=== PATIENT | male | born 1985 | race Hispanic/Latino ===

== ENCOUNTER 2016-10-15 18:49 | Inpatient (IN) | payer MEDICAID ==
[~2016-10-15] VITALS: Ht 172.7 cm; Wt 72.6 kg
[2016-10-15] VITALS (7 sets, daily range): BP systolic 104–131; BP diastolic 51–81
[~2016-10-15 18:49] MED LIST: HUMALOG100 UNIT/3 SUBQ; LANTUS5 UNITS SUBQ; LEVEMIR100 UNITS/ SUBQ; [UNRECOGNIZED DRUG - OTHER] PO
[2016-10-15] MEDS ORDERED: Etomidate 40mg/20ml Inj IV ONE (19:00)
[2016-10-15] MEDS ORDERED: Ampicillin/Sulbactam Sod 3 GM in NS 110 ML IVPB ONE (19:00)
--- NOTE | 2016-10-15 19:30 | Emergency Room Report ---
History of Present Illness General Chief Complaint: Dyspnea/Respdistress Source: EMS Present Illness HPI Patient is a 31-year-old male who presented after having a witnessed choking episode. Patient was noted to have prior history of blindness. The patient presented after having increased difficulty breathing. Patient had been eating immediately prior to onset of trouble breathing. The patient was noted to be mildly cyanotic his extremities by EMS. Per EMS report a foreign material is for the patient's airway and patient had foreign body in upper airway which was removed by Leonardo forceps. Patient had some chest compression briefly performed to help alleviate obstruction. Intubation was attempted prior to arrival without success due to teeth clenching. Onset was just prior to arrival , 911 call was approximately 15 minutes prior to arrival. Allergies: Coded Allergies: No Known Allergies (Unverified , 09/01/12) Patient History Past Medical History: see triage record Past Surgical History: unable to obtain Pertinent Family History: unable to obtain Reviewed Nursing Documentation: PMH: Agreed, PSxH: Agreed Nursing Documentation-PMH Hx Hypertension: Yes Hx Diabetes: Yes Review of Systems All Other Systems: limited - by acuity Physical Exam Vital Signs Date Time Temp Pulse Resp B/P Pulse Ox O2 Delivery O2 Flow Rate FiO2 10/15/16 18:42 120 16 192/102 97 Ambu-Bag 15.0 Sp02 EP Interpretation: abnormal General Appearance: severe distress Head: normocephalic ENT: uvula midline, other - foreign material in upper pharynx, no material visualized at vocal cords Neck: full range of motion Respiratory: wheezing, other - decreased breath sounds to left side Cardiovascular #1: normal inspection, no edema, tachycardia Gastrointestinal: normal inspection, soft, distended Musculoskeletal: normal inspection, back normal Neurologic: motor weakness, other - teeth clenched Procedures Critical Care Time Critical Care Time Critical care time excluding separately billed procedures was approximately 45minutes. Intubation Intubation : Consent: Emergent Time of Intubation: 19:10 Intubation Method: orotracheal Tube Size (cm): 8.0 Medications: Etomidate Breath Sounds after Intubation: right greater than left Intubation Complications: no complications Post Intubation Xray: Yes Attempts: One Patient Tolerated: Well Complications: None Medical Decision Making Diagnostic Impression: Primary Impression: Choking due to food in larynx Additional Impressions: Partial obstruction of airway Aspiration pneumonia ER Course Patient presented for difficulty breathing. Differential diagnosis included was not limited to foreign body aspiration, reactive airway disease, pulmonary embolism, myocardial infarction, pneumonia, among others.Because of complexity of patient's case laboratory testing and imaging studies were ordered.The patient was intubated for airway protection. The foreign material was removed with a Leonardo forcep. No material directly overlying the trachea was visualized by me. The patient was subsequently suctioned. ET tube was secured at 22 cm. Naso G-tube was placed to decompress the stomach. The patient started on mechanical ventilation.EKG interpreted by me shows sinus tachycardia without acute ST-T wave changes rate of 122. Chest Xray showed low lung volumes with left side infiltrate. Ct of chest read by radiology showed possible foreign body, infiltrate. Patient was started on IV fluids and IV antibiotics. Dr. Velma Meier was contacted for inpatient management. Patient was started on Diprivan drip. Dr. Sims was contacted for pulmonary consult. Labs Test 10/15/16 18:53 10/15/16 19:00 Arterial Blood pH 7.365 (7.350-7.450) Arterial Blood Partial Pressure CO2 54.5 mmHg (35.0-45.0) Arterial Blood Partial Pressure O2 398.5 mmHg (75.0-100.0) Arterial Blood HCO3 30.5 mmol/L (22.0-26.0) Arterial Blood Oxygen Saturation 99.1 % (92.0-98.0) Arterial Blood Base Excess 3.8 Jamel Test Positive White Blood Count 8.3 K/UL (4.8-10.8) Red Blood Count 4.39 M/UL (4.70-6.10) Hemoglobin 14.0 G/DL (14.2-18.0) Hematocrit 40.6 % (42.0-52.0) Mean Corpuscular Volume 92 FL (80-99) Mean Corpuscular Hemoglobin 31.9 PG (27.0-31.0) Mean Corpuscular Hemoglobin Concent 34.5 G/DL (32.0-36.0) Red Cell Distribution Width 11.9 % (11.6-14.8) Platelet Count 177 K/UL (150-450) Mean Platelet Volume 6.9 FL (6.5-10.1) Neutrophils (%) (Auto) 47.7 % (45.0-75.0) Lymphocytes (%) (Auto) 44.3 % (20.0-45.0) Monocytes (%) (Auto) 5.5 % (1.0-10.0) Eosinophils (%) (Auto) 1.4 % (0.0-3.0) Basophils (%) (Auto) 1.2 % (0.0-2.0) Sodium Level 140 mEQ/L (135-145) Potassium Level 3.8 mEQ/L (3.4-4.9) Chloride Level 96 mEQ/L (98-107) Carbon Dioxide Level 27 mEQ/L (20-30) Anion Gap 17 (5-15) Blood Urea Nitrogen 21 mg/dL (7-23) Creatinine 1.0 mg/dL (0.7-1.2) Estimat Glomerular Filtration Rate > 60 mL/min (>60) Glucose Level 278 mg/dL (74-106) Calcium Level 9.1 mg/dL (8.6-10.2) Total Bilirubin 0.3 mg/dL (0.0-1.2) Aspartate Amino Transf (AST/SGOT) 92 U/L (5-40) Alanine Aminotransferase (ALT/SGPT) 72 U/L (3-41) Alkaline Phosphatase 102 U/L (40-129) Total Protein 7.1 g/dL (6.6-8.7) Albumin 4.1 g/dL (3.5-5.2) Globulin 3.0 g/dL Albumin/Globulin Ratio 1.3 (1.0-2.7) EKG Diagnostic Results Rate: tachycardiac Rhythm: NSR ST Segments: no acute changes Rhythm Strip Diag. Results EP Interpretation: yes Rhythm: NSR, no PVC's, no ectopy Chest X-Ray Diagnostic Results EP Interpretation: Yes Findings: no effusion, no pneumothorax, no acute cardiopulmonary disease, other - left lung low lung volums Number of Views: 1 Last Vital Signs Date Time Temp Pulse Resp B/P Pulse Ox O2 Delivery O2 Flow Rate FiO2 10/15/16 18:42 120 16 192/102 97 Ambu-Bag 15.0 Status: improved Disposition: ADMITTED INPATIENT Condition: Critical Eugene Morales Oct 15, 2016 19:30
[2016-10-15] MEDS ORDERED: Unasyn 3gm Inj ONE (19:44)
[2016-10-15] MEDS ORDERED: Succinylcholine 20mg/ml 10ml vial ONE (19:48)
[2016-10-15 19:52] LABS: BASOPHILS % (AUTO) 1.2 % (0.0-2.0); EOSINOPHILS % (AUTO) 1.4 % (0.0-3.0); LYMPHOCYTES % (AUTO) 44.3 % (20.0-45.0); MEAN CORPUSCULAR HEMOGLOBIN 31.9 PG (27.0-31.0); MEAN CORPUSCULAR HGB CONC 34.5 G/DL (32.0-36.0); MEAN CORPUSCULAR VOLUME 92 FL (80-99); MEAN PLATELET VOLUME 6.9 FL (6.5-10.1); MONOCYTES % (AUTO) 5.5 % (1.0-10.0); NEUTROPHILS % (AUTO) 47.7 % (45.0-75.0); PLATELET COUNT 177 K/UL (150-450); RED BLOOD COUNT 4.39 M/UL (4.70-6.10); RED CELL DISTRIBUTION WIDTH 11.9 % (11.6-14.8); WHITE BLOOD COUNT 8.3 K/UL (4.8-10.8)
[2016-10-15 20:11] LABS: ALANINE AMINOTRANSFERASE 72 U/L (3-41); ALBUMIN/GLOBULIN RATIO 1.3 (1.0-2.7); ANION GAP 17 (5-15); ASPARTATE AMINO TRANSFERASE 92 U/L (5-40); CALCIUM 9.1 mg/dL (8.6-10.2); CARBON DIOXIDE 27 mEQ/L (20-30); CHLORIDE 96 mEQ/L (98-107); GLOMERULAR FILTRATION RATE > 60 mL/min (>60); HEMOLYSIS 42; POTASSIUM 3.8 mEQ/L (3.4-4.9); SODIUM 140 mEQ/L (135-145); TOTAL PROTEIN 7.1 g/dL (6.6-8.7)
[2016-10-15 20:44] LABS: ABG PCO2 54.5 mmHg (35.0-45.0)
[2016-10-15 20:45] LABS: ABG ALLEN TEST POSITIVE; ABG BASE EXCESS 3.8
[2016-10-15] MEDS ORDERED: DuoNeb 0.5-3(2.5)mg/3ml neb HHN PRN (23:45)
[2016-10-15] MEDS ORDERED: fentaNYL 100 mcg/2 mL IV ONE (23:45)
[2016-10-15] MEDS ORDERED: Pneumococcal Vaccine 25mcg/0.5ml IM ONE (23:45)
[2016-10-16] VITALS (22 sets, daily range): BP systolic 77–148; BP diastolic 40–82
[2016-10-16] MEDS ORDERED: 1/2NS w/KCl 20mEq 1000ml 1,000 ML IV SCH (00:36)
[2016-10-16] MEDS ORDERED: Unasyn 3gm Inj ONE (01:39)
[2016-10-16] MEDS ORDERED: Unasyn 3gm Inj IV SCH (02:00)
[2016-10-16] MEDS ORDERED: Unasyn 3gm in NS 110ml IVPB SCH (02:00)
[2016-10-16 05:40] LABS: MEAN CORPUSCULAR HEMOGLOBIN 30.2 PG (27.0-31.0); MEAN CORPUSCULAR HGB CONC 32.8 G/DL (32.0-36.0); MEAN CORPUSCULAR VOLUME 92 FL (80-99); MEAN PLATELET VOLUME 7.8 FL (6.5-10.1); PLATELET COUNT 158 K/UL (150-450); RED BLOOD COUNT 3.91 M/UL (4.70-6.10); RED CELL DISTRIBUTION WIDTH 11.9 % (11.6-14.8); WHITE BLOOD COUNT 12.7 K/UL (4.8-10.8)
[2016-10-16 05:56] LABS: ANION GAP 11 (5-15); CALCIUM 6.9 mg/dL (8.6-10.2); CARBON DIOXIDE 20 mEQ/L (20-30); CHLORIDE 97 mEQ/L (98-107); CREATININE 0.7 mg/dL (0.7-1.2); GLOMERULAR FILTRATION RATE > 60 mL/min (>60); HEMOLYSIS 8; MAGNESIUM 1.3 mg/dL (1.7-2.5); SODIUM 128 mEQ/L (135-145)
[2016-10-16 06:04] LABS: POTASSIUM 8.5 mEQ/L (3.4-4.9)
[2016-10-16] MEDS: Pantoprazole Inj IV SCH (08:32)
[2016-10-16] MEDS: Heparin 5000 units/ml inj SUBQ SCH ×2 (08:33→20:35)
[2016-10-16 08:36] LABS: ABG ALLEN TEST POSITIVE; ABG BASE EXCESS 0.9; ABG PCO2 38.5 mmHg (35.0-45.0)
--- NOTE | 2016-10-16 08:54 | Critical Care Progress Note ---
Assessment/Plan Assessment/Plan possible aspiration respiratory failure aspiration event leukocytosis anemia PLAN ventilator bronchoscopy supportive care update mother iv hydration ICU care Critical Care - Subjective Interval Events: findings discussed asked to assist possible aspiration event now intubated ROS Limited/Unobtainable: Yes Condition: critical EKG Rhythm: Sinus Rhythm I&O: Intake and Output 10/15/16 10/16/16 19:00 07:00 Intake Total 320 ml Output Total 2559 ml Balance -2239 ml Intake IV Total 320 ml Output Urine Total 2559 ml Critical Care - Objective ET-Tube: 8.0 ET Position: 23 Last 24 Hour Vital Signs Date Time Temp Pulse Resp B/P Pulse Ox O2 Delivery O2 Flow Rate FiO2 10/16/16 08:00 98.5 93 20 109/73 93 Mechanical Ventilator 40 10/16/16 08:00 40 10/16/16 07:22 97.9 92 20 119/74 93 Mechanical Ventilator 15.0 40 10/16/16 06:57 90 20 40 10/16/16 06:45 97.9 92 20 119/74 93 Mechanical Ventilator 15.0 40 10/16/16 05:27 97.9 96 20 121/66 95 Mechanical Ventilator 15.0 40 10/16/16 05:19 95 20 40 10/16/16 04:12 97.9 94 20 123/75 99 Mechanical Ventilator 15.0 30 10/16/16 03:19 97.9 94 20 113/71 99 Mechanical Ventilator 15.0 30 10/16/16 03:01 95 20 30 10/16/16 02:29 20 10/16/16 01:51 97.0 98 20 110/61 99 Mechanical Ventilator 15.0 30 10/16/16 01:05 15.0 30 10/16/16 01:04 99 20 30 10/16/16 00:28 97.0 10/16/16 00:26 97.0 97 20 99/67 99 Mechanical Ventilator 15.0 50 10/16/16 00:24 20 10/15/16 23:14 108 20 50 10/15/16 23:04 15.0 50 10/15/16 23:03 97.0 107 20 108/70 99 Mechanical Ventilator 15.0 60 10/15/16 22:53 97.0 107 20 117/71 99 Mechanical Ventilator 15.0 60 10/15/16 22:25 97.0 106 20 108/63 99 Mechanical Ventilator 15.0 60 10/15/16 22:14 20 10/15/16 21:11 97.0 108 20 104/51 99 Mechanical Ventilator 15.0 60 10/15/16 21:00 97.0 110 20 109/57 99 Mechanical Ventilator 15.0 60 10/15/16 20:59 15.0 60 10/15/16 20:56 20 10/15/16 20:55 103 20 60 10/15/16 19:44 15.0 100 10/15/16 19:43 114 18 123/80 99 Mechanical Ventilator 15.0 10/15/16 19:23 18 10/15/16 19:00 116 32 131/81 83 Ambu-Bag 10/15/16 19:00 120 16 Ambu-Bag 15.0 10/15/16 18:50 120 20 Mechanical Ventilator 100 10/15/16 18:50 120 20 100 10/15/16 18:42 120 16 192/102 97 Ambu-Bag 15.0 Objective: WDWN NAD clear breath sounds bilaterally without rhonchi or wheeze [id number] without MRG NABS nontender no HSM no CCE nonfocal intubated and sedated Micro: Microbiology Date/Time Source Procedure Growth Status 10/15/16 17:15 Rectum VRE Culture - Final NO VANCOMYCIN RESISTANT ENTEROCOCCUS ... Resulted Accucheck: 287 IZABEL HASTINGS October 16, 2016 08:54
[2016-10-16] MEDS ORDERED: Desmopressin Nasal 5ml NASAL SCH (09:00)
[2016-10-16] MEDS: NovoLOG Insulin Flexpen SUBQ SCH ×4 (09:08→20:36)
[2016-10-16] MEDS: NS w/KCl 20mEq 1,000 ML IV SCH ×2 (09:18→17:17)
--- NOTE | 2016-10-16 09:51 | Diagnostic Imaging Report ---
Clinical Indication: PAIN Technique: Spiral acquisitions obtained through the chest. No IV contrast utilized, reason not stated. Multiplanar reconstructions generated. Total dose length product 560 mGycm. CTDIvol(s) 19 mGy. Dose reduction achieved using automated exposure control Comparison: None Findings:There is dense consolidation of most of the left upper lobe. There is consolidation and atelectasis of a considerable portion of the posterior superior left lower lobe. Extensive debris is seen in the left mainstem bronchus nearly occluding it. Interstitial and airspace opacities are seen within most of the right upper lobe, to a lesser extent in the right middle lobe and superior segment right lower lobe. No effusions. No definite congestion. There is an endotracheal tube in place, tip of which terminates just above the cee. There is a nasogastric tube in place, tip within the gastric fundus. Considerable debris is seen within the esophagus. The heart size is normal. There is no evidence of pericardial effusion. No mediastinal or hilar mass or adenopathy. The included portions of the thyroid are unremarkable. The bones are unremarkable. The included upper abdominal anatomy demonstrates considerable gastric distention with presumably food. The lowest cuts suggest right hydronephrosis. Impression: Dense consolidation of most of the left upper lobe, and a considerable portion of the left lower lobe. Less confluent interstitial and airspace opacities seen within the right lung, as described. Findings most likely reflect pneumonia. Evidence of secretions within the left mainstem bronchus, nearly occluding it Satisfactory endotracheal and nasogastric intubation Gastric distention, despite the presence of a nasogastric tube Possible right hydronephrosis, incompletely visualized on the lowest slices. Consider ultrasound for further dilation This agrees with the preliminary interpretation provided overnight by [facility] teleradiology service. The CT scanner at [facility] is accredited by the [employer] and the scans are performed using protocols designed to limit radiation exposure to as low as reasonably achievable to attain images of sufficient resolution adequate for diagnostic evaluation.
[2016-10-16 09:56] LABS: BAND NEUTROPHILS % (MANUAL) 0 % (0-8); BASOPHILS % (MANUAL) 0 % (0-2); EOSINOPHILS % (MANUAL) 0 % (0-3); LYMPHOCYTES % (MANUAL) 6 % (20-45); NEUTROPHILS % (MANUAL) 89 % (45-75); PLATELET ESTIMATE ADEQUATE; PLATELET MORPHOLOGY NORMAL; TOTAL CELLS COUNTED 100
[2016-10-16] MEDS: HYDROmorphone 1mg/ml Carpuject IVP PRN ×2 (10:48→19:29)
[2016-10-16] MEDS: Vancomycin 1gm/D5W 275ml IVPB SCH ×4 (11:15→17:17)
[2016-10-16] MEDS ORDERED: Sodium Phosphate 30 MM in NS 275 ML IVPB ONE (12:00)
[2016-10-16] MEDS ORDERED: HYDROmorphone 1mg/ml Carpuject IVP ONE (12:45)
[2016-10-16] MEDS: Piperacillin/Tazobactam 3.375 GM in D5W 110 ML IVPB SCH ×2 (13:04→22:00)
--- NOTE | 2016-10-16 13:51 | Diagnostic Imaging Report ---
Indication: Dyspnea Technique: One view of the chest Comparison: 10/15/2016 Findings: Better inspiration the current study. Stable satisfactory position of endotracheal tube. Interim placement of a nasogastric tube, tip projected at the level gastric fundus. Interval decompression of the stomach. Increasing consolidation is seen in the left mid and upper lung. Some mixed interstitial and alveolar disease is also seen in the right perihilar region, also apparently slightly increased. The heart size is normal. The pleural spaces are clear Impression: Allowing for technical differences, suspect worsening of bilateral left greater than right pulmonary parenchymal disease over one day Successful nasogastric tube placement. Resultant gastric decompression
--- NOTE | 2016-10-16 13:51 | Diagnostic Imaging Report ---
Indication: SOB, status post intubation Technique: One view of the chest Comparison: none Findings: Satisfactory position of endotracheal tube, tip approximately 4 cm above the cee. Hazy consolidation is seen in the left mid and upper lung, possibly the retrocardiac region as well. There is minimal interstitial disease in the right upper lobe. The stomach is massively distended with gas. Impression: Satisfactory endotracheal intubation Bilateral left greater than right parenchymal infiltrates
--- NOTE | 2016-10-16 14:48 | History and Physical Report ---
DATE OF ADMISSION: 10/15/2016 CHIEF COMPLAINT: Choking on food. HISTORY OF PRESENT ILLNESS: This is an unfortunate 31-year-old male, who is followed at [facility]. His primary physician is Dr. Blair Bullock. The patient has DIDMOAD syndrome which includes diabetes insipidus, type 1 diabetes mellitus, optical atrophy, and deafness. The patient also is followed at [facility] for his optical atrophy and deafness. The patient choked on food. He was transferred via paramedics to this hospital. He was intubated by paramedics. The patient is admitted to ICU. MEDICATIONS: Currently, the patient is on propofol drip and him and his family are not able to give any further information. The information is retrieved from medical record. PAST MEDICAL HISTORY: DIDMOAD syndrome which includes the above-mentioned diabetes insipidus, type 1 diabetes mellitus, optical atrophy, and deafness. MEDICATIONS: Home medications include cholecalciferol, insulin detemir, insulin lispro, DDAVP. ALLERGIES: None reported. FAMILY HISTORY: Unable to obtain. SOCIAL HISTORY: Unable to obtain. PHYSICAL EXAMINATION: GENERAL: This is a young male, who is on the ventilator. The patient is currently sedated. VITAL SIGNS: Blood pressure 119/74, pulse 93 and regular, respirations 20, and temperature 97.9 axillary. HEENT: The head is normocephalic and atraumatic. The patient is sedated. NECK: Supple. Trachea midline. The patient is intubated transorally. LUNGS: Few bilateral rhonchi. HEART: Regular rate and rhythm without rubs, murmurs, or gallops. ABDOMEN: Soft. Bowel sounds were active. EXTREMITIES: No clubbing, cyanosis, or edema. NEUROLOGICAL: No focal signs were noted. LABORATORY AND ANCILLARY DATA: CBC on admission, white count 8.3, today 12,700. The patient's hematocrit was 40.6 and today 36. His potassium today was 4.4, phosphorus 1.2, magnesium 1.3. The rest of the chemistries still pending. ABGs, pH 7.365, pCO2 of 55, pO2 of 399, and bicarbonate 30.5. On admission, his sodium was 128, potassium 4.4, glucose 256, calcium 6.9, phosphorus 1.2, magnesium 1.3. AST 92, ALT 72. CK 636. NG tube was inserted. EKG shows sinus tachycardia without acute ST-T changes. Chest x-ray showed low lung volumes with left-sided infiltrate. ASSESSMENT: 1. Foreign body massive aspiration. 2. Acute respiratory distress secondary to the above. 3. Multiple electrolyte abnormalities including hypophosphatemia, hypomagnesemia, hyponatremia. 4. DIDMOAD syndrome which includes the above-mentioned diabetes insipidus, type 1 diabetes mellitus, optical atrophy, and deafness. Currently I doubt diabetes insipidus due to the existence of hyponatremia. PLAN: 1. Continue home medications. I will hold DDAVP. 2. Pulmonary consult. 3. Consider infectious disease consult. [place] M.D. DR: Gino JOB#: [id number] CC:
[2016-10-16 17:44] LABS: ABG BASE EXCESS -0.2; ABG PCO2 47.8 mmHg (35.0-45.0)
[2016-10-16 17:45] LABS: ABG ALLEN TEST POSITIVE
[2016-10-16] MEDS: Acetaminophen 650 MG SUPP RECTAL PRN (20:33)
[2016-10-16] MEDS: Levemir Flexpen SUBQ SCH (20:35)
[2016-10-17] VITALS (24 sets, daily range): BP systolic 108–149; BP diastolic 56–91
[2016-10-17] MEDS: Vancomycin 1gm/D5W 275ml IVPB SCH ×2 (01:29)
[2016-10-17] MEDS: NS w/KCl 20mEq 1,000 ML IV SCH (01:29)
--- NOTE | 2016-10-17 03:18 | Operative Note - Dictated ---
DATE OF OPERATION: 10/16/2016 PREOPERATIVE DIAGNOSIS: Aspiration. POSTOPERATIVE DIAGNOSIS: Aspiration. INDICATION: Respiratory failure and reported choking episode. CONSENT: After risks and benefits of the procedure were explained to the patient's mother, a signed informed consent was obtained and placed in the chart. DESCRIPTION OF PROCEDURE: Using conscious sedation with additional Dilaudid, a fiberoptic bronchoscope was passed via the endotracheal tube. There was evidence of small what appeared to be degraded pieces of food material mixed in with thick sputum. The patient's right bronchus intermedius was blocked with secretion/degraded food material. Multiple installations of saline were instilled with good resolution in clearance of the airway. The left main stem is well blocked with similar material and after multiple extubations and removal of particles, the airways were fully cleared from any residual particles. The patient required 100% FiO2 with significant improvement than at 40% shortly after the completion of the procedure. The airways were aggressively lavaged to clear. No residual material or secretions remained at the completion of the procedure. The patient was monitored closely with RN and RT assistance. The patient tolerated the procedure well. The patient stable after completion of procedure. We will continue to monitor her throughout the procedure and was noted to be within normal range. The patient will remain in the ICU. FINDINGS: 1. Copious amount of degraded material/secretions blocking the bronchus intermedius as well as the left main stem fully lavaged. 2. Significant tracheobronchitis and friable mucosa bilaterally. 3. Status post removal of degraded material/food particles. Charles Sims M.D. DR: STAS JOB#: [id number] CC: JUNG
[2016-10-17] MEDS: Piperacillin/Tazobactam 3.375 GM in D5W 110 ML IVPB SCH ×3 (05:38→21:50)
[2016-10-17] MEDS: Acetaminophen 650 MG SUPP RECTAL PRN (05:38)
[2016-10-17] MEDS: NovoLOG Insulin Flexpen SUBQ SCH ×4 (05:40→20:39)
[2016-10-17 06:47] LABS: ANION GAP 15 (5-15); CARBON DIOXIDE 25 mEQ/L (20-30); CHLORIDE 115 mEQ/L (98-107); CREATININE 0.9 mg/dL (0.7-1.2); GLOMERULAR FILTRATION RATE > 60 mL/min (>60); HEMOLYSIS 2; POTASSIUM 3.8 mEQ/L (3.4-4.9); SODIUM 155 mEQ/L (135-145)
--- NOTE | 2016-10-17 08:15 | Cardiology Report ---
APPROVED REPORT EKG Measurement Heart [id number] ID [id number] Sinus tachycardia Rightward axis Borderline ECG
[2016-10-17 08:18] LABS: ABG ALLEN TEST POSITIVE; ABG BASE EXCESS 0.3; ABG PCO2 57.7 mmHg (35.0-45.0)
--- NOTE | 2016-10-17 08:31 | Critical Care Progress Note ---
Assessment/Plan Assessment/Plan aspiration s/p bronchoscopy pulmonary infiltrates respiratory failure aspiration event leukocytosis anemia sinus tachycardia agitation PLAN ventilator- weaning well extubate bronchoscopy with significant improvement supportive care update mother iv hydration follow up cxr and abg titrate oxygen saturations ICU care Critical Care - Subjective Interval Events: improved oxygenation much improved weaning well agitated ROS Limited/Unobtainable: Yes Condition: critical EKG Rhythm: Sinus Tachycardia I&O: Intake and Output 10/16/16 10/17/16 19:00 07:00 Intake Total 1595.000 ml 2004.916 ml Output Total 2100 ml 1975 ml Balance -505.000 ml 29.916 ml Intake IV Total 1595.000 ml 2004.916 ml Output Urine Total 2100 ml 1975 ml # Voids 50 # Bowel Movements 2 Critical Care - Objective ET-Tube: 8.0 ET Position: 22 Last 24 Hour Vital Signs Date Time Temp Pulse Resp B/P Pulse Ox O2 Delivery O2 Flow Rate FiO2 10/17/16 08:00 98.9 138 35 134/82 98 Mechanical Ventilator 40 10/17/16 08:00 133 10/17/16 08:00 40 10/17/16 07:00 124 20 141/72 97 Mechanical Ventilator 40 10/17/16 06:58 111 22 40 10/17/16 06:08 99.1 10/17/16 06:00 99.1 107 20 115/63 97 Mechanical Ventilator 40 10/17/16 05:26 127 20 40 10/17/16 05:00 125 20 135/58 97 Mechanical Ventilator 40 10/17/16 04:00 40 10/17/16 04:00 100.1 118 20 129/56 97 Mechanical Ventilator 40 10/17/16 04:00 118 10/17/16 03:10 101 20 40 10/17/16 03:00 106 20 125/62 97 Mechanical Ventilator 40 10/17/16 02:00 106 20 108/68 97 Mechanical Ventilator 40 10/17/16 01:00 93 20 111/60 97 Mechanical Ventilator 40 10/17/16 00:34 105 20 40 10/17/16 00:00 40 10/17/16 00:00 105 10/17/16 00:00 98.7 105 20 116/70 97 Mechanical Ventilator 40 10/16/16 23:16 104 20 40 10/16/16 23:00 104 20 110/63 97 Mechanical Ventilator 40 10/16/16 22:00 103 20 99/61 97 Mechanical Ventilator 40 10/16/16 21:02 112 20 40 10/16/16 21:00 99.0 112 20 101/64 97 Mechanical Ventilator 40 10/16/16 20:00 123 10/16/16 20:00 40 10/16/16 20:00 101.0 115 20 77/40 96 Mechanical Ventilator 40 10/16/16 19:35 98.9 10/16/16 19:27 137 20 40 10/16/16 19:00 130 23 132/73 97 Mechanical Ventilator 40 10/16/16 18:00 131 20 121/72 97 Mechanical Ventilator 40 10/16/16 17:06 129 20 100 10/16/16 17:00 124 22 128/68 93 Mechanical Ventilator 40 10/16/16 16:00 118 10/16/16 16:00 98.9 127 20 127/68 96 Mechanical Ventilator 100 10/16/16 16:00 40 10/16/16 15:06 129 20 100 10/16/16 15:00 129 22 129/81 97 Mechanical Ventilator 40 10/16/16 14:00 112 20 122/82 96 Mechanical Ventilator 50 10/16/16 13:00 106 20 106/59 98 Mechanical Ventilator 100 10/16/16 12:00 98.8 115 21 118/63 88 Mechanical Ventilator 100 10/16/16 12:00 118 10/16/16 12:00 100 10/16/16 11:57 114 20 100 10/16/16 11:26 120 20 100 10/16/16 11:00 120 20 89/48 72 Mechanical Ventilator 50 10/16/16 10:00 121 20 148/81 91 Mechanical Ventilator 50 10/16/16 09:10 97 25 100 10/16/16 09:00 115 20 140/78 92 Mechanical Ventilator 40 Labs: Labs Test 10/15/16 18:53 10/15/16 19:00 10/16/16 04:00 10/16/16 05:22 Arterial Blood pH 7.365 (7.350-7.450) 7.431 (7.350-7.450) Arterial Blood Partial Pressure CO2 54.5 mmHg (35.0-45.0) 38.5 mmHg (35.0-45.0) Arterial Blood Partial Pressure O2 398.5 mmHg (75.0-100.0) 64.0 mmHg (75.0-100.0) Arterial Blood HCO3 30.5 mmol/L (22.0-26.0) 25.0 mmol/L (22.0-26.0) Arterial Blood Oxygen Saturation 99.1 % (92.0-98.0) 88.6 % (92.0-98.0) Arterial Blood Base Excess 3.8 0.9 Jamel Test Positive Positive White Blood Count 8.3 K/UL (4.8-10.8) 12.7 K/UL (4.8-10.8) Red Blood Count 4.39 M/UL (4.70-6.10) 3.91 M/UL (4.70-6.10) Hemoglobin 14.0 G/DL (14.2-18.0) 11.8 G/DL (14.2-18.0) Hematocrit 40.6 % (42.0-52.0) 36.0 % (42.0-52.0) Mean Corpuscular Volume 92 FL (80-99) 92 FL (80-99) Mean Corpuscular Hemoglobin 31.9 PG (27.0-31.0) 30.2 PG (27.0-31.0) Mean Corpuscular Hemoglobin Concent 34.5 G/DL (32.0-36.0) 32.8 G/DL (32.0-36.0) Red Cell Distribution Width 11.9 % (11.6-14.8) 11.9 % (11.6-14.8) Platelet Count 177 K/UL (150-450) 158 K/UL (150-450) Mean Platelet Volume 6.9 FL (6.5-10.1) 7.8 FL (6.5-10.1) Neutrophils (%) (Auto) 47.7 % (45.0-75.0) % (45.0-75.0) Lymphocytes (%) (Auto) 44.3 % (20.0-45.0) % (20.0-45.0) Monocytes (%) (Auto) 5.5 % (1.0-10.0) % (1.0-10.0) Eosinophils (%) (Auto) 1.4 % (0.0-3.0) % (0.0-3.0) Basophils (%) (Auto) 1.2 % (0.0-2.0) % (0.0-2.0) Sodium Level 140 mEQ/L (135-145) 128 mEQ/L (135-145) Potassium Level 3.8 mEQ/L (3.4-4.9) 8.5 mEQ/L (3.4-4.9) Chloride Level 96 mEQ/L (98-107) 97 mEQ/L (98-107) Carbon Dioxide Level 27 mEQ/L (20-30) 20 mEQ/L (20-30) Anion Gap 17 (5-15) 11 (5-15) Blood Urea Nitrogen 21 mg/dL (7-23) 14 mg/dL (7-23) Creatinine 1.0 mg/dL (0.7-1.2) 0.7 mg/dL (0.7-1.2) Estimat Glomerular Filtration Rate > 60 mL/min (>60) > 60 mL/min (>60) Glucose Level 278 mg/dL (74-106) 256 mg/dL (74-106) Calcium Level 9.1 mg/dL (8.6-10.2) 6.9 mg/dL (8.6-10.2) Total Bilirubin 0.3 mg/dL (0.0-1.2) Aspartate Amino Transf (AST/SGOT) 92 U/L (5-40) Alanine Aminotransferase (ALT/SGPT) 72 U/L (3-41) Alkaline Phosphatase 102 U/L (40-129) Total Protein 7.1 g/dL (6.6-8.7) Albumin 4.1 g/dL (3.5-5.2) Globulin 3.0 g/dL Albumin/Globulin Ratio 1.3 (1.0-2.7) Differential Total Cells Counted 100 Neutrophils % (Manual) 89 % (45-75) Lymphocytes % (Manual) 6 % (20-45) Monocytes % (Manual) 5 % (1-10) Eosinophils % (Manual) 0 % (0-3) Basophils % (Manual) 0 % (0-2) Band Neutrophils 0 % (0-8) Platelet Estimate Adequate Platelet Morphology Normal Red Blood Cell Morphology Normal Hemoglobin A1c 7.7 % (< 6.0) Phosphorus Level 1.2 mg/dL (2.5-4.8) Magnesium Level 1.3 mg/dL (1.7-2.5) Test 10/16/16 06:24 10/16/16 17:40 10/17/16 05:30 10/17/16 08:10 Sodium Level 145 mEQ/L (135-145) 155 mEQ/L (135-145) Potassium Level 4.4 mEQ/L (3.4-4.9) 3.8 mEQ/L (3.4-4.9) Arterial Blood pH 7.353 (7.350-7.450) 7.304 (7.350-7.450) Arterial Blood Partial Pressure CO2 47.8 mmHg (35.0-45.0) 57.7 mmHg (35.0-45.0) Arterial Blood Partial Pressure O2 65.9 mmHg (75.0-100.0) 78.5 mmHg (75.0-100.0) Arterial Blood HCO3 26.0 mmol/L (22.0-26.0) 28.0 mmol/L (22.0-26.0) Arterial Blood Oxygen Saturation 91.4 % (92.0-98.0) 93.9 % (92.0-98.0) Arterial Blood Base Excess -0.2 0.3 Jamel Test Positive Positive Chloride Level 115 mEQ/L (98-107) Carbon Dioxide Level 25 mEQ/L (20-30) Anion Gap 15 (5-15) Blood Urea Nitrogen 9 mg/dL (7-23) Creatinine 0.9 mg/dL (0.7-1.2) Estimat Glomerular Filtration Rate > 60 mL/min (>60) Glucose Level 261 mg/dL (74-106) Calcium Level 9.0 mg/dL (8.6-10.2) Test 10/17/16 08:15 Objective: WDWN NAD clear breath sounds bilaterally without rhonchi or wheeze S1S2RR tachy without MRG NABS nontender no HSM no CCE nonfocal intubated and agitated Micro: Microbiology Date/Time Source Procedure Growth Status 10/15/16 17:15 Nasal Nares MRSA Culture - Final NO METHICILLIN RESISTANT STAPH AUREUS... Complete 10/15/16 17:15 Rectum VRE Culture - Final NO VANCOMYCIN RESISTANT ENTEROCOCCUS ... Complete Accucheck: 218 IZABEL HASTINGS October 17, 2016 08:31
[2016-10-17] MEDS: Pantoprazole Inj IV SCH (08:43)
[2016-10-17] MEDS: Heparin 5000 units/ml inj SUBQ SCH ×2 (08:46→20:37)
[2016-10-17] MEDS ORDERED: Desmopressin Nasal 5ml NASAL SCH (09:00)
[2016-10-17] MEDS: 1/2NS w/KCl 20mEq 1000ml 1,000 ML IV SCH ×2 (09:10→16:03)
--- NOTE | 2016-10-17 10:14 | General Progress Note ---
Assessment/Plan Assessment/Plan Resolved Respiratory Failure DI - worsening Serum Osmolality. Needs desmopressin [facility] To get sq ! Subjective Allergies: Coded Allergies: No Known Allergies (Unverified , 09/01/12) Subjective Extubated. Deaf. Blind. Objective Last 24 Hour Vital Signs Date Time Temp Pulse Resp B/P Pulse Ox O2 Delivery O2 Flow Rate FiO2 10/17/16 10:00 133 30 135/70 95 Venturi Mask 8.0 10/17/16 09:00 134 21 143/75 95 Venturi Mask 8.0 10/17/16 08:00 98.9 138 35 134/82 98 Mechanical Ventilator 40 10/17/16 08:00 133 10/17/16 08:00 40 10/17/16 07:00 124 20 141/72 97 Mechanical Ventilator 40 10/17/16 06:58 111 22 40 10/17/16 06:08 99.1 10/17/16 06:00 99.1 107 20 115/63 97 Mechanical Ventilator 40 10/17/16 05:26 127 20 40 10/17/16 05:00 125 20 135/58 97 Mechanical Ventilator 40 10/17/16 04:00 40 10/17/16 04:00 100.1 118 20 129/56 97 Mechanical Ventilator 40 10/17/16 04:00 118 10/17/16 03:10 101 20 40 10/17/16 03:00 106 20 125/62 97 Mechanical Ventilator 40 10/17/16 02:00 106 20 108/68 97 Mechanical Ventilator 40 10/17/16 01:00 93 20 111/60 97 Mechanical Ventilator 40 10/17/16 00:34 105 20 40 10/17/16 00:00 40 10/17/16 00:00 105 10/17/16 00:00 98.7 105 20 116/70 97 Mechanical Ventilator 40 10/16/16 23:16 104 20 40 10/16/16 23:00 104 20 110/63 97 Mechanical Ventilator 40 10/16/16 22:00 103 20 99/61 97 Mechanical Ventilator 40 10/16/16 21:02 112 20 40 10/16/16 21:00 99.0 112 20 101/64 97 Mechanical Ventilator 40 10/16/16 20:00 123 10/16/16 20:00 40 10/16/16 20:00 101.0 115 20 77/40 96 Mechanical Ventilator 40 10/16/16 19:35 98.9 10/16/16 19:27 137 20 40 10/16/16 19:00 130 23 132/73 97 Mechanical Ventilator 40 10/16/16 18:00 131 20 121/72 97 Mechanical Ventilator 40 10/16/16 17:06 129 20 100 10/16/16 17:00 124 22 128/68 93 Mechanical Ventilator 40 10/16/16 16:00 118 10/16/16 16:00 98.9 127 20 127/68 96 Mechanical Ventilator 100 10/16/16 16:00 40 10/16/16 15:06 129 20 100 10/16/16 15:00 129 22 129/81 97 Mechanical Ventilator 40 10/16/16 14:00 112 20 122/82 96 Mechanical Ventilator 50 10/16/16 13:00 106 20 106/59 98 Mechanical Ventilator 100 10/16/16 12:00 98.8 115 21 118/63 88 Mechanical Ventilator 100 10/16/16 12:00 118 10/16/16 12:00 100 10/16/16 11:57 114 20 100 10/16/16 11:26 120 20 100 10/16/16 11:00 120 20 89/48 72 Mechanical Ventilator 50 Intake and Output 10/16/16 10/17/16 19:00 07:00 Intake Total 1595.000 ml 2004.916 ml Output Total 2100 ml 1975 ml Balance -505.000 ml 29.916 ml IV Total 1595.000 ml 2004.916 ml Output Urine Total 2100 ml 1975 ml # Voids 50 # Bowel Movements 2 Laboratory Tests 10/16/16 17:40: Arterial Blood pH 7.353, Arterial Blood Partial Pressure CO2 47.8H, Arterial Blood Partial Pressure O2 65.9L, Arterial Blood HCO3 26.0, Arterial Blood Oxygen Saturation 91.4L, Arterial Blood Base Excess -0.2, Jamel Test Positive 10/17/16 05:30: Sodium Level 155#H, Potassium Level 3.8, Chloride Level 115H, Carbon Dioxide Level 25, Anion Gap 15, Blood Urea Nitrogen 9, Creatinine 0.9, Estimat Glomerular Filtration Rate > 60, Glucose Level 261H, Calcium Level 9.0# 10/17/16 08:10: Arterial Blood pH 7.304L, Arterial Blood Partial Pressure CO2 57.7*H, Arterial Blood Partial Pressure O2 78.5, Arterial Blood HCO3 28.0H, Arterial Blood Oxygen Saturation 93.9, Arterial Blood Base Excess 0.3, Jamel Test Positive 10/17/16 08:15: Urine Osmolality [Pending] 10/17/16 09:15: Vancomycin Level Trough [Pending] Height (Feet): 5 Height (Inches): 8.00 Weight (Pounds): 160 Objective Deaf. Blind. Cv RR Lungs CTA Abd SNT. BS + E No CCE RENETTA SOMMER October 17, 2016 10:14
[2016-10-17] MEDS ORDERED: Desmopressin (DDAVP) Inj IV SCH ×2 (10:15→21:00)
[2016-10-17] MEDS: Desmopressin (DDAVP) Inj SUBQ SCH ×2 (10:17→10:57)
[2016-10-17] MEDS ORDERED: Vancomycin 1.5 GM in D5W 325 ML IVPB SCH ×4 (11:00)
--- NOTE | 2016-10-17 12:47 | Diagnostic Imaging Report ---
Indication: Dyspnea Comparison: 10/16/16 A single view chest radiograph was obtained. Findings: Patchy left upper lobe infiltrate is present. Perihilar infiltrates also noted. Heart size is normal. Patient has been extubated. Nasogastric tube remains in good position. Impression: Post extubation. No significant change otherwise.
[2016-10-17] MEDS ORDERED: NS 275ml ONE (16:59)
[2016-10-17] MEDS ORDERED: Tubing IV Secondary IV ONE (16:59)
[2016-10-17] MEDS: Vancomycin 1.25 GM in D5W 275 ML IVPB SCH (17:51)
[2016-10-17] MEDS: Levemir Flexpen SUBQ SCH (20:38)
[2016-10-17] MEDS: HYDROmorphone 1mg/ml Carpuject IVP PRN (20:58)
[2016-10-18] VITALS (24 sets, daily range): BP systolic 122–153; BP diastolic 55–80
[2016-10-18] MEDS: 1/2NS w/KCl 20mEq 1000ml 1,000 ML IV SCH ×3 (00:28→17:43)
[2016-10-18] MEDS: Vancomycin 1.25 GM in D5W 275 ML IVPB SCH ×3 (03:11→17:43)
[2016-10-18] MEDS: Piperacillin/Tazobactam 3.375 GM in D5W 110 ML IVPB SCH ×3 (06:00→21:55)
[2016-10-18] MEDS: NovoLOG Insulin Flexpen SUBQ SCH ×4 (06:07→21:03)
[2016-10-18 06:12] LABS: ANION GAP 10 (5-15); CALCIUM 9.3 mg/dL (8.6-10.2); CARBON DIOXIDE 30 mEQ/L (20-30); CHLORIDE 112 mEQ/L (98-107); CREATININE 0.7 mg/dL (0.7-1.2); GLOMERULAR FILTRATION RATE > 60 mL/min (>60); HEMOLYSIS 1; SODIUM 152 mEQ/L (135-145)
--- NOTE | 2016-10-18 08:24 | Critical Care Progress Note ---
Assessment/Plan Assessment/Plan s/p bronchoscopy pulmonary infiltrates respiratory failure aspiration event leukocytosis anemia sinus tachycardia agitation PLAN ventilator- off extubated; recheck abg and cxr now bronchoscopy with significant improvement; may need repeat supportive care iv hydration low threshold to intubate if not improved titrate oxygen saturations if able ICU care Critical Care - Subjective Interval Events: extubated was on 40% and now up to 100% RR increased ROS Limited/Unobtainable: Yes Condition: critical EKG Rhythm: Sinus Tachycardia I&O: Intake and Output 10/17/16 10/18/16 19:00 07:00 Intake Total 1676.208 ml 1912.5 ml Output Total 1925 ml 1170 ml Balance -248.792 ml 742.5 ml Intake Free Water 30 ml IV Total 1646.208 ml 1912.5 ml Output Urine Total 1925 ml 1170 ml Critical Care - Objective ET-Tube: 8.0 ET Position: 22 Last 24 Hour Vital Signs Date Time Temp Pulse Resp B/P Pulse Ox O2 Delivery O2 Flow Rate FiO2 10/18/16 08:00 111 10/18/16 07:00 107 35 147/72 97 Non-Rebreather 10/18/16 06:48 Non-Rebreather 15.0 100 10/18/16 06:47 97 Non-Rebreather 15.0 100 10/18/16 06:00 110 24 150/78 98 Non-Rebreather 10/18/16 05:00 110 32 146/80 98 Non-Rebreather 10/18/16 04:00 97.8 107 34 150/69 98 Non-Rebreather 10/18/16 04:00 107 10/18/16 03:00 110 28 150/71 98 Non-Rebreather 10/18/16 02:00 110 24 147/73 98 Non-Rebreather 10/18/16 01:00 110 25 145/76 100 Non-Rebreather 10/18/16 00:00 97.9 108 34 142/77 99 Non-Rebreather 10/18/16 00:00 108 10/17/16 23:00 110 33 136/72 100 Non-Rebreather 10/17/16 22:00 109 28 123/63 100 Non-Rebreather 10/17/16 21:30 97.6 10/17/16 21:00 102 28 122/68 96 Non-Rebreather 10/17/16 20:00 104 10/17/16 20:00 98.6 104 25 142/76 98 Non-Rebreather 10/17/16 19:30 97 Non-Rebreather 15.0 100 10/17/16 19:30 Non-Rebreather 15.0 100 10/17/16 19:00 106 31 135/79 96 Non-Rebreather 15.0 10/17/16 18:00 106 30 133/80 94 Non-Rebreather 15.0 10/17/16 17:00 109 40 133/67 90 Venturi Mask 12.0 10/17/16 16:00 112 10/17/16 16:00 97.8 112 37 123/91 93 Mechanical Ventilator 40 10/17/16 15:00 115 35 126/65 92 Venturi Mask 12.0 10/17/16 14:00 113 32 134/72 92 Venturi Mask 12.0 10/17/16 13:00 115 35 137/68 86 Venturi Mask 8.0 10/17/16 12:00 98.7 129 36 149/73 95 Mechanical Ventilator 40 10/17/16 12:00 129 10/17/16 11:00 128 33 128/74 96 Venturi Mask 8.0 10/17/16 10:00 133 30 135/70 95 Venturi Mask 8.0 10/17/16 09:00 134 21 143/75 95 Venturi Mask 8.0 10/17/16 08:58 96 Venturi Mask 8.0 40 10/17/16 08:56 Venturi Mask 8.0 40 10/17/16 08:55 Venturi Mask 8.0 40 Labs: Labs Test 10/15/16 18:53 10/15/16 19:00 10/16/16 04:00 10/16/16 05:22 Arterial Blood pH 7.365 (7.350-7.450) 7.431 (7.350-7.450) Arterial Blood Partial Pressure CO2 54.5 mmHg (35.0-45.0) 38.5 mmHg (35.0-45.0) Arterial Blood Partial Pressure O2 398.5 mmHg (75.0-100.0) 64.0 mmHg (75.0-100.0) Arterial Blood HCO3 30.5 mmol/L (22.0-26.0) 25.0 mmol/L (22.0-26.0) Arterial Blood Oxygen Saturation 99.1 % (92.0-98.0) 88.6 % (92.0-98.0) Arterial Blood Base Excess 3.8 0.9 Jamel Test Positive Positive White Blood Count 8.3 K/UL (4.8-10.8) 12.7 K/UL (4.8-10.8) Red Blood Count 4.39 M/UL (4.70-6.10) 3.91 M/UL (4.70-6.10) Hemoglobin 14.0 G/DL (14.2-18.0) 11.8 G/DL (14.2-18.0) Hematocrit 40.6 % (42.0-52.0) 36.0 % (42.0-52.0) Mean Corpuscular Volume 92 FL (80-99) 92 FL (80-99) Mean Corpuscular Hemoglobin 31.9 PG (27.0-31.0) 30.2 PG (27.0-31.0) Mean Corpuscular Hemoglobin Concent 34.5 G/DL (32.0-36.0) 32.8 G/DL (32.0-36.0) Red Cell Distribution Width 11.9 % (11.6-14.8) 11.9 % (11.6-14.8) Platelet Count 177 K/UL (150-450) 158 K/UL (150-450) Mean Platelet Volume 6.9 FL (6.5-10.1) 7.8 FL (6.5-10.1) Neutrophils (%) (Auto) 47.7 % (45.0-75.0) % (45.0-75.0) Lymphocytes (%) (Auto) 44.3 % (20.0-45.0) % (20.0-45.0) Monocytes (%) (Auto) 5.5 % (1.0-10.0) % (1.0-10.0) Eosinophils (%) (Auto) 1.4 % (0.0-3.0) % (0.0-3.0) Basophils (%) (Auto) 1.2 % (0.0-2.0) % (0.0-2.0) Sodium Level 140 mEQ/L (135-145) 128 mEQ/L (135-145) Potassium Level 3.8 mEQ/L (3.4-4.9) 8.5 mEQ/L (3.4-4.9) Chloride Level 96 mEQ/L (98-107) 97 mEQ/L (98-107) Carbon Dioxide Level 27 mEQ/L (20-30) 20 mEQ/L (20-30) Anion Gap 17 (5-15) 11 (5-15) Blood Urea Nitrogen 21 mg/dL (7-23) 14 mg/dL (7-23) Creatinine 1.0 mg/dL (0.7-1.2) 0.7 mg/dL (0.7-1.2) Estimat Glomerular Filtration Rate > 60 mL/min (>60) > 60 mL/min (>60) Glucose Level 278 mg/dL (74-106) 256 mg/dL (74-106) Calcium Level 9.1 mg/dL (8.6-10.2) 6.9 mg/dL (8.6-10.2) Total Bilirubin 0.3 mg/dL (0.0-1.2) Aspartate Amino Transf (AST/SGOT) 92 U/L (5-40) Alanine Aminotransferase (ALT/SGPT) 72 U/L (3-41) Alkaline Phosphatase 102 U/L (40-129) Total Protein 7.1 g/dL (6.6-8.7) Albumin 4.1 g/dL (3.5-5.2) Globulin 3.0 g/dL Albumin/Globulin Ratio 1.3 (1.0-2.7) Differential Total Cells Counted 100 Neutrophils % (Manual) 89 % (45-75) Lymphocytes % (Manual) 6 % (20-45) Monocytes % (Manual) 5 % (1-10) Eosinophils % (Manual) 0 % (0-3) Basophils % (Manual) 0 % (0-2) Band Neutrophils 0 % (0-8) Platelet Estimate Adequate Platelet Morphology Normal Red Blood Cell Morphology Normal Hemoglobin A1c 7.7 % (< 6.0) Phosphorus Level 1.2 mg/dL (2.5-4.8) Magnesium Level 1.3 mg/dL (1.7-2.5) Test 10/16/16 06:24 10/16/16 17:40 10/17/16 05:30 10/17/16 08:10 Sodium Level 145 mEQ/L (135-145) 155 mEQ/L (135-145) Potassium Level 4.4 mEQ/L (3.4-4.9) 3.8 mEQ/L (3.4-4.9) Arterial Blood pH 7.353 (7.350-7.450) 7.304 (7.350-7.450) Arterial Blood Partial Pressure CO2 47.8 mmHg (35.0-45.0) 57.7 mmHg (35.0-45.0) Arterial Blood Partial Pressure O2 65.9 mmHg (75.0-100.0) 78.5 mmHg (75.0-100.0) Arterial Blood HCO3 26.0 mmol/L (22.0-26.0) 28.0 mmol/L (22.0-26.0) Arterial Blood Oxygen Saturation 91.4 % (92.0-98.0) 93.9 % (92.0-98.0) Arterial Blood Base Excess -0.2 0.3 Jamel Test Positive Positive Chloride Level 115 mEQ/L (98-107) Carbon Dioxide Level 25 mEQ/L (20-30) Anion Gap 15 (5-15) Blood Urea Nitrogen 9 mg/dL (7-23) Creatinine 0.9 mg/dL (0.7-1.2) Estimat Glomerular Filtration Rate > 60 mL/min (>60) Glucose Level 261 mg/dL (74-106) Calcium Level 9.0 mg/dL (8.6-10.2) Test 10/17/16 08:15 10/17/16 09:15 10/17/16 13:50 10/17/16 19:30 Vancomycin Level Trough 10.1 ug/mL (5.0-12.0) Sodium Level 156 mEQ/L (135-145) 153 mEQ/L (135-145) Test 10/18/16 04:40 Sodium Level 152 mEQ/L (135-145) Potassium Level 4.0 mEQ/L (3.4-4.9) Chloride Level 112 mEQ/L (98-107) Carbon Dioxide Level 30 mEQ/L (20-30) Anion Gap 10 (5-15) Blood Urea Nitrogen 10 mg/dL (7-23) Creatinine 0.7 mg/dL (0.7-1.2) Estimat Glomerular Filtration Rate > 60 mL/min (>60) Glucose Level 191 mg/dL (74-106) Calcium Level 9.3 mg/dL (8.6-10.2) Objective: WDWN NAD reduced breath sounds bilaterally with rhonchi diffuse S1S2RR tachy without MRG NABS nontender no HSM no CCE nonfocal extubated and in mild distress Micro: Microbiology Date/Time Source Procedure Growth Status 10/15/16 17:15 Nasal Nares MRSA Culture - Final NO METHICILLIN RESISTANT STAPH AUREUS... Complete 10/15/16 17:15 Rectum VRE Culture - Final NO VANCOMYCIN RESISTANT ENTEROCOCCUS ... Complete Accucheck: 168 IZABEL HASTINGS October 18, 2016 08:24
[2016-10-18] MEDS: Pantoprazole Inj IV SCH (08:50)
[2016-10-18] MEDS: Heparin 5000 units/ml inj SUBQ SCH ×2 (08:51→21:01)
[2016-10-18] MEDS: Acetaminophen 650 MG SUPP RECTAL PRN (10:05)
[2016-10-18 10:17] LABS: ABG ALLEN TEST POSITIVE; ABG BASE EXCESS 2.5; ABG PCO2 62.9 mmHg (35.0-45.0)
[2016-10-18] MEDS: DESMOPRESSIN 0.1 MG ORAL SCH ×2 (12:37→20:59)
[2016-10-18] MEDS: HYDROmorphone 1mg/ml Carpuject IVP PRN ×2 (14:08→22:03)
--- NOTE | 2016-10-18 15:17 | General Progress Note ---
Assessment/Plan Assessment/Plan Resolved Respiratory Failure DI - Stable Serum Osmolality with desmopressin and iv dextrose. Failed Video Swallow. Keep NPO as risks of NGT are aspiration. Repeat Swallow studies in 48 hrs! Subjective Allergies: Coded Allergies: No Known Allergies (Unverified , 09/01/12) Subjective Extubated. Deaf. Blind. Objective Last 24 Hour Vital Signs Date Time Temp Pulse Resp B/P Pulse Ox O2 Delivery O2 Flow Rate FiO2 10/18/16 14:38 98.7 10/18/16 13:30 80 10/18/16 13:25 100 40 100 Facial 100 10/18/16 13:00 82 37 131/77 100 Bi-pap 100 10/18/16 12:00 98.7 87 40 122/55 93 Non-Rebreather 10/18/16 11:10 96 38 98 Facial 100 10/18/16 11:00 84 37 129/69 100 Bi-pap 100 10/18/16 10:35 98.9 10/18/16 10:00 102 36 141/59 97 Non-Rebreather 10/18/16 09:00 111 36 143/62 95 Non-Rebreather 10/18/16 09:00 98.9 104 40 143/62 93 Non-Rebreather 10/18/16 08:00 111 10/18/16 08:00 99.0 104 35 153/77 95 Non-Rebreather 10/18/16 07:00 107 35 147/72 97 Non-Rebreather 10/18/16 06:48 Non-Rebreather 15.0 100 10/18/16 06:47 97 Non-Rebreather 15.0 100 10/18/16 06:00 110 24 150/78 98 Non-Rebreather 10/18/16 05:00 110 32 146/80 98 Non-Rebreather 10/18/16 04:00 97.8 107 34 150/69 98 Non-Rebreather 10/18/16 04:00 107 10/18/16 03:00 110 28 150/71 98 Non-Rebreather 10/18/16 02:00 110 24 147/73 98 Non-Rebreather 10/18/16 01:00 110 25 145/76 100 Non-Rebreather 10/18/16 00:00 97.9 108 34 142/77 99 Non-Rebreather 10/18/16 00:00 108 10/17/16 23:00 110 33 136/72 100 Non-Rebreather 10/17/16 22:00 109 28 123/63 100 Non-Rebreather 10/17/16 21:00 102 28 122/68 96 Non-Rebreather 10/17/16 20:00 104 10/17/16 20:00 98.6 104 25 142/76 98 Non-Rebreather 10/17/16 19:30 97 Non-Rebreather 15.0 100 10/17/16 19:30 Non-Rebreather 15.0 100 10/17/16 19:00 106 31 135/79 96 Non-Rebreather 15.0 10/17/16 18:00 106 30 133/80 94 Non-Rebreather 15.0 10/17/16 17:00 109 40 133/67 90 Venturi Mask 12.0 10/17/16 16:00 112 10/17/16 16:00 97.8 112 37 123/91 93 Mechanical Ventilator 40 Intake and Output 10/17/16 10/18/16 19:00 07:00 Intake Total 1676.208 ml 1912.5 ml Output Total 1925 ml 1170 ml Balance -248.792 ml 742.5 ml Intake Free Water 30 ml IV Total 1646.208 ml 1912.5 ml Output Urine Total 1925 ml 1170 ml Laboratory Tests 10/17/16 19:30: Sodium Level 153H 10/18/16 04:40: Sodium Level 152H, Potassium Level 4.0, Chloride Level 112H, Carbon Dioxide Level 30, Anion Gap 10, Blood Urea Nitrogen 10, Creatinine 0.7, Estimat Glomerular Filtration Rate > 60, Glucose Level 191H, Calcium Level 9.3 10/18/16 10:10: Arterial Blood pH 7.305L, Arterial Blood Partial Pressure CO2 62.9*H, Arterial Blood Partial Pressure O2 64.1L, Arterial Blood HCO3 30.6H, Arterial Blood Oxygen Saturation 92.2, Arterial Blood Base Excess 2.5, Jamel Test Positive 10/18/16 12:15: Sodium Level 153H Height (Feet): 5 Height (Inches): 8.00 Weight (Pounds): 160 Objective Deaf. 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 Cv RR Lungs CTA Abd SNT. BS + E No CCE RENETTA SOMMER October 18, 2016 15:17
[2016-10-18] MEDS: Levemir Flexpen SUBQ SCH (21:02)
[2016-10-19] VITALS (24 sets, daily range): BP systolic 126–155; BP diastolic 56–86
[2016-10-19] MEDS: 1/2NS w/KCl 20mEq 1000ml 1,000 ML IV SCH ×3 (00:41→16:38)
[2016-10-19] MEDS: Vancomycin 1.25 GM in D5W 275 ML IVPB SCH ×3 (01:42→17:53)
[2016-10-19] MEDS: Piperacillin/Tazobactam 3.375 GM in D5W 110 ML IVPB SCH ×3 (05:52→22:10)
[2016-10-19] MEDS: HYDROmorphone 1mg/ml Carpuject IVP PRN ×3 (05:53→18:34)
[2016-10-19] MEDS: NovoLOG Insulin Flexpen SUBQ SCH ×4 (05:59→20:52)
[2016-10-19 06:34] LABS: MAGNESIUM 1.6 mg/dL (1.7-2.5)
[2016-10-19 06:38] LABS: ANION GAP 12 (5-15); CALCIUM 8.8 mg/dL (8.6-10.2); CARBON DIOXIDE 31 mEQ/L (20-30); CHLORIDE 102 mEQ/L (98-107); CREATININE 0.7 mg/dL (0.7-1.2); GLOMERULAR FILTRATION RATE > 60 mL/min (>60); HEMOLYSIS 3; POTASSIUM 4.1 mEQ/L (3.4-4.9); SODIUM 145 mEQ/L (135-145)
[2016-10-19] MEDS ORDERED: Lidocaine HCl 2% Jelly 5ml Tube TOPIC ONE ×2 (08:15→08:30)
--- NOTE | 2016-10-19 08:30 | Critical Care Progress Note ---
Assessment/Plan Assessment/Plan s/p bronchoscopy pulmonary infiltrates respiratory failure aspiration event leukocytosis anemia sinus tachycardia agitation PLAN ventilator- off BIPAP with tachypnea repeat bronchoscopy- d/w family family confirms dysphagia would recommend GT iv hydration low threshold to intubate if not improved; family aware titrate oxygen saturations if able ICU care for now Critical Care - Subjective Interval Events: d/w family increase RR and on high fio2 cxr with LLL significant infiltrate ROS Limited/Unobtainable: Yes Condition: critical EKG Rhythm: Sinus Tachycardia I&O: Intake and Output 10/18/16 10/19/16 19:00 07:00 Intake Total 1976.208 ml 1687.5 ml Output Total 1265 ml 1650 ml Balance 711.208 ml 37.5 ml Intake Free Water 100 ml IV Total 1876.208 ml 1637.5 ml Other 50 ml Output Urine Total 1265 ml 1650 ml Critical Care - Objective CXR: worsening LLL infiltrate ET-Tube: 8.0 ET Position: 22 Last 24 Hour Vital Signs Date Time Temp Pulse Resp B/P Pulse Ox O2 Delivery O2 Flow Rate FiO2 10/19/16 07:00 115 36 139/70 99 Bi-pap 70 10/19/16 06:53 122 39 98 Facial 70 10/19/16 06:00 114 40 126/61 98 Bi-pap 70 10/19/16 05:15 93 44 100 Facial 70 10/19/16 05:00 95 36 146/70 99 Bi-pap 70 10/19/16 04:00 98.9 102 37 155/86 98 Bi-pap 70 10/19/16 04:00 70.0 10/19/16 04:00 99 10/19/16 03:23 102 40 99 Facial 70 10/19/16 03:00 101 39 152/70 100 Bi-pap 70 10/19/16 02:00 104 39 143/74 100 Bi-pap 70 10/19/16 01:00 88 33 145/69 99 Bi-pap 70 10/19/16 00:55 89 41 98 Facial 70 10/19/16 00:00 98 10/19/16 00:00 98.3 109 40 151/74 99 Bi-pap 70 10/19/16 00:00 70.0 10/18/16 23:30 103 42 99 Facial 70 10/18/16 23:00 70.0 10/18/16 23:00 102 41 145/64 99 Bi-pap 70 10/18/16 22:00 105 42 138/76 99 Bi-pap 80 10/18/16 21:15 98 29 100 Facial 80 10/18/16 21:00 99 40 145/64 97 Bi-pap 80 10/18/16 21:00 80.0 10/18/16 20:00 100.0 10/18/16 20:00 98 10/18/16 20:00 98.1 97 39 147/75 96 Bi-pap 100 10/18/16 19:41 89 39 100 Facial 80 10/18/16 19:00 94 38 126/72 100 Bi-pap 100 10/18/16 18:00 97 38 135/69 100 Bi-pap 100 10/18/16 17:00 92 34 136/69 100 Bi-pap 100 10/18/16 16:41 98 36 100 Facial 100 10/18/16 16:00 100.0 10/18/16 16:00 98.0 96 40 143/67 93 Bi-pap 100 10/18/16 15:47 104 10/18/16 15:29 105 33 100 Facial 100 10/18/16 15:00 106 35 135/69 100 Bi-pap 100 10/18/16 14:38 98.7 10/18/16 14:00 83 35 135/67 100 Bi-pap 100 10/18/16 13:30 80 10/18/16 13:25 100 40 100 Facial 100 10/18/16 13:00 82 37 131/77 100 Bi-pap 100 10/18/16 12:00 98.7 87 40 122/55 93 Bi-pap 100 10/18/16 12:00 100.0 10/18/16 11:10 96 38 98 Facial 100 10/18/16 11:00 84 37 129/69 100 Bi-pap 100 10/18/16 10:35 98.9 10/18/16 10:30 100.0 10/18/16 10:00 102 36 141/59 97 Non-Rebreather 10/18/16 09:00 111 36 143/62 95 Non-Rebreather 10/18/16 09:00 98.9 104 40 143/62 93 Non-Rebreather Labs: Labs Test 10/16/16 17:40 10/17/16 05:30 10/17/16 08:10 10/17/16 08:15 Arterial Blood pH 7.353 (7.350-7.450) 7.304 (7.350-7.450) Arterial Blood Partial Pressure CO2 47.8 mmHg (35.0-45.0) 57.7 mmHg (35.0-45.0) Arterial Blood Partial Pressure O2 65.9 mmHg (75.0-100.0) 78.5 mmHg (75.0-100.0) Arterial Blood HCO3 26.0 mmol/L (22.0-26.0) 28.0 mmol/L (22.0-26.0) Arterial Blood Oxygen Saturation 91.4 % (92.0-98.0) 93.9 % (92.0-98.0) Arterial Blood Base Excess -0.2 0.3 Jamel Test Positive Positive Sodium Level 155 mEQ/L (135-145) Potassium Level 3.8 mEQ/L (3.4-4.9) Chloride Level 115 mEQ/L (98-107) Carbon Dioxide Level 25 mEQ/L (20-30) Anion Gap 15 (5-15) Blood Urea Nitrogen 9 mg/dL (7-23) Creatinine 0.9 mg/dL (0.7-1.2) Estimat Glomerular Filtration Rate > 60 mL/min (>60) Glucose Level 261 mg/dL (74-106) Calcium Level 9.0 mg/dL (8.6-10.2) Urine Osmolality 90 mOsmol/kg (.) Test 10/17/16 09:15 10/17/16 13:50 10/17/16 19:30 10/18/16 04:40 Vancomycin Level Trough 10.1 ug/mL (5.0-12.0) Sodium Level 156 mEQ/L (135-145) 153 mEQ/L (135-145) 152 mEQ/L (135-145) Potassium Level 4.0 mEQ/L (3.4-4.9) Chloride Level 112 mEQ/L (98-107) Carbon Dioxide Level 30 mEQ/L (20-30) Anion Gap 10 (5-15) Blood Urea Nitrogen 10 mg/dL (7-23) Creatinine 0.7 mg/dL (0.7-1.2) Estimat Glomerular Filtration Rate > 60 mL/min (>60) Glucose Level 191 mg/dL (74-106) Calcium Level 9.3 mg/dL (8.6-10.2) Test 10/18/16 10:10 10/18/16 12:15 10/18/16 20:08 10/19/16 04:00 Arterial Blood pH 7.305 (7.350-7.450) Arterial Blood Partial Pressure CO2 62.9 mmHg (35.0-45.0) Arterial Blood Partial Pressure O2 64.1 mmHg (75.0-100.0) Arterial Blood HCO3 30.6 mmol/L (22.0-26.0) Arterial Blood Oxygen Saturation 92.2 % (92.0-98.0) Arterial Blood Base Excess 2.5 Jamel Test Positive Sodium Level 153 mEQ/L (135-145) 148 mEQ/L (135-145) Test 10/19/16 04:25 Sodium Level 145 mEQ/L (135-145) Potassium Level 4.1 mEQ/L (3.4-4.9) Chloride Level 102 mEQ/L (98-107) Carbon Dioxide Level 31 mEQ/L (20-30) Anion Gap 12 (5-15) Blood Urea Nitrogen 9 mg/dL (7-23) Creatinine 0.7 mg/dL (0.7-1.2) Estimat Glomerular Filtration Rate > 60 mL/min (>60) Glucose Level 235 mg/dL (74-106) Calcium Level 8.8 mg/dL (8.6-10.2) Phosphorus Level 3.0 mg/dL (2.5-4.8) Magnesium Level 1.6 mg/dL (1.7-2.5) Objective: WDWN NAD tachypneic on BIPAP reduced breath sounds bilaterally with rhonchi diffuse- worse on left S1S2RR tachy without MRG NABS nontender no HSM no CCE nonfocal Accucheck: 217 IZABEL HASTINGS October 19, 2016 08:30
--- NOTE | 2016-10-19 08:39 | Diagnostic Imaging Report ---
Indication: SOB Technique: One view of the chest Comparison: 10/17/2016 Findings: There is increasing dense consolidation in the left lung. Nasogastric tube remains in place. There is persistent unchanged less extensive opacity within the right lung. The heart size is normal Impression: Worsening left, persistent right-sided infiltrates versus edema, as described, over one day
[2016-10-19] MEDS: Pantoprazole Inj IV SCH (10:12)
[2016-10-19] MEDS: DESMOPRESSIN 0.1 MG ORAL SCH ×2 (10:12→22:10)
[2016-10-19] MEDS: Heparin 5000 units/ml inj SUBQ SCH ×2 (10:14→20:49)
--- NOTE | 2016-10-19 11:55 | Diagnostic Imaging Report ---
Indications: Shortness of breath Technique: Portable AP chest Findings: Comparison: 10/18/2016 Left lung volume loss, left lower lobe alveolar consolidation, left pleural effusion, bilateral interstitial infiltrates persist, unchanged. Cardiomediastinal silhouette stable. Nasogastric tube remains in place. Linear density right lung base resolved. No new abnormality identified. IMPRESSION: Resolution of right lung base subsegmental atelectasis No other change from one day prior
[2016-10-19 12:17] LABS: ABG BASE EXCESS 5.1
--- NOTE | 2016-10-19 13:58 | Operative Note - Dictated ---
DATE OF OPERATION: 10/19/2016 BRONCHOSCOPY REPORT PREOPERATIVE DIAGNOSIS: Mucus plugging. POSTOPERATIVE DIAGNOSIS: Mucus plugging. INDICATION: Worsening infiltrates, worsening hypoxemia. CONSENT: After risks and benefits of the procedure were explained to the patient's mother, a signed informed consent was obtained and placed in the chart. DESCRIPTION OF PROCEDURE: Using no additional conscious sedation, a fiberoptic bronchoscope was passed via the right nostril. Lidocaine jelly was instilled for local anesthesia. The bronchoscope was advanced to the level of the vocal cords, which were normal in appearance. The patient had no gag upon instillation of lidocaine liquid. The patient's bronchoscope was then advanced to the level of the cee. The patient had copious amount of secretions, left greater than right. These were cleared with suctioning and lavage. The patient, however, began to desaturate due to the procedure, and therefore, the procedure had to end due to oxygen desaturation in the patient. Remained in the ICU throughout the procedure with RN and RT present. The patient was placed back on BiPAP and now on 100%. The patient was otherwise stable at this time. FINDINGS: 1. Copious amount of secretions, left greater than right lung. 2. Moderate amount of tracheobronchitis. 3. Inadequate gag. 4. Specimens will be sent for routine culture and gram-stain. The patient is to remain in the ICU. Charles Sims M.D. DR: Hari JOB#: [id number] CC:
[2016-10-19] MEDS ORDERED: Etomidate 40mg/20ml Inj IV ONE (14:00)
[2016-10-19] MEDS ORDERED: Succinylcholine 20mg/ml 10ml vial IV ONE (14:00)
--- NOTE | 2016-10-19 14:28 | General Progress Note ---
Assessment/Plan Assessment/Plan Slowly improving Respiratory Failure DI - Stable Serum Osmolality with desmopressin and iv dextrose. Failed Video Swallow. Keep NPO as risks of NGT are aspiration. Repeat Swallow studies in 48 hrs! No reason to transfer to [facility] no special needs, No ICU beds and pt has no private [facility] attending only Teaching Service. Subjective Allergies: Coded Allergies: No Known Allergies (Unverified , 09/01/12) Subjective Was SOB earlier. Almost reintubated. Blind. Objective Last 24 Hour Vital Signs Date Time Temp Pulse Resp B/P Pulse Ox O2 Delivery O2 Flow Rate FiO2 10/19/16 13:00 117 44 145/69 99 Bi-pap 80 10/19/16 12:51 114 29 98 Facial 80 10/19/16 12:00 98.5 107 38 144/71 97 Bi-pap 80 10/19/16 12:00 116 10/19/16 11:00 107 36 143/76 97 Bi-pap 80 10/19/16 10:45 101 39 100 Facial 100 10/19/16 10:00 98 36 145/73 98 Bi-pap 100 10/19/16 09:00 88 42 149/82 88 Bi-pap 100 10/19/16 08:45 98 39 93 Facial 100 10/19/16 08:00 116 10/19/16 08:00 98.7 97 38 136/75 97 Bi-pap 70 10/19/16 07:00 115 36 139/70 99 Bi-pap 70 10/19/16 06:53 122 39 98 Facial 70 10/19/16 06:00 114 40 126/61 98 Bi-pap 70 10/19/16 05:15 93 44 100 Facial 70 10/19/16 05:00 95 36 146/70 99 Bi-pap 70 10/19/16 04:00 98.9 102 37 155/86 98 Bi-pap 70 10/19/16 04:00 70.0 10/19/16 04:00 99 10/19/16 03:23 102 40 99 Facial 70 10/19/16 03:00 101 39 152/70 100 Bi-pap 70 10/19/16 02:00 104 39 143/74 100 Bi-pap 70 10/19/16 01:00 88 33 145/69 99 Bi-pap 70 10/19/16 00:55 89 41 98 Facial 70 10/19/16 00:00 98 10/19/16 00:00 98.3 109 40 151/74 99 Bi-pap 70 10/19/16 00:00 70.0 10/18/16 23:30 103 42 99 Facial 70 10/18/16 23:00 70.0 10/18/16 23:00 102 41 145/64 99 Bi-pap 70 10/18/16 22:00 105 42 138/76 99 Bi-pap 80 10/18/16 21:15 98 29 100 Facial 80 10/18/16 21:00 99 40 145/64 97 Bi-pap 80 10/18/16 21:00 80.0 10/18/16 20:00 100.0 10/18/16 20:00 98 10/18/16 20:00 98.1 97 39 147/75 96 Bi-pap 100 10/18/16 19:41 89 39 100 Facial 80 10/18/16 19:00 94 38 126/72 100 Bi-pap 100 10/18/16 18:00 97 38 135/69 100 Bi-pap 100 10/18/16 17:00 92 34 136/69 100 Bi-pap 100 10/18/16 16:41 98 36 100 Facial 100 10/18/16 16:00 100.0 10/18/16 16:00 98.0 96 40 143/67 93 Bi-pap 100 10/18/16 15:47 104 10/18/16 15:29 105 33 100 Facial 100 10/18/16 15:00 106 35 135/69 100 Bi-pap 100 10/18/16 14:38 98.7 Intake and Output 10/18/16 10/19/16 19:00 07:00 Intake Total 1976.208 ml 1687.5 ml Output Total 1265 ml 1650 ml Balance 711.208 ml 37.5 ml Intake Free Water 100 ml IV Total 1876.208 ml 1637.5 ml Other 50 ml Output Urine Total 1265 ml 1650 ml Laboratory Tests 10/18/16 20:08: Sodium Level 148H 10/19/16 04:00: Urine Osmolality [Pending] 10/19/16 04:25: Sodium Level 145, Potassium Level 4.1, Chloride Level 102, Carbon Dioxide Level 31H, Anion Gap 12, Blood Urea Nitrogen 9, Creatinine 0.7, Estimat Glomerular Filtration Rate > 60, Glucose Level 235H, Calcium Level 8.8, Phosphorus Level 3.0, Magnesium Level 1.6L 10/19/16 12:03: Arterial Blood pH 7.300L, Arterial Blood Partial Pressure CO2 70.0*H, Arterial Blood Partial Pressure O2 72.0L, Arterial Blood HCO3 33.6H, Arterial Blood Oxygen Saturation 94.0, Arterial Blood Base Excess 5.1, Jamel Test Height (Feet): 5 Height (Inches): 8.00 Weight (Pounds): 160 Objective Almost Deaf. 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 Cv RR Lungs CTA Abd SNT. BS + E No CCE RENETTA SOMMER October 19, 2016 14:28
--- NOTE | 2016-10-19 15:13 | Diagnostic Imaging Report ---
APPROVED REPORT CPT Code: 00308 Present Symptoms Lower Extremity Pain: Bilateral BILATERAL: Imaging reveals a patent deep venous system bilaterally. There is no evidence of thrombus within the femoral, popliteal or tibial segments. The greater saphenous veins are also within normal limits. Doppler indicates normal spontaneous flow within these segments.
--- NOTE | 2016-10-19 15:18 | Emergency Room Report ---
History of Present Illness General Chief Complaint: Dyspnea/Respdistress Source: Family Member Present Illness Allergies: Coded Allergies: No Known Allergies (Unverified , 09/01/12) Nursing Documentation-H Hx Hypertension: Yes Hx Diabetes: Yes Hx Cancer: No Hx Gastrointestinal Problems: No Hx Neurological Problems: No Physical Exam Vital Signs Date Time Temp Pulse Resp B/P Pulse Ox O2 Delivery O2 Flow Rate FiO2 10/15/16 18:42 120 16 192/102 97 Ambu-Bag 15.0 10/15/16 18:50 100 10/15/16 21:00 97.0 Procedures Intubation Progress I was contacted by admitting physician for evaluation of possible airway intubation Patient has had a complicated presentation with significant aspiration Was initially intubated in the emergency room Has had a difficult course with bronchoscopy this morning Upon arrival to the bedside patient is awake He is responsive His friend is in the room and the patient is asking us what time it is He is protecting his airway appropriately Patient's saturations were appropriate respirations are 25 At this time I do not feel the patient met the emergency criteria for airway intubation I did discuss this with the admitting physician At this time the patient will have continued ICU intervention And continued followup I did discuss this with the family/friend Also with the admitting physician Medical Decision Making Diagnostic Impression: Primary Impression: Choking due to food in larynx Additional Impressions: Partial obstruction of airway Aspiration pneumonia Last Vital Signs Date Time Temp Pulse Resp B/P Pulse Ox O2 Delivery O2 Flow Rate FiO2 10/19/16 15:00 121 42 137/56 100 Bi-pap 80 10/19/16 12:00 98.5 10/19/16 04:00 70.0 Disposition: ADMITTED INPATIENT Condition: Critical Referrals: NON PHYSICIAN (PCP) ANTONELLA CELESTIN D.O. October 19, 2016 15:18
[2016-10-19 15:51] LABS: ABG BASE EXCESS 7; ABG PCO2 72.3 mmHg (35.0-45.0)
[2016-10-19] MEDS: Levemir Flexpen SUBQ SCH (20:50)
[2016-10-20] VITALS (24 sets, daily range): BP systolic 130–164; BP diastolic 64–92
[2016-10-20] MEDS: HYDROmorphone 1mg/ml Carpuject IVP PRN ×2 (00:45→20:12)
[2016-10-20] MEDS: 1/2NS w/KCl 20mEq 1000ml 1,000 ML IV SCH ×2 (00:45→08:39)
[2016-10-20] MEDS: Vancomycin 1.25 GM in D5W 275 ML IVPB SCH ×3 (01:33→17:56)
[2016-10-20 05:25] LABS: BASOPHILS % (AUTO) 0.7 % (0.0-2.0); EOSINOPHILS % (AUTO) 1.5 % (0.0-3.0); LYMPHOCYTES % (AUTO) 9.4 % (20.0-45.0); MEAN CORPUSCULAR HEMOGLOBIN 29.3 PG (27.0-31.0); MEAN CORPUSCULAR HGB CONC 31.1 G/DL (32.0-36.0); MEAN CORPUSCULAR VOLUME 94 FL (80-99); MEAN PLATELET VOLUME 6.5 FL (6.5-10.1); MONOCYTES % (AUTO) 7.5 % (1.0-10.0); NEUTROPHILS % (AUTO) 80.9 % (45.0-75.0); PLATELET COUNT 243 K/UL (150-450); RED BLOOD COUNT 4.53 M/UL (4.70-6.10); RED CELL DISTRIBUTION WIDTH 12.9 % (11.6-14.8); WHITE BLOOD COUNT 9.6 K/UL (4.8-10.8)
[2016-10-20 05:55] LABS: ANION GAP 11 (5-15); CARBON DIOXIDE 38 mEQ/L (20-30); CHLORIDE 106 mEQ/L (98-107); CREATININE 0.7 mg/dL (0.7-1.2); GLOMERULAR FILTRATION RATE > 60 mL/min (>60); HEMOLYSIS 0; MAGNESIUM 2.1 mg/dL (1.7-2.5); PHOSPHORUS 3.3 mg/dL (2.5-4.8); POTASSIUM 4.3 mEQ/L (3.4-4.9); SODIUM 155 mEQ/L (135-145)
[2016-10-20] MEDS: NovoLOG Insulin Flexpen SUBQ SCH ×4 (06:08→20:59)
[2016-10-20] MEDS: Piperacillin/Tazobactam 3.375 GM in D5W 110 ML IVPB SCH ×3 (06:09→21:37)
--- NOTE | 2016-10-20 08:13 | Critical Care Progress Note ---
Assessment/Plan Assessment/Plan s/p bronchoscopy pulmonary infiltrates respiratory failure aspiration event leukocytosis anemia sinus tachycardia agitation PLAN ventilator- off BIPAP - trial off repeat bronchoscopy- PRN family confirms dysphagia would recommend GT iv hydration tube feeds titrate oxygen saturations if able ICU care for now Critical Care - Subjective Interval Events: much improved now on 50% ROS Limited/Unobtainable: Yes Condition: critical EKG Rhythm: Sinus Tachycardia Residuals: minimal Tube Feeding Tolerated: yes I&O: Intake and Output 10/19/16 10/20/16 19:00 07:00 Intake Total 2582.332 ml 2367.5 ml Output Total 1510 ml 1500 ml Balance 1072.332 ml 867.5 ml Intake Free Water 120 ml 130 ml IV Total 2402.332 ml 1787.5 ml Tube Feeding 60 ml 450 ml Output Urine Total 1510 ml 1500 ml Critical Care - Objective CXR: improved left base ET-Tube: 8.0 ET Position: 22 Last 24 Hour Vital Signs Date Time Temp Pulse Resp B/P Pulse Ox O2 Delivery O2 Flow Rate FiO2 10/20/16 08:00 50.0 10/20/16 08:00 97.2 120 38 161/92 94 Bi-pap 50 10/20/16 07:00 115 30 156/77 94 Bi-pap 50 10/20/16 06:40 125 30 93 Facial 50 10/20/16 06:00 128 25 149/81 100 Bi-pap 50 10/20/16 05:18 118 18 96 Facial 50 10/20/16 05:00 114 32 150/74 100 Bi-pap 50 10/20/16 04:00 50.0 10/20/16 04:00 120 10/20/16 04:00 99.2 120 30 161/79 100 Bi-pap 50 10/20/16 03:29 117 17 94 Facial 50 10/20/16 03:00 121 23 153/83 98 Bi-pap 50 10/20/16 02:00 120 24 163/76 96 Bi-pap 50 10/20/16 01:24 120 21 96 Facial 50 10/20/16 01:15 99.0 10/20/16 01:00 115 27 164/78 96 Bi-pap 50 10/20/16 00:00 119 10/20/16 00:00 99.0 119 28 144/70 97 Bi-pap 50 10/20/16 00:00 50.0 10/19/16 23:28 114 17 95 Facial 50 10/19/16 23:00 134 27 143/64 98 Bi-pap 50 10/19/16 22:00 128 37 146/77 98 Bi-pap 50 10/19/16 21:22 122 29 96 Facial 50 10/19/16 21:00 126 32 146/73 96 Bi-pap 50 10/19/16 20:00 120 10/19/16 20:00 99.3 120 29 139/67 97 Bi-pap 50 10/19/16 20:00 50.0 10/19/16 19:33 119 34 97 50 10/19/16 19:00 121 29 153/73 99 Bi-pap 50 10/19/16 18:00 121 30 146/60 100 Bi-pap 50 10/19/16 17:04 112 36 96 Facial 50 10/19/16 17:00 121 31 141/68 100 Bi-pap 50 10/19/16 16:00 99.8 120 34 143/66 100 Bi-pap 80 10/19/16 16:00 50.0 10/19/16 16:00 120 10/19/16 15:00 121 42 137/56 100 Bi-pap 80 10/19/16 14:43 112 35 100 Facial 80 10/19/16 14:00 113 42 144/80 99 Bi-pap 80 10/19/16 13:00 117 44 145/69 99 Bi-pap 80 10/19/16 12:51 114 29 98 Facial 80 10/19/16 12:00 70.0 10/19/16 12:00 98.5 107 38 144/71 97 Bi-pap 80 10/19/16 12:00 116 10/19/16 11:00 107 36 143/76 97 Bi-pap 80 10/19/16 10:45 101 39 100 Facial 100 10/19/16 10:00 98 36 145/73 98 Bi-pap 100 10/19/16 09:00 88 42 149/82 88 Bi-pap 100 10/19/16 08:45 98 39 93 Facial 100 Labs: Labs Test 10/17/16 08:15 10/17/16 09:15 10/17/16 13:50 10/17/16 19:30 Urine Osmolality 90 mOsmol/kg (.) Vancomycin Level Trough 10.1 ug/mL (5.0-12.0) Sodium Level 156 mEQ/L (135-145) 153 mEQ/L (135-145) Test 10/18/16 04:40 10/18/16 10:10 10/18/16 12:15 10/18/16 20:08 Sodium Level 152 mEQ/L (135-145) 153 mEQ/L (135-145) 148 mEQ/L (135-145) Potassium Level 4.0 mEQ/L (3.4-4.9) Chloride Level 112 mEQ/L (98-107) Carbon Dioxide Level 30 mEQ/L (20-30) Anion Gap 10 (5-15) Blood Urea Nitrogen 10 mg/dL (7-23) Creatinine 0.7 mg/dL (0.7-1.2) Estimat Glomerular Filtration Rate > 60 mL/min (>60) Glucose Level 191 mg/dL (74-106) Calcium Level 9.3 mg/dL (8.6-10.2) Arterial Blood pH 7.305 (7.350-7.450) Arterial Blood Partial Pressure CO2 62.9 mmHg (35.0-45.0) Arterial Blood Partial Pressure O2 64.1 mmHg (75.0-100.0) Arterial Blood HCO3 30.6 mmol/L (22.0-26.0) Arterial Blood Oxygen Saturation 92.2 % (92.0-98.0) Arterial Blood Base Excess 2.5 Jamel Test Positive Test 10/19/16 04:00 10/19/16 04:25 10/19/16 12:03 10/19/16 15:25 Sodium Level 145 mEQ/L (135-145) Potassium Level 4.1 mEQ/L (3.4-4.9) Chloride Level 102 mEQ/L (98-107) Carbon Dioxide Level 31 mEQ/L (20-30) Anion Gap 12 (5-15) Blood Urea Nitrogen 9 mg/dL (7-23) Creatinine 0.7 mg/dL (0.7-1.2) Estimat Glomerular Filtration Rate > 60 mL/min (>60) Glucose Level 235 mg/dL (74-106) Calcium Level 8.8 mg/dL (8.6-10.2) Phosphorus Level 3.0 mg/dL (2.5-4.8) Magnesium Level 1.6 mg/dL (1.7-2.5) Arterial Blood pH 7.300 (7.350-7.450) 7.310 (7.350-7.450) Arterial Blood Partial Pressure CO2 70.0 mmHg (35.0-45.0) 72.3 mmHg (35.0-45.0) Arterial Blood Partial Pressure O2 72.0 mmHg (75.0-100.0) 130.2 mmHg (75.0-100.0) Arterial Blood HCO3 33.6 mmol/L (22.0-26.0) 35.4 mmol/L (22.0-26.0) Arterial Blood Oxygen Saturation 94.0 % (92.0-98.0) 98.0 % (92.0-98.0) Arterial Blood Base Excess 5.1 7 Jamel Test Test 10/19/16 17:15 10/20/16 05:00 Sodium Level 142 mEQ/L (135-145) 155 mEQ/L (135-145) Vancomycin Level Trough 15.7 ug/mL (5.0-12.0) White Blood Count 9.6 K/UL (4.8-10.8) Red Blood Count 4.53 M/UL (4.70-6.10) Hemoglobin 13.3 G/DL (14.2-18.0) Hematocrit 42.8 % (42.0-52.0) Mean Corpuscular Volume 94 FL (80-99) Mean Corpuscular Hemoglobin 29.3 PG (27.0-31.0) Mean Corpuscular Hemoglobin Concent 31.1 G/DL (32.0-36.0) Red Cell Distribution Width 12.9 % (11.6-14.8) Platelet Count 243 K/UL (150-450) Mean Platelet Volume 6.5 FL (6.5-10.1) Neutrophils (%) (Auto) 80.9 % (45.0-75.0) Lymphocytes (%) (Auto) 9.4 % (20.0-45.0) Monocytes (%) (Auto) 7.5 % (1.0-10.0) Eosinophils (%) (Auto) 1.5 % (0.0-3.0) Basophils (%) (Auto) 0.7 % (0.0-2.0) Potassium Level 4.3 mEQ/L (3.4-4.9) Chloride Level 106 mEQ/L (98-107) Carbon Dioxide Level 38 mEQ/L (20-30) Anion Gap 11 (5-15) Blood Urea Nitrogen 7 mg/dL (7-23) Creatinine 0.7 mg/dL (0.7-1.2) Estimat Glomerular Filtration Rate > 60 mL/min (>60) Glucose Level 360 mg/dL (74-106) Calcium Level 9.0 mg/dL (8.6-10.2) Phosphorus Level 3.3 mg/dL (2.5-4.8) Magnesium Level 2.1 mg/dL (1.7-2.5) Objective: WDWN NAD less tachypneic on BIPAP reduced breath sounds bilaterally with rhonchi improved S1S2RR tachy without MRG NABS nontender no HSM no CCE nonfocal Accucheck: 291 IZABEL HASTINGS October 20, 2016 08:13
[2016-10-20] MEDS: DESMOPRESSIN 0.1 MG ORAL SCH ×2 (08:39→20:57)
[2016-10-20] MEDS: Heparin 5000 units/ml inj SUBQ SCH ×2 (08:40→21:00)
[2016-10-20] MEDS: Pantoprazole Inj IV SCH (08:40)
[2016-10-20 09:31] LABS: ABG PCO2 98.8 mmHg (35.0-45.0)
[2016-10-20 09:32] LABS: ABG ALLEN TEST POSITIVE; ABG BASE EXCESS 11.5
--- NOTE | 2016-10-20 10:29 | General Progress Note ---
Assessment/Plan Assessment/Plan Worsening. Na 155. DC Tube Feeding and Dont Resume!!!! Redose sq dDAVP. Failed Video Swallow. Keep NPO as risks of NGT are aspiration. Repeat Swallow studies in 48 hrs!. On [facility] Transfer List. Called [facility]. No special needs, No ICU beds and pt has no private [facility] attending only Teaching Service. Low chances of transfer. DW pt's brother and Matilde. Subjective Allergies: Coded Allergies: No Known Allergies (Unverified , 09/01/12) Subjective Stuporotic again! Objective Last 24 Hour Vital Signs Date Time Temp Pulse Resp B/P Pulse Ox O2 Delivery O2 Flow Rate FiO2 10/20/16 10:00 107 37 150/79 94 Bi-pap 60 10/20/16 09:51 50.0 10/20/16 09:19 114 32 95 Facial 50 10/20/16 09:00 111 38 158/86 94 Bi-pap 60 10/20/16 08:00 50.0 10/20/16 08:00 97.2 120 38 161/92 94 Bi-pap 50 10/20/16 08:00 120 10/20/16 07:00 115 30 156/77 94 Bi-pap 50 10/20/16 06:40 125 30 93 Facial 50 10/20/16 06:00 128 25 149/81 100 Bi-pap 50 10/20/16 05:18 118 18 96 Facial 50 10/20/16 05:00 114 32 150/74 100 Bi-pap 50 10/20/16 04:00 50.0 10/20/16 04:00 120 10/20/16 04:00 99.2 120 30 161/79 100 Bi-pap 50 10/20/16 03:29 117 17 94 Facial 50 10/20/16 03:00 121 23 153/83 98 Bi-pap 50 10/20/16 02:00 120 24 163/76 96 Bi-pap 50 10/20/16 01:24 120 21 96 Facial 50 10/20/16 01:15 99.0 10/20/16 01:00 115 27 164/78 96 Bi-pap 50 10/20/16 00:00 119 10/20/16 00:00 99.0 119 28 144/70 97 Bi-pap 50 10/20/16 00:00 50.0 10/19/16 23:28 114 17 95 Facial 50 10/19/16 23:00 134 27 143/64 98 Bi-pap 50 10/19/16 22:00 128 37 146/77 98 Bi-pap 50 10/19/16 21:22 122 29 96 Facial 50 10/19/16 21:00 126 32 146/73 96 Bi-pap 50 10/19/16 20:00 120 10/19/16 20:00 99.3 120 29 139/67 97 Bi-pap 50 10/19/16 20:00 50.0 10/19/16 19:33 119 34 97 50 10/19/16 19:00 121 29 153/73 99 Bi-pap 50 10/19/16 18:00 121 30 146/60 100 Bi-pap 50 10/19/16 17:04 112 36 96 Facial 50 10/19/16 17:00 121 31 141/68 100 Bi-pap 50 10/19/16 16:00 99.8 120 34 143/66 100 Bi-pap 80 10/19/16 16:00 50.0 10/19/16 16:00 120 10/19/16 15:00 121 42 137/56 100 Bi-pap 80 10/19/16 14:43 112 35 100 Facial 80 10/19/16 14:00 113 42 144/80 99 Bi-pap 80 10/19/16 13:00 117 44 145/69 99 Bi-pap 80 10/19/16 12:51 114 29 98 Facial 80 10/19/16 12:00 70.0 10/19/16 12:00 98.5 107 38 144/71 97 Bi-pap 80 10/19/16 12:00 116 10/19/16 11:00 107 36 143/76 97 Bi-pap 80 10/19/16 10:45 101 39 100 Facial 100 Intake and Output 10/19/16 10/20/16 18:59 06:59 Intake Total 2368.624 ml 2693.708 ml Output Total 1310 ml 1680 ml Balance 1058.624 ml 1013.708 ml Intake Free Water 120 ml 130 ml IV Total 2218.624 ml 2123.708 ml Tube Feeding 30 ml 440 ml Output Urine Total 1310 ml 1680 ml Laboratory Tests 10/19/16 12:03: Arterial Blood pH 7.300L, Arterial Blood Partial Pressure CO2 70.0*H, Arterial Blood Partial Pressure O2 72.0L, Arterial Blood HCO3 33.6H, Arterial Blood Oxygen Saturation 94.0, Arterial Blood Base Excess 5.1, Jamel Test 10/19/16 15:25: Arterial Blood pH 7.310L, Arterial Blood Partial Pressure CO2 72.3*H, Arterial Blood Partial Pressure O2 130.2H, Arterial Blood HCO3 35.4H, Arterial Blood Oxygen Saturation 98.0, Arterial Blood Base Excess 7, Jamel Test 10/19/16 17:15: Sodium Level 142, Vancomycin Level Trough 15.7H 10/20/16 04:00: Arterial Blood pH 7.256L, Arterial Blood Partial Pressure CO2 98.8*H, Arterial Blood Partial Pressure O2 87.4, Arterial Blood HCO3 42.9H, Arterial Blood Oxygen Saturation 95.3, Arterial Blood Base Excess 11.5, Jamel Test Positive 10/20/16 05:00: White Blood Count 9.6, Red Blood Count 4.53L, Hemoglobin 13.3L, Hematocrit 42.8 , Mean Corpuscular Volume 94, Mean Corpuscular Hemoglobin 29.3, Mean Corpuscular Hemoglobin Concent 31.1L, Red Cell Distribution Width 12.9, Platelet Count 243, Mean Platelet Volume 6.5, Neutrophils (%) (Auto) 80.9H, Lymphocytes (%) (Auto) 9.4L, Monocytes (%) (Auto) 7.5, Eosinophils (%) (Auto) 1.5, Basophils (%) (Auto) 0.7, Sodium Level 155#H, Potassium Level 4.3, Chloride Level 106, Carbon Dioxide Level 38H, Anion Gap 11, Blood Urea Nitrogen 7, Creatinine 0.7, Estimat Glomerular Filtration Rate > 60, Glucose Level 360#H , Calcium Level 9.0, Phosphorus Level 3.3, Magnesium Level 2.1 Height (Feet): 5 Height (Inches): 8.00 Weight (Pounds): 160 Objective Stuporotic. 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 Cv RR Lungs CTA Abd SNT. BS + E No CCE RENETTA SOMEMR October 20, 2016 10:29
[2016-10-20] MEDS: D5W w/KCl 20mEq 1,000 ML IV SCH ×2 (11:34→17:56)
[2016-10-20] MEDS: Desmopressin (DDAVP) Inj SUBQ SCH (11:35)
--- NOTE | 2016-10-20 12:31 | Diagnostic Imaging Report ---
Indication: Abnormal breath sounds Comparison: 10/19/16 A single view chest radiograph was obtained. Findings: Left basilar atelectasis has cleared. There is scattered, bilateral interstitial opacities likely edema or infiltrate. Heart size is normal. NG tube is satisfactory and unchanged. Impression: Resolution of left basilar atelectasis. Mild interstitial edema and/or infiltrate suspected.
[2016-10-20] MEDS ORDERED: NS Irrig 1000ml ONE (15:43)
[2016-10-20] MEDS ORDERED: NS 275ml ONE (15:43)
[2016-10-20] MEDS ORDERED: Tubing IV Secondary IV ONE (15:43)
[2016-10-20] MEDS: Levemir Flexpen SUBQ SCH (20:59)
[2016-10-21] VITALS (24 sets, daily range): BP systolic 119–151; BP diastolic 63–88
[2016-10-21] MEDS: D5W w/KCl 20mEq 1,000 ML IV SCH ×4 (01:01→17:56)
[2016-10-21] MEDS: Vancomycin 1.25 GM in D5W 275 ML IVPB SCH ×3 (01:30→17:56)
[2016-10-21] MEDS: Piperacillin/Tazobactam 3.375 GM in D5W 110 ML IVPB SCH (05:40)
[2016-10-21] MEDS: NovoLOG Insulin Flexpen SUBQ SCH ×4 (06:02→20:56)
[2016-10-21 08:54] LABS: BASOPHILS % (AUTO) 0.6 % (0.0-2.0); LYMPHOCYTES % (AUTO) 9.3 % (20.0-45.0); MEAN CORPUSCULAR HEMOGLOBIN 29.4 PG (27.0-31.0); MEAN CORPUSCULAR HGB CONC 30.9 G/DL (32.0-36.0); MEAN CORPUSCULAR VOLUME 95 FL (80-99); MEAN PLATELET VOLUME 7.8 FL (6.5-10.1); MONOCYTES % (AUTO) 10.3 % (1.0-10.0); NEUTROPHILS % (AUTO) 77.8 % (45.0-75.0); PLATELET COUNT 219 K/UL (150-450); RED BLOOD COUNT 4.17 M/UL (4.70-6.10); RED CELL DISTRIBUTION WIDTH 12.7 % (11.6-14.8); WHITE BLOOD COUNT 8.3 K/UL (4.8-10.8)
--- NOTE | 2016-10-21 09:10 | General Progress Note ---
Assessment/Plan Assessment/Plan 1) Hypernatremia--improved 2) dysuria 3) mucus plugging s/p bronchoscopy 4) Aspiration PNA 5) Hypercapnic resp failure s/p extubation, now on BiPAP 6)DM--hyperglycemia. pt is on D5W for hypernatremia Plan change IVF to 1/2NS+20meq KCL @ 100cc/h continue BiPAP NPO for now ABG continue Abx frequent suction continue ICU care Discussed and updated to the mother via process safety specialist, [place], [id number] Subjective Allergies: Coded Allergies: No Known Allergies (Unverified , 09/01/12) Subjective c/o pain in his penile orifice. on BiPAP. family at bed side. No reported fever Objective Last 24 Hour Vital Signs Date Time Temp Pulse Resp B/P Pulse Ox O2 Delivery O2 Flow Rate FiO2 10/21/16 08:00 65.0 10/21/16 08:00 97.8 82 26 143/70 97 Bi-pap 65 10/21/16 08:00 80 10/21/16 07:20 94 32 97 Facial 65 10/21/16 07:00 98 36 151/77 97 Bi-pap 65 10/21/16 06:00 92 28 149/74 97 Bi-pap 65 10/21/16 05:07 88 40 97 Facial 65 10/21/16 05:00 85 25 147/81 97 Bi-pap 65 10/21/16 04:00 98.3 80 35 139/67 100 Bi-pap 65 10/21/16 04:00 88 10/21/16 03:00 65.0 10/21/16 03:00 95 41 99 Facial 65 10/21/16 03:00 86 31 137/69 100 Bi-pap 65 10/21/16 02:00 88 31 148/69 100 Bi-pap 70 10/21/16 01:09 89 29 100 Facial 70 10/21/16 01:00 70.0 10/21/16 01:00 91 31 125/72 100 Bi-pap 70 10/21/16 00:00 86 10/21/16 00:00 97.9 86 30 137/76 100 Bi-pap 80 10/20/16 23:05 81 38 100 Facial 80 10/20/16 23:00 80.0 10/20/16 23:00 80 26 136/72 100 Bi-pap 90 10/20/16 22:00 102 30 130/69 100 Bi-pap 90 10/20/16 21:06 93 30 100 Facial 90 10/20/16 21:00 94 30 137/64 100 Bi-pap 90 10/20/16 21:00 90.0 10/20/16 20:00 98.1 86 28 141/71 93 Bi-pap 100 10/20/16 20:00 100.0 10/20/16 20:00 82 10/20/16 19:14 80 30 97 Facial 100 10/20/16 19:00 81 33 144/72 99 Bi-pap 100 10/20/16 18:00 94 33 133/75 94 Bi-pap 50 10/20/16 17:00 91 33 150/77 97 Bi-pap 50 10/20/16 16:38 100 38 95 Facial 50 10/20/16 16:00 50.0 10/20/16 16:00 98.4 99 27 138/72 93 Bi-pap 50 10/20/16 16:00 95 10/20/16 15:00 94 27 138/73 93 Bi-pap 50 10/20/16 14:35 100 35 94 Facial 50 10/20/16 14:00 107 26 162/80 96 Bi-pap 50 10/20/16 13:00 103 36 145/80 95 Bi-pap 50 10/20/16 12:32 100 38 91 Facial 50 10/20/16 12:00 98.6 89 40 134/66 98 Bi-pap 50 10/20/16 12:00 50.0 10/20/16 12:00 89 10/20/16 11:00 90 31 140/69 96 Bi-pap 50 10/20/16 10:30 100 42 93 Facial 50 10/20/16 10:00 107 37 150/79 94 Bi-pap 50 10/20/16 09:51 50.0 10/20/16 09:19 114 32 95 Facial 50 Intake and Output 10/20/16 10/21/16 19:00 07:00 Intake Total 2156.208 ml 2271.792 ml Output Total 1805 ml 1830 ml Balance 351.208 ml 441.792 ml Intake Free Water 80 ml 50 ml IV Total 1936.208 ml 2171.792 ml Tube Feeding 80 ml Other 60 ml 50 ml Output Urine Total 1805 ml 1830 ml # Bowel Movements 2 Laboratory Tests 10/20/16 12:10: Sodium Level 154H 10/20/16 20:00: Sodium Level 150H 10/21/16 08:20: White Blood Count 8.3, Red Blood Count 4.17L, Hemoglobin 12.3L, Hematocrit 39.7L , Mean Corpuscular Volume 95, Mean Corpuscular Hemoglobin 29.4, Mean Corpuscular Hemoglobin Concent 30.9L, Red Cell Distribution Width 12.7, Platelet Count 219, Mean Platelet Volume 7.8, Neutrophils (%) (Auto) 77.8H, Lymphocytes (%) (Auto) 9.3L, Monocytes (%) (Auto) 10.3H, Eosinophils (%) (Auto) 2.0, Basophils (%) (Auto) 0.6 10/21/16 08:25: Sodium Level [Pending], Potassium Level [Pending], Chloride Level [Pending], Carbon Dioxide Level [Pending], Blood Urea Nitrogen [Pending], Creatinine [ Pending], Estimat Glomerular Filtration Rate [Pending], Glucose Level [Pending] , Calcium Level [Pending], Total Bilirubin [Pending], Aspartate Amino Transf ( AST/SGOT) [Pending], Alanine Aminotransferase (ALT/SGPT) [Pending], Alkaline Phosphatase [Pending], Total Protein [Pending], Albumin [Pending], Globulin [ Pending] Height (Feet): 5 Height (Inches): 8.00 Weight (Pounds): 160 Objective on BiPAP, alert,awake mild bilat crackles+ S1,S2,RRR, no M/R/G soft, non tender, BS+ no edema, Nguyen's cath + YANG,AYE October 21, 2016 09:10
[2016-10-21 09:18] LABS: ALANINE AMINOTRANSFERASE 24 U/L (3-41); ALBUMIN/GLOBULIN RATIO 0.8 (1.0-2.7); ANION GAP 6 (5-15); ASPARTATE AMINO TRANSFERASE 27 U/L (5-40); CALCIUM 9.2 mg/dL (8.6-10.2); CARBON DIOXIDE 39 mEQ/L (20-30); CHLORIDE 100 mEQ/L (98-107); CREATININE 0.7 mg/dL (0.7-1.2); GLOMERULAR FILTRATION RATE > 60 mL/min (>60); HEMOLYSIS 4; POTASSIUM 4.3 mEQ/L (3.4-4.9); SODIUM 145 mEQ/L (135-145); TOTAL PROTEIN 6.5 g/dL (6.6-8.7)
--- NOTE | 2016-10-21 09:25 | Critical Care Progress Note ---
Assessment/Plan Assessment/Plan s/p bronchoscopy pulmonary infiltrates respiratory failure aspiration event leukocytosis anemia sinus tachycardia agitation PLAN ventilator- off BIPAP - on and still acidotic repeat bronchoscopy- in am if not improved family confirms dysphagia would recommend GT iv hydration tube feeds titrate oxygen saturations if able may need repeat intubation if acid base worse ICU care for now Critical Care - Subjective Interval Events: not improving tachypneic family at bedside ROS Limited/Unobtainable: Yes Condition: critical EKG Rhythm: Sinus Tachycardia I&O: Intake and Output 10/20/16 10/21/16 19:00 07:00 Intake Total 2156.208 ml 2271.792 ml Output Total 1805 ml 1830 ml Balance 351.208 ml 441.792 ml Intake Free Water 80 ml 50 ml IV Total 1936.208 ml 2171.792 ml Tube Feeding 80 ml Other 60 ml 50 ml Output Urine Total 1805 ml 1830 ml # Bowel Movements 2 Critical Care - Objective ET-Tube: 8.0 ET Position: 22 Last 24 Hour Vital Signs Date Time Temp Pulse Resp B/P Pulse Ox O2 Delivery O2 Flow Rate FiO2 10/21/16 09:08 92 36 98 Facial 65 10/21/16 08:00 65.0 10/21/16 08:00 97.8 82 26 143/70 97 Bi-pap 65 10/21/16 08:00 80 10/21/16 07:20 94 32 97 Facial 65 10/21/16 07:00 98 36 151/77 97 Bi-pap 65 10/21/16 06:00 92 28 149/74 97 Bi-pap 65 10/21/16 05:07 88 40 97 Facial 65 10/21/16 05:00 85 25 147/81 97 Bi-pap 65 10/21/16 04:00 98.3 80 35 139/67 100 Bi-pap 65 10/21/16 04:00 88 10/21/16 03:00 65.0 10/21/16 03:00 95 41 99 Facial 65 10/21/16 03:00 86 31 137/69 100 Bi-pap 65 10/21/16 02:00 88 31 148/69 100 Bi-pap 70 10/21/16 01:09 89 29 100 Facial 70 10/21/16 01:00 70.0 10/21/16 01:00 91 31 125/72 100 Bi-pap 70 10/21/16 00:00 86 10/21/16 00:00 97.9 86 30 137/76 100 Bi-pap 80 10/20/16 23:05 81 38 100 Facial 80 10/20/16 23:00 80.0 10/20/16 23:00 80 26 136/72 100 Bi-pap 90 10/20/16 22:00 102 30 130/69 100 Bi-pap 90 10/20/16 21:06 93 30 100 Facial 90 10/20/16 21:00 94 30 137/64 100 Bi-pap 90 10/20/16 21:00 90.0 10/20/16 20:00 98.1 86 28 141/71 93 Bi-pap 100 10/20/16 20:00 100.0 10/20/16 20:00 82 10/20/16 19:14 80 30 97 Facial 100 10/20/16 19:00 81 33 144/72 99 Bi-pap 100 10/20/16 18:00 94 33 133/75 94 Bi-pap 50 10/20/16 17:00 91 33 150/77 97 Bi-pap 50 10/20/16 16:38 100 38 95 Facial 50 10/20/16 16:00 50.0 10/20/16 16:00 98.4 99 27 138/72 93 Bi-pap 50 10/20/16 16:00 95 10/20/16 15:00 94 27 138/73 93 Bi-pap 50 10/20/16 14:35 100 35 94 Facial 50 10/20/16 14:00 107 26 162/80 96 Bi-pap 50 10/20/16 13:00 103 36 145/80 95 Bi-pap 50 10/20/16 12:32 100 38 91 Facial 50 10/20/16 12:00 98.6 89 40 134/66 98 Bi-pap 50 10/20/16 12:00 50.0 10/20/16 12:00 89 10/20/16 11:00 90 31 140/69 96 Bi-pap 50 10/20/16 10:30 100 42 93 Facial 50 10/20/16 10:00 107 37 150/79 94 Bi-pap 50 10/20/16 09:51 50.0 Labs: Labs Test 10/18/16 10:10 10/18/16 12:15 10/18/16 20:08 10/19/16 04:00 Arterial Blood pH 7.305 (7.350-7.450) Arterial Blood Partial Pressure CO2 62.9 mmHg (35.0-45.0) Arterial Blood Partial Pressure O2 64.1 mmHg (75.0-100.0) Arterial Blood HCO3 30.6 mmol/L (22.0-26.0) Arterial Blood Oxygen Saturation 92.2 % (92.0-98.0) Arterial Blood Base Excess 2.5 Jamel Test Positive Sodium Level 153 mEQ/L (135-145) 148 mEQ/L (135-145) Test 10/19/16 04:25 10/19/16 12:03 10/19/16 15:25 10/19/16 17:15 Sodium Level 145 mEQ/L (135-145) 142 mEQ/L (135-145) Potassium Level 4.1 mEQ/L (3.4-4.9) Chloride Level 102 mEQ/L (98-107) Carbon Dioxide Level 31 mEQ/L (20-30) Anion Gap 12 (5-15) Blood Urea Nitrogen 9 mg/dL (7-23) Creatinine 0.7 mg/dL (0.7-1.2) Estimat Glomerular Filtration Rate > 60 mL/min (>60) Glucose Level 235 mg/dL (74-106) Calcium Level 8.8 mg/dL (8.6-10.2) Phosphorus Level 3.0 mg/dL (2.5-4.8) Magnesium Level 1.6 mg/dL (1.7-2.5) Arterial Blood pH 7.300 (7.350-7.450) 7.310 (7.350-7.450) Arterial Blood Partial Pressure CO2 70.0 mmHg (35.0-45.0) 72.3 mmHg (35.0-45.0) Arterial Blood Partial Pressure O2 72.0 mmHg (75.0-100.0) 130.2 mmHg (75.0-100.0) Arterial Blood HCO3 33.6 mmol/L (22.0-26.0) 35.4 mmol/L (22.0-26.0) Arterial Blood Oxygen Saturation 94.0 % (92.0-98.0) 98.0 % (92.0-98.0) Arterial Blood Base Excess 5.1 7 Jamel Test Vancomycin Level Trough 15.7 ug/mL (5.0-12.0) Test 10/20/16 04:00 10/20/16 05:00 10/20/16 12:10 10/20/16 20:00 Arterial Blood pH 7.256 (7.350-7.450) Arterial Blood Partial Pressure CO2 98.8 mmHg (35.0-45.0) Arterial Blood Partial Pressure O2 87.4 mmHg (75.0-100.0) Arterial Blood HCO3 42.9 mmol/L (22.0-26.0) Arterial Blood Oxygen Saturation 95.3 % (92.0-98.0) Arterial Blood Base Excess 11.5 Jamel Test Positive White Blood Count 9.6 K/UL (4.8-10.8) Red Blood Count 4.53 M/UL (4.70-6.10) Hemoglobin 13.3 G/DL (14.2-18.0) Hematocrit 42.8 % (42.0-52.0) Mean Corpuscular Volume 94 FL (80-99) Mean Corpuscular Hemoglobin 29.3 PG (27.0-31.0) Mean Corpuscular Hemoglobin Concent 31.1 G/DL (32.0-36.0) Red Cell Distribution Width 12.9 % (11.6-14.8) Platelet Count 243 K/UL (150-450) Mean Platelet Volume 6.5 FL (6.5-10.1) Neutrophils (%) (Auto) 80.9 % (45.0-75.0) Lymphocytes (%) (Auto) 9.4 % (20.0-45.0) Monocytes (%) (Auto) 7.5 % (1.0-10.0) Eosinophils (%) (Auto) 1.5 % (0.0-3.0) Basophils (%) (Auto) 0.7 % (0.0-2.0) Sodium Level 155 mEQ/L (135-145) 154 mEQ/L (135-145) 150 mEQ/L (135-145) Potassium Level 4.3 mEQ/L (3.4-4.9) Chloride Level 106 mEQ/L (98-107) Carbon Dioxide Level 38 mEQ/L (20-30) Anion Gap 11 (5-15) Blood Urea Nitrogen 7 mg/dL (7-23) Creatinine 0.7 mg/dL (0.7-1.2) Estimat Glomerular Filtration Rate > 60 mL/min (>60) Glucose Level 360 mg/dL (74-106) Calcium Level 9.0 mg/dL (8.6-10.2) Phosphorus Level 3.3 mg/dL (2.5-4.8) Magnesium Level 2.1 mg/dL (1.7-2.5) Test 10/21/16 08:20 10/21/16 08:25 White Blood Count 8.3 K/UL (4.8-10.8) Red Blood Count 4.17 M/UL (4.70-6.10) Hemoglobin 12.3 G/DL (14.2-18.0) Hematocrit 39.7 % (42.0-52.0) Mean Corpuscular Volume 95 FL (80-99) Mean Corpuscular Hemoglobin 29.4 PG (27.0-31.0) Mean Corpuscular Hemoglobin Concent 30.9 G/DL (32.0-36.0) Red Cell Distribution Width 12.7 % (11.6-14.8) Platelet Count 219 K/UL (150-450) Mean Platelet Volume 7.8 FL (6.5-10.1) Neutrophils (%) (Auto) 77.8 % (45.0-75.0) Lymphocytes (%) (Auto) 9.3 % (20.0-45.0) Monocytes (%) (Auto) 10.3 % (1.0-10.0) Eosinophils (%) (Auto) 2.0 % (0.0-3.0) Basophils (%) (Auto) 0.6 % (0.0-2.0) Sodium Level 145 mEQ/L (135-145) Potassium Level 4.3 mEQ/L (3.4-4.9) Chloride Level 100 mEQ/L (98-107) Carbon Dioxide Level 39 mEQ/L (20-30) Anion Gap 6 (5-15) Blood Urea Nitrogen 7 mg/dL (7-23) Creatinine 0.7 mg/dL (0.7-1.2) Estimat Glomerular Filtration Rate > 60 mL/min (>60) Glucose Level 328 mg/dL (74-106) Calcium Level 9.2 mg/dL (8.6-10.2) Total Bilirubin 0.4 mg/dL (0.0-1.2) Aspartate Amino Transf (AST/SGOT) 27 U/L (5-40) Alanine Aminotransferase (ALT/SGPT) 24 U/L (3-41) Alkaline Phosphatase 92 U/L (40-129) Total Protein 6.5 g/dL (6.6-8.7) Albumin 2.9 g/dL (3.5-5.2) Globulin 3.6 g/dL Albumin/Globulin Ratio 0.8 (1.0-2.7) Objective: WDWN NAD still tachypneic on BIPAP; 02 increased reduced breath sounds bilaterally with some rhonchi S1S2RR tachy without MRG NABS nontender no HSM no CCE nonfocal Micro: Microbiology Date/Time Source Procedure Growth Status 10/19/16 08:30 Bronchial Washings Not Specified Gram Stain - Final Resulted 10/19/16 08:30 Bronchial Aspirate Culture - Preliminary Gram Negative Bacillus 1 Gram Negative Bacillus 2 Resulted Accucheck: 268 IZABEL HASTINGS October 21, 2016 09:25
[2016-10-21] MEDS: Heparin 5000 units/ml inj SUBQ SCH ×2 (09:28→20:55)
[2016-10-21] MEDS: DESMOPRESSIN 0.1 MG ORAL SCH ×2 (09:28→20:55)
[2016-10-21] MEDS: Pantoprazole Inj IV SCH (09:28)
[2016-10-21 10:18] LABS: APPEARANCE,URINE SLIGHTLY CLOUDY; KETONES,URINE 1+ (NEGATIVE); LEUKOCYTE ESTERASE ,URINE NEGATIVE (NEGATIVE); NITRITE,URINE NEGATIVE (NEGATIVE); PH,URINE 8 (4.5-8.0); PROTEIN,URINE 4+ (NEGATIVE); UROBILINOGEN,URINE NORMAL MG/DL (0.0-1.0)
[2016-10-21 10:19] LABS: ABG ALLEN TEST POSITIVE; ABG BASE EXCESS 13.5; ABG PCO2 75.4 mmHg (35.0-45.0)
[2016-10-21 10:42] LABS: BACTERIA,URINE FEW /HPF; RBC,URINE 40-60 /HPF (0 - 0); SQUAMOUS EPITHELIAL CELL,UR OCCASIONAL /LPF (NONE/OCC); WBC,URINE 0-2 /HPF (0 - 0)
[2016-10-21] MEDS: Acetaminophen 650 MG SUPP RECTAL PRN ×2 (11:42→16:40)
[2016-10-21] MEDS ORDERED: NS 275ml ONE (15:39)
[2016-10-21] MEDS ORDERED: Tubing IV Secondary IV ONE (15:44)
[2016-10-21] MEDS: Levemir Flexpen SUBQ SCH (20:56)
[2016-10-21] MEDS: 1/2NS w/KCl 20mEq 1000ml 1,000 ML IV SCH (21:34)
[2016-10-22] VITALS (24 sets, daily range): BP systolic 119–178; BP diastolic 65–108
[2016-10-22] MEDS: Vancomycin 1.25 GM in D5W 275 ML IVPB SCH ×2 (01:36→09:33)
[2016-10-22] MEDS: HYDROmorphone 1mg/ml Carpuject IVP PRN ×2 (04:55→20:41)
[2016-10-22] MEDS: NovoLOG Insulin Flexpen SUBQ SCH ×4 (06:13→20:34)
[2016-10-22 06:36] LABS: BASOPHILS % (AUTO) 1.1 % (0.0-2.0); LYMPHOCYTES % (AUTO) 17.2 % (20.0-45.0); MEAN CORPUSCULAR HEMOGLOBIN 29.5 PG (27.0-31.0); MEAN CORPUSCULAR HGB CONC 31.2 G/DL (32.0-36.0); MEAN CORPUSCULAR VOLUME 95 FL (80-99); MEAN PLATELET VOLUME 7.8 FL (6.5-10.1); MONOCYTES % (AUTO) 10.4 % (1.0-10.0); NEUTROPHILS % (AUTO) 67.4 % (45.0-75.0); PLATELET COUNT 251 K/UL (150-450); RED CELL DISTRIBUTION WIDTH 12.4 % (11.6-14.8); WHITE BLOOD COUNT 6.3 K/UL (4.8-10.8)
[2016-10-22 07:33] LABS: ANION GAP 15 (5-15); CALCIUM 9.5 mg/dL (8.6-10.2); CARBON DIOXIDE 33 mEQ/L (20-30); CHLORIDE 103 mEQ/L (98-107); CREATININE 0.6 mg/dL (0.7-1.2); GLOMERULAR FILTRATION RATE > 60 mL/min (>60); HEMOLYSIS 1; POTASSIUM 4.3 mEQ/L (3.4-4.9); SODIUM 151 mEQ/L (135-145)
[2016-10-22] MEDS: 1/2NS w/KCl 20mEq 1000ml 1,000 ML IV SCH (07:46)
--- NOTE | 2016-10-22 08:08 | Critical Care Progress Note ---
Assessment/Plan Assessment/Plan s/p bronchoscopy pulmonary infiltrates respiratory failure aspiration event leukocytosis anemia sinus tachycardia agitation chronic co2 retention MDR sputum PLAN ventilator- off BIPAP - on and still acidotic repeat bronchoscopy- today family confirms dysphagia would recommend GT and may need trach iv hydration tube feeds titrate oxygen saturations if able may need intubation due to chronic poor acid base status ID evaluation recommended add Bactrim and Ertapenem ICU care for now Critical Care - Subjective Interval Events: oxygen increased to 100% Condition: critical EKG Rhythm: Sinus Tachycardia I&O: Intake and Output 10/21/16 10/22/16 19:00 07:00 Intake Total 1340.0 ml 1343.708 ml Output Total 1800 ml 1950 ml Balance -460.0 ml -606.292 ml IV Total 1280.0 ml 1283.708 ml Other 60 ml 60 ml Output Urine Total 1800 ml 1950 ml Critical Care - Objective ET-Tube: 8.0 ET Position: 22 Last 24 Hour Vital Signs Date Time Temp Pulse Resp B/P Pulse Ox O2 Delivery O2 Flow Rate FiO2 10/22/16 07:00 119 40 148/78 99 Bi-pap 100 10/22/16 06:50 115 42 99 Facial 100 10/22/16 06:00 105 42 132/74 99 Bi-pap 100 10/22/16 05:20 129 30 93 Facial 55 10/22/16 05:00 121 35 135/65 99 Bi-pap 55 10/22/16 04:00 99 10/22/16 04:00 55.0 10/22/16 04:00 99.3 101 37 144/77 97 Bi-pap 55 10/22/16 03:04 85 37 99 Facial 55 10/22/16 03:00 86 31 148/81 100 Bi-pap 55 10/22/16 02:00 86 31 127/65 97 Bi-pap 55 10/22/16 01:00 88 31 134/76 97 Bi-pap 55 10/22/16 00:33 84 30 97 Facial 55 10/22/16 00:00 98.6 90 37 119/67 97 Bi-pap 55 10/22/16 00:00 86 10/22/16 00:00 55.0 10/21/16 23:00 90 31 119/67 98 Bi-pap 55 10/21/16 22:46 95 33 98 Facial 55 10/21/16 22:00 94 34 119/63 99 Bi-pap 55 10/21/16 21:00 105 33 135/82 98 Bi-pap 55 10/21/16 20:47 105 38 95 Facial 55 10/21/16 20:00 98.3 106 37 148/88 96 Bi-pap 55 10/21/16 20:00 109 10/21/16 20:00 55.0 10/21/16 19:00 95 41 143/78 97 Bi-pap 55 10/21/16 18:36 92 39 95 Facial 55 10/21/16 18:00 82 32 134/72 95 Bi-pap 55 10/21/16 17:55 97.8 10/21/16 17:00 85 30 125/70 95 Bi-pap 55 10/21/16 17:00 55.0 10/21/16 16:31 97 40 93 Facial 55 10/21/16 16:00 97.6 86 24 132/75 95 Bi-pap 55 10/21/16 16:00 83 10/21/16 15:00 92 24 142/76 95 Bi-pap 55 10/21/16 14:33 85 35 94 Facial 55 10/21/16 14:00 100 30 149/75 92 Bi-pap 55 10/21/16 13:00 88 27 136/72 94 Bi-pap 55 10/21/16 12:30 94 38 96 Facial 55 10/21/16 12:00 95 10/21/16 12:00 98.8 87 25 141/66 96 Bi-pap 55 10/21/16 12:00 55.0 10/21/16 11:20 90 38 98 Facial 65 10/21/16 11:00 92 36 143/76 94 Bi-pap 65 10/21/16 10:00 82 27 137/72 98 Bi-pap 65 10/21/16 09:08 92 36 98 Facial 65 10/21/16 09:00 100 35 147/67 95 Bi-pap 65 Labs: Labs Test 10/19/16 12:03 10/19/16 15:25 10/19/16 17:15 10/20/16 04:00 Arterial Blood pH 7.300 (7.350-7.450) 7.310 (7.350-7.450) 7.256 (7.350-7.450) Arterial Blood Partial Pressure CO2 70.0 mmHg (35.0-45.0) 72.3 mmHg (35.0-45.0) 98.8 mmHg (35.0-45.0) Arterial Blood Partial Pressure O2 72.0 mmHg (75.0-100.0) 130.2 mmHg (75.0-100.0) 87.4 mmHg (75.0-100.0) Arterial Blood HCO3 33.6 mmol/L (22.0-26.0) 35.4 mmol/L (22.0-26.0) 42.9 mmol/L (22.0-26.0) Arterial Blood Oxygen Saturation 94.0 % (92.0-98.0) 98.0 % (92.0-98.0) 95.3 % (92.0-98.0) Arterial Blood Base Excess 5.1 7 11.5 Jamel Test Positive Sodium Level 142 mEQ/L (135-145) Vancomycin Level Trough 15.7 ug/mL (5.0-12.0) Test 10/20/16 05:00 10/20/16 12:10 10/20/16 20:00 10/21/16 08:20 White Blood Count 9.6 K/UL (4.8-10.8) 8.3 K/UL (4.8-10.8) Red Blood Count 4.53 M/UL (4.70-6.10) 4.17 M/UL (4.70-6.10) Hemoglobin 13.3 G/DL (14.2-18.0) 12.3 G/DL (14.2-18.0) Hematocrit 42.8 % (42.0-52.0) 39.7 % (42.0-52.0) Mean Corpuscular Volume 94 FL (80-99) 95 FL (80-99) Mean Corpuscular Hemoglobin 29.3 PG (27.0-31.0) 29.4 PG (27.0-31.0) Mean Corpuscular Hemoglobin Concent 31.1 G/DL (32.0-36.0) 30.9 G/DL (32.0-36.0) Red Cell Distribution Width 12.9 % (11.6-14.8) 12.7 % (11.6-14.8) Platelet Count 243 K/UL (150-450) 219 K/UL (150-450) Mean Platelet Volume 6.5 FL (6.5-10.1) 7.8 FL (6.5-10.1) Neutrophils (%) (Auto) 80.9 % (45.0-75.0) 77.8 % (45.0-75.0) Lymphocytes (%) (Auto) 9.4 % (20.0-45.0) 9.3 % (20.0-45.0) Monocytes (%) (Auto) 7.5 % (1.0-10.0) 10.3 % (1.0-10.0) Eosinophils (%) (Auto) 1.5 % (0.0-3.0) 2.0 % (0.0-3.0) Basophils (%) (Auto) 0.7 % (0.0-2.0) 0.6 % (0.0-2.0) Sodium Level 155 mEQ/L (135-145) 154 mEQ/L (135-145) 150 mEQ/L (135-145) Potassium Level 4.3 mEQ/L (3.4-4.9) Chloride Level 106 mEQ/L (98-107) Carbon Dioxide Level 38 mEQ/L (20-30) Anion Gap 11 (5-15) Blood Urea Nitrogen 7 mg/dL (7-23) Creatinine 0.7 mg/dL (0.7-1.2) Estimat Glomerular Filtration Rate > 60 mL/min (>60) Glucose Level 360 mg/dL (74-106) Calcium Level 9.0 mg/dL (8.6-10.2) Phosphorus Level 3.3 mg/dL (2.5-4.8) Magnesium Level 2.1 mg/dL (1.7-2.5) Test 10/21/16 08:25 10/21/16 09:50 10/21/16 10:10 10/22/16 05:30 Sodium Level 145 mEQ/L (135-145) 151 mEQ/L (135-145) Potassium Level 4.3 mEQ/L (3.4-4.9) 4.3 mEQ/L (3.4-4.9) Chloride Level 100 mEQ/L (98-107) 103 mEQ/L (98-107) Carbon Dioxide Level 39 mEQ/L (20-30) 33 mEQ/L (20-30) Anion Gap 6 (5-15) 15 (5-15) Blood Urea Nitrogen 7 mg/dL (7-23) 7 mg/dL (7-23) Creatinine 0.7 mg/dL (0.7-1.2) 0.6 mg/dL (0.7-1.2) Estimat Glomerular Filtration Rate > 60 mL/min (>60) > 60 mL/min (>60) Glucose Level 328 mg/dL (74-106) 282 mg/dL (74-106) Calcium Level 9.2 mg/dL (8.6-10.2) 9.5 mg/dL (8.6-10.2) Total Bilirubin 0.4 mg/dL (0.0-1.2) Aspartate Amino Transf (AST/SGOT) 27 U/L (5-40) Alanine Aminotransferase (ALT/SGPT) 24 U/L (3-41) Alkaline Phosphatase 92 U/L (40-129) Total Protein 6.5 g/dL (6.6-8.7) Albumin 2.9 g/dL (3.5-5.2) Globulin 3.6 g/dL Albumin/Globulin Ratio 0.8 (1.0-2.7) Urine Color Pale yellow Urine Appearance Slightly cloudy Urine pH 8 (4.5-8.0) Urine Specific Bude 1.010 (1.005-1.035) Urine Protein 4+ (NEGATIVE) Urine Glucose (UA) 4+ (NEGATIVE) Urine Ketones 1+ (NEGATIVE) Urine Occult Blood 5+ (NEGATIVE) Urine Nitrite Negative (NEGATIVE) Urine Bilirubin Negative (NEGATIVE) Urine Urobilinogen Normal MG/DL (0.0-1.0) Urine Leukocyte Esterase Negative (NEGATIVE) Urine RBC 40-60 /HPF (0 - 0) Urine WBC 0-2 /HPF (0 - 0) Urine Squamous Epithelial Cells Occasional /LPF Urine Bacteria Few /HPF (NONE) Arterial Blood pH 7.364 (7.350-7.450) Arterial Blood Partial Pressure CO2 75.4 mmHg (35.0-45.0) Arterial Blood Partial Pressure O2 83.8 mmHg (75.0-100.0) Arterial Blood HCO3 42.0 mmol/L (22.0-26.0) Arterial Blood Oxygen Saturation 95.9 % (92.0-98.0) Arterial Blood Base Excess 13.5 Jamel Test Positive White Blood Count 6.3 K/UL (4.8-10.8) Red Blood Count 4.40 M/UL (4.70-6.10) Hemoglobin 13.0 G/DL (14.2-18.0) Hematocrit 41.6 % (42.0-52.0) Mean Corpuscular Volume 95 FL (80-99) Mean Corpuscular Hemoglobin 29.5 PG (27.0-31.0) Mean Corpuscular Hemoglobin Concent 31.2 G/DL (32.0-36.0) Red Cell Distribution Width 12.4 % (11.6-14.8) Platelet Count 251 K/UL (150-450) Mean Platelet Volume 7.8 FL (6.5-10.1) Neutrophils (%) (Auto) 67.4 % (45.0-75.0) Lymphocytes (%) (Auto) 17.2 % (20.0-45.0) Monocytes (%) (Auto) 10.4 % (1.0-10.0) Eosinophils (%) (Auto) 4.0 % (0.0-3.0) Basophils (%) (Auto) 1.1 % (0.0-2.0) Objective: WDWN NAD still tachypneic on BIPAP; 02 increased reduced breath sounds bilaterally with some rhonchi S1S2RR tachy without MRG NABS nontender no HSM no CCE nonfocal Micro: Microbiology Date/Time Source Procedure Growth Status 10/19/16 08:30 Bronchial Washings Not Specified Gram Stain - Final Resulted 10/19/16 08:30 Bronchial Aspirate Culture - Preliminary Gram Negative Bacillus 1 Gram Negative Bacillus 2 Resulted Accucheck: 249 IZABEL HASTINGS October 22, 2016 08:08
[2016-10-22] MEDS ORDERED: Lidocaine HCl 2% Jelly 5ml Tube TOPIC ONE (08:15)
--- NOTE | 2016-10-22 09:17 | General Progress Note ---
Assessment/Plan Assessment/Plan 1) Hypernatremia--elevated again 2) dysuria 3) mucus plugging s/p bronchoscopy 4) Aspiration PNA 5) Hypercapnic resp failure s/p extubation, now on BiPAP 6)DM--hyperglycemia. pt is on D5W for hypernatremia 7) sinus tachycardia Plan change IVF to D5W+20meq KCL @ 100cc/h continue BiPAP ID consult cardio consult TSH and free T4 EKG swallowing eval tomorrow continue NPO Per pul--pt might need trach and PEG continue Abx frequent suction continue ICU care Discussed and updated to the family and RN at bed side Subjective Allergies: Coded Allergies: No Known Allergies (Unverified , 09/01/12) Subjective on BiPAP. family at bed side. No reported fever Objective Last 24 Hour Vital Signs Date Time Temp Pulse Resp B/P Pulse Ox O2 Delivery O2 Flow Rate FiO2 10/22/16 08:53 137 22 99 Facial 100 10/22/16 07:00 119 40 148/78 99 Bi-pap 100 10/22/16 06:50 115 42 99 Facial 100 10/22/16 06:00 105 42 132/74 99 Bi-pap 100 10/22/16 05:20 129 30 93 Facial 55 10/22/16 05:00 121 35 135/65 99 Bi-pap 55 10/22/16 04:00 99 10/22/16 04:00 55.0 10/22/16 04:00 99.3 101 37 144/77 97 Bi-pap 55 10/22/16 03:04 85 37 99 Facial 55 10/22/16 03:00 86 31 148/81 100 Bi-pap 55 10/22/16 02:00 86 31 127/65 97 Bi-pap 55 10/22/16 01:00 88 31 134/76 97 Bi-pap 55 10/22/16 00:33 84 30 97 Facial 55 10/22/16 00:00 98.6 90 37 119/67 97 Bi-pap 55 10/22/16 00:00 86 10/22/16 00:00 55.0 10/21/16 23:00 90 31 119/67 98 Bi-pap 55 10/21/16 22:46 95 33 98 Facial 55 10/21/16 22:00 94 34 119/63 99 Bi-pap 55 10/21/16 21:00 105 33 135/82 98 Bi-pap 55 10/21/16 20:47 105 38 95 Facial 55 10/21/16 20:00 98.3 106 37 148/88 96 Bi-pap 55 10/21/16 20:00 109 10/21/16 20:00 55.0 10/21/16 19:00 95 41 143/78 97 Bi-pap 55 10/21/16 18:36 92 39 95 Facial 55 10/21/16 18:00 82 32 134/72 95 Bi-pap 55 10/21/16 17:55 97.8 10/21/16 17:00 85 30 125/70 95 Bi-pap 55 10/21/16 17:00 55.0 10/21/16 16:31 97 40 93 Facial 55 10/21/16 16:00 97.6 86 24 132/75 95 Bi-pap 55 10/21/16 16:00 83 10/21/16 15:00 92 24 142/76 95 Bi-pap 55 10/21/16 14:33 85 35 94 Facial 55 10/21/16 14:00 100 30 149/75 92 Bi-pap 55 10/21/16 13:00 88 27 136/72 94 Bi-pap 55 10/21/16 12:30 94 38 96 Facial 55 10/21/16 12:00 95 10/21/16 12:00 98.8 87 25 141/66 96 Bi-pap 55 10/21/16 12:00 55.0 10/21/16 11:20 90 38 98 Facial 65 10/21/16 11:00 92 36 143/76 94 Bi-pap 65 10/21/16 10:00 82 27 137/72 98 Bi-pap 65 Intake and Output 10/21/16 10/22/16 18:59 06:59 Intake Total 1417.5 ml 1343.708 ml Output Total 1860 ml 1800 ml Balance -442.5 ml -456.292 ml IV Total 1357.5 ml 1283.708 ml Other 60 ml 60 ml Output Urine Total 1860 ml 1800 ml Laboratory Tests 10/21/16 09:50: Urine Color Pale yellow, Urine Appearance Slightly cloudy, Urine pH 8, Urine Specific [place] 1.010, Urine Protein 4+H, Urine Glucose (UA) 4+H, Urine Ketones 1+H, Urine Occult Blood 5+H, Urine Nitrite Negative, Urine Bilirubin Negative, Urine Urobilinogen Normal, Urine Leukocyte Esterase Negative, Urine RBC 40-60H, Urine WBC 0-2, Urine Squamous Epithelial Cells Occasional, Urine Bacteria Few 10/21/16 10:10: Arterial Blood pH 7.364, Arterial Blood Partial Pressure CO2 75.4*H, Arterial Blood Partial Pressure O2 83.8, Arterial Blood HCO3 42.0H, Arterial Blood Oxygen Saturation 95.9, Arterial Blood Base Excess 13.5, Jamel Test Positive 10/22/16 05:30: White Blood Count 6.3, Red Blood Count 4.40L, Hemoglobin 13.0L, Hematocrit 41.6L , Mean Corpuscular Volume 95, Mean Corpuscular Hemoglobin 29.5, Mean Corpuscular Hemoglobin Concent 31.2L, Red Cell Distribution Width 12.4, Platelet Count 251, Mean Platelet Volume 7.8, Neutrophils (%) (Auto) 67.4, Lymphocytes (%) (Auto) 17.2L, Monocytes (%) (Auto) 10.4H, Eosinophils (%) (Auto ) 4.0H, Basophils (%) (Auto) 1.1, Sodium Level 151H, Potassium Level 4.3, Chloride Level 103, Carbon Dioxide Level 33H, Anion Gap 15, Blood Urea Nitrogen 7, Creatinine 0.6L, Estimat Glomerular Filtration Rate > 60, Glucose Level 282H , Calcium Level 9.5 Height (Feet): 5 Height (Inches): 8.00 Weight (Pounds): 160 Objective on BiPAP, alert,awake mild bilat crackles+ S1,S2, tachy, no M/R/G soft, non tender, BS+ no edema, Nguyen's cath + YANG,AYE October 22, 2016 09:17
[2016-10-22] MEDS: Heparin 5000 units/ml inj SUBQ SCH ×2 (09:32→20:33)
[2016-10-22] MEDS: Pantoprazole Inj IV SCH (09:33)
[2016-10-22] MEDS: DESMOPRESSIN 0.1 MG ORAL SCH ×2 (09:34→20:31)
[2016-10-22] MEDS ORDERED: Ertapenem 1 GM in NS 55 ML IVPB SCH (10:00)
[2016-10-22] MEDS ORDERED: Tubing IV Secondary IV ONE (10:01)
[2016-10-22 10:47] LABS: ABG PCO2 70.2 mmHg (35.0-45.0)
[2016-10-22 10:48] LABS: ABG ALLEN TEST POSITIVE; ABG BASE EXCESS 7.3
[2016-10-22 11:21] LABS: THYROID STIMULATING HORMONE 0.929 uIU/mL (0.300-4.500)
[2016-10-22] MEDS: D5W w/KCl 20mEq 1,000 ML IV SCH ×2 (11:35→20:31)
[2016-10-22] MEDS: Bactrim DS (160mg/800mg) tab ORAL SCH ×2 (11:35→18:24)
--- NOTE | 2016-10-22 14:45 | Infectious Diseases Prog Note ---
Assessment/Plan Assessment/Plan Full consult to follow: A) 1) acinetobacter pna/klebsiella pna, sepsis, leukocytosis, fevers, sob 2) s/p bronchoscopy, ich, bipap, DI 3) allergies - negative 4) caren lewis d/w RN, d/w family P) 1) change abx to meropenem, polymyxin, vancomycin and bactrim 2) check labs and chest x-ray 3) treatment per primary and consultants 4) thank you Subjective Allergies: Coded Allergies: No Known Allergies (Unverified , 09/01/12) Objective Vital Signs Last 24 Hour Vital Signs Date Time Temp Pulse Resp B/P Pulse Ox O2 Delivery O2 Flow Rate FiO2 10/22/16 14:00 133 27 153/108 94 Bi-pap 50 10/22/16 13:00 128 15 95 Facial 50 10/22/16 13:00 128 25 171/90 95 Bi-pap 50 10/22/16 12:00 98.3 129 23 159/92 95 Bi-pap 50 10/22/16 12:00 50.0 10/22/16 12:00 134 10/22/16 11:29 135 17 98 Facial 50 10/22/16 11:00 136 24 156/91 99 Bi-pap 100 10/22/16 10:00 137 24 151/92 99 Bi-pap 100 10/22/16 09:00 135 26 164/78 99 Bi-pap 100 10/22/16 08:53 137 22 99 Facial 100 10/22/16 08:00 100.0 10/22/16 08:00 98.6 130 32 161/91 99 Bi-pap 100 10/22/16 08:00 112 10/22/16 07:00 119 40 148/78 99 Bi-pap 100 10/22/16 06:50 115 42 99 Facial 100 10/22/16 06:00 105 42 132/74 99 Bi-pap 100 10/22/16 05:20 129 30 93 Facial 55 10/22/16 05:00 121 35 135/65 99 Bi-pap 55 10/22/16 04:00 99 10/22/16 04:00 55.0 10/22/16 04:00 99.3 101 37 144/77 97 Bi-pap 55 10/22/16 03:04 85 37 99 Facial 55 10/22/16 03:00 86 31 148/81 100 Bi-pap 55 10/22/16 02:00 86 31 127/65 97 Bi-pap 55 10/22/16 01:00 88 31 134/76 97 Bi-pap 55 10/22/16 00:33 84 30 97 Facial 55 10/22/16 00:00 98.6 90 37 119/67 97 Bi-pap 55 10/22/16 00:00 86 10/22/16 00:00 55.0 10/21/16 23:00 90 31 119/67 98 Bi-pap 55 10/21/16 22:46 95 33 98 Facial 55 10/21/16 22:00 94 34 119/63 99 Bi-pap 55 10/21/16 21:00 105 33 135/82 98 Bi-pap 55 10/21/16 20:47 105 38 95 Facial 55 10/21/16 20:00 98.3 106 37 148/88 96 Bi-pap 55 10/21/16 20:00 109 10/21/16 20:00 55.0 10/21/16 19:00 95 41 143/78 97 Bi-pap 55 10/21/16 18:36 92 39 95 Facial 55 10/21/16 18:00 82 32 134/72 95 Bi-pap 55 10/21/16 17:55 97.8 10/21/16 17:00 85 30 125/70 95 Bi-pap 55 10/21/16 17:00 55.0 10/21/16 16:31 97 40 93 Facial 55 10/21/16 16:00 97.6 86 24 132/75 95 Bi-pap 55 10/21/16 16:00 83 10/21/16 15:00 92 24 142/76 95 Bi-pap 55 Height (Feet): 5 Height (Inches): 8.00 Weight (Pounds): 160 Laboratory Tests Test 10/22/16 05:30 10/22/16 07:50 10/22/16 10:35 White Blood Count 6.3 K/UL (4.8-10.8) Red Blood Count 4.40 M/UL (4.70-6.10) L Hemoglobin 13.0 G/DL (14.2-18.0) L Hematocrit 41.6 % (42.0-52.0) L Mean Corpuscular Volume 95 FL (80-99) Mean Corpuscular Hemoglobin 29.5 PG (27.0-31.0) Mean Corpuscular Hemoglobin Concent 31.2 G/DL (32.0-36.0) L Red Cell Distribution Width 12.4 % (11.6-14.8) Platelet Count 251 K/UL (150-450) Mean Platelet Volume 7.8 FL (6.5-10.1) Neutrophils (%) (Auto) 67.4 % (45.0-75.0) Lymphocytes (%) (Auto) 17.2 % (20.0-45.0) L Monocytes (%) (Auto) 10.4 % (1.0-10.0) H Eosinophils (%) (Auto) 4.0 % (0.0-3.0) H Basophils (%) (Auto) 1.1 % (0.0-2.0) Sodium Level 151 mEQ/L (135-145) H Potassium Level 4.3 mEQ/L (3.4-4.9) Chloride Level 103 mEQ/L (98-107) Carbon Dioxide Level 33 mEQ/L (20-30) H Anion Gap 15 (5-15) Blood Urea Nitrogen 7 mg/dL (7-23) Creatinine 0.6 mg/dL (0.7-1.2) L Estimat Glomerular Filtration Rate > 60 mL/min (>60) Glucose Level 282 mg/dL (74-106) H Calcium Level 9.5 mg/dL (8.6-10.2) Thyroid Stimulating Hormone (TSH) 0.929 uIU/mL (0.300-4.500) Free Thyroxine 1.52 ng/dL (0.86-1.85) Arterial Blood pH 7.328 (7.350-7.450) Arterial Blood Partial Pressure CO2 70.2 mmHg (35.0-45.0) *H Arterial Blood Partial Pressure O2 383.3 mmHg (75.0-100.0) H Arterial Blood HCO3 36.0 mmol/L (22.0-26.0) H Arterial Blood Oxygen Saturation 99.6 % (92.0-98.0) H Arterial Blood Base Excess 7.3 Jamel Test Positive Current Medications Medications (Trade) Dose Ordered Sig/Marilyn Route PRN Reason Start Time Stop Time Status Last Admin Dose Admin Acetaminophen (Tylenol) 650 mg Q4H PRN RECTAL Mild Pain (Pain Scale 1-3) 10/15/16 23:45 11/14/16 23:44 10/21/16 16:40 Bisacodyl (Dulcolax) 10 mg DAILYPRN PRN RECTAL Constipation 10/15/16 23:45 11/14/16 23:44 10/20/16 13:39 Dextrose (Dextrose 50%) STAT PRN IV Hypoglycemia 10/15/16 23:45 11/14/16 23:44 Dextrose/ Electrolytes (D5W w/KCl 20mEq) 1,000 ml @ 100 mls/hr Q10H IV 10/22/16 10:00 11/21/16 09:59 10/22/16 11:35 Ertapenem/Sodium Chloride (INVanz/Sodium Chloride) 55 ml @ 110 mls/hr Q24H IVPB 10/22/16 10:00 10/23/16 09:59 10/22/16 11:35 Heparin Sodium (Porcine) (Heparin 5000 units/ml) 5,000 units EVERY 12 HOURS SUBQ 10/16/16 09:00 11/15/16 08:59 10/22/16 09:32 Hydromorphone HCl (Dilaudid) 1 mg Q6H PRN IVP Severe Pain (Pain Scale 7-10) 10/15/16 23:45 10/22/16 23:44 10/22/16 04:55 Insulin Aspart (NovoLOG) BEFORE MEALS AND HS SUBQ 10/16/16 06:30 11/15/16 06:29 10/22/16 11:36 Insulin Detemir (Levemir) 10 units BEDTIME SUBQ 10/16/16 21:00 11/15/16 20:59 10/21/16 20:56 Ondansetron HCl (Zofran ODT) 4 mg Q6H PRN ORAL Nausea & Vomiting 10/15/16 23:45 11/14/16 23:44 Pantoprazole (Protonix) 40 mg DAILY IV 10/16/16 09:00 11/15/16 08:59 10/22/16 09:33 Patient Own Medication 1 ea 1 ea Q12HR ORAL 10/18/16 12:00 11/17/16 11:59 10/22/16 09:34 Trimethoprim/ Sulfamethoxazole 1 ea 1 ea TWICE A DAY ORAL 10/22/16 09:00 10/29/16 08:59 10/22/16 11:35 Vancomycin HCl 1 ea 1 ea DAILY PRN MISC Per rx protocol 10/16/16 07:15 11/15/16 07:14 Vancomycin HCl/ Dextrose (Vancomycin/D5W) 275 ml @ 183.708 mls/hr Q8HR@0200,1000,1800 IVPB 10/17/16 18:00 10/22/16 17:59 10/22/16 09:33 JACOBY LO October 22, 2016 14:45
--- NOTE | 2016-10-22 16:32 | Consultation ---
Consult Note Consult Note Cardiology for Dr. Quiros Full note dictated. Assessment: 31 yo HM w/ type I DM, DI, optic atrophy and hearing loss adm w/ dysphagia - recurrent aspiration and mucus plugging. s/p bronch x2 and intubation/mech vent. He is now extubated, on bipap, tachypneic, in mild distress. In this setting, he is noted to be tachycardic, w/ sinus rates to 130s. he has had persistent sinus tach His sinus tach is likely secondary to pulm condition, aspiration, infection/ metabolic factors. ? intravasc vol depletion Rec: hypotonic IV fluids as he is hypernatremic. Will obtain ECHO to assess LV function, valves. Pulmonary , Dr Sims, managing recurrent aspiration, pneumonia - PEG and poss trach are being considered. #[id number] ADELINA BRODY October 22, 2016 16:32
--- NOTE | 2016-10-22 17:48 | Procedure Note ---
DATE OF PROCEDURE: 10/22/2016 PREOPERATIVE DIAGNOSIS: Mucus plugging. POSTOPERATIVE DIAGNOSIS: Mucus plugging. PROCEDURE: Bronchoscopy. SURGEON: Charles Sims M.D. INDICATION: Persistent hypoxemia. CONSENT: After risks and benefits were explained to the patient's family, a signed informed consent was obtained and placed in the chart. DESCRIPTION OF PROCEDURE: Using no additional conscious sedation, a fiberoptic bronchoscope was passed via the right nostril. The patient's vocal cords once again had no significant response to instillation of saline. The patient has no gag and had no discomfort during the procedure. The patient's right and left endobronchial trees were examined in detail. The patient had copious amount of green secretions, mostly blocking the right bronchus intermedius. The patient also had some secretions in the left lower lung. It was lavaged aggressively to clear. The patient's airways were patent at the completion of the procedure. The patient tolerated the procedure well. He was awake and alert throughout, and at the completion of the procedure, his blood pressure, EKG, and oximetry were continuously monitored, and with the exception of sinus tachycardia, they were within normal limits. FINDINGS: 1. Copious amount of secretions fixed and green in color, right bronchus intermedius as well as left lower lobe, lavaged to clear. 2. Moderate amount of tracheobronchitis. 3. No significant gag. DISPOSITION: To remain in ICU. Charles Sims M.D. DR: TANYA JOB#: [id number] CC:
[2016-10-22] MEDS: Levemir Flexpen SUBQ SCH (20:33)
[2016-10-22] MEDS: Polymyxin B Sulfate 500,000 UNITS in D5W 500ml 500 ML IVPB SCH (21:10)
[2016-10-22] MEDS ORDERED: Levemir Flexpen SUBQ ONE (21:45)
[2016-10-22] MEDS ORDERED: 1/2NS w/KCl 20mEq 1000ml 1,000 ML IV SCH (22:45)
[2016-10-22] MEDS ORDERED: NovoLOG Insulin Flexpen SUBQ ONE (22:45)
--- NOTE | 2016-10-22 22:48 | Consultation ---
DATE OF CONSULTATION: 10/22/2016 CARDIOLOGY CONSULTATION Cardiology Consult Coverage done for Jenna Quiros M.D. REASON FOR CONSULT: Tachycardia. HISTORY OF PRESENT ILLNESS: The patient is a 31-year-old, man (history obtained through a machine wiper as well as the chart. The patient is on BiPAP ventilation, speaks primarily Jordanian and has 2 family members). The patient is a 31-year-old man with a history of DIDMOAD syndrome, diabetes insipidus, type 1 diabetes, optical atrophy and deafness being followed at [facility]. He was admitted on 10/15/2016 after choking on food. He required intubation and mechanical ventilation. He was successfully weaned from the ventilator. He has been being followed by pulmonary Dr. Sims and bronchoscopy was done on 10/16/2016 and on 10/19/2016 for mucous plugging and infection. He is currently on BiPAP ventilation, tachypneic and noted with tachycardia with rates in the 120s. Cardiology evaluation was requested. According to the patient's family reports that he has chronic difficulty swallowing food and fluids due to dysphasia and recurrent aspiration. G-tube and possible tracheostomy has been recommended. The patient's family report no previous history of cardiac arrhythmia, chest pain, or heart failure. He has not had palpitations or chest pain. He has had episodes of dyspnea in the setting of aspiration of food and fluids. He has not had previous cardiac testing. PAST MEDICAL HISTORY: As noted above. The patient has DIDMOAD syndrome consisting of diabetes insipidus, diabetes mellitus, optic atrophy and deafness as noted above. MEDICATIONS: Meropenem 1 g IV q.8 hours, Polymyxin 50,000 units IV q.12 hours, Bactrim 1 tablet twice daily, vancomycin 1.25 mg g IV q.8 hours, insulin 10 units, Levemir q.h.s., subcutaneous heparin 5000 units q.12 hours, Protonix 40 mg IV daily, insulin sliding scale, Zofran p.r.n., Tylenol p.r.n., Dilaudid p.r.n., and Dulcolax p.r.n. ALLERGIES: No known drug allergies. SOCIAL HISTORY: The patient is a nonsmoker. Does not drink alcohol or use any drugs. PHYSICAL EXAMINATION: VITAL SIGNS: Blood pressure is 153/108, pulse 127 regular, respirations 25, and oxygen saturation 97% on BiPAP mask 50%. HEENT: Normocephalic and atraumatic. Pupils are equal, round, and reactive to light. BiPAP mask in place. NECK: Supple. There is no jugular venous distention. LUNGS: Bilateral scattered rhonchi. Fair air movement. HEART: Tachycardic. Regular S1 and S2. No murmurs, rubs, S3, or S4. ABDOMEN: Soft and nontender. No palpable mass. EXTREMITIES: No cyanosis, clubbing, or edema. LABORATORY AND DIAGNOSTIC DATA: Hemoglobin 13, white blood count 6300, and platelets 251,000. BUN 7 and creatinine 0.6. TSH is 0.92. Free T4 is 1.5. Sodium 151, potassium 4.3, and chloride 103. Arterial blood gas, pH 7.32, pCO2 70, and PO2 383. Chest x-ray from 10/20/2016 shows normal heart size, mild increased interstitial markings and G-tube. EKG shows sinus tachycardia at a rate of 135 beats per minute, axis +70 degrees, possible left atrial enlargement. No ST-segment or T-wave changes. ASSESSMENTS AND RECOMMENDATIONS: The patient is a 31-year-old man with diabetes insipidus and recurrent episodes of aspiration and mucus plugging status post two recent bronchoscopy procedures. He was previously intubated, but now has been extubated and is on BiPAP mask, but appears tachypneic, in mild respiratory distress. In this setting, he is noted to have sinus tachycardia and is hypertensive. I believe these findings are related to his metabolic state. He does not appear acutely volume overloaded. I would favor giving hypotonic intravenous fluids given his hypernatremia. We will further evaluate his cardiac status with an echo and further treatment of his aspiration pneumonia and his acute respiratory condition would favor giving hypotonic fluids given his hypernatremia. Further treatment of his pulmonary infiltrates, recurrent aspiration and dysphagia will be as per pulmonary and his primary physician. Nalini Weiner M.D. DR: KEISHA JOB#: [id number] CC:
[2016-10-22 23:25] LABS: ANION GAP 10 (5-15); CALCIUM 9.6 mg/dL (8.6-10.2); CARBON DIOXIDE 37 mEQ/L (20-30); CHLORIDE 112 mEQ/L (98-107); CREATININE 0.7 mg/dL (0.7-1.2); GLOMERULAR FILTRATION RATE > 60 mL/min (>60); HEMOLYSIS 1; SODIUM 159 mEQ/L (135-145)
[2016-10-23] VITALS (23 sets, daily range): BP systolic 122–164; BP diastolic 61–96
[2016-10-23] MEDS: NovoLOG Insulin Flexpen SUBQ SCH ×4 (05:39→21:05)
[2016-10-23 06:06] LABS: BASOPHILS % (AUTO) 0.4 % (0.0-2.0); EOSINOPHILS % (AUTO) 0.4 % (0.0-3.0); MEAN CORPUSCULAR HEMOGLOBIN 29.3 PG (27.0-31.0); MEAN CORPUSCULAR HGB CONC 30.7 G/DL (32.0-36.0); MEAN CORPUSCULAR VOLUME 95 FL (80-99); MEAN PLATELET VOLUME 7.1 FL (6.5-10.1); NEUTROPHILS % (AUTO) 77.2 % (45.0-75.0); PLATELET COUNT 288 K/UL (150-450); RED BLOOD COUNT 5.07 M/UL (4.70-6.10); RED CELL DISTRIBUTION WIDTH 12.5 % (11.6-14.8); WHITE BLOOD COUNT 9.9 K/UL (4.8-10.8)
[2016-10-23 06:29] LABS: ANION GAP 12 (5-15); CALCIUM 9.9 mg/dL (8.6-10.2); CARBON DIOXIDE 38 mEQ/L (20-30); CHLORIDE 111 mEQ/L (98-107); CREATININE 0.7 mg/dL (0.7-1.2); GLOMERULAR FILTRATION RATE > 60 mL/min (>60); HEMOLYSIS 0; POTASSIUM 4.3 mEQ/L (3.4-4.9)
[2016-10-23 06:46] LABS: SODIUM 161 mEQ/L (135-145)
[2016-10-23] MEDS: D5W w/KCl 20mEq 1,000 ML IV SCH ×3 (06:54→22:03)
--- NOTE | 2016-10-23 08:23 | General Progress Note ---
Assessment/Plan Assessment/Plan Worsening. Na 161. DC Tube Feeding and Don't Resume!!!! Explained to all MDs. On D5W DO NOT CHANGE!!!!! Redose sq dDAVP. Failed Video Swallow. Keep NPO as risks of NGT are aspiration. Repeat Swallow studies in 48 hrs!. On [facility] Transfer List. Called [facility]. No special needs, No ICU beds and pt has no private [facility] attending only Teaching Service. Low chances of transfer. DW pt's brother and Matilde. Subjective Allergies: Coded Allergies: No Known Allergies (Unverified , 09/01/12) Subjective Slightly more alert! Objective Last 24 Hour Vital Signs Date Time Temp Pulse Resp B/P Pulse Ox O2 Delivery O2 Flow Rate FiO2 10/23/16 08:00 114 10/23/16 08:00 50.0 10/23/16 08:00 97.9 117 26 128/89 96 Bi-pap 50 10/23/16 07:12 110 24 96 Facial 50 10/23/16 07:00 114 28 158/91 98 Bi-pap 50 10/23/16 06:00 110 29 133/84 97 Bi-pap 50 10/23/16 05:17 119 17 98 Facial 50 10/23/16 05:00 116 29 133/84 97 Bi-pap 50 10/23/16 04:00 50.0 10/23/16 04:00 98.3 111 28 135/81 97 Bi-pap 50 10/23/16 04:00 118 10/23/16 03:04 117 22 99 Facial 50 10/23/16 03:00 107 25 129/83 98 Bi-pap 50 10/23/16 02:00 119 29 153/93 98 Bi-pap 50 10/23/16 01:04 129 19 98 Facial 50 10/23/16 01:00 129 26 144/96 98 Bi-pap 50 10/23/16 00:00 50.0 10/23/16 00:00 98.1 114 29 142/92 97 Bi-pap 50 10/23/16 00:00 141 10/22/16 23:15 142 17 97 Facial 50 10/22/16 23:00 141 23 164/99 97 Bi-pap 50 10/22/16 22:00 144 23 178/97 97 Bi-pap 50 10/22/16 21:04 140 20 96 Facial 50 10/22/16 21:00 145 22 176/93 96 Bi-pap 50 10/22/16 20:00 130 10/22/16 20:00 50.0 10/22/16 20:00 98.6 136 25 144/91 96 Bi-pap 50 10/22/16 19:00 126 20 135/85 95 Bi-pap 50 10/22/16 18:58 123 25 97 Facial 50 10/22/16 18:00 131 25 147/86 98 Bi-pap 50 10/22/16 17:00 131 30 143/89 98 Bi-pap 50 10/22/16 17:00 138 19 97 Facial 50 10/22/16 16:00 98.1 124 33 153/90 95 Bi-pap 50 10/22/16 16:00 50.0 10/22/16 16:00 124 10/22/16 15:00 126 30 155/82 96 Bi-pap 50 10/22/16 14:50 127 25 97 Facial 50 10/22/16 14:00 133 27 153/108 94 Bi-pap 50 10/22/16 13:00 128 15 95 Facial 50 10/22/16 13:00 128 25 171/90 95 Bi-pap 50 10/22/16 12:00 98.3 129 23 159/92 95 Bi-pap 50 10/22/16 12:00 50.0 10/22/16 12:00 134 10/22/16 11:29 135 17 98 Facial 50 10/22/16 11:00 136 24 156/91 99 Bi-pap 100 10/22/16 10:00 137 24 151/92 99 Bi-pap 100 10/22/16 09:00 135 26 164/78 99 Bi-pap 100 10/22/16 08:53 137 22 99 Facial 100 Intake and Output 10/22/16 10/23/16 19:00 07:00 Intake Total 1550.000 ml 1775 ml Output Total 2850 ml 1950 ml Balance -1300.000 ml -175 ml IV Total 1430.000 ml 1725 ml Other 120 ml 50 ml Output Urine Total 2850 ml 1950 ml # Bowel Movements 1 Laboratory Tests 10/22/16 10:35: Arterial Blood pH 7.328L, Arterial Blood Partial Pressure CO2 70.2*H, Arterial Blood Partial Pressure O2 383.3H, Arterial Blood HCO3 36.0H, Arterial Blood Oxygen Saturation 99.6H, Arterial Blood Base Excess 7.3, Jamel Test Positive 10/22/16 22:40: Sodium Level 159H, Potassium Level 4.0, Chloride Level 112H, Carbon Dioxide Level 37H, Anion Gap 10, Blood Urea Nitrogen 9, Creatinine 0.7, Estimat Glomerular Filtration Rate > 60, Glucose Level 409#H, Calcium Level 9.6 10/23/16 04:00: Sodium Level 161*H, Potassium Level 4.3, Chloride Level 111H, Carbon Dioxide Level 38H, Anion Gap 12, Blood Urea Nitrogen 13, Creatinine 0.7, Estimat Glomerular Filtration Rate > 60, Glucose Level 272#H, Calcium Level 9.9, White Blood Count 9.9#, Red Blood Count 5.07, Hemoglobin 14.8, Hematocrit 48.3, Mean Corpuscular Volume 95, Mean Corpuscular Hemoglobin 29.3, Mean Corpuscular Hemoglobin Concent 30.7L, Red Cell Distribution Width 12.5, Platelet Count 288, Mean Platelet Volume 7.1, Neutrophils (%) (Auto) 77.2H, Lymphocytes (%) (Auto) 12.0L, Monocytes (%) (Auto) 10.0, Eosinophils (%) (Auto) 0.4, Basophils (%) ( Auto) 0.4 Height (Feet): 5 Height (Inches): 8.00 Weight (Pounds): 160 Objective Mostly Stuporotic but arousable 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 Cv RR Lungs CTA Abd SNT. BS + E No CCE RENETTA SOMMER October 23, 2016 08:23
--- NOTE | 2016-10-23 08:37 | Critical Care Progress Note ---
Assessment/Plan Assessment/Plan s/p bronchoscopy pulmonary infiltrates respiratory failure aspiration event leukocytosis anemia sinus tachycardia agitation chronic co2 retention MDR sputum PLAN ventilator- off BIPAP - try off repeat bronchoscopy x 3 completed family confirms dysphagia would recommend GT and may need trach iv hydration with caution tube feeds titrate oxygen saturations if able ID evaluation noted ICU care for now Critical Care - Subjective Interval Events: oxygen needs better alert on BIPAP Condition: improving EKG Rhythm: Sinus Tachycardia I&O: Intake and Output 10/22/16 10/23/16 19:00 07:00 Intake Total 1550.000 ml 1775 ml Output Total 2850 ml 1950 ml Balance -1300.000 ml -175 ml IV Total 1430.000 ml 1725 ml Other 120 ml 50 ml Output Urine Total 2850 ml 1950 ml # Bowel Movements 1 Critical Care - Objective ET-Tube: 8.0 ET Position: 22 Last 24 Hour Vital Signs Date Time Temp Pulse Resp B/P Pulse Ox O2 Delivery O2 Flow Rate FiO2 10/23/16 08:00 114 10/23/16 08:00 50.0 10/23/16 08:00 97.9 117 26 128/89 96 Bi-pap 50 10/23/16 07:12 110 24 96 Facial 50 10/23/16 07:00 114 28 158/91 98 Bi-pap 50 10/23/16 06:00 110 29 133/84 97 Bi-pap 50 10/23/16 05:17 119 17 98 Facial 50 10/23/16 05:00 116 29 133/84 97 Bi-pap 50 10/23/16 04:00 50.0 10/23/16 04:00 98.3 111 28 135/81 97 Bi-pap 50 10/23/16 04:00 118 10/23/16 03:04 117 22 99 Facial 50 10/23/16 03:00 107 25 129/83 98 Bi-pap 50 10/23/16 02:00 119 29 153/93 98 Bi-pap 50 10/23/16 01:04 129 19 98 Facial 50 10/23/16 01:00 129 26 144/96 98 Bi-pap 50 10/23/16 00:00 50.0 10/23/16 00:00 98.1 114 29 142/92 97 Bi-pap 50 10/23/16 00:00 141 10/22/16 23:15 142 17 97 Facial 50 10/22/16 23:00 141 23 164/99 97 Bi-pap 50 10/22/16 22:00 144 23 178/97 97 Bi-pap 50 10/22/16 21:04 140 20 96 Facial 50 10/22/16 21:00 145 22 176/93 96 Bi-pap 50 10/22/16 20:00 130 10/22/16 20:00 50.0 10/22/16 20:00 98.6 136 25 144/91 96 Bi-pap 50 10/22/16 19:00 126 20 135/85 95 Bi-pap 50 10/22/16 18:58 123 25 97 Facial 50 10/22/16 18:00 131 25 147/86 98 Bi-pap 50 10/22/16 17:00 131 30 143/89 98 Bi-pap 50 10/22/16 17:00 138 19 97 Facial 50 10/22/16 16:00 98.1 124 33 153/90 95 Bi-pap 50 10/22/16 16:00 50.0 10/22/16 16:00 124 10/22/16 15:00 126 30 155/82 96 Bi-pap 50 10/22/16 14:50 127 25 97 Facial 50 10/22/16 14:00 133 27 153/108 94 Bi-pap 50 10/22/16 13:00 128 15 95 Facial 50 10/22/16 13:00 128 25 171/90 95 Bi-pap 50 10/22/16 12:00 98.3 129 23 159/92 95 Bi-pap 50 10/22/16 12:00 50.0 10/22/16 12:00 134 10/22/16 11:29 135 17 98 Facial 50 10/22/16 11:00 136 24 156/91 99 Bi-pap 100 10/22/16 10:00 137 24 151/92 99 Bi-pap 100 10/22/16 09:00 135 26 164/78 99 Bi-pap 100 10/22/16 08:53 137 22 99 Facial 100 Labs: Labs Test 10/20/16 12:10 10/20/16 20:00 10/21/16 08:20 10/21/16 08:25 Sodium Level 154 mEQ/L (135-145) 150 mEQ/L (135-145) 145 mEQ/L (135-145) White Blood Count 8.3 K/UL (4.8-10.8) Red Blood Count 4.17 M/UL (4.70-6.10) Hemoglobin 12.3 G/DL (14.2-18.0) Hematocrit 39.7 % (42.0-52.0) Mean Corpuscular Volume 95 FL (80-99) Mean Corpuscular Hemoglobin 29.4 PG (27.0-31.0) Mean Corpuscular Hemoglobin Concent 30.9 G/DL (32.0-36.0) Red Cell Distribution Width 12.7 % (11.6-14.8) Platelet Count 219 K/UL (150-450) Mean Platelet Volume 7.8 FL (6.5-10.1) Neutrophils (%) (Auto) 77.8 % (45.0-75.0) Lymphocytes (%) (Auto) 9.3 % (20.0-45.0) Monocytes (%) (Auto) 10.3 % (1.0-10.0) Eosinophils (%) (Auto) 2.0 % (0.0-3.0) Basophils (%) (Auto) 0.6 % (0.0-2.0) Potassium Level 4.3 mEQ/L (3.4-4.9) Chloride Level 100 mEQ/L (98-107) Carbon Dioxide Level 39 mEQ/L (20-30) Anion Gap 6 (5-15) Blood Urea Nitrogen 7 mg/dL (7-23) Creatinine 0.7 mg/dL (0.7-1.2) Estimat Glomerular Filtration Rate > 60 mL/min (>60) Glucose Level 328 mg/dL (74-106) Calcium Level 9.2 mg/dL (8.6-10.2) Total Bilirubin 0.4 mg/dL (0.0-1.2) Aspartate Amino Transf (AST/SGOT) 27 U/L (5-40) Alanine Aminotransferase (ALT/SGPT) 24 U/L (3-41) Alkaline Phosphatase 92 U/L (40-129) Total Protein 6.5 g/dL (6.6-8.7) Albumin 2.9 g/dL (3.5-5.2) Globulin 3.6 g/dL Albumin/Globulin Ratio 0.8 (1.0-2.7) Test 10/21/16 09:50 5/6/17 10:10 10/22/16 05:30 10/22/16 07:50 Urine Color Pale yellow Urine Appearance Slightly cloudy Urine pH 8 (4.5-8.0) Urine Specific [place] 1.010 (1.005-1.035) Urine Protein 4+ (NEGATIVE) Urine Glucose (UA) 4+ (NEGATIVE) Urine Ketones 1+ (NEGATIVE) Urine Occult Blood 5+ (NEGATIVE) Urine Nitrite Negative (NEGATIVE) Urine Bilirubin Negative (NEGATIVE) Urine Urobilinogen Normal MG/DL (0.0-1.0) Urine Leukocyte Esterase Negative (NEGATIVE) Urine RBC 40-60 /HPF (0 - 0) Urine WBC 0-2 /HPF (0 - 0) Urine Squamous Epithelial Cells Occasional /LPF Urine Bacteria Few /HPF (NONE) Arterial Blood pH 7.364 (7.350-7.450) Arterial Blood Partial Pressure CO2 75.4 mmHg (35.0-45.0) Arterial Blood Partial Pressure O2 83.8 mmHg (75.0-100.0) Arterial Blood HCO3 42.0 mmol/L (22.0-26.0) Arterial Blood Oxygen Saturation 95.9 % (92.0-98.0) Arterial Blood Base Excess 13.5 Jamel Test Positive White Blood Count 6.3 K/UL (4.8-10.8) Red Blood Count 4.40 M/UL (4.70-6.10) Hemoglobin 13.0 G/DL (14.2-18.0) Hematocrit 41.6 % (42.0-52.0) Mean Corpuscular Volume 95 FL (80-99) Mean Corpuscular Hemoglobin 29.5 PG (27.0-31.0) Mean Corpuscular Hemoglobin Concent 31.2 G/DL (32.0-36.0) Red Cell Distribution Width 12.4 % (11.6-14.8) Platelet Count 251 K/UL (150-450) Mean Platelet Volume 7.8 FL (6.5-10.1) Neutrophils (%) (Auto) 67.4 % (45.0-75.0) Lymphocytes (%) (Auto) 17.2 % (20.0-45.0) Monocytes (%) (Auto) 10.4 % (1.0-10.0) Eosinophils (%) (Auto) 4.0 % (0.0-3.0) Basophils (%) (Auto) 1.1 % (0.0-2.0) Sodium Level 151 mEQ/L (135-145) Potassium Level 4.3 mEQ/L (3.4-4.9) Chloride Level 103 mEQ/L (98-107) Carbon Dioxide Level 33 mEQ/L (20-30) Anion Gap 15 (5-15) Blood Urea Nitrogen 7 mg/dL (7-23) Creatinine 0.6 mg/dL (0.7-1.2) Estimat Glomerular Filtration Rate > 60 mL/min (>60) Glucose Level 282 mg/dL (74-106) Calcium Level 9.5 mg/dL (8.6-10.2) Thyroid Stimulating Hormone (TSH) 0.929 uIU/mL (0.300-4.500) Free Thyroxine 1.52 ng/dL (0.86-1.85) Test 10/22/16 10:35 10/22/16 22:40 10/23/16 04:00 Arterial Blood pH 7.328 (7.350-7.450) Arterial Blood Partial Pressure CO2 70.2 mmHg (35.0-45.0) Arterial Blood Partial Pressure O2 383.3 mmHg (75.0-100.0) Arterial Blood HCO3 36.0 mmol/L (22.0-26.0) Arterial Blood Oxygen Saturation 99.6 % (92.0-98.0) Arterial Blood Base Excess 7.3 Jamel Test Positive Sodium Level 159 mEQ/L (135-145) 161 mEQ/L (135-145) Potassium Level 4.0 mEQ/L (3.4-4.9) 4.3 mEQ/L (3.4-4.9) Chloride Level 112 mEQ/L (98-107) 111 mEQ/L (98-107) Carbon Dioxide Level 37 mEQ/L (20-30) 38 mEQ/L (20-30) Anion Gap 10 (5-15) 12 (5-15) Blood Urea Nitrogen 9 mg/dL (7-23) 13 mg/dL (7-23) Creatinine 0.7 mg/dL (0.7-1.2) 0.7 mg/dL (0.7-1.2) Estimat Glomerular Filtration Rate > 60 mL/min (>60) > 60 mL/min (>60) Glucose Level 409 mg/dL (74-106) 272 mg/dL (74-106) Calcium Level 9.6 mg/dL (8.6-10.2) 9.9 mg/dL (8.6-10.2) White Blood Count 9.9 K/UL (4.8-10.8) Red Blood Count 5.07 M/UL (4.70-6.10) Hemoglobin 14.8 G/DL (14.2-18.0) Hematocrit 48.3 % (42.0-52.0) Mean Corpuscular Volume 95 FL (80-99) Mean Corpuscular Hemoglobin 29.3 PG (27.0-31.0) Mean Corpuscular Hemoglobin Concent 30.7 G/DL (32.0-36.0) Red Cell Distribution Width 12.5 % (11.6-14.8) Platelet Count 288 K/UL (150-450) Mean Platelet Volume 7.1 FL (6.5-10.1) Neutrophils (%) (Auto) 77.2 % (45.0-75.0) Lymphocytes (%) (Auto) 12.0 % (20.0-45.0) Monocytes (%) (Auto) 10.0 % (1.0-10.0) Eosinophils (%) (Auto) 0.4 % (0.0-3.0) Basophils (%) (Auto) 0.4 % (0.0-2.0) Objective: WDWN NAD less tachypneic on BIPAP; 02 reduced reduced breath sounds bilaterally with improved rhonchi [id number] tachy without MRG NABS nontender no HSM no CCE nonfocal Accucheck: 267 IZABEL HASTINGS October 23, 2016 08:37
[2016-10-23] MEDS: DESMOPRESSIN 0.1 MG ORAL SCH (09:30)
[2016-10-23] MEDS: Pantoprazole Inj IV SCH (09:34)
[2016-10-23] MEDS: Bactrim DS (160mg/800mg) tab ORAL SCH (09:35)
[2016-10-23] MEDS: Heparin 5000 units/ml inj SUBQ SCH ×2 (09:36→21:06)
[2016-10-23] MEDS: Levemir Flexpen SUBQ SCH ×2 (09:36→17:32)
--- NOTE | 2016-10-23 09:39 | Diagnostic Imaging Report ---
Indication: Chest Pain Comparison: 10/20/16 A single view chest radiograph was obtained. Findings: Mild patchy infiltrates are noted bilaterally. Asymmetric more pronounced disease noted at the left lung base. Findings are relatively stable. Heart size is within normal limits and unchanged. NG tube position is remains satisfactory. Impression: Patchy pulmonary infiltrates and/or atelectasis bilaterally.
[2016-10-23] MEDS: Polymyxin B Sulfate 500,000 UNITS in D5W 500ml 500 ML IVPB SCH ×2 (09:58→21:03)
[2016-10-23] MEDS ORDERED: Desmopressin (DDAVP) Inj IV SCH (10:00)
[2016-10-23 10:45] LABS: ABG BASE EXCESS 9.3; ABG PCO2 70.2 mmHg (35.0-45.0)
[2016-10-23 10:46] LABS: ABG ALLEN TEST POSITIVE
[2016-10-23] MEDS: NS IV SCH (11:25)
[2016-10-23] MEDS: DESMOPRESSIN IV SCH (11:25)
[2016-10-23] MEDS: Vancomycin 1.25 GM in D5W 275 ML IVPB SCH ×2 (12:10→17:31)
--- NOTE | 2016-10-23 15:39 | Infectious Diseases Prog Note ---
Assessment/Plan Assessment/Plan A) 1) acinetobacter pna/klebsiella pna, sepsis, leukocytosis, fevers, sob 2) s/p bronchoscopy, ich, bipap, DI 3) allergies - negative 4) caren lewis d/w RN, d/w family P) 1) meropenem, polymyxin, vancomycin and bactrim 2) check labs and chest x-ray 3) treatment per primary and consultants 4) pulmonary treatment Subjective Constitutional: Reports: fatigue Respiratory: Reports: other - off bipap today, shortness of breath Cardiovascular: Denies: chest pain Gastrointestinal/Abdominal: Denies: nausea Genitourinary: Denies: dysuria Neurologic: Denies: confusion Psychiatric: Denies: depression Skin: Denies: rash Hematologic: Denies: bleeding Musculoskeletal: Denies: pain Allergies: Coded Allergies: No Known Allergies (Unverified , 09/01/12) Objective Vital Signs Last 24 Hour Vital Signs Date Time Temp Pulse Resp B/P Pulse Ox O2 Delivery O2 Flow Rate FiO2 10/23/16 15:00 90 22 152/72 97 Venturi Mask 55 10/23/16 14:59 99 20 96 14.0 55 10/23/16 14:00 98 23 160/80 97 Venturi Mask 55 10/23/16 13:09 110 22 93 14.0 55 10/23/16 13:00 106 24 149/83 97 Venturi Mask 55 10/23/16 12:00 97.8 110 22 164/90 96 Venturi Mask 55 10/23/16 12:00 113 10/23/16 12:00 55 10/23/16 11:21 108 24 94 14.0 55 10/23/16 11:00 107 20 147/73 97 Venturi Mask 55 10/23/16 10:00 106 24 126/62 98 Venturi Mask 55 10/23/16 09:28 106 23 99 14.0 55 10/23/16 09:00 114 28 131/76 98 Bi-pap 50 10/23/16 08:00 114 10/23/16 08:00 50.0 10/23/16 08:00 97.9 117 26 128/89 96 Bi-pap 50 10/23/16 07:12 110 24 96 Facial 50 10/23/16 07:00 114 28 158/91 98 Bi-pap 50 10/23/16 06:00 110 29 133/84 97 Bi-pap 50 10/23/16 05:17 119 17 98 Facial 50 10/23/16 05:00 116 29 133/84 97 Bi-pap 50 10/23/16 04:00 50.0 10/23/16 04:00 98.3 111 28 135/81 97 Bi-pap 50 10/23/16 04:00 118 10/23/16 03:04 117 22 99 Facial 50 10/23/16 03:00 107 25 129/83 98 Bi-pap 50 10/23/16 02:00 119 29 153/93 98 Bi-pap 50 10/23/16 01:04 129 19 98 Facial 50 10/23/16 01:00 129 26 144/96 98 Bi-pap 50 10/23/16 00:00 50.0 10/23/16 00:00 98.1 114 29 142/92 97 Bi-pap 50 10/23/16 00:00 141 10/22/16 23:15 142 17 97 Facial 50 10/22/16 23:00 141 23 164/99 97 Bi-pap 50 10/22/16 22:00 144 23 178/97 97 Bi-pap 50 10/22/16 21:04 140 20 96 Facial 50 10/22/16 21:00 145 22 176/93 96 Bi-pap 50 10/22/16 20:00 130 10/22/16 20:00 50.0 10/22/16 20:00 98.6 136 25 144/91 96 Bi-pap 50 10/22/16 19:00 126 20 135/85 95 Bi-pap 50 10/22/16 18:58 123 25 97 Facial 50 10/22/16 18:00 131 25 147/86 98 Bi-pap 50 10/22/16 17:00 131 30 143/89 98 Bi-pap 50 10/22/16 17:00 138 19 97 Facial 50 10/22/16 16:00 98.1 124 33 153/90 95 Bi-pap 50 10/22/16 16:00 50.0 10/22/16 16:00 124 Height (Feet): 5 Height (Inches): 8.00 Weight (Pounds): 160 General Appearance: no acute distress HEENT: normocephalic, atraumatic, anicteric, mucous membranes moist, PERRL, EOMI, pharynx normal, supple, no JVD Respiratory/Chest: lungs clear, normal breath sounds, no respiratory distress Cardiovascular: normal rate, regular rhythm, no gallop/murmur, no JVD Abdomen: normal bowel sounds, soft, non tender, no organomegaly, non distended Extremities: no cyanosis Skin: no rash 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 Labs Test 10/20/16 20:00 10/21/16 08:20 10/21/16 08:25 10/21/16 09:50 Sodium Level 150 mEQ/L (135-145) 145 mEQ/L (135-145) White Blood Count 8.3 K/UL (4.8-10.8) Red Blood Count 4.17 M/UL (4.70-6.10) Hemoglobin 12.3 G/DL (14.2-18.0) Hematocrit 39.7 % (42.0-52.0) Mean Corpuscular Volume 95 FL (80-99) Mean Corpuscular Hemoglobin 29.4 PG (27.0-31.0) Mean Corpuscular Hemoglobin Concent 30.9 G/DL (32.0-36.0) Red Cell Distribution Width 12.7 % (11.6-14.8) Platelet Count 219 K/UL (150-450) Mean Platelet Volume 7.8 FL (6.5-10.1) Neutrophils (%) (Auto) 77.8 % (45.0-75.0) Lymphocytes (%) (Auto) 9.3 % (20.0-45.0) Monocytes (%) (Auto) 10.3 % (1.0-10.0) Eosinophils (%) (Auto) 2.0 % (0.0-3.0) Basophils (%) (Auto) 0.6 % (0.0-2.0) Potassium Level 4.3 mEQ/L (3.4-4.9) Chloride Level 100 mEQ/L (98-107) Carbon Dioxide Level 39 mEQ/L (20-30) Anion Gap 6 (5-15) Blood Urea Nitrogen 7 mg/dL (7-23) Creatinine 0.7 mg/dL (0.7-1.2) Estimat Glomerular Filtration Rate > 60 mL/min (>60) Glucose Level 328 mg/dL (74-106) Calcium Level 9.2 mg/dL (8.6-10.2) Total Bilirubin 0.4 mg/dL (0.0-1.2) Aspartate Amino Transf (AST/SGOT) 27 U/L (5-40) Alanine Aminotransferase (ALT/SGPT) 24 U/L (3-41) Alkaline Phosphatase 92 U/L (40-129) Total Protein 6.5 g/dL (6.6-8.7) Albumin 2.9 g/dL (3.5-5.2) Globulin 3.6 g/dL Albumin/Globulin Ratio 0.8 (1.0-2.7) Urine Color Pale yellow Urine Appearance Slightly cloudy Urine pH 8 (4.5-8.0) Urine Specific [place] 1.010 (1.005-1.035) Urine Protein 4+ (NEGATIVE) Urine Glucose (UA) 4+ (NEGATIVE) Urine Ketones 1+ (NEGATIVE) Urine Occult Blood 5+ (NEGATIVE) Urine Nitrite Negative (NEGATIVE) Urine Bilirubin Negative (NEGATIVE) Urine Urobilinogen Normal MG/DL (0.0-1.0) Urine Leukocyte Esterase Negative (NEGATIVE) Urine RBC 40-60 /HPF (0 - 0) Urine WBC 0-2 /HPF (0 - 0) Urine Squamous Epithelial Cells Occasional /LPF Urine Bacteria Few /HPF (NONE) Test 10/21/16 10:10 10/22/16 05:30 10/22/16 07:50 10/22/16 10:35 Arterial Blood pH 7.364 (7.350-7.450) 7.328 (7.350-7.450) Arterial Blood Partial Pressure CO2 75.4 mmHg (35.0-45.0) 70.2 mmHg (35.0-45.0) Arterial Blood Partial Pressure O2 83.8 mmHg (75.0-100.0) 383.3 mmHg (75.0-100.0) Arterial Blood HCO3 42.0 mmol/L (22.0-26.0) 36.0 mmol/L (22.0-26.0) Arterial Blood Oxygen Saturation 95.9 % (92.0-98.0) 99.6 % (92.0-98.0) Arterial Blood Base Excess 13.5 7.3 Jamel Test Positive Positive White Blood Count 6.3 K/UL (4.8-10.8) Red Blood Count 4.40 M/UL (4.70-6.10) Hemoglobin 13.0 G/DL (14.2-18.0) Hematocrit 41.6 % (42.0-52.0) Mean Corpuscular Volume 95 FL (80-99) Mean Corpuscular Hemoglobin 29.5 PG (27.0-31.0) Mean Corpuscular Hemoglobin Concent 31.2 G/DL (32.0-36.0) Red Cell Distribution Width 12.4 % (11.6-14.8) Platelet Count 251 K/UL (150-450) Mean Platelet Volume 7.8 FL (6.5-10.1) Neutrophils (%) (Auto) 67.4 % (45.0-75.0) Lymphocytes (%) (Auto) 17.2 % (20.0-45.0) Monocytes (%) (Auto) 10.4 % (1.0-10.0) Eosinophils (%) (Auto) 4.0 % (0.0-3.0) Basophils (%) (Auto) 1.1 % (0.0-2.0) Sodium Level 151 mEQ/L (135-145) Potassium Level 4.3 mEQ/L (3.4-4.9) Chloride Level 103 mEQ/L (98-107) Carbon Dioxide Level 33 mEQ/L (20-30) Anion Gap 15 (5-15) Blood Urea Nitrogen 7 mg/dL (7-23) Creatinine 0.6 mg/dL (0.7-1.2) Estimat Glomerular Filtration Rate > 60 mL/min (>60) Glucose Level 282 mg/dL (74-106) Calcium Level 9.5 mg/dL (8.6-10.2) Thyroid Stimulating Hormone (TSH) 0.929 uIU/mL (0.300-4.500) Free Thyroxine 1.52 ng/dL (0.86-1.85) Test 10/22/16 22:40 10/23/16 04:00 10/23/16 10:30 Sodium Level 159 mEQ/L (135-145) 161 mEQ/L (135-145) Potassium Level 4.0 mEQ/L (3.4-4.9) 4.3 mEQ/L (3.4-4.9) Chloride Level 112 mEQ/L (98-107) 111 mEQ/L (98-107) Carbon Dioxide Level 37 mEQ/L (20-30) 38 mEQ/L (20-30) Anion Gap 10 (5-15) 12 (5-15) Blood Urea Nitrogen 9 mg/dL (7-23) 13 mg/dL (7-23) Creatinine 0.7 mg/dL (0.7-1.2) 0.7 mg/dL (0.7-1.2) Estimat Glomerular Filtration Rate > 60 mL/min (>60) > 60 mL/min (>60) Glucose Level 409 mg/dL (74-106) 272 mg/dL (74-106) Calcium Level 9.6 mg/dL (8.6-10.2) 9.9 mg/dL (8.6-10.2) White Blood Count 9.9 K/UL (4.8-10.8) Red Blood Count 5.07 M/UL (4.70-6.10) Hemoglobin 14.8 G/DL (14.2-18.0) Hematocrit 48.3 % (42.0-52.0) Mean Corpuscular Volume 95 FL (80-99) Mean Corpuscular Hemoglobin 29.3 PG (27.0-31.0) Mean Corpuscular Hemoglobin Concent 30.7 G/DL (32.0-36.0) Red Cell Distribution Width 12.5 % (11.6-14.8) Platelet Count 288 K/UL (150-450) Mean Platelet Volume 7.1 FL (6.5-10.1) Neutrophils (%) (Auto) 77.2 % (45.0-75.0) Lymphocytes (%) (Auto) 12.0 % (20.0-45.0) Monocytes (%) (Auto) 10.0 % (1.0-10.0) Eosinophils (%) (Auto) 0.4 % (0.0-3.0) Basophils (%) (Auto) 0.4 % (0.0-2.0) Arterial Blood pH 7.349 (7.350-7.450) Arterial Blood Partial Pressure CO2 70.2 mmHg (35.0-45.0) Arterial Blood Partial Pressure O2 65.6 mmHg (75.0-100.0) Arterial Blood HCO3 37.8 mmol/L (22.0-26.0) Arterial Blood Oxygen Saturation 91.3 % (92.0-98.0) Arterial Blood Base Excess 9.3 Jamel Test Positive Laboratory Tests Test 10/22/16 22:40 10/23/16 04:00 10/23/16 10:30 Sodium Level 159 mEQ/L (135-145) H 161 mEQ/L (135-145) *H Potassium Level 4.0 mEQ/L (3.4-4.9) 4.3 mEQ/L (3.4-4.9) Chloride Level 112 mEQ/L (98-107) H 111 mEQ/L (98-107) H Carbon Dioxide Level 37 mEQ/L (20-30) H 38 mEQ/L (20-30) H Anion Gap 10 (5-15) 12 (5-15) Blood Urea Nitrogen 9 mg/dL (7-23) 13 mg/dL (7-23) Creatinine 0.7 mg/dL (0.7-1.2) 0.7 mg/dL (0.7-1.2) Estimat Glomerular Filtration Rate > 60 mL/min (>60) > 60 mL/min (>60) Glucose Level 409 mg/dL (74-106) #H 272 mg/dL (74-106) #H Calcium Level 9.6 mg/dL (8.6-10.2) 9.9 mg/dL (8.6-10.2) White Blood Count 9.9 K/UL (4.8-10.8) # Red Blood Count 5.07 M/UL (4.70-6.10) Hemoglobin 14.8 G/DL (14.2-18.0) Hematocrit 48.3 % (42.0-52.0) Mean Corpuscular Volume 95 FL (80-99) Mean Corpuscular Hemoglobin 29.3 PG (27.0-31.0) Mean Corpuscular Hemoglobin Concent 30.7 G/DL (32.0-36.0) L Red Cell Distribution Width 12.5 % (11.6-14.8) Platelet Count 288 K/UL (150-450) Mean Platelet Volume 7.1 FL (6.5-10.1) Neutrophils (%) (Auto) 77.2 % (45.0-75.0) H Lymphocytes (%) (Auto) 12.0 % (20.0-45.0) L Monocytes (%) (Auto) 10.0 % (1.0-10.0) Eosinophils (%) (Auto) 0.4 % (0.0-3.0) Basophils (%) (Auto) 0.4 % (0.0-2.0) Arterial Blood pH 7.349 (7.350-7.450) Arterial Blood Partial Pressure CO2 70.2 mmHg (35.0-45.0) *H Arterial Blood Partial Pressure O2 65.6 mmHg (75.0-100.0) L Arterial Blood HCO3 37.8 mmol/L (22.0-26.0) H Arterial Blood Oxygen Saturation 91.3 % (92.0-98.0) L Arterial Blood Base Excess 9.3 Jamel Test Positive Current Medications Medications (Trade) Dose Ordered Sig/Marilyn Route PRN Reason Start Time Stop Time Status Last Admin Dose Admin Acetaminophen (Tylenol) 650 mg Q4H PRN RECTAL Mild Pain (Pain Scale 1-3) 10/15/16 23:45 11/14/16 23:44 10/21/16 16:40 Bisacodyl (Dulcolax) 10 mg DAILYPRN PRN RECTAL Constipation 10/15/16 23:45 11/14/16 23:44 10/20/16 13:39 Desmopressin Acetate/Sodium Chloride (Ddavp/Sodium Chloride) 57.5 ml @ 115 mls/hr DAILY IV 10/23/16 11:00 11/22/16 10:59 10/23/16 11:25 Dextrose (Dextrose 50%) STAT PRN IV Hypoglycemia 10/15/16 23:45 11/14/16 23:44 Dextrose/ Electrolytes (D5W w/KCl 20mEq) 1,000 ml @ 125 mls/hr Q8H IV 10/23/16 06:45 11/22/16 06:44 10/23/16 06:54 Heparin Sodium (Porcine) (Heparin 5000 units/ml) 5,000 units EVERY 12 HOURS SUBQ 10/16/16 09:00 11/15/16 08:59 10/23/16 09:36 Insulin Aspart (NovoLOG) BEFORE MEALS AND HS SUBQ 10/16/16 06:30 11/15/16 06:29 10/23/16 12:11 Insulin Detemir 10 units 10 units BID SUBQ 10/23/16 09:00 11/22/16 08:59 10/23/16 09:36 Meropenem 1 gm/ Sodium Chloride 100 ml @ 200 mls/hr Q8HR IVPB 10/22/16 22:00 10/27/16 21:59 10/23/16 14:04 Ondansetron HCl (Zofran ODT) 4 mg Q6H PRN ORAL Nausea & Vomiting 10/15/16 23:45 11/14/16 23:44 10/22/16 20:57 Pantoprazole (Protonix) 40 mg DAILY IV 10/16/16 09:00 11/15/16 08:59 10/23/16 09:34 Polymyxin B Sulfate 247394 units/Dextrose 500 ml @ 500 mls/hr EVERY 12 HOURS IVPB 10/22/16 21:00 10/29/16 20:59 10/23/16 09:58 Trimethoprim/ Sulfamethoxazole 20 ml 20 ml EVERY 12 HOURS NG 10/23/16 21:00 10/30/16 20:59 Vancomycin HCl 1 ea 1 ea DAILY PRN MISC Per rx protocol 10/16/16 07:15 11/15/16 07:14 Vancomycin HCl/ Dextrose (Vancomycin/D5W) 275 ml @ 183.708 mls/hr Q8HR@0400,1200,1800 IVPB 10/23/16 12:00 10/28/16 11:59 10/23/16 12:10 JACOBY LO October 23, 2016 15:39
--- NOTE | 2016-10-23 18:47 | Cardiology Report ---
APPROVED REPORT EXAM: Two-dimensional and M-mode echocardiogram with Doppler and color Doppler. INDICATION Tachycardia Technically difficult study due to poor acoustic windows. Study quality precludes accurate assessment of regional wall motion. M-mode measurements not obtainable due to cardiac position. Normal left ventricular chamber size, systolic function and wall motion to extent visulalized. Left ventricular ejection fraction estimated to be 60 %. No evidence of ventricular hypertrophy. Anterior Echo-free space, may be due to pericardial fat or effusion. All other cardiac chamber sizes are within normal limits. Mild focal aortic valve sclerosis with adequate cusp excursion. Mildly thickened mitral valve leaflets with normal excursion. Mild mitral annulus and aortic root calcification. Pulmonic valve not visualized. Normal tricuspid valve structure. IVC dilated at 1.8 cm with physiologic collapse. A color flow and spectral Doppler study was performed and revealed: No aortic regurgitation. Trace mitral regurgitation. Mitral diastolic velocities suggest reduced left ventricular relaxation (Grade I). Trace tricuspid regurgitation. Tricuspid systolic velocities suggests peak right ventricular systolic pressure of 38 mmHg, consistent with mild pulmonary hypertension.
--- NOTE | 2016-10-23 19:00 | Cardiology Report ---
APPROVED REPORT EKG Measurement Heart [id number] Sinus tachycardia Septal infarct, age undetermined Abnormal ECG
[2016-10-23] MEDS ORDERED: Levemir Flexpen SUBQ SCH (21:00)
[2016-10-23] MEDS: Bactrim Susp 20ml NG SCH (21:04)
--- NOTE | 2016-10-23 23:09 | Consultation ---
DATE OF CONSULTATION: 10/23/2016 INFECTIOUS DISEASE CONSULTATION CONSULTING PHYSICIAN: Odalys Schmitz M.D. ATTENDING PHYSICIAN: Sky Park M.D. REASON FOR CONSULTATION: Klebsiella and Acinetobacter pneumonia. REASON FOR ADMISSION: Hypoxia, shortness of breath, and aspiration. HISTORY OF PRESENT ILLNESS: This is a 31-year-old male with a history of DIDMOAD syndrome with diabetes insipidus. The patient choked on food and had an aspiration event. The patient was transferred to [facility] and is in the ICU. Chest x-ray shows pneumonia and sputum culture from bronchoscopy grew out Acinetobacter and Klebsiella. Infectious Disease consultation requested for antibiotic management for this patient. The patient initially had leukocytosis and was possibly septic. He has tachycardia and SIRS criteria. The patient did have fevers coming into the hospital as high as 101 degrees. The patient was seen yesterday and was placed on meropenem, polymyxin, Bactrim, and vancomycin. The patient was on BiPAP yesterday and on a Venturi mask today. MAR was noted. Orders were noted. Notes were reviewed. PAST MEDICAL HISTORY: He has a past medical history of DIDMOAD syndrome with diabetes insipidus, diabetes mellitus, optical atrophy, and deafness. I believe the patient was on a vent and was then extubated. MEDICATIONS: He is on meropenem, Bactrim, vancomycin, polymyxin, IV fluids. He is on heparin, Protonix, NovoLog insulin, Zofran, acetaminophen, and bisacodyl. ALLERGIES: The patient has no known drug allergies. SOCIAL HISTORY: Negative for smoking, alcohol, or drug use. FAMILY HISTORY: Noncontributory. REVIEW OF SYSTEMS: Constitutional: The patient completely cannot give a very good review of systems. He has congestion, short of breath, on Venturi mask. Head And Neck: No seizures. Cardiac: No pressure. Gastrointestinal: No nausea, vomiting, or diarrhea. Genitourinary: He has a Nguyen. Skin: No rash. Neurologic: No seizures. Generalized weakness noted. Poor historian. PHYSICAL EXAMINATION: GENERAL: Arousable and alert. VITAL SIGNS: Pulse rate 90, respiratory rate 22, blood pressure 150/73, saturation 97%, and temperature 97.8 degrees. T-max is 101 degrees. Heart rate has been over 100. He has had respiratory failure. HEENT AND NECK: Normocephalic. No obvious facial droop. No neck stiffness. HEART: Regular. No gallop or murmur. ABDOMEN: Soft. Positive bowel sounds. Nontender. LUNGS: Clear bilaterally. No rhonchi or crackles. SKIN: No rash or dermatitis. MUSCULOSKELETAL: No effusion or contractures. Lower extremities without cellulitis. PERIPHERAL VASCULAR: No cyanosis or gangrene. GENITOURINARY: The patient has a Nguyen. NEUROLOGIC: Generalized weakness. Responsive. LINES: Line sites are without phlebitis. LABORATORY AND DIAGNOSTIC DATA: White count on admission was 12.7, now it is 9.9, and hemoglobin 14.8. Creatinine is normal at 0.7. Sodium 161. Cultures, bronch cultures grew out Acinetobacter and Klebsiella, sensitivities are noted. Both of them were sensitive to Bactrim. Chest x-ray shows patchy infiltrates. ASSESSMENT AND PLAN: 1. The patient has aspiration pneumonia with Acinetobacter and Klebsiella pneumonia. The patient has leukocytosis with fever and shortness of breath. The patient is status post intubation and was extubated status post bronchoscopy. Cultures grew out Acinetobacter and Klebsiella. Continue meropenem, polymyxin, and Bactrim. The patient is also at risk for methicillin-resistant Staphylococcus aureus. Continue vancomycin. Watch labs and creatinine. Watch chest x-ray. Continue pulmonary treatment. Continue ICU care. 2. The patient has diabetes insipidus. 3. The patient has diabetes mellitus. 4. Aspiration risk. 5. Optical atrophy. 6. Deafness. 7. DIDMOAD syndrome. 8. MAR was noted. 9. Case discussed with RN. 10. Continue treatment per primary consultants. Odalys Schmitz M.D. DR: DEMI JOB#: [id number] CC:
[2016-10-24] VITALS (23 sets, daily range): BP systolic 105–147; BP diastolic 41–74
[2016-10-24] MEDS: Vancomycin 1.25 GM in D5W 275 ML IVPB SCH ×3 (04:12→17:44)
[2016-10-24 06:02] LABS: BASOPHILS % (AUTO) 0.5 % (0.0-2.0); EOSINOPHILS % (AUTO) 3.5 % (0.0-3.0); LYMPHOCYTES % (AUTO) 11.4 % (20.0-45.0); MEAN CORPUSCULAR HEMOGLOBIN 29.6 PG (27.0-31.0); MEAN CORPUSCULAR HGB CONC 31.2 G/DL (32.0-36.0); MEAN CORPUSCULAR VOLUME 95 FL (80-99); MEAN PLATELET VOLUME 6.6 FL (6.5-10.1); MONOCYTES % (AUTO) 7.8 % (1.0-10.0); NEUTROPHILS % (AUTO) 76.8 % (45.0-75.0); PLATELET COUNT 258 K/UL (150-450); RED BLOOD COUNT 4.35 M/UL (4.70-6.10); RED CELL DISTRIBUTION WIDTH 12.7 % (11.6-14.8); WHITE BLOOD COUNT 10.5 K/UL (4.8-10.8)
[2016-10-24] MEDS: D5W w/KCl 20mEq 1,000 ML IV SCH ×3 (06:10→22:55)
[2016-10-24] MEDS: NovoLOG Insulin Flexpen SUBQ SCH ×4 (06:14→21:24)
[2016-10-24 06:33] LABS: ANION GAP 10 (5-15); CALCIUM 9.6 mg/dL (8.6-10.2); CARBON DIOXIDE 35 mEQ/L (20-30); CHLORIDE 99 mEQ/L (98-107); CREATININE 0.7 mg/dL (0.7-1.2); GLOMERULAR FILTRATION RATE > 60 mL/min (>60); HEMOLYSIS 1; POTASSIUM 4.3 mEQ/L (3.4-4.9); SODIUM 144 mEQ/L (135-145)
--- NOTE | 2016-10-24 08:20 | General Progress Note ---
Assessment/Plan Assessment/Plan Improving Na 144. Avoid Tube Feeding and Don't Resume!!!! Explained to all MDs. On D5W DO NOT CHANGE!!!!! Redose sq dDAVP. Hyperglycemia ---->Increase Levemir. Failed Video Swallow. Keep NPO as risks of NGT are aspiration. For Video Swallow soon. Subjective Allergies: Coded Allergies: No Known Allergies (Unverified , 09/01/12) Subjective Much more alert + responsive! Off BIPAP. Objective Last 24 Hour Vital Signs Date Time Temp Pulse Resp B/P Pulse Ox O2 Delivery O2 Flow Rate FiO2 10/24/16 08:00 98.8 102 33 129/55 92 Venturi Mask 55 10/24/16 08:00 103 10/24/16 07:00 110 33 136/63 98 Venturi Mask 55 10/24/16 06:00 99 33 136/58 98 Venturi Mask 55 10/24/16 05:00 98 35 137/56 98 Venturi Mask 55 10/24/16 04:00 98.3 107 40 147/56 97 Venturi Mask 55 10/24/16 04:00 110 10/24/16 03:00 93 40 128/62 97 Venturi Mask 55 10/24/16 02:00 94 35 125/65 97 Venturi Mask 55 10/24/16 01:00 95 35 140/62 95 Venturi Mask 55 10/24/16 00:00 97.9 99 32 128/54 99 Venturi Mask 55 10/24/16 00:00 97 10/23/16 23:00 99 32 122/63 99 Venturi Mask 55 10/23/16 22:00 106 23 147/66 99 Venturi Mask 55 10/23/16 20:45 97.9 85 25 141/61 99 Venturi Mask 55 10/23/16 20:00 90 10/23/16 19:00 98 23 136/75 100 Venturi Mask 55 10/23/16 18:00 88 24 131/70 100 Venturi Mask 55 10/23/16 17:02 98 20 99 14.0 55 10/23/16 17:00 89 24 138/70 96 Venturi Mask 55 10/23/16 16:00 95 10/23/16 16:00 97.7 95 26 125/71 98 Venturi Mask 55 10/23/16 15:00 90 22 152/72 97 Venturi Mask 55 10/23/16 14:59 99 20 96 14.0 55 10/23/16 14:00 98 23 160/80 97 Venturi Mask 55 10/23/16 13:09 110 22 93 14.0 55 10/23/16 13:00 106 24 149/83 97 Venturi Mask 55 10/23/16 12:00 97.8 110 22 164/90 96 Venturi Mask 55 10/23/16 12:00 113 10/23/16 12:00 55 10/23/16 11:21 108 24 94 14.0 55 10/23/16 11:00 107 20 147/73 97 Venturi Mask 55 10/23/16 10:00 106 24 126/62 98 Venturi Mask 55 10/23/16 09:28 106 23 99 14.0 55 10/23/16 09:00 114 28 131/76 98 Bi-pap 50 Intake and Output 10/23/16 10/24/16 19:00 07:00 Intake Total 2633.1 ml 2343.708 ml Output Total 1950 ml 1950 ml Balance 683.1 ml 393.708 ml IV Total 2583.1 ml 2283.708 ml Other 50 ml 60 ml Output Urine Total 1950 ml 1950 ml # Bowel Movements 1 2 Laboratory Tests 10/23/16 10:30: Arterial Blood pH 7.349L, Arterial Blood Partial Pressure CO2 70.2*H, Arterial Blood Partial Pressure O2 65.6L, Arterial Blood HCO3 37.8H, Arterial Blood Oxygen Saturation 91.3L, Arterial Blood Base Excess 9.3, Jamel Test Positive 10/24/16 05:20: White Blood Count 10.5, Red Blood Count 4.35L, Hemoglobin 12.9L, Hematocrit 41.3L, Mean Corpuscular Volume 95, Mean Corpuscular Hemoglobin 29.6, Mean Corpuscular Hemoglobin Concent 31.2L, Red Cell Distribution Width 12.7, Platelet Count 258, Mean Platelet Volume 6.6, Neutrophils (%) (Auto) 76.8H, Lymphocytes (%) (Auto) 11.4L, Monocytes (%) (Auto) 7.8, Eosinophils (%) (Auto) 3.5H, Basophils (%) (Auto) 0.5, Sodium Level 144, Potassium Level 4.3, Chloride Level 99, Carbon Dioxide Level 35H, Anion Gap 10, Blood Urea Nitrogen 9, Creatinine 0.7, Estimat Glomerular Filtration Rate > 60, Glucose Level 419#H, Calcium Level 9.6 Height (Feet): 5 Height (Inches): 8.00 Weight (Pounds): 160 Objective Much more alert + responsive. 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 Cv RR Lungs CTA Abd SNT. BS + E No CCE RENETTA SOMMER October 24, 2016 08:20
[2016-10-24] MEDS: Bactrim Susp 20ml NG SCH ×2 (08:49→21:22)
[2016-10-24] MEDS: Polymyxin B Sulfate 500,000 UNITS in D5W 500ml 500 ML IVPB SCH ×2 (08:49→21:22)
[2016-10-24] MEDS: Pantoprazole Inj IV SCH (08:49)
[2016-10-24] MEDS: Levemir Flexpen SUBQ SCH ×2 (08:50→21:25)
[2016-10-24] MEDS: Heparin 5000 units/ml inj SUBQ SCH ×2 (08:51→21:23)
--- NOTE | 2016-10-24 09:13 | Critical Care Progress Note ---
Assessment/Plan Assessment/Plan s/p bronchoscopy pulmonary infiltrates respiratory failure aspiration event leukocytosis anemia sinus tachycardia agitation chronic co2 retention MDR sputum PLAN ventilator- off BIPAP - keep off as able repeat bronchoscopy x 3 completed needs GT and may need trach iv hydration with caution tube feeds titrate oxygen saturations if able ID evaluation noted ICU care for now Critical Care - Subjective Interval Events: tolerating off BIPAP still with some congestion ROS Limited/Unobtainable: Yes Condition: critical EKG Rhythm: Sinus Tachycardia I&O: Intake and Output 10/23/16 10/24/16 19:00 07:00 Intake Total 2633.1 ml 2343.708 ml Output Total 1950 ml 1950 ml Balance 683.1 ml 393.708 ml IV Total 2583.1 ml 2283.708 ml Other 50 ml 60 ml Output Urine Total 1950 ml 1950 ml # Bowel Movements 1 2 Critical Care - Objective ET-Tube: 8.0 ET Position: 22 Last 24 Hour Vital Signs Date Time Temp Pulse Resp B/P Pulse Ox O2 Delivery O2 Flow Rate FiO2 10/24/16 08:00 98.8 102 33 129/55 92 Venturi Mask 55 10/24/16 08:00 103 10/24/16 07:00 110 33 136/63 98 Venturi Mask 55 10/24/16 06:00 99 33 136/58 98 Venturi Mask 55 10/24/16 05:00 98 35 137/56 98 Venturi Mask 55 10/24/16 04:00 98.3 107 40 147/56 97 Venturi Mask 55 10/24/16 04:00 110 10/24/16 03:00 93 40 128/62 97 Venturi Mask 55 10/24/16 02:00 94 35 125/65 97 Venturi Mask 55 10/24/16 01:00 95 35 140/62 95 Venturi Mask 55 10/24/16 00:00 97.9 99 32 128/54 99 Venturi Mask 55 10/24/16 00:00 97 10/23/16 23:00 99 32 122/63 99 Venturi Mask 55 10/23/16 22:00 106 23 147/66 99 Venturi Mask 55 10/23/16 20:45 97.9 85 25 141/61 99 Venturi Mask 55 10/23/16 20:00 90 10/23/16 19:00 98 23 136/75 100 Venturi Mask 55 10/23/16 18:00 88 24 131/70 100 Venturi Mask 55 10/23/16 17:02 98 20 99 14.0 55 10/23/16 17:00 89 24 138/70 96 Venturi Mask 55 10/23/16 16:00 95 10/23/16 16:00 97.7 95 26 125/71 98 Venturi Mask 55 10/23/16 15:00 90 22 152/72 97 Venturi Mask 55 10/23/16 14:59 99 20 96 14.0 55 10/23/16 14:00 98 23 160/80 97 Venturi Mask 55 10/23/16 13:09 110 22 93 14.0 55 10/23/16 13:00 106 24 149/83 97 Venturi Mask 55 10/23/16 12:00 97.8 110 22 164/90 96 Venturi Mask 55 10/23/16 12:00 113 10/23/16 12:00 55 10/23/16 11:21 108 24 94 14.0 55 10/23/16 11:00 107 20 147/73 97 Venturi Mask 55 10/23/16 10:00 106 24 126/62 98 Venturi Mask 55 10/23/16 09:28 106 23 99 14.0 55 Labs: Labs Test 10/21/16 09:50 10/21/16 10:10 10/22/16 05:30 10/22/16 07:50 Urine Color Pale yellow Urine Appearance Slightly cloudy Urine pH 8 (4.5-8.0) Urine Specific [place] 1.010 (1.005-1.035) Urine Protein 4+ (NEGATIVE) Urine Glucose (UA) 4+ (NEGATIVE) Urine Ketones 1+ (NEGATIVE) Urine Occult Blood 5+ (NEGATIVE) Urine Nitrite Negative (NEGATIVE) Urine Bilirubin Negative (NEGATIVE) Urine Urobilinogen Normal MG/DL (0.0-1.0) Urine Leukocyte Esterase Negative (NEGATIVE) Urine RBC 40-60 /HPF (0 - 0) Urine WBC 0-2 /HPF (0 - 0) Urine Squamous Epithelial Cells Occasional /LPF Urine Bacteria Few /HPF (NONE) Arterial Blood pH 7.364 (7.350-7.450) Arterial Blood Partial Pressure CO2 75.4 mmHg (35.0-45.0) Arterial Blood Partial Pressure O2 83.8 mmHg (75.0-100.0) Arterial Blood HCO3 42.0 mmol/L (22.0-26.0) Arterial Blood Oxygen Saturation 95.9 % (92.0-98.0) Arterial Blood Base Excess 13.5 Jamel Test Positive White Blood Count 6.3 K/UL (4.8-10.8) Red Blood Count 4.40 M/UL (4.70-6.10) Hemoglobin 13.0 G/DL (14.2-18.0) Hematocrit 41.6 % (42.0-52.0) Mean Corpuscular Volume 95 FL (80-99) Mean Corpuscular Hemoglobin 29.5 PG (27.0-31.0) Mean Corpuscular Hemoglobin Concent 31.2 G/DL (32.0-36.0) Red Cell Distribution Width 12.4 % (11.6-14.8) Platelet Count 251 K/UL (150-450) Mean Platelet Volume 7.8 FL (6.5-10.1) Neutrophils (%) (Auto) 67.4 % (45.0-75.0) Lymphocytes (%) (Auto) 17.2 % (20.0-45.0) Monocytes (%) (Auto) 10.4 % (1.0-10.0) Eosinophils (%) (Auto) 4.0 % (0.0-3.0) Basophils (%) (Auto) 1.1 % (0.0-2.0) Sodium Level 151 mEQ/L (135-145) Potassium Level 4.3 mEQ/L (3.4-4.9) Chloride Level 103 mEQ/L (98-107) Carbon Dioxide Level 33 mEQ/L (20-30) Anion Gap 15 (5-15) Blood Urea Nitrogen 7 mg/dL (7-23) Creatinine 0.6 mg/dL (0.7-1.2) Estimat Glomerular Filtration Rate > 60 mL/min (>60) Glucose Level 282 mg/dL (74-106) Calcium Level 9.5 mg/dL (8.6-10.2) Thyroid Stimulating Hormone (TSH) 0.929 uIU/mL (0.300-4.500) Free Thyroxine 1.52 ng/dL (0.86-1.85) Test 10/22/16 10:35 10/22/16 22:40 10/23/16 04:00 10/23/16 10:30 Arterial Blood pH 7.328 (7.350-7.450) 7.349 (7.350-7.450) Arterial Blood Partial Pressure CO2 70.2 mmHg (35.0-45.0) 70.2 mmHg (35.0-45.0) Arterial Blood Partial Pressure O2 383.3 mmHg (75.0-100.0) 65.6 mmHg (75.0-100.0) Arterial Blood HCO3 36.0 mmol/L (22.0-26.0) 37.8 mmol/L (22.0-26.0) Arterial Blood Oxygen Saturation 99.6 % (92.0-98.0) 91.3 % (92.0-98.0) Arterial Blood Base Excess 7.3 9.3 Jamel Test Positive Positive Sodium Level 159 mEQ/L (135-145) 161 mEQ/L (135-145) Potassium Level 4.0 mEQ/L (3.4-4.9) 4.3 mEQ/L (3.4-4.9) Chloride Level 112 mEQ/L (98-107) 111 mEQ/L (98-107) Carbon Dioxide Level 37 mEQ/L (20-30) 38 mEQ/L (20-30) Anion Gap 10 (5-15) 12 (5-15) Blood Urea Nitrogen 9 mg/dL (7-23) 13 mg/dL (7-23) Creatinine 0.7 mg/dL (0.7-1.2) 0.7 mg/dL (0.7-1.2) Estimat Glomerular Filtration Rate > 60 mL/min (>60) > 60 mL/min (>60) Glucose Level 409 mg/dL (74-106) 272 mg/dL (74-106) Calcium Level 9.6 mg/dL (8.6-10.2) 9.9 mg/dL (8.6-10.2) White Blood Count 9.9 K/UL (4.8-10.8) Red Blood Count 5.07 M/UL (4.70-6.10) Hemoglobin 14.8 G/DL (14.2-18.0) Hematocrit 48.3 % (42.0-52.0) Mean Corpuscular Volume 95 FL (80-99) Mean Corpuscular Hemoglobin 29.3 PG (27.0-31.0) Mean Corpuscular Hemoglobin Concent 30.7 G/DL (32.0-36.0) Red Cell Distribution Width 12.5 % (11.6-14.8) Platelet Count 288 K/UL (150-450) Mean Platelet Volume 7.1 FL (6.5-10.1) Neutrophils (%) (Auto) 77.2 % (45.0-75.0) Lymphocytes (%) (Auto) 12.0 % (20.0-45.0) Monocytes (%) (Auto) 10.0 % (1.0-10.0) Eosinophils (%) (Auto) 0.4 % (0.0-3.0) Basophils (%) (Auto) 0.4 % (0.0-2.0) Test 10/24/16 05:20 White Blood Count 10.5 K/UL (4.8-10.8) Red Blood Count 4.35 M/UL (4.70-6.10) Hemoglobin 12.9 G/DL (14.2-18.0) Hematocrit 41.3 % (42.0-52.0) Mean Corpuscular Volume 95 FL (80-99) Mean Corpuscular Hemoglobin 29.6 PG (27.0-31.0) Mean Corpuscular Hemoglobin Concent 31.2 G/DL (32.0-36.0) Red Cell Distribution Width 12.7 % (11.6-14.8) Platelet Count 258 K/UL (150-450) Mean Platelet Volume 6.6 FL (6.5-10.1) Neutrophils (%) (Auto) 76.8 % (45.0-75.0) Lymphocytes (%) (Auto) 11.4 % (20.0-45.0) Monocytes (%) (Auto) 7.8 % (1.0-10.0) Eosinophils (%) (Auto) 3.5 % (0.0-3.0) Basophils (%) (Auto) 0.5 % (0.0-2.0) Sodium Level 144 mEQ/L (135-145) Potassium Level 4.3 mEQ/L (3.4-4.9) Chloride Level 99 mEQ/L (98-107) Carbon Dioxide Level 35 mEQ/L (20-30) Anion Gap 10 (5-15) Blood Urea Nitrogen 9 mg/dL (7-23) Creatinine 0.7 mg/dL (0.7-1.2) Estimat Glomerular Filtration Rate > 60 mL/min (>60) Glucose Level 419 mg/dL (74-106) Calcium Level 9.6 mg/dL (8.6-10.2) Objective: WDWN NAD tachypneic off BIPAP; 02 reduced reduced breath sounds bilaterally with some rhonchi S1S2RR tachy without MRG NABS nontender no HSM no CCE nonfocal Micro: Microbiology Date/Time Source Procedure Growth Status 10/21/16 09:50 Indwelling Cath Urine Culture - Final Complete Accucheck: 390 IZABEL HASTINGS October 24, 2016 09:13
[2016-10-24] MEDS: NS IV SCH (10:07)
[2016-10-24] MEDS: DESMOPRESSIN IV SCH (10:07)
[2016-10-24] MEDS ORDERED: Tubing IV Secondary IV ONE (10:10)
[2016-10-24] MEDS ORDERED: NS 275ml ONE (10:10)
--- NOTE | 2016-10-24 10:53 | Diagnostic Imaging Report ---
Indication: Chest Pain Comparison: 10/22/16 A single view chest radiograph was obtained. Findings: Evidence of mild interstitial edema. Heart size is normal. Bones are slight osteopenic. NG tube is in good position. Impression: Mild interstitial edema suspected.
--- NOTE | 2016-10-24 11:43 | Infectious Diseases Prog Note ---
Assessment/Plan Assessment/Plan ASSESSMENT AND PLAN: 1. acinetobacter/klebsiella/aspiration pna with sepsis, fevers, leukocytosis - clinically better - continue meropenem, polymyxin, vancomycin, bactrim - icu care 2. The patient has diabetes insipidus. 3. The patient has diabetes mellitus. 4. Aspiration risk. 5. Optical atrophy. 6. Deafness. 7. DIDMOAD syndrome. 8. MAR was noted. 9. Case discussed with RN. 10. Continue treatment per primary consultants. Subjective Constitutional: Denies: fever HEENT: Reports: congestion - less Respiratory: Reports: shortness of breath - less Gastrointestinal/Abdominal: Denies: diarrhea, nausea, vomiting Genitourinary: Reports: other - + baez Neurologic: Denies: headache Psychiatric: Denies: depression Skin: Denies: rash Hematologic: Denies: bleeding Musculoskeletal: Denies: pain Allergies: Coded Allergies: No Known Allergies (Unverified , 09/01/12) Objective Vital Signs Last 24 Hour Vital Signs Date Time Temp Pulse Resp B/P Pulse Ox O2 Delivery O2 Flow Rate FiO2 10/24/16 11:00 102 24 130/53 99 Venturi Mask 55 10/24/16 10:00 110 28 105/41 98 Venturi Mask 55 10/24/16 08:00 98.8 102 33 129/55 92 Venturi Mask 55 10/24/16 08:00 103 10/24/16 07:00 110 33 136/63 98 Venturi Mask 55 10/24/16 06:00 99 33 136/58 98 Venturi Mask 55 10/24/16 05:00 98 35 137/56 98 Venturi Mask 55 10/24/16 04:00 98.3 107 40 147/56 97 Venturi Mask 55 10/24/16 04:00 110 10/24/16 03:00 93 40 128/62 97 Venturi Mask 55 10/24/16 02:00 94 35 125/65 97 Venturi Mask 55 10/24/16 01:00 95 35 140/62 95 Venturi Mask 55 10/24/16 00:00 97.9 99 32 128/54 99 Venturi Mask 55 10/24/16 00:00 97 10/23/16 23:00 99 32 122/63 99 Venturi Mask 55 10/23/16 22:00 106 23 147/66 99 Venturi Mask 55 10/23/16 20:45 97.9 85 25 141/61 99 Venturi Mask 55 10/23/16 20:00 90 10/23/16 19:00 98 23 136/75 100 Venturi Mask 55 10/23/16 18:00 88 24 131/70 100 Venturi Mask 55 10/23/16 17:02 98 20 99 14.0 55 10/23/16 17:00 89 24 138/70 96 Venturi Mask 55 10/23/16 16:00 95 10/23/16 16:00 97.7 95 26 125/71 98 Venturi Mask 55 10/23/16 15:00 90 22 152/72 97 Venturi Mask 55 10/23/16 14:59 99 20 96 14.0 55 10/23/16 14:00 98 23 160/80 97 Venturi Mask 55 10/23/16 13:09 110 22 93 14.0 55 10/23/16 13:00 106 24 149/83 97 Venturi Mask 55 10/23/16 12:00 97.8 110 22 164/90 96 Venturi Mask 55 10/23/16 12:00 113 10/23/16 12:00 55 Height (Feet): 5 Height (Inches): 8.00 Weight (Pounds): 160 General Appearance: no acute distress HEENT: normocephalic, atraumatic, anicteric, mucous membranes moist, PERRL, EOMI, pharynx normal, supple, no JVD Respiratory/Chest: lungs clear, respiratory distress, crackles/rales - less, rhonchi - bilaterally - less Cardiovascular: normal rate, no gallop/murmur Abdomen: normal bowel sounds, soft, non tender, no organomegaly Genitourinary: other - + baez Extremities: no cyanosis Skin: no rash 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 10/24 - chest x-ray - interstitial edema Microbiology Date/Time Source Procedure Growth Status 10/19/16 08:30 Bronchial Washings Not Specified Gram Stain - Final Complete 10/19/16 08:30 Bronchial Aspirate Culture - Final Acinetobacter Baumanii - Mdr Klebsiella Pneumoniae Esbl Complete 10/21/16 09:50 Indwelling Cath Urine Culture - Final Complete 10/15/16 17:15 Rectum VRE Culture - Final NO VANCOMYCIN RESISTANT ENTEROCOCCUS ... Complete Laboratory Tests Test 10/24/16 05:20 White Blood Count 10.5 K/UL (4.8-10.8) Red Blood Count 4.35 M/UL (4.70-6.10) L Hemoglobin 12.9 G/DL (14.2-18.0) L Hematocrit 41.3 % (42.0-52.0) L Mean Corpuscular Volume 95 FL (80-99) Mean Corpuscular Hemoglobin 29.6 PG (27.0-31.0) Mean Corpuscular Hemoglobin Concent 31.2 G/DL (32.0-36.0) L Red Cell Distribution Width 12.7 % (11.6-14.8) Platelet Count 258 K/UL (150-450) Mean Platelet Volume 6.6 FL (6.5-10.1) Neutrophils (%) (Auto) 76.8 % (45.0-75.0) H Lymphocytes (%) (Auto) 11.4 % (20.0-45.0) L Monocytes (%) (Auto) 7.8 % (1.0-10.0) Eosinophils (%) (Auto) 3.5 % (0.0-3.0) H Basophils (%) (Auto) 0.5 % (0.0-2.0) Sodium Level 144 mEQ/L (135-145) Potassium Level 4.3 mEQ/L (3.4-4.9) Chloride Level 99 mEQ/L (98-107) Carbon Dioxide Level 35 mEQ/L (20-30) H Anion Gap 10 (5-15) Blood Urea Nitrogen 9 mg/dL (7-23) Creatinine 0.7 mg/dL (0.7-1.2) Estimat Glomerular Filtration Rate > 60 mL/min (>60) Glucose Level 419 mg/dL (74-106) #H Calcium Level 9.6 mg/dL (8.6-10.2) Current Medications Medications (Trade) Dose Ordered Sig/Marilyn Route PRN Reason Start Time Stop Time Status Last Admin Dose Admin Acetaminophen (Tylenol) 650 mg Q4H PRN RECTAL Mild Pain (Pain Scale 1-3) 10/15/16 23:45 11/14/16 23:44 10/21/16 16:40 Bisacodyl (Dulcolax) 10 mg DAILYPRN PRN RECTAL Constipation 10/15/16 23:45 11/14/16 23:44 10/20/16 13:39 Desmopressin Acetate/Sodium Chloride (Ddavp/Sodium Chloride) 57.5 ml @ 115 mls/hr DAILY IV 10/23/16 11:00 11/22/16 10:59 10/24/16 10:07 Dextrose (Dextrose 50%) STAT PRN IV Hypoglycemia 10/24/16 08:30 11/23/16 08:29 Dextrose/ Electrolytes 1,000 ml @ 125 mls/hr Q8H IV 10/23/16 06:45 11/22/16 06:44 10/24/16 06:10 Heparin Sodium (Porcine) (Heparin 5000 units/ml) 5,000 units EVERY 12 HOURS SUBQ 10/16/16 09:00 11/15/16 08:59 10/24/16 08:51 Insulin Aspart (NovoLOG) BEFORE MEALS AND HS SUBQ 10/24/16 11:30 11/23/16 11:29 Insulin Detemir (Levemir) 20 units EVERY 12 HOURS SUBQ 10/24/16 09:00 11/23/16 08:59 10/24/16 08:50 Meropenem 1 gm/ Sodium Chloride 100 ml @ 200 mls/hr Q8HR IVPB 10/22/16 22:00 10/27/16 21:59 10/24/16 06:13 Ondansetron HCl (Zofran ODT) 4 mg Q6H PRN ORAL Nausea & Vomiting 10/15/16 23:45 11/14/16 23:44 10/22/16 20:57 Pantoprazole (Protonix) 40 mg DAILY IV 10/16/16 09:00 11/15/16 08:59 10/24/16 08:49 Polymyxin B Sulfate 628158 units/Dextrose 500 ml @ 500 mls/hr EVERY 12 HOURS IVPB 10/22/16 21:00 10/29/16 20:59 10/24/16 08:49 Trimethoprim/ Sulfamethoxazole 20 ml 20 ml EVERY 12 HOURS NG 10/23/16 21:00 10/30/16 20:59 10/24/16 08:49 Vancomycin HCl 1 ea 1 ea DAILY PRN MISC Per rx protocol 10/16/16 07:15 11/15/16 07:14 Vancomycin HCl/ Dextrose (Vancomycin/D5W) 275 ml @ 183.708 mls/hr Q8HR@0400,1200,1800 IVPB 10/23/16 12:00 10/28/16 11:59 10/24/16 04:12 JACOBY LO October 24, 2016 11:43
[2016-10-25] VITALS (24 sets, daily range): BP systolic 108–137; BP diastolic 45–84
[2016-10-25] MEDS: Vancomycin 1.25 GM in D5W 275 ML IVPB SCH ×3 (04:24→18:43)
--- NOTE | 2016-10-25 06:28 | Critical Care Progress Note ---
Assessment/Plan Assessment/Plan s/p bronchoscopy pulmonary infiltrates respiratory failure aspiration event leukocytosis anemia sinus tachycardia agitation chronic co2 retention MDR sputum PLAN BIPAP - keep off as able repeat bronchoscopy x 3 completed needs GT iv hydration with caution tube feeds titrate oxygen saturations if able ID evaluation noted ICU care for now Critical Care - Subjective Interval Events: improving reduced congestion ROS Limited/Unobtainable: Yes Condition: improving EKG Rhythm: Sinus Tachycardia I&O: Intake and Output 10/24/16 10/25/16 19:00 07:00 Intake Total 2348.1 ml 1225 ml Output Total 1840 ml 980 ml Balance 508.1 ml 245 ml IV Total 2348.1 ml 1225 ml Output Urine Total 1840 ml 980 ml Critical Care - Objective ET-Tube: 8.0 ET Position: 22 Last 24 Hour Vital Signs Date Time Temp Pulse Resp B/P Pulse Ox O2 Delivery O2 Flow Rate FiO2 10/25/16 04:00 90 10/25/16 04:00 98.8 90 32 116/66 100 Venturi Mask 55 10/25/16 03:00 90 25 136/80 100 Venturi Mask 55 10/25/16 02:00 102 30 120/80 100 Venturi Mask 55 10/25/16 01:00 102 31 122/84 100 Venturi Mask 55 10/25/16 00:00 98.4 97 28 129/78 99 Venturi Mask 55 10/25/16 00:00 97 10/24/16 23:00 96 30 124/54 99 Venturi Mask 55 10/24/16 22:00 97 32 136/68 100 Venturi Mask 55 10/24/16 21:00 96 30 135/72 100 Venturi Mask 55 10/24/16 20:00 94 10/24/16 20:00 98.0 94 32 140/74 96 Venturi Mask 55 10/24/16 19:00 107 25 110/52 96 Venturi Mask 55 10/24/16 19:00 Venturi Mask 14.0 55 10/24/16 19:00 100 Venturi Mask 14.0 55 10/24/16 18:00 101 27 129/67 99 Venturi Mask 55 10/24/16 17:00 105 31 133/64 98 Venturi Mask 55 10/24/16 16:00 98.9 105 29 135/65 100 Venturi Mask 55 10/24/16 16:00 110 10/24/16 15:00 106 30 132/68 100 Venturi Mask 55 10/24/16 14:00 110 32 121/65 97 Venturi Mask 55 10/24/16 13:00 96 25 125/66 100 Venturi Mask 55 10/24/16 12:00 98.8 98 29 138/50 99 Venturi Mask 55 10/24/16 12:00 98 10/24/16 11:00 102 24 130/53 99 Venturi Mask 55 10/24/16 10:00 110 28 105/41 98 Venturi Mask 55 10/24/16 08:00 98.8 102 33 129/55 92 Venturi Mask 55 10/24/16 08:00 103 10/24/16 07:00 110 33 136/63 98 Venturi Mask 55 Labs: Labs Test 10/22/16 07:50 10/22/16 10:35 10/22/16 22:40 10/23/16 04:00 Thyroid Stimulating Hormone (TSH) 0.929 uIU/mL (0.300-4.500) Free Thyroxine 1.52 ng/dL (0.86-1.85) Arterial Blood pH 7.328 (7.350-7.450) Arterial Blood Partial Pressure CO2 70.2 mmHg (35.0-45.0) Arterial Blood Partial Pressure O2 383.3 mmHg (75.0-100.0) Arterial Blood HCO3 36.0 mmol/L (22.0-26.0) Arterial Blood Oxygen Saturation 99.6 % (92.0-98.0) Arterial Blood Base Excess 7.3 Jamel Test Positive Sodium Level 159 mEQ/L (135-145) 161 mEQ/L (135-145) Potassium Level 4.0 mEQ/L (3.4-4.9) 4.3 mEQ/L (3.4-4.9) Chloride Level 112 mEQ/L (98-107) 111 mEQ/L (98-107) Carbon Dioxide Level 37 mEQ/L (20-30) 38 mEQ/L (20-30) Anion Gap 10 (5-15) 12 (5-15) Blood Urea Nitrogen 9 mg/dL (7-23) 13 mg/dL (7-23) Creatinine 0.7 mg/dL (0.7-1.2) 0.7 mg/dL (0.7-1.2) Estimat Glomerular Filtration Rate > 60 mL/min (>60) > 60 mL/min (>60) Glucose Level 409 mg/dL (74-106) 272 mg/dL (74-106) Calcium Level 9.6 mg/dL (8.6-10.2) 9.9 mg/dL (8.6-10.2) White Blood Count 9.9 K/UL (4.8-10.8) Red Blood Count 5.07 M/UL (4.70-6.10) Hemoglobin 14.8 G/DL (14.2-18.0) Hematocrit 48.3 % (42.0-52.0) Mean Corpuscular Volume 95 FL (80-99) Mean Corpuscular Hemoglobin 29.3 PG (27.0-31.0) Mean Corpuscular Hemoglobin Concent 30.7 G/DL (32.0-36.0) Red Cell Distribution Width 12.5 % (11.6-14.8) Platelet Count 288 K/UL (150-450) Mean Platelet Volume 7.1 FL (6.5-10.1) Neutrophils (%) (Auto) 77.2 % (45.0-75.0) Lymphocytes (%) (Auto) 12.0 % (20.0-45.0) Monocytes (%) (Auto) 10.0 % (1.0-10.0) Eosinophils (%) (Auto) 0.4 % (0.0-3.0) Basophils (%) (Auto) 0.4 % (0.0-2.0) Test 10/23/16 10:30 10/24/16 05:20 10/24/16 16:18 10/25/16 04:20 Arterial Blood pH 7.349 (7.350-7.450) Arterial Blood Partial Pressure CO2 70.2 mmHg (35.0-45.0) Arterial Blood Partial Pressure O2 65.6 mmHg (75.0-100.0) Arterial Blood HCO3 37.8 mmol/L (22.0-26.0) Arterial Blood Oxygen Saturation 91.3 % (92.0-98.0) Arterial Blood Base Excess 9.3 Jamel Test Positive White Blood Count 10.5 K/UL (4.8-10.8) Red Blood Count 4.35 M/UL (4.70-6.10) Hemoglobin 12.9 G/DL (14.2-18.0) Hematocrit 41.3 % (42.0-52.0) Mean Corpuscular Volume 95 FL (80-99) Mean Corpuscular Hemoglobin 29.6 PG (27.0-31.0) Mean Corpuscular Hemoglobin Concent 31.2 G/DL (32.0-36.0) Red Cell Distribution Width 12.7 % (11.6-14.8) Platelet Count 258 K/UL (150-450) Mean Platelet Volume 6.6 FL (6.5-10.1) Neutrophils (%) (Auto) 76.8 % (45.0-75.0) Lymphocytes (%) (Auto) 11.4 % (20.0-45.0) Monocytes (%) (Auto) 7.8 % (1.0-10.0) Eosinophils (%) (Auto) 3.5 % (0.0-3.0) Basophils (%) (Auto) 0.5 % (0.0-2.0) Sodium Level 144 mEQ/L (135-145) 144 mEQ/L (135-145) 135 mEQ/L (135-145) Potassium Level 4.3 mEQ/L (3.4-4.9) Chloride Level 99 mEQ/L (98-107) Carbon Dioxide Level 35 mEQ/L (20-30) Anion Gap 10 (5-15) Blood Urea Nitrogen 9 mg/dL (7-23) Creatinine 0.7 mg/dL (0.7-1.2) Estimat Glomerular Filtration Rate > 60 mL/min (>60) Glucose Level 419 mg/dL (74-106) Calcium Level 9.6 mg/dL (8.6-10.2) Magnesium Level 1.3 mg/dL (1.7-2.5) Objective: WDWN NAD less tachypneic off BIPAP; 02 noted reduced breath sounds bilaterally with some rhonchi S1S2RR tachy without MRG NABS nontender no HSM no CCE nonfocal Accucheck: 259 IZABEL HASTINGS October 25, 2016 06:28
[2016-10-25] MEDS: NovoLOG Insulin Flexpen SUBQ SCH ×3 (06:33→18:43)
[2016-10-25] MEDS: Bactrim Susp 20ml NG SCH ×2 (09:00→21:04)
[2016-10-25] MEDS: D5W w/KCl 20mEq 1,000 ML IV SCH (09:59)
[2016-10-25] MEDS: DESMOPRESSIN IV SCH (10:00)
[2016-10-25] MEDS: NS IV SCH (10:00)
[2016-10-25] MEDS: Pantoprazole Inj IV SCH (10:01)
[2016-10-25] MEDS: Polymyxin B Sulfate 500,000 UNITS in D5W 500ml 500 ML IVPB SCH ×2 (10:04→21:04)
[2016-10-25] MEDS: Levemir Flexpen SUBQ SCH ×2 (10:43→18:00)
[2016-10-25] MEDS: Heparin 5000 units/ml inj SUBQ SCH ×2 (10:43→21:07)
--- NOTE | 2016-10-25 11:51 | General Progress Note ---
Assessment/Plan Assessment/Plan Improving Na 135. Avoid Tube Feeding and Don't Resume!!!! Explained to all MDs. DC D5W change to 1/4 saline On DO NOT CHANGE!!!!! Redose sq dDAVP. Hyperglycemia ---->Keep Levemir. Failed Video Swallow. Keep NPO as risks of NGT are aspiration. DW pt's mother. Subjective Allergies: Coded Allergies: No Known Allergies (Unverified , 09/01/12) Subjective Much more alert , more than yesterday + responsive! Off BIPAP. Objective Last 24 Hour Vital Signs Date Time Temp Pulse Resp B/P Pulse Ox O2 Delivery O2 Flow Rate FiO2 10/25/16 10:58 115 30 128/67 99 Venturi Mask 55 10/25/16 10:00 108 35 134/59 98 Venturi Mask 55 10/25/16 09:00 109 28 124/63 93 Venturi Mask 55 10/25/16 08:00 109 10/25/16 08:00 98.7 104 28 112/45 92 Venturi Mask 55 10/25/16 07:00 104 28 108/67 100 Venturi Mask 55 10/25/16 06:39 99 Venturi Mask 14.0 55 10/25/16 06:39 Venturi Mask 14.0 55 10/25/16 06:00 93 28 136/67 100 Venturi Mask 55 10/25/16 05:00 98.8 93 32 122/47 100 Venturi Mask 55 10/25/16 04:00 90 10/25/16 04:00 98.8 90 32 116/66 100 Venturi Mask 55 10/25/16 03:00 90 25 136/80 100 Venturi Mask 55 10/25/16 02:00 102 30 120/80 100 Venturi Mask 55 10/25/16 01:00 102 31 122/84 100 Venturi Mask 55 10/25/16 00:00 98.4 97 28 129/78 99 Venturi Mask 55 10/25/16 00:00 97 10/24/16 23:00 96 30 124/54 99 Venturi Mask 55 10/24/16 22:00 97 32 136/68 100 Venturi Mask 55 10/24/16 21:00 96 30 135/72 100 Venturi Mask 55 10/24/16 20:00 94 10/24/16 20:00 98.0 94 32 140/74 96 Venturi Mask 55 10/24/16 19:00 107 25 110/52 96 Venturi Mask 55 10/24/16 19:00 Venturi Mask 14.0 55 10/24/16 19:00 100 Venturi Mask 14.0 55 10/24/16 18:00 101 27 129/67 99 Venturi Mask 55 10/24/16 17:00 105 31 133/64 98 Venturi Mask 55 10/24/16 16:00 98.9 105 29 135/65 100 Venturi Mask 55 10/24/16 16:00 110 10/24/16 15:00 106 30 132/68 100 Venturi Mask 55 10/24/16 14:00 110 32 121/65 97 Venturi Mask 55 10/24/16 13:00 96 25 125/66 100 Venturi Mask 55 10/24/16 12:00 98.8 98 29 138/50 99 Venturi Mask 55 10/24/16 12:00 98 Intake and Output 10/24/16 10/25/16 19:00 07:00 Intake Total 2348.1 ml 1883.708 ml Output Total 1840 ml 1230 ml Balance 508.1 ml 653.708 ml IV Total 2348.1 ml 1883.708 ml Output Urine Total 1840 ml 1230 ml Laboratory Tests 10/24/16 16:18: Sodium Level 144 10/25/16 04:20: Sodium Level 135, Magnesium Level 1.3L Height (Feet): 5 Height (Inches): 8.00 Weight (Pounds): 160 Objective Much more alert + responsive. 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 Cv RR Lungs CTA Abd SNT. BS + E No CCE RENETTA SOMMER October 25, 2016 11:51
--- NOTE | 2016-10-25 12:23 | Diagnostic Imaging Report ---
Indication: Dyspnea Comparison: 10/24/16 A single view chest radiograph was obtained. Findings: There is a questionable infiltrate versus atelectasis at the right lung base, more conspicuous on the current study. Please correlate clinically for pneumonia. Heart size is normal. Nasogastric tube is in good position unchanged. Impression: Questionable right basal infiltrate versus atelectasis
[2016-10-25] MEDS: D5 1/4NS w/KCl 20mEq 1,000 ML IV SCH ×2 (13:49→23:32)
[2016-10-25] MEDS ORDERED: Tubing IV Secondary IV ONE (14:03)
--- NOTE | 2016-10-25 14:38 | Infectious Diseases Prog Note ---
Assessment/Plan Assessment/Plan ASSESSMENT AND PLAN: 1. acinetobacter/klebsiella/aspiration pna with sepsis, fevers, leukocytosis - clinically better - continue meropenem, polymyxin, bactrim, vancomycin - po abx soon if continues to improve - icu care 2. The patient has diabetes insipidus. 3. The patient has diabetes mellitus. 4. Aspiration risk. 5. Optical atrophy. 6. Deafness. 7. DIDMOAD syndrome. 8. MAR was noted. 9. Case discussed with RN. 10. Continue treatment per primary consultants. Subjective Constitutional: Reports: fatigue, Denies: fever HEENT: Reports: other - less sob, Denies: congestion Respiratory: Reports: other - less sob, Denies: shortness of breath Cardiovascular: Denies: chest pain Gastrointestinal/Abdominal: Denies: diarrhea, nausea, vomiting Genitourinary: Reports: other - + baez Neurologic: Denies: headache Psychiatric: Denies: depression Skin: Denies: rash Hematologic: Denies: bleeding Musculoskeletal: Denies: pain Allergies: Coded Allergies: No Known Allergies (Unverified , 09/01/12) Objective Vital Signs Last 24 Hour Vital Signs Date Time Temp Pulse Resp B/P Pulse Ox O2 Delivery O2 Flow Rate FiO2 10/25/16 13:00 99 23 132/64 98 Venturi Mask 55 10/25/16 12:00 98.4 109 29 137/59 97 Venturi Mask 55 10/25/16 12:00 101 10/25/16 10:58 115 30 128/67 99 Venturi Mask 55 10/25/16 10:00 108 35 134/59 98 Venturi Mask 55 10/25/16 09:00 109 28 124/63 93 Venturi Mask 55 10/25/16 08:00 109 10/25/16 08:00 98.7 104 28 112/45 92 Venturi Mask 55 10/25/16 07:00 104 28 108/67 100 Venturi Mask 55 10/25/16 06:39 99 Venturi Mask 14.0 55 10/25/16 06:39 Venturi Mask 14.0 55 10/25/16 06:00 93 28 136/67 100 Venturi Mask 55 10/25/16 05:00 98.8 93 32 122/47 100 Venturi Mask 55 10/25/16 04:00 90 10/25/16 04:00 98.8 90 32 116/66 100 Venturi Mask 55 10/25/16 03:00 90 25 136/80 100 Venturi Mask 55 10/25/16 02:00 102 30 120/80 100 Venturi Mask 55 10/25/16 01:00 102 31 122/84 100 Venturi Mask 55 10/25/16 00:00 98.4 97 28 129/78 99 Venturi Mask 55 10/25/16 00:00 97 10/24/16 23:00 96 30 124/54 99 Venturi Mask 55 10/24/16 22:00 97 32 136/68 100 Venturi Mask 55 10/24/16 21:00 96 30 135/72 100 Venturi Mask 55 10/24/16 20:00 94 10/24/16 20:00 98.0 94 32 140/74 96 Venturi Mask 55 10/24/16 19:00 107 25 110/52 96 Venturi Mask 55 10/24/16 19:00 Venturi Mask 14.0 55 10/24/16 19:00 100 Venturi Mask 14.0 55 10/24/16 18:00 101 27 129/67 99 Venturi Mask 55 10/24/16 17:00 105 31 133/64 98 Venturi Mask 55 10/24/16 16:00 98.9 105 29 135/65 100 Venturi Mask 55 10/24/16 16:00 110 10/24/16 15:00 106 30 132/68 100 Venturi Mask 55 Height (Feet): 5 Height (Inches): 8.00 Weight (Pounds): 160 General Appearance: no acute distress HEENT: normocephalic, atraumatic, anicteric, mucous membranes moist, PERRL, EOMI, pharynx normal, supple, no JVD Respiratory/Chest: crackles/rales, rhonchi - bilaterally Cardiovascular: normal peripheral pulses, normal rate, no gallop/murmur, no JVD Abdomen: normal bowel sounds, soft, non tender, no organomegaly, non distended Genitourinary: other - + baez - urine clear Extremities: no cyanosis Skin: no rash 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 10/24 - chest x-ray - interstitial edema 10/25 - chest x-ray - right infiltrate vs atx Microbiology Date/Time Source Procedure Growth Status 10/19/16 08:30 Bronchial Washings Not Specified Gram Stain - Final Complete 10/19/16 08:30 Bronchial Aspirate Culture - Final Acinetobacter Baumanii - Mdr Klebsiella Pneumoniae Esbl Complete 10/21/16 09:50 Indwelling Cath Urine Culture - Final Complete 10/15/16 17:15 Rectum VRE Culture - Final NO VANCOMYCIN RESISTANT ENTEROCOCCUS ... Complete Labs Test 10/22/16 22:40 10/23/16 04:00 10/23/16 10:30 10/24/16 05:20 Sodium Level 159 mEQ/L (135-145) 161 mEQ/L (135-145) 144 mEQ/L (135-145) Potassium Level 4.0 mEQ/L (3.4-4.9) 4.3 mEQ/L (3.4-4.9) 4.3 mEQ/L (3.4-4.9) Chloride Level 112 mEQ/L (98-107) 111 mEQ/L (98-107) 99 mEQ/L (98-107) Carbon Dioxide Level 37 mEQ/L (20-30) 38 mEQ/L (20-30) 35 mEQ/L (20-30) Anion Gap 10 (5-15) 12 (5-15) 10 (5-15) Blood Urea Nitrogen 9 mg/dL (7-23) 13 mg/dL (7-23) 9 mg/dL (7-23) Creatinine 0.7 mg/dL (0.7-1.2) 0.7 mg/dL (0.7-1.2) 0.7 mg/dL (0.7-1.2) Estimat Glomerular Filtration Rate > 60 mL/min (>60) > 60 mL/min (>60) > 60 mL/min (>60) Glucose Level 409 mg/dL (74-106) 272 mg/dL (74-106) 419 mg/dL (74-106) Calcium Level 9.6 mg/dL (8.6-10.2) 9.9 mg/dL (8.6-10.2) 9.6 mg/dL (8.6-10.2) White Blood Count 9.9 K/UL (4.8-10.8) 10.5 K/UL (4.8-10.8) Red Blood Count 5.07 M/UL (4.70-6.10) 4.35 M/UL (4.70-6.10) Hemoglobin 14.8 G/DL (14.2-18.0) 12.9 G/DL (14.2-18.0) Hematocrit 48.3 % (42.0-52.0) 41.3 % (42.0-52.0) Mean Corpuscular Volume 95 FL (80-99) 95 FL (80-99) Mean Corpuscular Hemoglobin 29.3 PG (27.0-31.0) 29.6 PG (27.0-31.0) Mean Corpuscular Hemoglobin Concent 30.7 G/DL (32.0-36.0) 31.2 G/DL (32.0-36.0) Red Cell Distribution Width 12.5 % (11.6-14.8) 12.7 % (11.6-14.8) Platelet Count 288 K/UL (150-450) 258 K/UL (150-450) Mean Platelet Volume 7.1 FL (6.5-10.1) 6.6 FL (6.5-10.1) Neutrophils (%) (Auto) 77.2 % (45.0-75.0) 76.8 % (45.0-75.0) Lymphocytes (%) (Auto) 12.0 % (20.0-45.0) 11.4 % (20.0-45.0) Monocytes (%) (Auto) 10.0 % (1.0-10.0) 7.8 % (1.0-10.0) Eosinophils (%) (Auto) 0.4 % (0.0-3.0) 3.5 % (0.0-3.0) Basophils (%) (Auto) 0.4 % (0.0-2.0) 0.5 % (0.0-2.0) Arterial Blood pH 7.349 (7.350-7.450) Arterial Blood Partial Pressure CO2 70.2 mmHg (35.0-45.0) Arterial Blood Partial Pressure O2 65.6 mmHg (75.0-100.0) Arterial Blood HCO3 37.8 mmol/L (22.0-26.0) Arterial Blood Oxygen Saturation 91.3 % (92.0-98.0) Arterial Blood Base Excess 9.3 Jamel Test Positive Test 10/24/16 16:18 10/25/16 04:20 Sodium Level 144 mEQ/L (135-145) 135 mEQ/L (135-145) Magnesium Level 1.3 mg/dL (1.7-2.5) Laboratory Tests Test 10/24/16 16:18 10/25/16 04:20 Sodium Level 144 mEQ/L (135-145) 135 mEQ/L (135-145) Magnesium Level 1.3 mg/dL (1.7-2.5) L Current Medications Medications (Trade) Dose Ordered Sig/Marilyn Route PRN Reason Start Time Stop Time Status Last Admin Dose Admin Acetaminophen (Tylenol) 650 mg Q4H PRN RECTAL Mild Pain (Pain Scale 1-3) 10/15/16 23:45 11/14/16 23:44 10/21/16 16:40 Bisacodyl (Dulcolax) 10 mg DAILYPRN PRN RECTAL Constipation 10/15/16 23:45 11/14/16 23:44 10/20/16 13:39 Desmopressin Acetate/Sodium Chloride (Ddavp/Sodium Chloride) 57.5 ml @ 115 mls/hr DAILY IV 10/23/16 11:00 11/22/16 10:59 10/25/16 10:00 Dextrose (Dextrose 50%) STAT PRN IV Hypoglycemia 10/24/16 08:30 11/23/16 08:29 Dextrose/ Electrolytes (D5 0.25%NS w/ KCl 20mEq) 1,000 ml @ 125 mls/hr Q8H IV 10/25/16 15:00 11/24/16 14:59 10/25/16 13:49 Heparin Sodium (Porcine) (Heparin 5000 units/ml) 5,000 units EVERY 12 HOURS SUBQ 10/16/16 09:00 11/15/16 08:59 10/25/16 10:43 Insulin Aspart EVERY 6 HOURS SUBQ 10/25/16 12:00 11/24/16 11:59 10/25/16 12:00 Insulin Detemir 30 units 30 units Q12HR@0600,1800 SUBQ 10/25/16 18:00 11/24/16 17:59 Magnesium Sulfate (Magnesium Sulfate 1gm/100ml) 100 ml @ 100 mls/hr Q1H IVPB 10/25/16 11:00 10/25/16 16:59 10/25/16 13:00 Meropenem 1 gm/ Sodium Chloride 100 ml @ 200 mls/hr Q8HR IVPB 10/22/16 22:00 10/27/16 21:59 10/25/16 05:46 Ondansetron HCl (Zofran ODT) 4 mg Q6H PRN ORAL Nausea & Vomiting 10/15/16 23:45 11/14/16 23:44 10/22/16 20:57 Pantoprazole (Protonix) 40 mg DAILY IV 10/16/16 09:00 11/15/16 08:59 10/25/16 10:01 Polymyxin B Sulfate 828379 units/Dextrose 500 ml @ 500 mls/hr EVERY 12 HOURS IVPB 10/22/16 21:00 10/29/16 20:59 10/25/16 10:04 Trimethoprim/ Sulfamethoxazole 20 ml 20 ml EVERY 12 HOURS NG 10/23/16 21:00 10/30/16 20:59 10/25/16 09:00 Vancomycin HCl 1 ea 1 ea DAILY PRN MISC Per rx protocol 10/16/16 07:15 11/15/16 07:14 Vancomycin HCl/ Dextrose (Vancomycin/D5W) 275 ml @ 183.708 mls/hr Q8HR@0400,1200,1800 IVPB 10/23/16 12:00 10/28/16 11:59 10/25/16 12:46 JACOBY LO October 25, 2016 14:38
[2016-10-26] VITALS (24 sets, daily range): BP systolic 89–158; BP diastolic 53–84
[2016-10-26] MEDS: NovoLOG Insulin Flexpen SUBQ SCH ×5 (00:26→23:38)
[2016-10-26] MEDS: Vancomycin 1.25 GM in D5W 275 ML IVPB SCH ×2 (03:40→21:03)
[2016-10-26 05:13] LABS: BASOPHILS % (AUTO) 0.6 % (0.0-2.0); MEAN CORPUSCULAR HEMOGLOBIN 29.3 PG (27.0-31.0); MEAN CORPUSCULAR HGB CONC 32.5 G/DL (32.0-36.0); MEAN CORPUSCULAR VOLUME 90 FL (80-99); MEAN PLATELET VOLUME 7.5 FL (6.5-10.1); MONOCYTES % (AUTO) 7.3 % (1.0-10.0); NEUTROPHILS % (AUTO) 77.2 % (45.0-75.0); PLATELET COUNT 238 K/UL (150-450); RED BLOOD COUNT 4.03 M/UL (4.70-6.10); RED CELL DISTRIBUTION WIDTH 11.8 % (11.6-14.8); WHITE BLOOD COUNT 10.5 K/UL (4.8-10.8)
[2016-10-26 05:40] LABS: ANION GAP 10 (5-15); CALCIUM 8.7 mg/dL (8.6-10.2); CARBON DIOXIDE 32 mEQ/L (20-30); CHLORIDE 92 mEQ/L (98-107); CREATININE 0.6 mg/dL (0.7-1.2); GLOMERULAR FILTRATION RATE > 60 mL/min (>60); HEMOLYSIS 2; POTASSIUM 3.8 mEQ/L (3.4-4.9); SODIUM 134 mEQ/L (135-145)
[2016-10-26] MEDS: Levemir Flexpen SUBQ SCH ×2 (05:42→18:53)
--- NOTE | 2016-10-26 07:52 | Critical Care Progress Note ---
Assessment/Plan Assessment/Plan s/p bronchoscopy pulmonary infiltrates respiratory failure aspiration event leukocytosis anemia sinus tachycardia agitation chronic co2 retention MDR sputum PLAN BIPAP - keep off as able repeat bronchoscopy x 3 completed needs GT await video swallow iv hydration with caution tube feeds titrate oxygen saturations if able ID evaluation noted ICU care for now d/w Dr. Gardner Critical Care - Subjective Interval Events: d/w dr gardner needs gt ROS Limited/Unobtainable: Yes Condition: critical EKG Rhythm: Sinus Rhythm I&O: Intake and Output 10/25/16 10/26/16 19:00 07:00 Intake Total 2562.916 ml 2525 ml Output Total 3040 ml 1160 ml Balance -477.084 ml 1365 ml Intake Oral 50 ml IV Total 2562.916 ml 2475 ml Output Urine Total 3040 ml 1160 ml Critical Care - Objective CXR: minimal infiltrate ET-Tube: 8.0 ET Position: 22 Last 24 Hour Vital Signs Date Time Temp Pulse Resp B/P Pulse Ox O2 Delivery O2 Flow Rate FiO2 10/26/16 07:00 104 40 114/65 97 Venturi Mask 55 10/26/16 06:00 94 20 148/72 96 Venturi Mask 55 10/26/16 05:00 103 38 127/70 97 Venturi Mask 55 10/26/16 04:00 101 10/26/16 04:00 98.9 101 38 144/84 98 Venturi Mask 55 10/26/16 03:00 104 33 122/53 98 Venturi Mask 55 10/26/16 02:00 103 23 124/62 99 Venturi Mask 55 10/26/16 01:00 109 33 129/58 99 Venturi Mask 55 10/26/16 00:00 98.8 106 18 123/74 99 Venturi Mask 55 10/26/16 00:00 106 10/25/16 23:00 113 32 121/69 98 Venturi Mask 55 10/25/16 22:00 114 33 130/79 99 Venturi Mask 55 10/25/16 21:00 112 16 124/68 99 Venturi Mask 55 10/25/16 20:00 114 10/25/16 20:00 98.9 114 33 123/63 97 Venturi Mask 55 10/25/16 19:05 98 Venturi Mask 14.0 55 10/25/16 19:05 Venturi Mask 14.0 55 10/25/16 19:00 107 28 120/64 97 Venturi Mask 55 10/25/16 18:00 112 25 114/63 96 Venturi Mask 55 10/25/16 17:00 113 21 115/67 98 Venturi Mask 55 10/25/16 16:00 109 10/25/16 16:00 99.1 109 36 111/58 99 Venturi Mask 55 10/25/16 15:00 113 36 127/64 98 Venturi Mask 55 10/25/16 14:00 99 23 115/61 98 Venturi Mask 55 10/25/16 13:00 99 23 132/64 98 Venturi Mask 55 10/25/16 12:00 98.4 109 29 137/59 97 Venturi Mask 55 10/25/16 12:00 101 10/25/16 10:58 115 30 128/67 99 Venturi Mask 55 10/25/16 10:00 108 35 134/59 98 Venturi Mask 55 10/25/16 09:00 109 28 124/63 93 Venturi Mask 55 10/25/16 08:00 109 10/25/16 08:00 98.7 104 28 112/45 92 Venturi Mask 55 Labs: Labs Test 10/23/16 10:30 10/24/16 05:20 10/24/16 16:18 10/25/16 04:20 Arterial Blood pH 7.349 (7.350-7.450) Arterial Blood Partial Pressure CO2 70.2 mmHg (35.0-45.0) Arterial Blood Partial Pressure O2 65.6 mmHg (75.0-100.0) Arterial Blood HCO3 37.8 mmol/L (22.0-26.0) Arterial Blood Oxygen Saturation 91.3 % (92.0-98.0) Arterial Blood Base Excess 9.3 Jamel Test Positive White Blood Count 10.5 K/UL (4.8-10.8) Red Blood Count 4.35 M/UL (4.70-6.10) Hemoglobin 12.9 G/DL (14.2-18.0) Hematocrit 41.3 % (42.0-52.0) Mean Corpuscular Volume 95 FL (80-99) Mean Corpuscular Hemoglobin 29.6 PG (27.0-31.0) Mean Corpuscular Hemoglobin Concent 31.2 G/DL (32.0-36.0) Red Cell Distribution Width 12.7 % (11.6-14.8) Platelet Count 258 K/UL (150-450) Mean Platelet Volume 6.6 FL (6.5-10.1) Neutrophils (%) (Auto) 76.8 % (45.0-75.0) Lymphocytes (%) (Auto) 11.4 % (20.0-45.0) Monocytes (%) (Auto) 7.8 % (1.0-10.0) Eosinophils (%) (Auto) 3.5 % (0.0-3.0) Basophils (%) (Auto) 0.5 % (0.0-2.0) Sodium Level 144 mEQ/L (135-145) 144 mEQ/L (135-145) 135 mEQ/L (135-145) Potassium Level 4.3 mEQ/L (3.4-4.9) Chloride Level 99 mEQ/L (98-107) Carbon Dioxide Level 35 mEQ/L (20-30) Anion Gap 10 (5-15) Blood Urea Nitrogen 9 mg/dL (7-23) Creatinine 0.7 mg/dL (0.7-1.2) Estimat Glomerular Filtration Rate > 60 mL/min (>60) Glucose Level 419 mg/dL (74-106) Calcium Level 9.6 mg/dL (8.6-10.2) Magnesium Level 1.3 mg/dL (1.7-2.5) Test 10/25/16 16:00 10/26/16 05:00 Sodium Level 135 mEQ/L (135-145) 134 mEQ/L (135-145) White Blood Count 10.5 K/UL (4.8-10.8) Red Blood Count 4.03 M/UL (4.70-6.10) Hemoglobin 11.8 G/DL (14.2-18.0) Hematocrit 36.3 % (42.0-52.0) Mean Corpuscular Volume 90 FL (80-99) Mean Corpuscular Hemoglobin 29.3 PG (27.0-31.0) Mean Corpuscular Hemoglobin Concent 32.5 G/DL (32.0-36.0) Red Cell Distribution Width 11.8 % (11.6-14.8) Platelet Count 238 K/UL (150-450) Mean Platelet Volume 7.5 FL (6.5-10.1) Neutrophils (%) (Auto) 77.2 % (45.0-75.0) Lymphocytes (%) (Auto) 13.0 % (20.0-45.0) Monocytes (%) (Auto) 7.3 % (1.0-10.0) Eosinophils (%) (Auto) 2.0 % (0.0-3.0) Basophils (%) (Auto) 0.6 % (0.0-2.0) Potassium Level 3.8 mEQ/L (3.4-4.9) Chloride Level 92 mEQ/L (98-107) Carbon Dioxide Level 32 mEQ/L (20-30) Anion Gap 10 (5-15) Blood Urea Nitrogen 7 mg/dL (7-23) Creatinine 0.6 mg/dL (0.7-1.2) Estimat Glomerular Filtration Rate > 60 mL/min (>60) Glucose Level 282 mg/dL (74-106) Calcium Level 8.7 mg/dL (8.6-10.2) Objective: WDWN NAD off BIPAP; 02 noted reduced breath sounds bilaterally with some rhonchi [id number] tachy without MRG NABS nontender no HSM no CCE nonfocal Accucheck: 252 IZABEL HASTINGS October 26, 2016 07:52
[2016-10-26] MEDS: Pantoprazole Inj IV SCH (08:22)
[2016-10-26] MEDS: D5 1/4NS w/KCl 20mEq 1,000 ML IV SCH ×2 (08:22→14:42)
[2016-10-26] MEDS: Bactrim Susp 20ml NG SCH ×2 (08:23→21:15)
[2016-10-26] MEDS: Docusate 100mg/10ml Liq NG SCH ×2 (08:23→18:52)
[2016-10-26] MEDS: Acetaminophen 650mg/20.3ml NG PRN (08:23)
[2016-10-26] MEDS: Polymyxin B Sulfate 500,000 UNITS in D5W 500ml 500 ML IVPB SCH ×2 (08:23→21:15)
[2016-10-26] MEDS: Heparin 5000 units/ml inj SUBQ SCH ×2 (08:25→21:16)
[2016-10-26] MEDS: DESMOPRESSIN IV SCH (08:45)
[2016-10-26] MEDS: NS IV SCH (08:45)
[2016-10-26] MEDS ORDERED: D5 1/2NS 1000ml IV ONE (09:35)
[2016-10-26] MEDS ORDERED: Tubing IV Secondary IV ONE (09:35)
[2016-10-26] MEDS ORDERED: Sterile Water Irrig 1000ml IRRIG ONE (09:35)
[2016-10-26 10:09] LABS: ABG ALLEN TEST POSITIVE; ABG BASE EXCESS 5
--- NOTE | 2016-10-26 11:37 | Infectious Diseases Prog Note ---
Assessment/Plan Assessment/Plan ASSESSMENT AND PLAN: 1. acinetobacter/klebsiella/aspiration pna with sepsis, fevers, leukocytosis - clinically better - continue meropenem, polymyxin, bactrim, vancomycin for 5 days - po abx soon if continues to improve - icu care - check chest x-ray and labs 2. The patient has diabetes insipidus. 3. The patient has diabetes mellitus. 4. Aspiration risk. 5. Optical atrophy. 6. Deafness. 7. DIDMOAD syndrome. 8. MAR was noted. 9. Case discussed with RN. 10. Continue treatment per primary consultants. Subjective Constitutional: Denies: fever HEENT: Reports: congestion - mild Respiratory: Reports: shortness of breath - mild Cardiovascular: Denies: chest pain Gastrointestinal/Abdominal: Denies: diarrhea, nausea, vomiting Genitourinary: Reports: other - + baez Psychiatric: Denies: depression Skin: Denies: rash Hematologic: Denies: bleeding Musculoskeletal: Denies: pain Allergies: Coded Allergies: No Known Allergies (Unverified , 09/01/12) Objective Vital Signs Last 24 Hour Vital Signs Date Time Temp Pulse Resp B/P Pulse Ox O2 Delivery O2 Flow Rate FiO2 10/26/16 11:00 106 41 132/69 100 Venturi Mask 55 10/26/16 10:00 108 42 134/61 98 Venturi Mask 55 10/26/16 09:00 98 39 113/55 98 Venturi Mask 55 10/26/16 08:00 98 10/26/16 08:00 97.5 104 35 121/61 98 Venturi Mask 55 10/26/16 07:00 104 40 114/65 97 Venturi Mask 55 10/26/16 06:54 98 Venturi Mask 14.0 55 10/26/16 06:54 Venturi Mask 12.0 45 10/26/16 06:00 94 20 148/72 96 Venturi Mask 55 10/26/16 05:00 103 38 127/70 97 Venturi Mask 55 10/26/16 04:00 101 10/26/16 04:00 98.9 101 38 144/84 98 Venturi Mask 55 10/26/16 03:00 104 33 122/53 98 Venturi Mask 55 10/26/16 02:00 103 23 124/62 99 Venturi Mask 55 10/26/16 01:00 109 33 129/58 99 Venturi Mask 55 10/26/16 00:00 98.8 106 18 123/74 99 Venturi Mask 55 10/26/16 00:00 106 10/25/16 23:00 113 32 121/69 98 Venturi Mask 55 10/25/16 22:00 114 33 130/79 99 Venturi Mask 55 10/25/16 21:00 112 16 124/68 99 Venturi Mask 55 10/25/16 20:00 114 10/25/16 20:00 98.9 114 33 123/63 97 Venturi Mask 55 10/25/16 19:05 98 Venturi Mask 14.0 55 10/25/16 19:05 Venturi Mask 14.0 55 10/25/16 19:00 107 28 120/64 97 Venturi Mask 55 10/25/16 18:00 112 25 114/63 96 Venturi Mask 55 10/25/16 17:00 113 21 115/67 98 Venturi Mask 55 10/25/16 16:00 109 10/25/16 16:00 99.1 109 36 111/58 99 Venturi Mask 55 10/25/16 15:00 113 36 127/64 98 Venturi Mask 55 10/25/16 14:00 99 23 115/61 98 Venturi Mask 55 10/25/16 13:00 99 23 132/64 98 Venturi Mask 55 10/25/16 12:00 98.4 109 29 137/59 97 Venturi Mask 55 10/25/16 12:00 101 Height (Feet): 5 Height (Inches): 8.00 Weight (Pounds): 160 General Appearance: no acute distress HEENT: normocephalic, atraumatic, anicteric, mucous membranes moist, PERRL, EOMI, pharynx normal, supple, no JVD Respiratory/Chest: lungs clear, no accessory muscle use, crackles/rales, rhonchi - bilaterally Cardiovascular: normal rate, regular rhythm, no gallop/murmur, no JVD Abdomen: normal bowel sounds, soft, non tender, no organomegaly, non distended Genitourinary: other - + baez - urine clear Extremities: no cyanosis Skin: no rash 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 10/24 - chest x-ray - interstitial edema 10/25 - chest x-ray - right infiltrate vs atx Microbiology Date/Time Source Procedure Growth Status 10/19/16 08:30 Bronchial Washings Not Specified Gram Stain - Final Complete 10/19/16 08:30 Bronchial Aspirate Culture - Final Acinetobacter Baumanii - Mdr Klebsiella Pneumoniae Esbl Complete 10/21/16 09:50 Indwelling Cath Urine Culture - Final Complete 10/15/16 17:15 Rectum VRE Culture - Final NO VANCOMYCIN RESISTANT ENTEROCOCCUS ... Complete Laboratory Tests Test 10/25/16 16:00 10/26/16 05:00 10/26/16 09:57 10/26/16 11:00 Sodium Level 135 mEQ/L (135-145) 134 mEQ/L (135-145) L White Blood Count 10.5 K/UL (4.8-10.8) Red Blood Count 4.03 M/UL (4.70-6.10) L Hemoglobin 11.8 G/DL (14.2-18.0) L Hematocrit 36.3 % (42.0-52.0) L Mean Corpuscular Volume 90 FL (80-99) Mean Corpuscular Hemoglobin 29.3 PG (27.0-31.0) Mean Corpuscular Hemoglobin Concent 32.5 G/DL (32.0-36.0) Red Cell Distribution Width 11.8 % (11.6-14.8) Platelet Count 238 K/UL (150-450) Mean Platelet Volume 7.5 FL (6.5-10.1) Neutrophils (%) (Auto) 77.2 % (45.0-75.0) H Lymphocytes (%) (Auto) 13.0 % (20.0-45.0) L Monocytes (%) (Auto) 7.3 % (1.0-10.0) Eosinophils (%) (Auto) 2.0 % (0.0-3.0) Basophils (%) (Auto) 0.6 % (0.0-2.0) Potassium Level 3.8 mEQ/L (3.4-4.9) Chloride Level 92 mEQ/L (98-107) L Carbon Dioxide Level 32 mEQ/L (20-30) H Anion Gap 10 (5-15) Blood Urea Nitrogen 7 mg/dL (7-23) Creatinine 0.6 mg/dL (0.7-1.2) L Estimat Glomerular Filtration Rate > 60 mL/min (>60) Glucose Level 282 mg/dL (74-106) H Calcium Level 8.7 mg/dL (8.6-10.2) Magnesium Level 1.7 mg/dL (1.7-2.5) Arterial Blood pH 7.350 (7.350-7.450) Arterial Blood Partial Pressure CO2 60.0 mmHg (35.0-45.0) *H Arterial Blood Partial Pressure O2 100.0 mmHg (75.0-100.0) Arterial Blood HCO3 32.0 mmol/L (22.0-26.0) H Arterial Blood Oxygen Saturation 97.0 % (92.0-98.0) Arterial Blood Base Excess 5 Jamel Test Positive Hemoglobin A1c Pending Vancomycin Level Trough Pending Current Medications Medications (Trade) Dose Ordered Sig/Marilyn Route PRN Reason Start Time Stop Time Status Last Admin Dose Admin Acetaminophen (Tylenol) 650 mg Q6H PRN NG Fever/Headache/Mild Pain 10/26/16 08:15 11/25/16 08:14 10/26/16 08:23 Desmopressin Acetate/Sodium Chloride (Ddavp/Sodium Chloride) 57.5 ml @ 115 mls/hr DAILY IV 10/23/16 11:00 11/22/16 10:59 10/26/16 08:45 Dextrose (Dextrose 50%) STAT PRN IV Hypoglycemia 10/24/16 08:30 11/23/16 08:29 Dextrose/ Electrolytes 1,000 ml @ 125 mls/hr Q8H IV 10/25/16 15:00 11/24/16 14:59 10/26/16 08:22 Docusate Sodium (Colace) 100 mg TWICE A DAY NG 10/26/16 09:00 11/25/16 08:59 10/26/16 08:23 Heparin Sodium (Porcine) (Heparin 5000 units/ml) 5,000 units EVERY 12 HOURS SUBQ 10/16/16 09:00 11/15/16 08:59 10/26/16 08:25 Insulin Aspart (NovoLOG) EVERY 6 HOURS SUBQ 10/25/16 12:00 11/24/16 11:59 10/26/16 05:43 Insulin Detemir 30 units 30 units Q12HR@0600,1800 SUBQ 10/25/16 18:00 11/24/16 17:59 10/26/16 05:42 Meropenem/Sodium Chloride (Merrem/Sodium Chloride) 100 ml @ 200 mls/hr Q8HR IVPB 10/25/16 22:00 10/30/16 21:59 10/26/16 05:40 Ondansetron HCl (Zofran) 4 mg Q6H PRN IVP Nausea & Vomiting 10/26/16 08:15 11/25/16 08:14 Pantoprazole (Protonix) 40 mg DAILY IV 10/16/16 09:00 11/15/16 08:59 10/26/16 08:22 Polymyxin B Sulfate 282457 units/Dextrose 500 ml @ 500 mls/hr EVERY 12 HOURS IVPB 10/22/16 21:00 10/29/16 20:59 10/26/16 08:23 Trimethoprim/ Sulfamethoxazole 20 ml 20 ml EVERY 12 HOURS NG 10/23/16 21:00 10/30/16 20:59 10/26/16 08:23 Vancomycin HCl 1 ea 1 ea DAILY PRN MISC Per rx protocol 10/16/16 07:15 11/15/16 07:14 Vancomycin HCl/ Dextrose (Vancomycin/D5W) 275 ml @ 183.708 mls/hr Q8HR@0400,1200,1800 IVPB 10/23/16 12:00 10/28/16 11:59 10/26/16 03:40 JACOBY LO October 26, 2016 11:37
[2016-10-26] MEDS ORDERED: Vancomycin 1.25 GM in D5W 275 ML IVPB SCH (12:00)
[2016-10-26] MEDS: D5 1/2NS w/KCl 20mEq 1,000 ML IV SCH (17:05)
--- NOTE | 2016-10-26 17:14 | General Progress Note ---
Assessment/Plan Assessment/Plan Improving Na decreased further to 130. Avoid Tube Feeding and Don't Resume!!!! Explained to all MDs. DC D5W change to D5 1/2 NS Decreasing dDavp to 5 units qam. Hyperglycemia ---->Increasing Levemir further to 40 u q 12 hours. Failed Video Swallow. Keep NPO as risks of NGT are aspiration. Improving bedside swallow. Hope to start diet tomorrow. DW pt's mother. Subjective Allergies: Coded Allergies: No Known Allergies (Unverified , 09/01/12) Subjective Much more alert , more than yesterday + responsive! Off BIPAP. Objective Last 24 Hour Vital Signs Date Time Temp Pulse Resp B/P Pulse Ox O2 Delivery O2 Flow Rate FiO2 10/26/16 17:00 104 20 123/66 100 Venturi Mask 45 10/26/16 16:00 103 10/26/16 16:00 99.0 104 20 113/75 99 Venturi Mask 45 10/26/16 15:00 109 20 122/69 99 Venturi Mask 45 10/26/16 14:00 109 37 122/76 100 Venturi Mask 45 10/26/16 13:00 109 27 109/62 100 Venturi Mask 45 10/26/16 12:00 109 10/26/16 12:00 98.2 109 32 125/61 100 Venturi Mask 45 10/26/16 11:00 106 41 132/69 100 Venturi Mask 45 10/26/16 10:00 108 42 134/61 98 Venturi Mask 45 10/26/16 09:00 98 39 113/55 98 Venturi Mask 45 10/26/16 08:00 98 10/26/16 08:00 97.5 104 35 121/61 98 Venturi Mask 55 10/26/16 07:00 104 40 114/65 97 Venturi Mask 55 10/26/16 06:54 98 Venturi Mask 14.0 55 10/26/16 06:54 Venturi Mask 12.0 45 10/26/16 06:00 94 20 148/72 96 Venturi Mask 55 10/26/16 05:00 103 38 127/70 97 Venturi Mask 55 10/26/16 04:00 101 10/26/16 04:00 98.9 101 38 144/84 98 Venturi Mask 55 10/26/16 03:00 104 33 122/53 98 Venturi Mask 55 10/26/16 02:00 103 23 124/62 99 Venturi Mask 55 10/26/16 01:00 109 33 129/58 99 Venturi Mask 55 10/26/16 00:00 98.8 106 18 123/74 99 Venturi Mask 55 10/26/16 00:00 106 10/25/16 23:00 113 32 121/69 98 Venturi Mask 55 10/25/16 22:00 114 33 130/79 99 Venturi Mask 55 10/25/16 21:00 112 16 124/68 99 Venturi Mask 55 10/25/16 20:00 114 10/25/16 20:00 98.9 114 33 123/63 97 Venturi Mask 55 10/25/16 19:05 98 Venturi Mask 14.0 55 10/25/16 19:05 Venturi Mask 14.0 55 10/25/16 19:00 107 28 120/64 97 Venturi Mask 55 10/25/16 18:00 112 25 114/63 96 Venturi Mask 55 Intake and Output 10/25/16 10/26/16 19:00 07:00 Intake Total 2562.916 ml 2525 ml Output Total 3040 ml 1160 ml Balance -477.084 ml 1365 ml Intake Oral 50 ml IV Total 2562.916 ml 2475 ml Output Urine Total 3040 ml 1160 ml Laboratory Tests 10/26/16 05:00: White Blood Count 10.5, Red Blood Count 4.03L, Hemoglobin 11.8L, Hematocrit 36.3L, Mean Corpuscular Volume 90, Mean Corpuscular Hemoglobin 29.3, Mean Corpuscular Hemoglobin Concent 32.5, Red Cell Distribution Width 11.8, Platelet Count 238, Mean Platelet Volume 7.5, Neutrophils (%) (Auto) 77.2H, Lymphocytes ( %) (Auto) 13.0L, Monocytes (%) (Auto) 7.3, Eosinophils (%) (Auto) 2.0, Basophils (%) (Auto) 0.6, Sodium Level 134L, Potassium Level 3.8, Chloride Level 92L, Carbon Dioxide Level 32H, Anion Gap 10, Blood Urea Nitrogen 7, Creatinine 0.6L, Estimat Glomerular Filtration Rate > 60, Glucose Level 282H, Calcium Level 8.7, Magnesium Level 1.7 10/26/16 09:57: Arterial Blood pH 7.350, Arterial Blood Partial Pressure CO2 60.0*H, Arterial Blood Partial Pressure O2 100.0, Arterial Blood HCO3 32.0H, Arterial Blood Oxygen Saturation 97.0, Arterial Blood Base Excess 5, Jamel Test Positive 10/26/16 11:00: Hemoglobin A1c 8.3H, Vancomycin Level Trough 18.2H 10/26/16 15:47: Sodium Level 130L Height (Feet): 5 Height (Inches): 8.00 Weight (Pounds): 160 Objective Much more alert + responsive. 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 Cv RR Lungs CTA Abd SNT. BS + E No CCE RENETTA SOMMER October 26, 2016 17:14
[2016-10-27] VITALS (23 sets, daily range): BP systolic 101–158; BP diastolic 43–82
[2016-10-27] MEDS: D5 1/2NS w/KCl 20mEq 1,000 ML IV SCH ×4 (01:17→23:37)
[2016-10-27] MEDS: Vancomycin 1.25 GM in D5W 275 ML IVPB SCH ×2 (04:10→12:30)
[2016-10-27 05:29] LABS: BASOPHILS % (AUTO) 0.7 % (0.0-2.0); EOSINOPHILS % (AUTO) 2.3 % (0.0-3.0); LYMPHOCYTES % (AUTO) 13.9 % (20.0-45.0); MEAN CORPUSCULAR HEMOGLOBIN 30.3 PG (27.0-31.0); MEAN CORPUSCULAR HGB CONC 34.1 G/DL (32.0-36.0); MEAN CORPUSCULAR VOLUME 89 FL (80-99); MONOCYTES % (AUTO) 7.2 % (1.0-10.0); PLATELET COUNT 126 K/UL (150-450); RED BLOOD COUNT 3.87 M/UL (4.70-6.10); RED CELL DISTRIBUTION WIDTH 11.7 % (11.6-14.8); WHITE BLOOD COUNT 8.7 K/UL (4.8-10.8)
[2016-10-27 05:46] LABS: ANION GAP 13 (5-15); CALCIUM 8.6 mg/dL (8.6-10.2); CARBON DIOXIDE 27 mEQ/L (20-30); CHLORIDE 88 mEQ/L (98-107); CREATININE 0.7 mg/dL (0.7-1.2); GLOMERULAR FILTRATION RATE > 60 mL/min (>60); HEMOLYSIS 12; POTASSIUM 4.3 mEQ/L (3.4-4.9); SODIUM 128 mEQ/L (135-145)
[2016-10-27] MEDS: NovoLOG Insulin Flexpen SUBQ SCH ×4 (06:09→23:43)
[2016-10-27] MEDS: Levemir Flexpen SUBQ SCH ×2 (06:10→17:12)
[2016-10-27] MEDS: Bactrim Susp 20ml NG SCH ×2 (07:59→20:47)
[2016-10-27] MEDS: Docusate 100mg/10ml Liq NG SCH ×2 (07:59→17:11)
[2016-10-27] MEDS: Pantoprazole Inj IV SCH (07:59)
[2016-10-27] MEDS: Heparin 5000 units/ml inj SUBQ SCH ×2 (08:00→20:50)
[2016-10-27] MEDS: Polymyxin B Sulfate 500,000 UNITS in D5W 500ml 500 ML IVPB SCH (08:46)
--- NOTE | 2016-10-27 08:59 | General Progress Note ---
Assessment/Plan Assessment/Plan Na decreased further to 128 but rate of decline is plateauing. Avoid Tube Feeding and Don't Resume!!!! Explained to all MDs. DC D5W change to D5 1/2 NS Decreasing dDAVP further to 2.5 units qam. Hyperglycemia ---->Increasing Levemir further to 45 u q 12 hours. Failed Video Swallow, but evidence suggest that patient has a good potential for resumption of diet. Keep NPO as risks of NGT are aspiration. Hope to start diet today after a bedside swallow. DW pt's mother. Subjective Allergies: Coded Allergies: No Known Allergies (Unverified , 09/01/12) Subjective Much more alert and responsive. Objective Last 24 Hour Vital Signs Date Time Temp Pulse Resp B/P Pulse Ox O2 Delivery O2 Flow Rate FiO2 10/27/16 08:00 101 10/27/16 08:00 101 25 106/61 98 Venturi Mask 40 10/27/16 07:00 98.5 100 25 115/58 99 Venturi Mask 40 10/27/16 06:00 98 28 135/70 97 Venturi Mask 40 10/27/16 05:21 101 97 8.0 40 10/27/16 05:00 99 29 115/66 97 Venturi Mask 40 10/27/16 04:00 98.2 93 29 101/43 97 Venturi Mask 40 10/27/16 04:00 95 10/27/16 03:00 95 29 125/60 97 Venturi Mask 40 10/27/16 02:39 104 27 98 Facial 40 10/27/16 02:00 101 38 120/63 97 Venturi Mask 40 10/27/16 01:00 112 38 134/63 97 Venturi Mask 40 10/27/16 00:00 98.4 110 28 110/59 97 Venturi Mask 45 10/27/16 00:00 117 10/26/16 23:00 110 30 111/59 97 Venturi Mask 45 10/26/16 22:00 115 30 121/55 97 Venturi Mask 45 10/26/16 21:00 119 30 158/63 95 Venturi Mask 45 10/26/16 20:00 99.0 113 30 128/61 99 Venturi Mask 45 10/26/16 20:00 110 10/26/16 19:26 Venturi Mask 12.0 45 10/26/16 19:26 99 Venturi Mask 14.0 55 10/26/16 19:00 106 19 115/63 100 Venturi Mask 45 10/26/16 18:00 102 20 89/72 100 Venturi Mask 45 10/26/16 17:00 104 20 123/66 100 Venturi Mask 45 10/26/16 16:00 103 10/26/16 16:00 99.0 104 20 113/75 99 Venturi Mask 45 10/26/16 15:00 109 20 122/69 99 Venturi Mask 45 10/26/16 14:00 109 37 122/76 100 Venturi Mask 45 10/26/16 13:00 109 27 109/62 100 Venturi Mask 45 10/26/16 12:00 109 10/26/16 12:00 98.2 109 32 125/61 100 Venturi Mask 45 10/26/16 11:00 106 41 132/69 100 Venturi Mask 45 10/26/16 10:00 108 42 134/61 98 Venturi Mask 45 10/26/16 09:00 98 39 113/55 98 Venturi Mask 45 Intake and Output 10/26/16 10/27/16 19:00 07:00 Intake Total 2557.500 ml 1500 ml Output Total 2005 ml 1401 ml Balance 552.500 ml 99 ml IV Total 2557.500 ml 1500 ml Output Urine Total 2005 ml 1400 ml Stool Total 1 ml # Bowel Movements 1 Laboratory Tests 10/26/16 09:57: Arterial Blood pH 7.350, Arterial Blood Partial Pressure CO2 60.0*H, Arterial Blood Partial Pressure O2 100.0, Arterial Blood HCO3 32.0H, Arterial Blood Oxygen Saturation 97.0, Arterial Blood Base Excess 5, Jamel Test Positive 10/26/16 11:00: Hemoglobin A1c 8.3H, Vancomycin Level Trough 18.2H 10/26/16 15:47: Sodium Level 130L 10/27/16 04:35: Sodium Level 128L, White Blood Count 8.7, Red Blood Count 3.87L, Hemoglobin 11.7L, Hematocrit 34.5L, Mean Corpuscular Volume 89, Mean Corpuscular Hemoglobin 30.3, Mean Corpuscular Hemoglobin Concent 34.1, Red Cell Distribution Width 11.7, Platelet Count 126L, Mean Platelet Volume 7.0, Neutrophils (%) (Auto) 76.0H, Lymphocytes (%) (Auto) 13.9L, Monocytes (%) (Auto ) 7.2, Eosinophils (%) (Auto) 2.3, Basophils (%) (Auto) 0.7, Potassium Level 4.3 , Chloride Level 88L, Carbon Dioxide Level 27, Anion Gap 13, Blood Urea Nitrogen 6L, Creatinine 0.7, Estimat Glomerular Filtration Rate > 60, Glucose Level 315H, Calcium Level 8.6 Height (Feet): 5 Height (Inches): 8.00 Weight (Pounds): 160 Objective Much more alert + responsive. 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 Cv RR Lungs CTA Abd SNT. BS + E No CCE Dysphonic, decreased hearing. RENETTA SOMMER October 27, 2016 08:59
[2016-10-27] MEDS ORDERED: MAGNESIUM SULFATE IVPB SCH (09:00)
[2016-10-27] MEDS ORDERED: DESMOPRESSIN IV SCH (09:00)
[2016-10-27] MEDS ORDERED: NS IV SCH (09:00)
[2016-10-27] MEDS ORDERED: D5W IVPB SCH (09:00)
--- NOTE | 2016-10-27 09:16 | Diagnostic Imaging Report ---
Indication: Dyspnea Comparison: 10/21/2016 A single view chest radiograph was obtained. Findings: Hazy left basilar lung disease appears to have cleared in the interval. Minimal patchy infiltrates are noted bilaterally. Heart size is stable. NG tube remains in good position. Impression: Resolution of left basilar lung disease. Mild patchy bilateral infiltrates noted currently.
--- NOTE | 2016-10-27 10:42 | Diagnostic Imaging Report ---
Indications: Cough Technique: Portable AP chest Findings: Comparison: Oct 25 2016 Focal alveolar opacity persists in the medial aspect the right lung base. Interstitial markings have increased throughout both lungs. Cardiac silhouette has increased in size, still within normal limits. Pulmonary vascular redistribution is suggested. No pleural abnormalities demonstrated. Is a gastric tube no longer present. IMPRESSION: Findings suggest development of interstitial pneumonitis versus pulmonary edema which may be cardiogenic or noncardiogenic in nature Persistent right lower lobe alveolar opacity compatible with but not specific for pneumonia Removal of nasogastric tube
--- NOTE | 2016-10-27 11:50 | Pre-Procedure Note/Attestation ---
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 I attest that, if there was a reasonable possibility of needing a blood transfusion, the patient (or the patient's legal sales representative uniforms) was given the [facility] standardized written summary, pursuant to the Josias Rouse Blood Safety Act ([place] Health and Safety Code # 1645, as amended). I attest that I re-evaluated the patient just prior to the surgery and that there has been no change in the patient's H&P, except as documented below: BLAINE APARICIO October 27, 2016 11:50
[2016-10-27] MEDS ORDERED: NS 550ML IV ONE (12:00)
--- NOTE | 2016-10-27 12:08 | Endoscopy Procedure Note ---
Endoscopy Procedure Note Indication for Procedure: dysphagia Procedures Performed: EGD, PEG Operative Findings/Diagnosis: same Anesthesiologist: julian Anesthesia: MAC Implant(s) used?: No 50 yrs or older w/o bx or poly: Not Applicable 10yrs. F/U not recommended: Not Applicable BLAINE APARICIO October 27, 2016 12:08
--- NOTE | 2016-10-27 12:29 | Anethesia Preoperative Eval ---
Anesthesia Pre-op PMH/ROS General Date of Evaluation: October 27, 2016 Time of Evaluation: 12:01 Anesthesiologist: julian ASA Score: ASA 3 Mallampati Score Class I : Soft palate, uvula, fauces, pillars visible Class II: Soft palate, uvula, fauces visible Class III: Soft palate, base of uvula visible Class IV: Only hard plate visible Mallampati Classification: Class II Surgeon: amber Diagnosis: dysphagia Surgical Procedure: PEG Anesthesia History: none Allergies: Coded Allergies: No Known Allergies (Unverified , 09/01/12) Past Medical History Cardiovascular: Reports: HTN Endocrine: Reports: DM Anesthesia Pre-op Phys. Exam Physician Exam Last Vital Signs Date Time Temp Pulse Resp B/P Pulse Ox O2 Delivery O2 Flow Rate FiO2 10/27/16 12:00 104 10/27/16 11:00 22 141/74 100 Venturi Mask 40 10/27/16 07:15 8.0 10/27/16 07:00 98.5 Airway Exam Mallampati Score: Class II Teeth: intact Anesthesia Pre-op A/P Labs Hematology Test 10/27/16 04:35 White Blood Count 8.7 K/UL (4.8-10.8) Red Blood Count 3.87 M/UL (4.70-6.10) L Hemoglobin 11.7 G/DL (14.2-18.0) L Hematocrit 34.5 % (42.0-52.0) L Mean Corpuscular Volume 89 FL (80-99) Mean Corpuscular Hemoglobin 30.3 PG (27.0-31.0) Mean Corpuscular Hemoglobin Concent 34.1 G/DL (32.0-36.0) Red Cell Distribution Width 11.7 % (11.6-14.8) Platelet Count 126 K/UL (150-450) L Mean Platelet Volume 7.0 FL (6.5-10.1) Neutrophils (%) (Auto) 76.0 % (45.0-75.0) H Lymphocytes (%) (Auto) 13.9 % (20.0-45.0) L Monocytes (%) (Auto) 7.2 % (1.0-10.0) Eosinophils (%) (Auto) 2.3 % (0.0-3.0) Basophils (%) (Auto) 0.7 % (0.0-2.0) Chemistry Test 10/26/16 15:47 10/27/16 04:35 Sodium Level 130 mEQ/L (135-145) L 128 mEQ/L (135-145) L Potassium Level 4.3 mEQ/L (3.4-4.9) Chloride Level 88 mEQ/L (98-107) L Carbon Dioxide Level 27 mEQ/L (20-30) Anion Gap 13 (5-15) Blood Urea Nitrogen 6 mg/dL (7-23) L Creatinine 0.7 mg/dL (0.7-1.2) Estimat Glomerular Filtration Rate > 60 mL/min (>60) Glucose Level 315 mg/dL (74-106) H Calcium Level 8.6 mg/dL (8.6-10.2) Risk Assessment & Plan Plan: propofol Status Change Before Surgery: No Pre-Antibiotics Drug: vancomycin Given Within 1 Hr of Incision: No Time Given: 04:00 Juarez Tellez MD October 27, 2016 12:29
--- NOTE | 2016-10-27 12:31 | Immediate Post-Op Evaluation ---
Immediate Post-Op Evalulation Immediate Post-Op Evalulation Date of Evaluation: October 27, 2016 Time of Evaluation: 12:46 IV Fluids: 300 Blood Pressure Systolic: 138 Blood Pressure Diastolic: 78 Pulse Rate: 95 Respiratory Rate: 15 O2 Sat by Pulse Oximetry: 100 Temperature (Fahrenheit): 98.6 Pain Score (1-10): 0 Nausea: No Vomiting: No Complications none Patient Status: awake, patent, none Hydration Status: adequate Drug: vancomycin Given Within 1 Hr of Incision: No Time Given: 04:00 Juarez Tellez MD October 27, 2016 12:31
--- NOTE | 2016-10-27 12:32 | 48 Hour Post Anesthesia Eval ---
Post Anesthesia Evaluation Date of Evaluation: October 27, 2016 Time of Evaluation: 13:20 Blood Pressure Systolic: 124 0: 74 Pulse Rate: 105 Respiratory Rate: 24 Temperature (Fahrenheit): 98.1 O2 Sat by Pulse Oximetry: 98 Airway: patent Nausea: No Vomiting: No Pain Intensity: 0 Hydration Status: adequate Cardiopulmonary Status: stable Mental Status/LOC: patient returned to baseline Follow-up Care/Observations: n./a Post-Anesthesia Complications: tolerated well Follow-up care needed: N/A Juarez Tellez MD October 27, 2016 12:32
--- NOTE | 2016-10-27 12:49 | Critical Care Progress Note ---
Assessment/Plan Assessment/Plan s/p bronchoscopy pulmonary infiltrates respiratory failure aspiration event leukocytosis anemia sinus tachycardia agitation chronic co2 retention MDR sputum PLAN BIPAP - keep off as able needs GT await video swallow tube feeds titrate oxygen saturations and consider nc ID evaluation noted ICU care for now d/w Dr. Park Critical Care - Subjective Interval Events: care noted and reviewed improving overall with reduced oxygen needs ROS Limited/Unobtainable: Yes I&O: Intake and Output 10/26/16 10/27/16 19:00 07:00 Intake Total 2557.500 ml 1500 ml Output Total 2005 ml 1401 ml Balance 552.500 ml 99 ml IV Total 2557.500 ml 1500 ml Output Urine Total 2005 ml 1400 ml Stool Total 1 ml # Bowel Movements 1 Critical Care - Objective ET-Tube: 8.0 ET Position: 22 Last 24 Hour Vital Signs Date Time Temp Pulse Resp B/P Pulse Ox O2 Delivery O2 Flow Rate FiO2 10/27/16 12:42 95 15 100 10/27/16 12:00 104 10/27/16 11:00 105 22 141/74 100 Venturi Mask 40 10/27/16 10:00 108 25 133/82 100 Venturi Mask 40 10/27/16 09:00 112 25 131/67 96 Venturi Mask 40 10/27/16 08:00 101 10/27/16 08:00 101 25 106/61 98 Venturi Mask 40 10/27/16 07:15 99 Venturi Mask 8.0 40 10/27/16 07:15 Venturi Mask 8.0 40 10/27/16 07:00 98.5 100 25 115/58 99 Venturi Mask 40 10/27/16 06:00 98 28 135/70 97 Venturi Mask 40 10/27/16 05:21 101 97 8.0 40 10/27/16 05:00 99 29 115/66 97 Venturi Mask 40 10/27/16 04:00 98.2 93 29 101/43 97 Venturi Mask 40 10/27/16 04:00 95 10/27/16 03:00 95 29 125/60 97 Venturi Mask 40 10/27/16 02:39 104 27 98 Facial 40 10/27/16 02:00 101 38 120/63 97 Venturi Mask 40 10/27/16 01:00 112 38 134/63 97 Venturi Mask 40 10/27/16 00:00 98.4 110 28 110/59 97 Venturi Mask 45 10/27/16 00:00 117 10/26/16 23:00 110 30 111/59 97 Venturi Mask 45 10/26/16 22:00 115 30 121/55 97 Venturi Mask 45 10/26/16 21:00 119 30 158/63 95 Venturi Mask 45 10/26/16 20:00 99.0 113 30 128/61 99 Venturi Mask 45 10/26/16 20:00 110 10/26/16 19:26 Venturi Mask 12.0 45 10/26/16 19:26 99 Venturi Mask 14.0 55 10/26/16 19:00 106 19 115/63 100 Venturi Mask 45 10/26/16 18:00 102 20 89/72 100 Venturi Mask 45 10/26/16 17:00 104 20 123/66 100 Venturi Mask 45 10/26/16 16:00 103 10/26/16 16:00 99.0 104 20 113/75 99 Venturi Mask 45 10/26/16 15:00 109 20 122/69 99 Venturi Mask 45 10/26/16 14:00 109 37 122/76 100 Venturi Mask 45 10/26/16 13:00 109 27 109/62 100 Venturi Mask 45 Labs: Labs Test 10/24/16 16:18 10/25/16 04:20 10/25/16 16:00 10/26/16 05:00 Sodium Level 144 mEQ/L (135-145) 135 mEQ/L (135-145) 135 mEQ/L (135-145) 134 mEQ/L (135-145) Magnesium Level 1.3 mg/dL (1.7-2.5) 1.7 mg/dL (1.7-2.5) White Blood Count 10.5 K/UL (4.8-10.8) Red Blood Count 4.03 M/UL (4.70-6.10) Hemoglobin 11.8 G/DL (14.2-18.0) Hematocrit 36.3 % (42.0-52.0) Mean Corpuscular Volume 90 FL (80-99) Mean Corpuscular Hemoglobin 29.3 PG (27.0-31.0) Mean Corpuscular Hemoglobin Concent 32.5 G/DL (32.0-36.0) Red Cell Distribution Width 11.8 % (11.6-14.8) Platelet Count 238 K/UL (150-450) Mean Platelet Volume 7.5 FL (6.5-10.1) Neutrophils (%) (Auto) 77.2 % (45.0-75.0) Lymphocytes (%) (Auto) 13.0 % (20.0-45.0) Monocytes (%) (Auto) 7.3 % (1.0-10.0) Eosinophils (%) (Auto) 2.0 % (0.0-3.0) Basophils (%) (Auto) 0.6 % (0.0-2.0) Potassium Level 3.8 mEQ/L (3.4-4.9) Chloride Level 92 mEQ/L (98-107) Carbon Dioxide Level 32 mEQ/L (20-30) Anion Gap 10 (5-15) Blood Urea Nitrogen 7 mg/dL (7-23) Creatinine 0.6 mg/dL (0.7-1.2) Estimat Glomerular Filtration Rate > 60 mL/min (>60) Glucose Level 282 mg/dL (74-106) Calcium Level 8.7 mg/dL (8.6-10.2) Test 10/26/16 09:57 10/26/16 11:00 10/26/16 15:47 10/27/16 04:35 Arterial Blood pH 7.350 (7.350-7.450) Arterial Blood Partial Pressure CO2 60.0 mmHg (35.0-45.0) Arterial Blood Partial Pressure O2 100.0 mmHg (75.0-100.0) Arterial Blood HCO3 32.0 mmol/L (22.0-26.0) Arterial Blood Oxygen Saturation 97.0 % (92.0-98.0) Arterial Blood Base Excess 5 Jamel Test Positive Hemoglobin A1c 8.3 % (< 6.0) Vancomycin Level Trough 18.2 ug/mL (5.0-12.0) Sodium Level 130 mEQ/L (135-145) 128 mEQ/L (135-145) White Blood Count 8.7 K/UL (4.8-10.8) Red Blood Count 3.87 M/UL (4.70-6.10) Hemoglobin 11.7 G/DL (14.2-18.0) Hematocrit 34.5 % (42.0-52.0) Mean Corpuscular Volume 89 FL (80-99) Mean Corpuscular Hemoglobin 30.3 PG (27.0-31.0) Mean Corpuscular Hemoglobin Concent 34.1 G/DL (32.0-36.0) Red Cell Distribution Width 11.7 % (11.6-14.8) Platelet Count 126 K/UL (150-450) Mean Platelet Volume 7.0 FL (6.5-10.1) Neutrophils (%) (Auto) 76.0 % (45.0-75.0) Lymphocytes (%) (Auto) 13.9 % (20.0-45.0) Monocytes (%) (Auto) 7.2 % (1.0-10.0) Eosinophils (%) (Auto) 2.3 % (0.0-3.0) Basophils (%) (Auto) 0.7 % (0.0-2.0) Potassium Level 4.3 mEQ/L (3.4-4.9) Chloride Level 88 mEQ/L (98-107) Carbon Dioxide Level 27 mEQ/L (20-30) Anion Gap 13 (5-15) Blood Urea Nitrogen 6 mg/dL (7-23) Creatinine 0.7 mg/dL (0.7-1.2) Estimat Glomerular Filtration Rate > 60 mL/min (>60) Glucose Level 315 mg/dL (74-106) Calcium Level 8.6 mg/dL (8.6-10.2) Test 10/27/16 10:30 Objective: WDWN NAD off BIPAP; 02 noted and reduced reduced breath sounds bilaterally with some rhonchi [id number] tachy without MRG NABS nontender no HSM no CCE nonfocal Accucheck: 271 IZABEL HASTINGS October 27, 2016 12:49
--- NOTE | 2016-10-27 13:52 | Infectious Diseases Prog Note ---
Assessment/Plan Assessment/Plan ASSESSMENT AND PLAN: 1. acinetobacter/klebsiella/aspiration pna with sepsis, fevers, leukocytosis - clinically stable - continue meropenem, polymyxin, bactrim, vancomycin for 4 days for 10 day treatment course - po abx soon if continues to improve - icu care - check chest x-ray and labs - s/p feeding tube - d/w pharmacy about abx treatment course 2. The patient has diabetes insipidus. 3. The patient has diabetes mellitus. 4. Aspiration risk. 5. Optical atrophy. 6. Deafness. 7. DIDMOAD syndrome. 8. MAR was noted. 9. Case discussed with RN. 10. Continue treatment per primary consultants. Subjective Constitutional: Reports: other - + breathing mask HEENT: Reports: congestion - mild Respiratory: Denies: shortness of breath - mild Cardiovascular: Denies: chest pain Gastrointestinal/Abdominal: Denies: diarrhea, nausea, vomiting Genitourinary: Reports: other - + baez Neurologic: Denies: headache Psychiatric: Denies: depression Skin: Denies: rash Musculoskeletal: Denies: pain Allergies: Coded Allergies: No Known Allergies (Unverified , 09/01/12) Objective Vital Signs Last 24 Hour Vital Signs Date Time Temp Pulse Resp B/P Pulse Ox O2 Delivery O2 Flow Rate FiO2 10/27/16 13:19 105 24 98 10/27/16 13:00 98.1 105 24 124/74 98 Venturi Mask 40 10/27/16 12:42 95 15 100 10/27/16 12:00 104 10/27/16 11:00 105 22 141/74 100 Venturi Mask 40 10/27/16 10:00 108 25 133/82 100 Venturi Mask 40 10/27/16 09:00 112 25 131/67 96 Venturi Mask 40 10/27/16 08:00 101 10/27/16 08:00 101 25 106/61 98 Venturi Mask 40 10/27/16 07:15 99 Venturi Mask 8.0 40 10/27/16 07:15 Venturi Mask 8.0 40 10/27/16 07:00 98.5 100 25 115/58 99 Venturi Mask 40 10/27/16 06:00 98 28 135/70 97 Venturi Mask 40 10/27/16 05:21 101 97 8.0 40 10/27/16 05:00 99 29 115/66 97 Venturi Mask 40 10/27/16 04:00 98.2 93 29 101/43 97 Venturi Mask 40 10/27/16 04:00 95 10/27/16 03:00 95 29 125/60 97 Venturi Mask 40 10/27/16 02:39 104 27 98 Facial 40 10/27/16 02:00 101 38 120/63 97 Venturi Mask 40 10/27/16 01:00 112 38 134/63 97 Venturi Mask 40 10/27/16 00:00 98.4 110 28 110/59 97 Venturi Mask 45 10/27/16 00:00 117 10/26/16 23:00 110 30 111/59 97 Venturi Mask 45 10/26/16 22:00 115 30 121/55 97 Venturi Mask 45 10/26/16 21:00 119 30 158/63 95 Venturi Mask 45 10/26/16 20:00 99.0 113 30 128/61 99 Venturi Mask 45 10/26/16 20:00 110 10/26/16 19:26 Venturi Mask 12.0 45 10/26/16 19:26 99 Venturi Mask 14.0 55 10/26/16 19:00 106 19 115/63 100 Venturi Mask 45 10/26/16 18:00 102 20 89/72 100 Venturi Mask 45 10/26/16 17:00 104 20 123/66 100 Venturi Mask 45 10/26/16 16:00 103 10/26/16 16:00 99.0 104 20 113/75 99 Venturi Mask 45 10/26/16 15:00 109 20 122/69 99 Venturi Mask 45 10/26/16 14:00 109 37 122/76 100 Venturi Mask 45 Height (Feet): 5 Height (Inches): 8.00 Weight (Pounds): 160 General Appearance: no acute distress HEENT: normocephalic, atraumatic, anicteric, mucous membranes moist, EOMI, pharynx normal, supple, no JVD Respiratory/Chest: crackles/rales, rhonchi - bilaterally Cardiovascular: normal rate, regular rhythm, no gallop/murmur Abdomen: normal bowel sounds, soft, non tender, no organomegaly, non distended Genitourinary: other - + baez - urine clear Extremities: no cyanosis Skin: no rash Neurologic/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 10/24 - chest x-ray - interstitial edema 10/25 - chest x-ray - right infiltrate vs atx Microbiology Date/Time Source Procedure Growth Status 10/19/16 08:30 Bronchial Washings Not Specified Gram Stain - Final Complete 10/19/16 08:30 Bronchial Aspirate Culture - Final Acinetobacter Baumanii - Mdr Klebsiella Pneumoniae Esbl Complete 10/21/16 09:50 Indwelling Cath Urine Culture - Final Complete 10/15/16 17:15 Rectum VRE Culture - Final NO VANCOMYCIN RESISTANT ENTEROCOCCUS ... Complete Laboratory Tests Test 10/26/16 15:47 10/27/16 04:35 10/27/16 10:30 Sodium Level 130 mEQ/L (135-145) L 128 mEQ/L (135-145) L White Blood Count 8.7 K/UL (4.8-10.8) Red Blood Count 3.87 M/UL (4.70-6.10) L Hemoglobin 11.7 G/DL (14.2-18.0) L Hematocrit 34.5 % (42.0-52.0) L Mean Corpuscular Volume 89 FL (80-99) Mean Corpuscular Hemoglobin 30.3 PG (27.0-31.0) Mean Corpuscular Hemoglobin Concent 34.1 G/DL (32.0-36.0) Red Cell Distribution Width 11.7 % (11.6-14.8) Platelet Count 126 K/UL (150-450) L Mean Platelet Volume 7.0 FL (6.5-10.1) Neutrophils (%) (Auto) 76.0 % (45.0-75.0) H Lymphocytes (%) (Auto) 13.9 % (20.0-45.0) L Monocytes (%) (Auto) 7.2 % (1.0-10.0) Eosinophils (%) (Auto) 2.3 % (0.0-3.0) Basophils (%) (Auto) 0.7 % (0.0-2.0) Potassium Level 4.3 mEQ/L (3.4-4.9) Chloride Level 88 mEQ/L (98-107) L Carbon Dioxide Level 27 mEQ/L (20-30) Anion Gap 13 (5-15) Blood Urea Nitrogen 6 mg/dL (7-23) L Creatinine 0.7 mg/dL (0.7-1.2) Estimat Glomerular Filtration Rate > 60 mL/min (>60) Glucose Level 315 mg/dL (74-106) H Calcium Level 8.6 mg/dL (8.6-10.2) Urine Osmolality Pending Current Medications Medications (Trade) Dose Ordered Sig/Marilyn Route PRN Reason Start Time Stop Time Status Last Admin Dose Admin Acetaminophen (Tylenol) 650 mg Q6H PRN NG Fever/Headache/Mild Pain 10/26/16 08:15 11/25/16 08:14 10/26/16 08:23 Desmopressin Acetate 2.5 mcg/ Sodium Chloride 55.625 ml @ 115 mls/ hr DAILY IV 10/28/16 09:00 11/27/16 08:59 Dextrose (Dextrose 50%) STAT PRN IV Hypoglycemia 10/24/16 08:30 11/23/16 08:29 Dextrose/ Electrolytes (D5 0.45%NS W/ KCl 20mEq) 1,000 ml @ 100 mls/hr Q10H IV 10/27/16 10:00 11/26/16 09:59 Docusate Sodium 100 mg 100 mg TWICE A DAY NG 10/26/16 09:00 11/25/16 08:59 10/27/16 07:59 Heparin Sodium (Porcine) (Heparin 5000 units/ml) 5,000 units EVERY 12 HOURS SUBQ 10/16/16 09:00 11/15/16 08:59 10/27/16 08:00 Insulin Aspart EVERY 6 HOURS SUBQ 10/25/16 12:00 11/24/16 11:59 10/27/16 13:06 Insulin Detemir 45 units 45 units Q12HR@0600,1800 SUBQ 10/27/16 18:00 11/26/16 17:59 Magnesium Sulfate 4000 mg/Sodium Chloride 558 ml @ 139.5 mls/ hr DAILY IVPB 10/28/16 09:00 11/27/16 08:59 Meropenem/Sodium Chloride (Merrem/Sodium Chloride) 100 ml @ 200 mls/hr Q8HR IVPB 10/25/16 22:00 10/30/16 21:59 10/27/16 06:07 Ondansetron HCl (Zofran) 4 mg Q6H PRN IVP Nausea & Vomiting 10/26/16 08:15 11/25/16 08:14 Pantoprazole (Protonix) 40 mg DAILY IV 10/16/16 09:00 11/15/16 08:59 10/27/16 07:59 Polymyxin B Sulfate/Sodium Chloride (Polymyxin B Sulfate/NS) 550 ml @ 550 mls/hr EVERY 12 HOURS IVPB 10/27/16 21:00 10/30/16 23:59 Trimethoprim/ Sulfamethoxazole (Bactrim-DS) 20 ml EVERY 12 HOURS NG 10/23/16 21:00 10/30/16 23:59 10/27/16 07:59 Vancomycin HCl (Vanco rx to dose) 1 ea DAILY PRN MISC Per rx protocol 10/16/16 07:15 11/15/16 07:14 Vancomycin HCl 1.25 gm/Sodium Chloride 275 ml @ 183.708 mls/hr Q8HR@0400,1200,2000 IVPB 10/27/16 20:00 10/30/16 23:59 JACOBY LO October 27, 2016 13:52
--- NOTE | 2016-10-27 15:04 | Diagnostic Imaging Report ---
Indications: Dysphagia Technique: Multiphasic barium dysphagia study was performed under fluoroscopic control with Marielena Chen speech pathologist. Cinegraphic images were obtained. Total fluoroscopy time: 146.8 sec Dose-area product: There 0.17 mGy-m2 Findings: Comparison: None Oral and pharyngeal phases of swallowing demonstrate multiple mechanical abnormalities, as enumerated on speech pathology evaluation form. The patient demonstrates both laryngeal penetration and tracheal aspiration of thin and nectar thickness barium, ejected by cough reflex; superficial laryngeal penetration of nectar thickness barium not ejected; superficial laryngeal penetration of honey and pudding thickness barium, ejected. There is moderate barium coating of pharyngeal structures after swallowing.. Esophageal phase of swallowing demonstrates barium pooling without retrograde propagation.. IMPRESSION: Abnormal oropharyngeal mechanics with tracheal aspiration of thinner consistencies of barium as described; laryngeal penetration of thicker consistencies of barium as described, variably cleared. Moderate post swallow pharyngeal residue Apparent esophageal dysmotility without obvious reverse peristalsis Recommendation per speech pathology evaluation form.
[2016-10-27] MEDS ORDERED: Tubing IV Secondary IV ONE (17:29)
[2016-10-27] MEDS ORDERED: D5W 275ml ONE (19:03)
[2016-10-27] MEDS ORDERED: NS 275ml ONE (19:03)
[2016-10-27] MEDS: Vancomycin 1.25 GM in NS 275 ML IVPB SCH (19:59)
--- NOTE | 2016-10-27 20:29 | Procedure Note ---
DATE OF PROCEDURE: 10/27/2016 SURGEON: Rosas Reddy M.D. PROCEDURE: Upper endoscopy with PEG placement. ANESTHESIOLOGIST: Juarez Tellez M.D. INSTRUMENT: Olympus adult flexible upper endoscope. INDICATION: Dysphagia. REASON FOR PROCEDURE: The procedure, risks, benefits, and possible consequences, including hemorrhage, aspiration, perforation and infection, and alternative treatments, were explained to the patient/legal guardian by Dr. Rosas Reddy and the patient/legal guardian understood and accepted these risks. DESCRIPTION OF PROCEDURE: After informed consent was obtained and the patient was adequately sedated, the Olympus upper endoscope was advanced from the mouth into the second portion of the duodenum and retroflexion was performed in the stomach. The patient had diffuse gastritis. Under endoscopic guidance and under sterile condition, a 20-Gibraltarian pull type of G-tube was successfully placed in the epigastric area. The distance from the tip of the tube to skin was about 3 cm in size. The patient tolerated the procedure without any complication. FINDINGS: Status post successful percutaneous endoscopic gastrostomy placement. RECOMMENDATIONS: 1. Abdominal binder. 2. Elevate the head of the bed at all times. 3. G-tube flush. 4. G-tube care. 5. Start tube feeding later today. I want to thank Dr. Park for this kind referral. Rosas Reddy M.D. DR: JW JOB#: [id number] CC: Sky Park M.D.; Fax#: [phone]
[2016-10-27] MEDS: POLYMYXIN B SULFATE IVPB SCH (20:34)
[2016-10-27] MEDS: SODIUM CHLORIDE IVPB SCH (20:34)
[2016-10-27] MEDS: Acetaminophen 650mg/20.3ml NG PRN (20:48)
[2016-10-28] VITALS (24 sets, daily range): BP systolic 118–165; BP diastolic 53–90
--- NOTE | 2016-10-28 01:08 | Wound Care Consultation ---
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
[2016-10-28] MEDS: Vancomycin 1.25 GM in NS 275 ML IVPB SCH ×3 (03:32→20:20)
[2016-10-28] MEDS: Levemir Flexpen SUBQ SCH ×2 (05:49→17:59)
[2016-10-28] MEDS: NovoLOG Insulin Flexpen SUBQ SCH ×4 (05:50→23:55)
[2016-10-28 06:20] LABS: BASOPHILS % (AUTO) 0.7 % (0.0-2.0); EOSINOPHILS % (AUTO) 2.7 % (0.0-3.0); LYMPHOCYTES % (AUTO) 10.9 % (20.0-45.0); MEAN CORPUSCULAR HGB CONC 34.4 G/DL (32.0-36.0); MEAN CORPUSCULAR VOLUME 87 FL (80-99); MEAN PLATELET VOLUME 7.8 FL (6.5-10.1); MONOCYTES % (AUTO) 13.6 % (1.0-10.0); NEUTROPHILS % (AUTO) 72.1 % (45.0-75.0); PLATELET COUNT 262 K/UL (150-450); RED BLOOD COUNT 4.11 M/UL (4.70-6.10); RED CELL DISTRIBUTION WIDTH 11.2 % (11.6-14.8); WHITE BLOOD COUNT 10.6 K/UL (4.8-10.8)
[2016-10-28 06:32] LABS: ANION GAP 11 (5-15); CALCIUM 8.4 mg/dL (8.6-10.2); CARBON DIOXIDE 28 mEQ/L (20-30); CHLORIDE 86 mEQ/L (98-107); CREATININE 0.6 mg/dL (0.7-1.2); GLOMERULAR FILTRATION RATE > 60 mL/min (>60); HEMOLYSIS 3; POTASSIUM 4.5 mEQ/L (3.4-4.9); SODIUM 125 mEQ/L (135-145)
[2016-10-28] MEDS: Docusate 100mg/10ml Liq NG SCH ×2 (08:30→17:56)
[2016-10-28] MEDS: MAGNESIUM SULFATE IVPB SCH (08:30)
[2016-10-28] MEDS: SODIUM CHLORIDE IVPB SCH ×3 (08:30→20:46)
[2016-10-28] MEDS: Pantoprazole Inj IV SCH (08:30)
[2016-10-28] MEDS: Bactrim Susp 20ml NG SCH ×2 (08:31→20:44)
[2016-10-28] MEDS: Heparin 5000 units/ml inj SUBQ SCH ×2 (08:32→20:45)
[2016-10-28] MEDS ORDERED: NS IV SCH (09:00)
[2016-10-28] MEDS ORDERED: DESMOPRESSIN IV SCH (09:00)
--- NOTE | 2016-10-28 09:00 | General Progress Note ---
Assessment/Plan Problem List: (1) G tube feedings ICD Codes: Z93.1 - Gastrostomy status SNOMED: 988768562, 987878734 (2) Aspiration pneumonia ICD Codes: J69.0 - Pneumonitis due to inhalation of food and vomit SNOMED: 288002231 Assessment/Plan post GT day #1 increase GTF as tolerated fu labs Subjective ROS Limited/Unobtainable: No Allergies: Coded Allergies: No Known Allergies (Unverified , 09/01/12) Objective Last 24 Hour Vital Signs Date Time Temp Pulse Resp B/P Pulse Ox O2 Delivery O2 Flow Rate FiO2 10/28/16 07:58 95 Venturi Mask 8.0 40 10/28/16 07:57 Venturi Mask 8.0 40 10/28/16 07:00 122 35 144/70 96 Venturi Mask 40 10/28/16 06:00 123 38 132/65 95 Venturi Mask 40 10/28/16 05:00 98.3 105 30 118/53 100 Venturi Mask 40 10/28/16 04:00 98.8 118 35 119/83 100 Venturi Mask 40 10/28/16 04:00 103 10/28/16 03:00 109 35 127/62 94 Venturi Mask 40 10/28/16 02:00 118 33 137/74 97 Venturi Mask 40 10/28/16 01:00 105 33 130/73 98 Venturi Mask 40 10/28/16 00:00 126 10/28/16 00:00 104 32 137/71 97 Venturi Mask 40 10/27/16 23:00 98.1 109 30 158/71 100 Venturi Mask 40 10/27/16 22:40 115 27 98 Full Face 40 10/27/16 22:17 121 36 98 Full Face 40 10/27/16 22:00 118 28 142/66 99 Bi-pap 40 10/27/16 21:18 100.0 10/27/16 21:00 100.5 118 30 149/67 100 Venturi Mask 40 10/27/16 20:00 120 10/27/16 20:00 99.8 100 22 138/65 100 Venturi Mask 40 10/27/16 19:00 110 28 142/64 98 Venturi Mask 40 10/27/16 18:40 Venturi Mask 8.0 40 10/27/16 18:40 99 Venturi Mask 8.0 40 10/27/16 18:00 108 28 146/66 100 Venturi Mask 40 10/27/16 17:00 112 22 146/81 100 Venturi Mask 40 10/27/16 16:00 98.7 104 25 148/81 98 Venturi Mask 40 10/27/16 16:00 106 10/27/16 15:00 105 22 136/74 100 Venturi Mask 40 10/27/16 14:00 98 22 136/73 100 Venturi Mask 40 10/27/16 13:19 105 24 98 10/27/16 13:00 98.1 105 24 124/74 98 Venturi Mask 40 10/27/16 12:42 95 15 100 10/27/16 12:00 104 10/27/16 11:00 105 22 141/74 100 Venturi Mask 40 10/27/16 10:00 108 25 133/82 100 Venturi Mask 40 10/27/16 09:00 112 25 131/67 96 Venturi Mask 40 Intake and Output 10/27/16 10/28/16 19:00 07:00 Intake Total 2364.25 ml 2450 ml Output Total 1180 ml 3425 ml Balance 1184.25 ml -975 ml Intake Oral 50 ml IV Total 2314.25 ml 2260 ml Tube Feeding 0 ml 170 ml Other 20 ml Output Urine Total 1180 ml 3425 ml # Bowel Movements 2 Laboratory Tests 10/27/16 10:30: Urine Osmolality [Pending] 10/27/16 16:15: Sodium Level 122L 10/28/16 04:36: Sodium Level 125L, White Blood Count 10.6, Red Blood Count 4.11L, Hemoglobin 12.3L, Hematocrit 35.9L, Mean Corpuscular Volume 87, Mean Corpuscular Hemoglobin 30.0, Mean Corpuscular Hemoglobin Concent 34.4, Red Cell Distribution Width 11.2L, Platelet Count 262#, Mean Platelet Volume 7.8, Neutrophils (%) (Auto) 72.1, Lymphocytes (%) (Auto) 10.9L, Monocytes (%) (Auto) 13.6H, Eosinophils (%) (Auto) 2.7, Basophils (%) (Auto) 0.7, Potassium Level 4.5 , Chloride Level 86L, Carbon Dioxide Level 28, Anion Gap 11, Blood Urea Nitrogen 4L, Creatinine 0.6L, Estimat Glomerular Filtration Rate > 60, Glucose Level 240H, Calcium Level 8.4L, Magnesium Level 1.6L Height (Feet): 5 Height (Inches): 8.00 Weight (Pounds): 160 General Appearance: no apparent distress EENT: normal ENT inspection Neck: supple Cardiovascular: normal rate Respiratory/Chest: decreased breath sounds Abdomen: normal bowel sounds, non tender, soft Extremities: non-tender BLAINE APARICIO October 28, 2016 09:00
[2016-10-28] MEDS: POLYMYXIN B SULFATE IVPB SCH ×2 (10:11→20:46)
--- NOTE | 2016-10-28 10:25 | General Progress Note ---
Assessment/Plan Assessment/Plan Na decreased further to 122---->125 but rate of decline is plateauing. On GT feeding. Increasing rate slowly. IVF changing to D5 NS with 20 mEq KCL/L 100 cc/hr. Decreasing dDAVP further to 2.5 units qam. Hyperglycemia ---->on Levemir further to 45 u q 12 hours. BG stable ~250 Improving slowly. Goal is to increase TF, decrease IVF. Subjective Allergies: Coded Allergies: No Known Allergies (Unverified , 09/01/12) Subjective Alert and responsive. Post PEG Objective Last 24 Hour Vital Signs Date Time Temp Pulse Resp B/P Pulse Ox O2 Delivery O2 Flow Rate FiO2 10/28/16 10:00 133 26 164/84 96 Bi-pap 40 10/28/16 09:00 130 20 144/72 96 Venturi Mask 40 10/28/16 08:00 98.5 125 35 144/72 96 Venturi Mask 40 10/28/16 08:00 125 10/28/16 07:58 95 Venturi Mask 8.0 40 10/28/16 07:57 Venturi Mask 8.0 40 10/28/16 07:00 122 35 144/70 96 Venturi Mask 40 10/28/16 06:00 123 38 132/65 95 Venturi Mask 40 10/28/16 05:00 98.3 105 30 118/53 100 Venturi Mask 40 10/28/16 04:00 98.8 118 35 119/83 100 Venturi Mask 40 10/28/16 04:00 103 10/28/16 03:00 109 35 127/62 94 Venturi Mask 40 10/28/16 02:00 118 33 137/74 97 Venturi Mask 40 10/28/16 01:00 105 33 130/73 98 Venturi Mask 40 10/28/16 00:00 126 10/28/16 00:00 104 32 137/71 97 Venturi Mask 40 10/27/16 23:00 98.1 109 30 158/71 100 Venturi Mask 40 10/27/16 22:40 115 27 98 Full Face 40 10/27/16 22:17 121 36 98 Full Face 40 10/27/16 22:00 118 28 142/66 99 Bi-pap 40 10/27/16 21:18 100.0 10/27/16 21:00 100.5 118 30 149/67 100 Venturi Mask 40 10/27/16 20:00 120 10/27/16 20:00 99.8 100 22 138/65 100 Venturi Mask 40 10/27/16 19:00 110 28 142/64 98 Venturi Mask 40 10/27/16 18:40 Venturi Mask 8.0 40 10/27/16 18:40 99 Venturi Mask 8.0 40 10/27/16 18:00 108 28 146/66 100 Venturi Mask 40 10/27/16 17:00 112 22 146/81 100 Venturi Mask 40 10/27/16 16:00 98.7 104 25 148/81 98 Venturi Mask 40 10/27/16 16:00 106 10/27/16 15:00 105 22 136/74 100 Venturi Mask 40 10/27/16 14:00 98 22 136/73 100 Venturi Mask 40 10/27/16 13:19 105 24 98 10/27/16 13:00 98.1 105 24 124/74 98 Venturi Mask 40 10/27/16 12:42 95 15 100 10/27/16 12:00 104 10/27/16 11:00 105 22 141/74 100 Venturi Mask 40 Intake and Output 10/27/16 10/28/16 19:00 07:00 Intake Total 2364.25 ml 2550 ml Output Total 1180 ml 3425 ml Balance 1184.25 ml -875 ml Intake Oral 50 ml IV Total 2314.25 ml 2360 ml Tube Feeding 0 ml 170 ml Other 20 ml Output Urine Total 1180 ml 3425 ml # Bowel Movements 2 Laboratory Tests 10/27/16 10:30: Urine Osmolality [Pending] 10/27/16 16:15: Sodium Level 122L 10/28/16 04:36: Sodium Level 125L, White Blood Count 10.6, Red Blood Count 4.11L, Hemoglobin 12.3L, Hematocrit 35.9L, Mean Corpuscular Volume 87, Mean Corpuscular Hemoglobin 30.0, Mean Corpuscular Hemoglobin Concent 34.4, Red Cell Distribution Width 11.2L, Platelet Count 262#, Mean Platelet Volume 7.8, Neutrophils (%) (Auto) 72.1, Lymphocytes (%) (Auto) 10.9L, Monocytes (%) (Auto) 13.6H, Eosinophils (%) (Auto) 2.7, Basophils (%) (Auto) 0.7, Potassium Level 4.5 , Chloride Level 86L, Carbon Dioxide Level 28, Anion Gap 11, Blood Urea Nitrogen 4L, Creatinine 0.6L, Estimat Glomerular Filtration Rate > 60, Glucose Level 240H, Calcium Level 8.4L, Magnesium Level 1.6L Height (Feet): 5 Height (Inches): 8.00 Weight (Pounds): 160 Objective On BIPAP Cv RR Lungs CTA Abd SNT. BS +. New PEG in E No CCE Dysphonic, decreased hearing. RENETTA SOMMER October 28, 2016 10:25
--- NOTE | 2016-10-28 12:01 | Critical Care Progress Note ---
Assessment/Plan Assessment/Plan s/p bronchoscopy pulmonary infiltrates respiratory failure aspiration event leukocytosis anemia sinus tachycardia agitation chronic co2 retention MDR sputum PLAN BIPAP - as needed underwent GT tube feeds per PMD titrate oxygen saturations and consider nc ID evaluation noted ICU care for now labile Critical Care - Subjective Interval Events: above noted was doing well now again on BIPAP and tachycardic/tachypneic ROS Limited/Unobtainable: Yes Condition: critical EKG Rhythm: Sinus Tachycardia I&O: Intake and Output 10/27/16 10/28/16 19:00 07:00 Intake Total 2364.25 ml 2550 ml Output Total 1180 ml 3425 ml Balance 1184.25 ml -875 ml Intake Oral 50 ml IV Total 2314.25 ml 2360 ml Tube Feeding 0 ml 170 ml Other 20 ml Output Urine Total 1180 ml 3425 ml # Bowel Movements 2 Critical Care - Objective ET-Tube: 8.0 ET Position: 22 Last 24 Hour Vital Signs Date Time Temp Pulse Resp B/P Pulse Ox O2 Delivery O2 Flow Rate FiO2 10/28/16 11:00 132 25 160/90 97 Bi-pap 40 10/28/16 10:36 127 22 99 Full Face 40 10/28/16 10:00 133 26 164/84 96 Bi-pap 40 10/28/16 09:00 130 20 144/72 96 Venturi Mask 40 10/28/16 08:00 98.5 125 35 144/72 96 Venturi Mask 40 10/28/16 08:00 125 10/28/16 07:58 95 Venturi Mask 8.0 40 10/28/16 07:57 Venturi Mask 8.0 40 10/28/16 07:00 122 35 144/70 96 Venturi Mask 40 10/28/16 06:00 123 38 132/65 95 Venturi Mask 40 10/28/16 05:00 98.3 105 30 118/53 100 Venturi Mask 40 10/28/16 04:00 98.8 118 35 119/83 100 Venturi Mask 40 10/28/16 04:00 103 10/28/16 03:00 109 35 127/62 94 Venturi Mask 40 10/28/16 02:00 118 33 137/74 97 Venturi Mask 40 10/28/16 01:00 105 33 130/73 98 Venturi Mask 40 10/28/16 00:00 126 10/28/16 00:00 104 32 137/71 97 Venturi Mask 40 10/27/16 23:00 98.1 109 30 158/71 100 Venturi Mask 40 10/27/16 22:40 115 27 98 Full Face 40 10/27/16 22:17 121 36 98 Full Face 40 10/27/16 22:00 118 28 142/66 99 Bi-pap 40 10/27/16 21:18 100.0 10/27/16 21:00 100.5 118 30 149/67 100 Venturi Mask 40 10/27/16 20:00 120 10/27/16 20:00 99.8 100 22 138/65 100 Venturi Mask 40 10/27/16 19:00 110 28 142/64 98 Venturi Mask 40 10/27/16 18:40 Venturi Mask 8.0 40 10/27/16 18:40 99 Venturi Mask 8.0 40 10/27/16 18:00 108 28 146/66 100 Venturi Mask 40 10/27/16 17:00 112 22 146/81 100 Venturi Mask 40 10/27/16 16:00 98.7 104 25 148/81 98 Venturi Mask 40 10/27/16 16:00 106 10/27/16 15:00 105 22 136/74 100 Venturi Mask 40 10/27/16 14:00 98 22 136/73 100 Venturi Mask 40 10/27/16 13:19 105 24 98 10/27/16 13:00 98.1 105 24 124/74 98 Venturi Mask 40 10/27/16 12:42 95 15 100 10/27/16 12:00 104 Labs: Laboratory Tests Test 10/27/16 16:15 10/28/16 04:36 Sodium Level 122 mEQ/L (135-145) L 125 mEQ/L (135-145) L White Blood Count 10.6 K/UL (4.8-10.8) Red Blood Count 4.11 M/UL (4.70-6.10) L Hemoglobin 12.3 G/DL (14.2-18.0) L Hematocrit 35.9 % (42.0-52.0) L Mean Corpuscular Volume 87 FL (80-99) Mean Corpuscular Hemoglobin 30.0 PG (27.0-31.0) Mean Corpuscular Hemoglobin Concent 34.4 G/DL (32.0-36.0) Red Cell Distribution Width 11.2 % (11.6-14.8) L Platelet Count 262 K/UL (150-450) # Mean Platelet Volume 7.8 FL (6.5-10.1) Neutrophils (%) (Auto) 72.1 % (45.0-75.0) Lymphocytes (%) (Auto) 10.9 % (20.0-45.0) L Monocytes (%) (Auto) 13.6 % (1.0-10.0) H Eosinophils (%) (Auto) 2.7 % (0.0-3.0) Basophils (%) (Auto) 0.7 % (0.0-2.0) Potassium Level 4.5 mEQ/L (3.4-4.9) Chloride Level 86 mEQ/L (98-107) L Carbon Dioxide Level 28 mEQ/L (20-30) Anion Gap 11 (5-15) Blood Urea Nitrogen 4 mg/dL (7-23) L Creatinine 0.6 mg/dL (0.7-1.2) L Estimat Glomerular Filtration Rate > 60 mL/min (>60) Glucose Level 240 mg/dL (74-106) H Calcium Level 8.4 mg/dL (8.6-10.2) L Magnesium Level 1.6 mg/dL (1.7-2.5) L Objective: WDWN NAD on BIPAP; 02 noted reduced breath sounds bilaterally with some rhonchi and increased RR [id number] tachy without MRG NABS nontender no HSM no CCE nonfocal Accucheck: 309 IZABEL HASTINGS October 28, 2016 12:01
[2016-10-28] MEDS ORDERED: D5W 275ml ONE (16:01)
[2016-10-28] MEDS ORDERED: Tubing IV Secondary IV ONE (16:01)
[2016-10-28 19:03] LABS: ABG ALLEN TEST POSITIVE; ABG BASE EXCESS 6.2; ABG PCO2 58.9 mmHg (35.0-45.0)
[2016-10-29] VITALS (24 sets, daily range): BP systolic 104–173; BP diastolic 66–99
[2016-10-29] MEDS: Vancomycin 1.25 GM in NS 275 ML IVPB SCH (03:40)
[2016-10-29] MEDS: Levemir Flexpen SUBQ SCH ×2 (05:47→17:27)
[2016-10-29] MEDS: NovoLOG Insulin Flexpen SUBQ SCH ×4 (05:48→23:58)
[2016-10-29 05:53] LABS: BASOPHILS % (AUTO) 1.2 % (0.0-2.0); EOSINOPHILS % (AUTO) 1.9 % (0.0-3.0); LYMPHOCYTES % (AUTO) 9.6 % (20.0-45.0); MEAN CORPUSCULAR HEMOGLOBIN 29.5 PG (27.0-31.0); MEAN CORPUSCULAR VOLUME 89 FL (80-99); MEAN PLATELET VOLUME 7.2 FL (6.5-10.1); MONOCYTES % (AUTO) 19.6 % (1.0-10.0); NEUTROPHILS % (AUTO) 67.7 % (45.0-75.0); PLATELET COUNT 410 K/UL (150-450); RED BLOOD COUNT 4.67 M/UL (4.70-6.10); WHITE BLOOD COUNT 9.8 K/UL (4.8-10.8)
[2016-10-29 05:58] LABS: ANION GAP 14 (5-15); CALCIUM 9.8 mg/dL (8.6-10.2); CARBON DIOXIDE 33 mEQ/L (20-30); CHLORIDE 106 mEQ/L (98-107); CREATININE 0.7 mg/dL (0.7-1.2); GLOMERULAR FILTRATION RATE > 60 mL/min (>60); HEMOLYSIS 1; POTASSIUM 4.4 mEQ/L (3.4-4.9); SODIUM 153 mEQ/L (135-145)
--- NOTE | 2016-10-29 08:45 | Emergency Room Report ---
Physical Exam Called to intubate patient. PCO2 critical. Patient unresponsive. Last 24 Hour Vital Signs Date Time Temp Pulse Resp B/P Pulse Ox O2 Delivery O2 Flow Rate FiO2 10/29/16 07:00 145 28 124/99 97 Bi-pap 35 10/29/16 06:00 136 10/29/16 06:00 144 28 156/88 97 Bi-pap 35 10/29/16 05:23 146 23 99 Full Face 35 10/29/16 05:00 137 23 152/90 98 Bi-pap 35 10/29/16 04:00 97.9 142 20 155/92 99 Bi-pap 35 10/29/16 03:00 137 30 173/89 98 Bi-pap 35 10/29/16 02:40 135 22 98 Full Face 35 10/29/16 02:00 127 26 150/76 100 Bi-pap 35 10/29/16 01:05 120 36 100 Full Face 35 10/29/16 01:00 110 26 137/75 98 Bi-pap 35 10/29/16 00:00 125 10/29/16 00:00 35 10/29/16 00:00 98.0 123 35 161/76 98 Bi-pap 35 10/28/16 23:00 123 25 158/87 99 Bi-pap 35 10/28/16 23:00 121 34 100 Full Face 35 10/28/16 22:00 122 38 148/85 100 Bi-pap 40 10/28/16 21:10 131 26 98 Full Face 40 10/28/16 21:00 120 28 136/76 100 Bi-pap 40 10/28/16 20:00 126 10/28/16 20:00 40 10/28/16 20:00 97.9 128 35 151/81 98 Bi-pap 40 10/28/16 19:00 128 30 125/71 98 Bi-pap 40 10/28/16 18:51 Bi-pap 40 10/28/16 18:51 98 Bi-pap 40 10/28/16 18:51 127 38 98 Full Face 40 10/28/16 18:00 125 28 148/76 98 Bi-pap 40 10/28/16 17:05 124 35 97 Full Face 40 10/28/16 17:00 115 26 144/88 98 Bi-pap 40 10/28/16 16:00 98 10/28/16 16:00 98.6 98 32 138/74 100 Bi-pap 40 10/28/16 15:00 101 35 119/67 99 Bi-pap 40 10/28/16 14:43 122 26 99 Full Face 40 10/28/16 14:00 109 32 165/82 100 Bi-pap 40 10/28/16 13:30 40 10/28/16 13:05 133 26 99 Full Face 40 10/28/16 13:00 130 30 150/86 98 Bi-pap 40 10/28/16 12:00 120 10/28/16 12:00 98.4 120 30 122/78 98 Bi-pap 40 10/28/16 11:00 132 25 160/90 97 Bi-pap 40 10/28/16 10:36 127 22 99 Full Face 40 10/28/16 10:00 133 26 164/84 96 Bi-pap 40 10/28/16 09:00 130 20 144/72 96 Venturi Mask 40 Sp02 EP Interpretation: abnormal General Appearance: Chronically Ill, Stupor Head: normocephalic, atraumatic Eyes: bilateral eye PERRL, bilateral eye Scleral Injection ENT: dry mucus membranes Neck: supple Respiratory: other - poor tidal volume, tachypneic Cardiovascular #1: tachycardia Gastrointestinal: abnormal bowel sounds - decreased bowel sounds Neurologic: other - stupor, moving arms during intubation Psychiatric: other - stupor Skin: normal inspection Intubation Intubation : Consent: Emergent Intubation Method: orotracheal Tube Size (cm): 7.5 Medications: Other - none Breath Sounds after Intubation: equal Intubation Complications: no complications Post Intubation Xray: Yes Attempts: One Patient Tolerated: Well Complications: None Medical Decision Making Diagnostic Impression: Primary Impression: Respiratory failure Qualified Codes: J96.02 - Acute respiratory failure with hypercapnia ER Course Patient with hypercarbia and decreased tidal volume on BIPAP. Intubated. Tolerated well. CXR ordered. Discussed with family. ET pulled 1 cm Labs Test 10/16/16 05:22 10/20/16 05:00 10/21/16 08:25 10/21/16 09:50 Differential Total Cells Counted 100 Neutrophils % (Manual) 89 % (45-75) Lymphocytes % (Manual) 6 % (20-45) Monocytes % (Manual) 5 % (1-10) Eosinophils % (Manual) 0 % (0-3) Basophils % (Manual) 0 % (0-2) Band Neutrophils 0 % (0-8) Platelet Estimate Adequate Platelet Morphology Normal Red Blood Cell Morphology Normal Phosphorus Level 3.3 mg/dL (2.5-4.8) Total Bilirubin 0.4 mg/dL (0.0-1.2) Aspartate Amino Transf (AST/SGOT) 27 U/L (5-40) Alanine Aminotransferase (ALT/SGPT) 24 U/L (3-41) Alkaline Phosphatase 92 U/L (40-129) Total Protein 6.5 g/dL (6.6-8.7) Albumin 2.9 g/dL (3.5-5.2) Globulin 3.6 g/dL Albumin/Globulin Ratio 0.8 (1.0-2.7) Urine Color Pale yellow Urine Appearance Slightly cloudy Urine pH 8 (4.5-8.0) Urine Specific Clark 1.010 (1.005-1.035) Urine Protein 4+ (NEGATIVE) Urine Glucose (UA) 4+ (NEGATIVE) Urine Ketones 1+ (NEGATIVE) Urine Occult Blood 5+ (NEGATIVE) Urine Nitrite Negative (NEGATIVE) Urine Bilirubin Negative (NEGATIVE) Urine Urobilinogen Normal MG/DL (0.0-1.0) Urine Leukocyte Esterase Negative (NEGATIVE) Urine RBC 40-60 /HPF (0 - 0) Urine WBC 0-2 /HPF (0 - 0) Urine Squamous Epithelial Cells Occasional /LPF Urine Bacteria Few /HPF (NONE) Test 10/22/16 07:50 10/26/16 11:00 10/27/16 10:30 10/28/16 13:20 Thyroid Stimulating Hormone (TSH) 0.929 uIU/mL (0.300-4.500) Free Thyroxine 1.52 ng/dL (0.86-1.85) Hemoglobin A1c 8.3 % (< 6.0) Vancomycin Level Trough 18.2 ug/mL (5.0-12.0) Arterial Blood pH 7.370 (7.350-7.450) Arterial Blood Partial Pressure CO2 58.9 mmHg (35.0-45.0) Arterial Blood Partial Pressure O2 99.8 mmHg (75.0-100.0) Arterial Blood HCO3 33.3 mmol/L (22.0-26.0) Arterial Blood Oxygen Saturation 97.4 % (92.0-98.0) Arterial Blood Base Excess 6.2 Jamel Test Positive Test 10/29/16 03:36 White Blood Count 9.8 K/UL (4.8-10.8) Red Blood Count 4.67 M/UL (4.70-6.10) Hemoglobin 13.8 G/DL (14.2-18.0) Hematocrit 41.8 % (42.0-52.0) Mean Corpuscular Volume 89 FL (80-99) Mean Corpuscular Hemoglobin 29.5 PG (27.0-31.0) Mean Corpuscular Hemoglobin Concent 33.0 G/DL (32.0-36.0) Red Cell Distribution Width 12.0 % (11.6-14.8) Platelet Count 410 K/UL (150-450) Mean Platelet Volume 7.2 FL (6.5-10.1) Neutrophils (%) (Auto) 67.7 % (45.0-75.0) Lymphocytes (%) (Auto) 9.6 % (20.0-45.0) Monocytes (%) (Auto) 19.6 % (1.0-10.0) Eosinophils (%) (Auto) 1.9 % (0.0-3.0) Basophils (%) (Auto) 1.2 % (0.0-2.0) Sodium Level 153 mEQ/L (135-145) Potassium Level 4.4 mEQ/L (3.4-4.9) Chloride Level 106 mEQ/L (98-107) Carbon Dioxide Level 33 mEQ/L (20-30) Anion Gap 14 (5-15) Blood Urea Nitrogen 7 mg/dL (7-23) Creatinine 0.7 mg/dL (0.7-1.2) Estimat Glomerular Filtration Rate > 60 mL/min (>60) Glucose Level 314 mg/dL (74-106) Calcium Level 9.8 mg/dL (8.6-10.2) Magnesium Level 2.0 mg/dL (1.7-2.5) Rhythm Strip Diag. Results EP Interpretation: yes Rhythm: no PVC's, no ectopy, other - tachy Chest X-Ray Diagnostic Results EP Interpretation: Yes Findings: no effusion, no pneumothorax, other - ET slightly low, pulled Number of Views: 1 Last Vital Signs Date Time Temp Pulse Resp B/P Pulse Ox O2 Delivery O2 Flow Rate FiO2 10/29/16 08:55 99 Mechanical Ventilator 50 10/29/16 08:52 154 16 10/29/16 07:00 124/99 10/29/16 04:00 97.9 10/28/16 07:58 8.0 Status: improved Disposition: ADMITTED INPATIENT Condition: Critical Referrals: NON PHYSICIAN (PCP) David Duckworth M.D. October 29, 2016 08:45
[2016-10-29 08:47] LABS: ABG ALLEN TEST POSITIVE; ABG BASE EXCESS 6.6; ABG PCO2 96.4 mmHg (35.0-45.0)
--- NOTE | 2016-10-29 08:55 | Critical Care Progress Note ---
Assessment/Plan Assessment/Plan s/p bronchoscopy pulmonary infiltrates respiratory failure- reintubated aspiration event leukocytosis anemia sinus tachycardia agitation chronic co2 retention with acute retention MDR sputum PLAN intubated followup ABG underwent GT tube feeds per PMD ICU care may need trach Critical Care - Subjective Interval Events: (seen earlier) on BIPAP and more lethargic called with ABG results now intubated ROS Limited/Unobtainable: Yes Condition: critical EKG Rhythm: Sinus Tachycardia I&O: Intake and Output 10/28/16 10/29/16 19:00 07:00 Intake Total 3140.4 ml 2835 ml Output Total 4650 ml 4430 ml Balance -1509.6 ml -1595 ml Free Water 80 ml IV Total 2650.4 ml 2400 ml Tube Feeding 330 ml 405 ml Other 80 ml 30 ml Output Urine Total 4650 ml 4430 ml # Bowel Movements 1 3 Critical Care - Objective ET-Tube: 8.0 ET Position: 22 Last 24 Hour Vital Signs Date Time Temp Pulse Resp B/P Pulse Ox O2 Delivery O2 Flow Rate FiO2 10/29/16 07:00 145 28 124/99 97 Bi-pap 35 10/29/16 06:00 136 10/29/16 06:00 144 28 156/88 97 Bi-pap 35 10/29/16 05:23 146 23 99 Full Face 35 10/29/16 05:00 137 23 152/90 98 Bi-pap 35 10/29/16 04:00 97.9 142 20 155/92 99 Bi-pap 35 10/29/16 03:00 137 30 173/89 98 Bi-pap 35 10/29/16 02:40 135 22 98 Full Face 35 10/29/16 02:00 127 26 150/76 100 Bi-pap 35 10/29/16 01:05 120 36 100 Full Face 35 10/29/16 01:00 110 26 137/75 98 Bi-pap 35 10/29/16 00:00 125 10/29/16 00:00 35 10/29/16 00:00 98.0 123 35 161/76 98 Bi-pap 35 10/28/16 23:00 123 25 158/87 99 Bi-pap 35 10/28/16 23:00 121 34 100 Full Face 35 10/28/16 22:00 122 38 148/85 100 Bi-pap 40 10/28/16 21:10 131 26 98 Full Face 40 10/28/16 21:00 120 28 136/76 100 Bi-pap 40 10/28/16 20:00 126 10/28/16 20:00 40 10/28/16 20:00 97.9 128 35 151/81 98 Bi-pap 40 10/28/16 19:00 128 30 125/71 98 Bi-pap 40 10/28/16 18:51 Bi-pap 40 10/28/16 18:51 98 Bi-pap 40 10/28/16 18:51 127 38 98 Full Face 40 10/28/16 18:00 125 28 148/76 98 Bi-pap 40 10/28/16 17:05 124 35 97 Full Face 40 10/28/16 17:00 115 26 144/88 98 Bi-pap 40 10/28/16 16:00 98 10/28/16 16:00 98.6 98 32 138/74 100 Bi-pap 40 10/28/16 15:00 101 35 119/67 99 Bi-pap 40 10/28/16 14:43 122 26 99 Full Face 40 10/28/16 14:00 109 32 165/82 100 Bi-pap 40 10/28/16 13:30 40 10/28/16 13:05 133 26 99 Full Face 40 10/28/16 13:00 130 30 150/86 98 Bi-pap 40 10/28/16 12:00 120 10/28/16 12:00 98.4 120 30 122/78 98 Bi-pap 40 10/28/16 11:00 132 25 160/90 97 Bi-pap 40 10/28/16 10:36 127 22 99 Full Face 40 10/28/16 10:00 133 26 164/84 96 Bi-pap 40 10/28/16 09:00 130 20 144/72 96 Venturi Mask 40 Labs: Laboratory Tests Test 10/28/16 13:20 10/29/16 03:36 10/29/16 08:10 Arterial Blood pH 7.370 (7.350-7.450) 7.221 (7.350-7.450) Arterial Blood Partial Pressure CO2 58.9 mmHg (35.0-45.0) *H 96.4 mmHg (35.0-45.0) *H Arterial Blood Partial Pressure O2 99.8 mmHg (75.0-100.0) 93.2 mmHg (75.0-100.0) Arterial Blood HCO3 33.3 mmol/L (22.0-26.0) H 38.7 mmol/L (22.0-26.0) H Arterial Blood Oxygen Saturation 97.4 % (92.0-98.0) 95.7 % (92.0-98.0) Arterial Blood Base Excess 6.2 6.6 Jamel Test Positive Positive White Blood Count 9.8 K/UL (4.8-10.8) Red Blood Count 4.67 M/UL (4.70-6.10) L Hemoglobin 13.8 G/DL (14.2-18.0) L Hematocrit 41.8 % (42.0-52.0) L Mean Corpuscular Volume 89 FL (80-99) Mean Corpuscular Hemoglobin 29.5 PG (27.0-31.0) Mean Corpuscular Hemoglobin Concent 33.0 G/DL (32.0-36.0) Red Cell Distribution Width 12.0 % (11.6-14.8) Platelet Count 410 K/UL (150-450) # Mean Platelet Volume 7.2 FL (6.5-10.1) Neutrophils (%) (Auto) 67.7 % (45.0-75.0) Lymphocytes (%) (Auto) 9.6 % (20.0-45.0) L Monocytes (%) (Auto) 19.6 % (1.0-10.0) H Eosinophils (%) (Auto) 1.9 % (0.0-3.0) Basophils (%) (Auto) 1.2 % (0.0-2.0) Sodium Level 153 mEQ/L (135-145) #H Potassium Level 4.4 mEQ/L (3.4-4.9) Chloride Level 106 mEQ/L (98-107) Carbon Dioxide Level 33 mEQ/L (20-30) H Anion Gap 14 (5-15) Blood Urea Nitrogen 7 mg/dL (7-23) Creatinine 0.7 mg/dL (0.7-1.2) Estimat Glomerular Filtration Rate > 60 mL/min (>60) Glucose Level 314 mg/dL (74-106) H Calcium Level 9.8 mg/dL (8.6-10.2) Magnesium Level 2.0 mg/dL (1.7-2.5) Objective: WDWN now intubated reduced LOC reduced breath sounds bilaterally with worsening rhonchi [id number] tachy without MRG NABS nontender no HSM no CCE nonfocal Accucheck: 305 IZABEL HASTINGS October 29, 2016 08:55
[2016-10-29] MEDS: Docusate 100mg/10ml Liq NG SCH ×2 (09:00→17:24)
--- NOTE | 2016-10-29 09:06 | General Progress Note ---
Assessment/Plan Problem List: (1) G tube feedings ICD Codes: Z93.1 - Gastrostomy status SNOMED: 508915548, 893303499 (2) Aspiration pneumonia ICD Codes: J69.0 - Pneumonitis due to inhalation of food and vomit SNOMED: 623357480 (3) Respiratory failure ICD Codes: J96.90 - Respiratory failure, unspecified, unspecified whether with hypoxia or hypercapnia SNOMED: 985330698 Assessment/Plan post GT day #2 increase GTF as tolerated change to vital af fu labs Subjective ROS Limited/Unobtainable: No Allergies: Coded Allergies: No Known Allergies (Unverified , 09/01/12) Subjective intubated over night Objective Last 24 Hour Vital Signs Date Time Temp Pulse Resp B/P Pulse Ox O2 Delivery O2 Flow Rate FiO2 10/29/16 08:55 99 Mechanical Ventilator 50 10/29/16 08:55 Mechanical Ventilator 50 10/29/16 08:52 154 16 50 10/29/16 07:00 145 28 124/99 97 Bi-pap 35 10/29/16 06:00 136 10/29/16 06:00 144 28 156/88 97 Bi-pap 35 10/29/16 05:23 146 23 99 Full Face 35 10/29/16 05:00 137 23 152/90 98 Bi-pap 35 10/29/16 04:00 97.9 142 20 155/92 99 Bi-pap 35 10/29/16 03:00 137 30 173/89 98 Bi-pap 35 10/29/16 02:40 135 22 98 Full Face 35 10/29/16 02:00 127 26 150/76 100 Bi-pap 35 10/29/16 01:05 120 36 100 Full Face 35 10/29/16 01:00 110 26 137/75 98 Bi-pap 35 10/29/16 00:00 125 10/29/16 00:00 35 10/29/16 00:00 98.0 123 35 161/76 98 Bi-pap 35 10/28/16 23:00 123 25 158/87 99 Bi-pap 35 10/28/16 23:00 121 34 100 Full Face 35 10/28/16 22:00 122 38 148/85 100 Bi-pap 40 10/28/16 21:10 131 26 98 Full Face 40 10/28/16 21:00 120 28 136/76 100 Bi-pap 40 10/28/16 20:00 126 10/28/16 20:00 40 10/28/16 20:00 97.9 128 35 151/81 98 Bi-pap 40 10/28/16 19:00 128 30 125/71 98 Bi-pap 40 10/28/16 18:51 Bi-pap 40 10/28/16 18:51 98 Bi-pap 40 10/28/16 18:51 127 38 98 Full Face 40 10/28/16 18:00 125 28 148/76 98 Bi-pap 40 10/28/16 17:05 124 35 97 Full Face 40 10/28/16 17:00 115 26 144/88 98 Bi-pap 40 10/28/16 16:00 98 10/28/16 16:00 98.6 98 32 138/74 100 Bi-pap 40 10/28/16 15:00 101 35 119/67 99 Bi-pap 40 10/28/16 14:43 122 26 99 Full Face 40 10/28/16 14:00 109 32 165/82 100 Bi-pap 40 10/28/16 13:30 40 10/28/16 13:05 133 26 99 Full Face 40 10/28/16 13:00 130 30 150/86 98 Bi-pap 40 10/28/16 12:00 120 10/28/16 12:00 98.4 120 30 122/78 98 Bi-pap 40 10/28/16 11:00 132 25 160/90 97 Bi-pap 40 10/28/16 10:36 127 22 99 Full Face 40 10/28/16 10:00 133 26 164/84 96 Bi-pap 40 Intake and Output 10/28/16 10/29/16 19:00 07:00 Intake Total 3140.4 ml 2835 ml Output Total 4650 ml 4430 ml Balance -1509.6 ml -1595 ml Free Water 80 ml IV Total 2650.4 ml 2400 ml Tube Feeding 330 ml 405 ml Other 80 ml 30 ml Output Urine Total 4650 ml 4430 ml # Bowel Movements 1 3 Laboratory Tests 10/28/16 13:20: Arterial Blood pH 7.370, Arterial Blood Partial Pressure CO2 58.9*H, Arterial Blood Partial Pressure O2 99.8, Arterial Blood HCO3 33.3H, Arterial Blood Oxygen Saturation 97.4, Arterial Blood Base Excess 6.2, Jamel Test Positive 10/29/16 03:36: White Blood Count 9.8, Red Blood Count 4.67L, Hemoglobin 13.8L, Hematocrit 41.8L , Mean Corpuscular Volume 89, Mean Corpuscular Hemoglobin 29.5, Mean Corpuscular Hemoglobin Concent 33.0, Red Cell Distribution Width 12.0, Platelet Count 410#, Mean Platelet Volume 7.2, Neutrophils (%) (Auto) 67.7, Lymphocytes ( %) (Auto) 9.6L, Monocytes (%) (Auto) 19.6H, Eosinophils (%) (Auto) 1.9, Basophils (%) (Auto) 1.2, Sodium Level 153#H, Potassium Level 4.4, Chloride Level 106, Carbon Dioxide Level 33H, Anion Gap 14, Blood Urea Nitrogen 7, Creatinine 0.7, Estimat Glomerular Filtration Rate > 60, Glucose Level 314H, Calcium Level 9.8, Magnesium Level 2.0 10/29/16 08:10: Arterial Blood pH 7.221*L, Arterial Blood Partial Pressure CO2 96.4*H, Arterial Blood Partial Pressure O2 93.2, Arterial Blood HCO3 38.7H, Arterial Blood Oxygen Saturation 95.7, Arterial Blood Base Excess 6.6, Jamel Test Positive Height (Feet): 5 Height (Inches): 8.00 Weight (Pounds): 160 General Appearance: lethargic, confused EENT: normal ENT inspection Neck: supple Cardiovascular: normal rate Respiratory/Chest: decreased breath sounds Abdomen: normal bowel sounds, non tender, soft Extremities: non-tender BLAINE APARICIO October 29, 2016 09:06
[2016-10-29] MEDS: D5W w/KCl 20mEq 1,000 ML IV SCH ×3 (09:10→23:51)
[2016-10-29] MEDS: NS IV SCH (09:10)
[2016-10-29] MEDS: Bactrim Susp 20ml NG SCH ×2 (09:10→21:16)
[2016-10-29] MEDS: DESMOPRESSIN IV SCH (09:10)
[2016-10-29] MEDS: MAGNESIUM SULFATE IVPB SCH (09:10)
[2016-10-29] MEDS: SODIUM CHLORIDE IVPB SCH ×3 (09:10→21:16)
[2016-10-29] MEDS: Heparin 5000 units/ml inj SUBQ SCH ×2 (09:12→21:18)
[2016-10-29] MEDS: Pantoprazole Inj IV SCH (09:20)
[2016-10-29] MEDS ORDERED: Morphine Sulfate 4mg/ml Inj IVP PRN (09:30)
--- NOTE | 2016-10-29 09:42 | Diagnostic Imaging Report ---
Indication: Status post intubation Technique: XRAY CHEST 1 V Comparison: Examination from earlier the same day at 0813 hours Findings: Endotracheal tube tip is 1.5 cm above the cee. The heart and lungs are stable. Gastrostomy tube is noted. Impression: Status post intubation.
--- NOTE | 2016-10-29 09:42 | Diagnostic Imaging Report ---
Indication: Shortness of breath Technique: XRAY CHEST 1 V Comparison: 10/28/16 Findings: The cardiomediastinal silhouette is within normal limits. There is no focal consolidation, pneumothorax or pleural effusion. Osseous structures demonstrate no acute abnormality. Gastrostomy tube is noted. Impression: No acute cardiopulmonary disease.
[2016-10-29] MEDS: POLYMYXIN B SULFATE IVPB SCH ×2 (10:00→21:16)
[2016-10-29 10:50] LABS: ABG PCO2 55.7 mmHg (35.0-45.0)
--- NOTE | 2016-10-29 10:50 | Diagnostic Imaging Report ---
Indication: Shortness of breath. Technique: XRAY CHEST 1 V Comparison: 10/27/16 Findings: Cardiomediastinal silhouette is stable. There is slightly improved but persistent interstitial disease. The lungs are otherwise unchanged. There is air lucency which projects over the right upper abdomen. Osseous structures are stable. Impression: Improved but persistent interstitial pneumonitis. Air lucency projecting over the right upper abdomen could be within bowel but pneumoperitoneum cannot be excluded. Further evaluation with dedicated views of the abdomen recommended. Findings discussed with the patient's ICU nurse.
[2016-10-29 10:51] LABS: ABG ALLEN TEST POSITIVE; ABG BASE EXCESS 6.4
--- NOTE | 2016-10-29 12:25 | Infectious Diseases Prog Note ---
Assessment/Plan Assessment/Plan ASSESSMENT AND PLAN: 1. acinetobacter/klebsiella/aspiration pna with sepsis, fevers, leukocytosis - patient re-intubated - continue meropenem, polymyxin, bactrim, vancomycin for now - recheck sputum culture - icu care - check chest x-ray and labs - s/p feeding tube - d/w RN and family 2. The patient has diabetes insipidus. 3. The patient has diabetes mellitus. 4. Aspiration risk. 5. Optical atrophy. 6. Deafness. 7. DIDMOAD syndrome. 8. MAR was noted. 9. Case discussed with RN. 10. Continue treatment per primary consultants. Subjective Constitutional: Reports: fatigue, other - re-intubated, Denies: fever HEENT: Reports: congestion Respiratory: Reports: shortness of breath Cardiovascular: Denies: chest pain Gastrointestinal/Abdominal: Denies: diarrhea, nausea, vomiting Genitourinary: Reports: other - + baez Psychiatric: Denies: depression Skin: Denies: rash Hematologic: Denies: bleeding Musculoskeletal: Denies: pain Allergies: Coded Allergies: No Known Allergies (Unverified , 09/01/12) Objective Vital Signs Last 24 Hour Vital Signs Date Time Temp Pulse Resp B/P Pulse Ox O2 Delivery O2 Flow Rate FiO2 10/29/16 11:11 130 20 50 10/29/16 11:00 145 30 127/82 99 Mechanical Ventilator 50 10/29/16 10:00 142 28 135/84 99 Mechanical Ventilator 50 10/29/16 09:00 146 30 140/89 99 Mechanical Ventilator 50 10/29/16 08:55 99 Mechanical Ventilator 50 10/29/16 08:55 Mechanical Ventilator 50 10/29/16 08:52 154 16 100 10/29/16 08:25 50 10/29/16 08:00 98.5 150 28 130/90 97 Bi-pap 35 10/29/16 08:00 150 10/29/16 07:00 145 28 124/99 97 Bi-pap 35 10/29/16 06:00 136 10/29/16 06:00 144 28 156/88 97 Bi-pap 35 10/29/16 05:23 146 23 99 Full Face 35 10/29/16 05:00 137 23 152/90 98 Bi-pap 35 10/29/16 04:00 97.9 142 20 155/92 99 Bi-pap 35 10/29/16 03:00 137 30 173/89 98 Bi-pap 35 10/29/16 02:40 135 22 98 Full Face 35 10/29/16 02:00 127 26 150/76 100 Bi-pap 35 10/29/16 01:05 120 36 100 Full Face 35 10/29/16 01:00 110 26 137/75 98 Bi-pap 35 10/29/16 00:00 125 10/29/16 00:00 35 10/29/16 00:00 98.0 123 35 161/76 98 Bi-pap 35 10/28/16 23:00 123 25 158/87 99 Bi-pap 35 10/28/16 23:00 121 34 100 Full Face 35 10/28/16 22:00 122 38 148/85 100 Bi-pap 40 10/28/16 21:10 131 26 98 Full Face 40 10/28/16 21:00 120 28 136/76 100 Bi-pap 40 10/28/16 20:00 126 10/28/16 20:00 40 10/28/16 20:00 97.9 128 35 151/81 98 Bi-pap 40 10/28/16 19:00 128 30 125/71 98 Bi-pap 40 10/28/16 18:51 Bi-pap 40 10/28/16 18:51 98 Bi-pap 40 10/28/16 18:51 127 38 98 Full Face 40 10/28/16 18:00 125 28 148/76 98 Bi-pap 40 10/28/16 17:05 124 35 97 Full Face 40 10/28/16 17:00 115 26 144/88 98 Bi-pap 40 10/28/16 16:00 98 10/28/16 16:00 98.6 98 32 138/74 100 Bi-pap 40 10/28/16 15:00 101 35 119/67 99 Bi-pap 40 10/28/16 14:43 122 26 99 Full Face 40 10/28/16 14:00 109 32 165/82 100 Bi-pap 40 10/28/16 13:30 40 10/28/16 13:05 133 26 99 Full Face 40 10/28/16 13:00 130 30 150/86 98 Bi-pap 40 Height (Feet): 5 Height (Inches): 8.00 Weight (Pounds): 160 General Appearance: other - intbuated, on vent but alert HEENT: normocephalic, atraumatic, anicteric Respiratory/Chest: crackles/rales, rhonchi - bilaterally Cardiovascular: normal rate, regular rhythm, no gallop/murmur, no JVD Abdomen: normal bowel sounds, soft, non tender, no organomegaly, non distended Genitourinary: other - + baez - urine clear Extremities: no cyanosis Skin: no rash Neurologic/Psychiatric: upward bound director II-XII grossly normal, alert, responsive Lymphatic: no neck adenopathy Musculoskeletal: no effusion Objective 10/21 - chest x-ray Impression: Patchy pulmonary infiltrates and/or atelectasis bilaterally. 10/24 - chest x-ray - interstitial edema 10/25 - chest x-ray - right infiltrate vs atx Microbiology Date/Time Source Procedure Growth Status 10/19/16 08:30 Bronchial Washings Not Specified Gram Stain - Final Complete 10/19/16 08:30 Bronchial Aspirate Culture - Final Acinetobacter Baumanii - Mdr Klebsiella Pneumoniae Esbl Complete 10/21/16 09:50 Indwelling Cath Urine Culture - Final Complete 10/15/16 17:15 Rectum VRE Culture - Final NO VANCOMYCIN RESISTANT ENTEROCOCCUS ... Complete Laboratory Tests Test 10/28/16 13:20 10/29/16 03:36 10/29/16 08:10 10/29/16 10:30 Arterial Blood pH 7.370 (7.350-7.450) 7.221 (7.350-7.450) 7.392 (7.350-7.450) Arterial Blood Partial Pressure CO2 58.9 mmHg (35.0-45.0) *H 96.4 mmHg (35.0-45.0) *H 55.7 mmHg (35.0-45.0) *H Arterial Blood Partial Pressure O2 99.8 mmHg (75.0-100.0) 93.2 mmHg (75.0-100.0) 562.3 mmHg (75.0-100.0) H Arterial Blood HCO3 33.3 mmol/L (22.0-26.0) H 38.7 mmol/L (22.0-26.0) H 33.1 mmol/L (22.0-26.0) H Arterial Blood Oxygen Saturation 97.4 % (92.0-98.0) 95.7 % (92.0-98.0) 99.3 % (92.0-98.0) H Arterial Blood Base Excess 6.2 6.6 6.4 Jamel Test Positive Positive Positive White Blood Count 9.8 K/UL (4.8-10.8) Red Blood Count 4.67 M/UL (4.70-6.10) L Hemoglobin 13.8 G/DL (14.2-18.0) L Hematocrit 41.8 % (42.0-52.0) L Mean Corpuscular Volume 89 FL (80-99) Mean Corpuscular Hemoglobin 29.5 PG (27.0-31.0) Mean Corpuscular Hemoglobin Concent 33.0 G/DL (32.0-36.0) Red Cell Distribution Width 12.0 % (11.6-14.8) Platelet Count 410 K/UL (150-450) # Mean Platelet Volume 7.2 FL (6.5-10.1) Neutrophils (%) (Auto) 67.7 % (45.0-75.0) Lymphocytes (%) (Auto) 9.6 % (20.0-45.0) L Monocytes (%) (Auto) 19.6 % (1.0-10.0) H Eosinophils (%) (Auto) 1.9 % (0.0-3.0) Basophils (%) (Auto) 1.2 % (0.0-2.0) Sodium Level 153 mEQ/L (135-145) #H Potassium Level 4.4 mEQ/L (3.4-4.9) Chloride Level 106 mEQ/L (98-107) Carbon Dioxide Level 33 mEQ/L (20-30) H Anion Gap 14 (5-15) Blood Urea Nitrogen 7 mg/dL (7-23) Creatinine 0.7 mg/dL (0.7-1.2) Estimat Glomerular Filtration Rate > 60 mL/min (>60) Glucose Level 314 mg/dL (74-106) H Calcium Level 9.8 mg/dL (8.6-10.2) Magnesium Level 2.0 mg/dL (1.7-2.5) Test 10/29/16 11:35 Vancomycin Level Trough Pending Current Medications Medications (Trade) Dose Ordered Sig/Marilyn Route PRN Reason Start Time Stop Time Status Last Admin Dose Admin Acetaminophen (Tylenol) 650 mg Q6H PRN NG Fever/Headache/Mild Pain 10/26/16 08:15 11/25/16 08:14 10/27/16 20:48 Desmopressin Acetate/Sodium Chloride (Ddavp/Sodium Chloride) 56.25 ml @ 115 mls/hr DAILY IV 10/29/16 09:00 11/28/16 08:59 10/29/16 09:10 Dextrose (Dextrose 50%) STAT PRN IV Hypoglycemia 10/24/16 08:30 11/23/16 08:29 Dextrose/ Electrolytes (D5W w/KCl 20mEq) 1,000 ml @ 125 mls/hr Q8H IV 10/29/16 08:30 11/28/16 08:29 10/29/16 09:10 Docusate Sodium 100 mg 100 mg TWICE A DAY NG 10/26/16 09:00 11/25/16 08:59 10/28/16 17:56 Heparin Sodium (Porcine) (Heparin 5000 units/ml) 5,000 units EVERY 12 HOURS SUBQ 10/16/16 09:00 11/15/16 08:59 10/29/16 09:12 Insulin Aspart EVERY 6 HOURS SUBQ 10/25/16 12:00 11/24/16 11:59 10/29/16 12:13 Insulin Detemir 50 units 50 units Q12HR@0600,1800 SUBQ 10/29/16 18:00 11/28/16 17:59 Magnesium Sulfate 4000 mg/Sodium Chloride 558 ml @ 139.5 mls/ hr DAILY IVPB 10/28/16 09:00 11/27/16 08:59 10/29/16 09:10 Meropenem/Sodium Chloride (Merrem/Sodium Chloride) 100 ml @ 200 mls/hr Q8HR IVPB 10/25/16 22:00 10/31/16 23:59 10/29/16 05:45 Morphine Sulfate (Morphine Sulfate) 4 mg Q3H PRN IVP PAIN 4-10 10/29/16 09:30 11/05/16 09:29 10/29/16 10:01 Ondansetron HCl (Zofran) 4 mg Q6H PRN IVP Nausea & Vomiting 10/26/16 08:15 11/25/16 08:14 Pantoprazole (Protonix) 40 mg DAILY IV 10/16/16 09:00 11/15/16 08:59 10/29/16 09:20 Polymyxin B Sulfate 112212 units/Sodium Chloride 550 ml @ 550 mls/hr EVERY 12 HOURS IVPB 10/27/16 21:00 10/31/16 20:59 10/29/16 10:00 Trimethoprim/ Sulfamethoxazole (Bactrim-DS) 20 ml EVERY 12 HOURS NG 10/23/16 21:00 10/31/16 23:59 10/29/16 09:10 Vancomycin HCl (Vanco rx to dose) 1 ea DAILY PRN MISC Per rx protocol 10/16/16 07:15 11/15/16 07:14 Vancomycin HCl 1.25 gm/Sodium Chloride 275 ml @ 183.708 mls/hr Q8HR@0400,1200,2000 IVPB 10/27/16 20:00 10/31/16 23:59 10/29/16 03:40 JACOBY LO October 29, 2016 12:25
[2016-10-29] MEDS ORDERED: D5W 250 ML IVPB ONE (13:00)
--- NOTE | 2016-10-29 13:08 | General Progress Note ---
Assessment/Plan Assessment/Plan Na 151. On GT feeding. Increasing rate slowly. IVF changing to D5W 20 mEq KCL/L 100 cc/hr. Icreased dDAVP further to 5 units qam. Hyperglycemia ---->on Levemir further to 50 u q 12 hours. BG stable ~250 Improving slowly. Goal is to increase TF, decrease IVF DW Dr. Marshall Hudson from [facility] pt's private Enodrinologist [phone], who approve current patient's care. Subjective Allergies: Coded Allergies: No Known Allergies (Unverified , 09/01/12) Subjective Intubated. Alert and responsive. Post PEG Objective Last 24 Hour Vital Signs Date Time Temp Pulse Resp B/P Pulse Ox O2 Delivery O2 Flow Rate FiO2 10/29/16 12:00 98.6 149 16 121/88 99 Mechanical Ventilator 50 10/29/16 12:00 145 10/29/16 11:11 130 20 50 10/29/16 11:00 145 30 127/82 99 Mechanical Ventilator 50 10/29/16 10:00 142 28 135/84 99 Mechanical Ventilator 50 10/29/16 09:00 146 30 140/89 99 Mechanical Ventilator 50 10/29/16 08:55 99 Mechanical Ventilator 50 10/29/16 08:55 Mechanical Ventilator 50 10/29/16 08:52 154 16 100 10/29/16 08:25 50 10/29/16 08:00 98.5 150 28 130/90 97 Bi-pap 35 10/29/16 08:00 150 10/29/16 07:00 145 28 124/99 97 Bi-pap 35 10/29/16 06:00 136 10/29/16 06:00 144 28 156/88 97 Bi-pap 35 10/29/16 05:23 146 23 99 Full Face 35 10/29/16 05:00 137 23 152/90 98 Bi-pap 35 10/29/16 04:00 97.9 142 20 155/92 99 Bi-pap 35 10/29/16 03:00 137 30 173/89 98 Bi-pap 35 10/29/16 02:40 135 22 98 Full Face 35 10/29/16 02:00 127 26 150/76 100 Bi-pap 35 10/29/16 01:05 120 36 100 Full Face 35 10/29/16 01:00 110 26 137/75 98 Bi-pap 35 10/29/16 00:00 125 10/29/16 00:00 35 10/29/16 00:00 98.0 123 35 161/76 98 Bi-pap 35 10/28/16 23:00 123 25 158/87 99 Bi-pap 35 10/28/16 23:00 121 34 100 Full Face 35 10/28/16 22:00 122 38 148/85 100 Bi-pap 40 10/28/16 21:10 131 26 98 Full Face 40 10/28/16 21:00 120 28 136/76 100 Bi-pap 40 10/28/16 20:00 126 10/28/16 20:00 40 10/28/16 20:00 97.9 128 35 151/81 98 Bi-pap 40 10/28/16 19:00 128 30 125/71 98 Bi-pap 40 10/28/16 18:51 Bi-pap 40 10/28/16 18:51 98 Bi-pap 40 10/28/16 18:51 127 38 98 Full Face 40 10/28/16 18:00 125 28 148/76 98 Bi-pap 40 10/28/16 17:05 124 35 97 Full Face 40 10/28/16 17:00 115 26 144/88 98 Bi-pap 40 10/28/16 16:00 98 10/28/16 16:00 98.6 98 32 138/74 100 Bi-pap 40 10/28/16 15:00 101 35 119/67 99 Bi-pap 40 10/28/16 14:43 122 26 99 Full Face 40 10/28/16 14:00 109 32 165/82 100 Bi-pap 40 10/28/16 13:30 40 10/28/16 13:05 133 26 99 Full Face 40 Intake and Output 10/28/16 10/29/16 19:00 07:00 Intake Total 3140.4 ml 2835 ml Output Total 4650 ml 4430 ml Balance -1509.6 ml -1595 ml Free Water 80 ml IV Total 2650.4 ml 2400 ml Tube Feeding 330 ml 405 ml Other 80 ml 30 ml Output Urine Total 4650 ml 4430 ml # Bowel Movements 1 3 Laboratory Tests 10/28/16 13:20: Arterial Blood pH 7.370, Arterial Blood Partial Pressure CO2 58.9*H, Arterial Blood Partial Pressure O2 99.8, Arterial Blood HCO3 33.3H, Arterial Blood Oxygen Saturation 97.4, Arterial Blood Base Excess 6.2, Jamel Test Positive 10/29/16 03:36: White Blood Count 9.8, Red Blood Count 4.67L, Hemoglobin 13.8L, Hematocrit 41.8L , Mean Corpuscular Volume 89, Mean Corpuscular Hemoglobin 29.5, Mean Corpuscular Hemoglobin Concent 33.0, Red Cell Distribution Width 12.0, Platelet Count 410#, Mean Platelet Volume 7.2, Neutrophils (%) (Auto) 67.7, Lymphocytes ( %) (Auto) 9.6L, Monocytes (%) (Auto) 19.6H, Eosinophils (%) (Auto) 1.9, Basophils (%) (Auto) 1.2, Sodium Level 153#H, Potassium Level 4.4, Chloride Level 106, Carbon Dioxide Level 33H, Anion Gap 14, Blood Urea Nitrogen 7, Creatinine 0.7, Estimat Glomerular Filtration Rate > 60, Glucose Level 314H, Calcium Level 9.8, Magnesium Level 2.0 10/29/16 08:10: Arterial Blood pH 7.221*L, Arterial Blood Partial Pressure CO2 96.4*H, Arterial Blood Partial Pressure O2 93.2, Arterial Blood HCO3 38.7H, Arterial Blood Oxygen Saturation 95.7, Arterial Blood Base Excess 6.6, Jamel Test Positive 10/29/16 10:30: Arterial Blood pH 7.392, Arterial Blood Partial Pressure CO2 55.7*H, Arterial Blood Partial Pressure O2 562.3H, Arterial Blood HCO3 33.1H, Arterial Blood Oxygen Saturation 99.3H, Arterial Blood Base Excess 6.4, Jamel Test Positive 10/29/16 11:35: Vancomycin Level Trough 21.2H Height (Feet): 5 Height (Inches): 8.00 Weight (Pounds): 160 Objective Intubated. Tachycardic. Cv Tach. Lungs CTA Abd SNT. BS +. New PEG in E No CCE Dysphonic, decreased hearing. RENETTA SOMMER October 29, 2016 13:08
[2016-10-29] MEDS: Acetaminophen 650mg/20.3ml NG PRN (13:46)
[2016-10-29] MEDS: Vancomycin 1gm/D5W 275ml IVPB SCH ×4 (15:31→21:27)
[2016-10-29 16:00] LABS: ALANINE AMINOTRANSFERASE 177 U/L (3-41); ALBUMIN/GLOBULIN RATIO 0.7 (1.0-2.7); ANION GAP 14 (5-15); ASPARTATE AMINO TRANSFERASE 119 U/L (5-40); CALCIUM 9.6 mg/dL (8.6-10.2); CARBON DIOXIDE 30 mEQ/L (20-30); CHLORIDE 109 mEQ/L (98-107); CREATININE 0.9 mg/dL (0.7-1.2); GLOMERULAR FILTRATION RATE > 60 mL/min (>60); HEMOLYSIS 7; MAGNESIUM 2.8 mg/dL (1.7-2.5); PHOSPHORUS 1.9 mg/dL (2.5-4.8); POTASSIUM 4.9 mEQ/L (3.4-4.9); SODIUM 153 mEQ/L (135-145); TOTAL PROTEIN 7.3 g/dL (6.6-8.7)
[2016-10-29] MEDS ORDERED: Vancomycin 1.25 GM in NS 275 ML IVPB SCH (20:00)
[2016-10-29] MEDS ORDERED: CALCITRIOL 1 MCG IV SCH (23:00)
[2016-10-30] VITALS (24 sets, daily range): BP systolic 120–149; BP diastolic 65–88
[2016-10-30] MEDS: Vancomycin 1gm/D5W 275ml IVPB SCH ×6 (05:12→21:19)
[2016-10-30] MEDS: NovoLOG Insulin Flexpen SUBQ SCH ×4 (05:42→23:39)
[2016-10-30 05:44] LABS: BASOPHILS % (AUTO) 2.5 % (0.0-2.0); EOSINOPHILS % (AUTO) 3.1 % (0.0-3.0); MEAN CORPUSCULAR HEMOGLOBIN 29.6 PG (27.0-31.0); MEAN CORPUSCULAR HGB CONC 32.7 G/DL (32.0-36.0); MEAN CORPUSCULAR VOLUME 90 FL (80-99); MEAN PLATELET VOLUME 7.5 FL (6.5-10.1); MONOCYTES % (AUTO) 16.2 % (1.0-10.0); NEUTROPHILS % (AUTO) 66.3 % (45.0-75.0); PLATELET COUNT 427 K/UL (150-450); RED BLOOD COUNT 4.18 M/UL (4.70-6.10); RED CELL DISTRIBUTION WIDTH 12.2 % (11.6-14.8); WHITE BLOOD COUNT 10.9 K/UL (4.8-10.8)
[2016-10-30] MEDS: Levemir Flexpen SUBQ SCH ×2 (05:46→20:14)
[2016-10-30 06:21] LABS: ALANINE AMINOTRANSFERASE 152 U/L (3-41); ALBUMIN/GLOBULIN RATIO 0.6 (1.0-2.7); ANION GAP 13 (5-15); ASPARTATE AMINO TRANSFERASE 77 U/L (5-40); CALCIUM 9.9 mg/dL (8.6-10.2); CARBON DIOXIDE 32 mEQ/L (20-30); CHLORIDE 106 mEQ/L (98-107); CREATININE 0.7 mg/dL (0.7-1.2); GLOMERULAR FILTRATION RATE > 60 mL/min (>60); HEMOLYSIS 7; POTASSIUM 3.7 mEQ/L (3.4-4.9); SODIUM 151 mEQ/L (135-145)
--- NOTE | 2016-10-30 07:45 | General Progress Note ---
Assessment/Plan Assessment/Plan Na 151. On GT feeding. Increasing rate slowly. IVF changing to D5W 20 mEq KCL/L 100 cc/hr. Icreased dDAVP further to 5 units qam. Hyperglycemia ---->on Levemir further to 50 u q 12 hours. BG stable ~250 Improving slowly. Goal is to increase TF, decrease IVF DW Dr. Marshall Hudson from [facility] pt's private Enodrinologist [phone], who approve current patient's care. TF kept @ 20 cc per hour and during that time all his "septic" parameters improved. Asked GI to convert PEG to PEJ. Subjective Allergies: Coded Allergies: No Known Allergies (Unverified , 09/01/12) Subjective Intubated. Alert and responsive. Post PEG Objective Last 24 Hour Vital Signs Date Time Temp Pulse Resp B/P Pulse Ox O2 Delivery O2 Flow Rate FiO2 10/30/16 07:00 93 18 134/75 98 Mechanical Ventilator 35 10/30/16 06:46 88 16 35 10/30/16 06:00 98 18 132/79 98 Mechanical Ventilator 35 10/30/16 05:07 105 16 35 10/30/16 05:00 102 18 136/66 98 Mechanical Ventilator 35 10/30/16 04:00 98.4 114 18 136/77 98 Mechanical Ventilator 35 10/30/16 04:00 114 10/30/16 03:18 125 16 35 10/30/16 03:00 124 18 143/88 98 Mechanical Ventilator 35 10/30/16 02:00 94 18 144/77 98 Mechanical Ventilator 35 10/30/16 01:22 113 16 35 10/30/16 01:00 110 18 120/74 98 Mechanical Ventilator 35 10/30/16 00:00 97.8 120 18 124/71 98 Mechanical Ventilator 35 10/30/16 00:00 120 10/29/16 23:00 115 18 119/66 98 Mechanical Ventilator 35 10/29/16 22:56 116 16 35 10/29/16 22:00 132 18 149/84 98 Mechanical Ventilator 35 10/29/16 21:12 143 16 35 10/29/16 21:00 134 18 127/87 98 Mechanical Ventilator 35 10/29/16 20:00 128 10/29/16 20:00 50 10/29/16 20:00 97.8 128 18 131/90 98 Mechanical Ventilator 35 10/29/16 19:31 Mechanical Ventilator 35 10/29/16 19:30 98 Mechanical Ventilator 35 10/29/16 19:28 138 16 35 10/29/16 19:00 137 18 125/80 98 Mechanical Ventilator 35 10/29/16 18:00 98.2 141 17 134/89 98 Mechanical Ventilator 35 10/29/16 17:07 144 16 35 10/29/16 17:00 145 17 146/86 98 Mechanical Ventilator 35 10/29/16 16:00 99.3 150 21 104/74 99 Mechanical Ventilator 35 10/29/16 16:00 144 10/29/16 15:11 144 16 35 10/29/16 15:00 152 20 130/74 99 Mechanical Ventilator 35 10/29/16 14:16 98.1 10/29/16 14:00 100.4 149 24 121/81 99 Mechanical Ventilator 35 10/29/16 13:20 152 21 35 10/29/16 13:00 150 18 135/89 99 Mechanical Ventilator 35 10/29/16 12:00 98.6 149 16 121/88 99 Mechanical Ventilator 50 10/29/16 12:00 145 10/29/16 11:11 130 20 50 10/29/16 11:00 145 30 127/82 99 Mechanical Ventilator 50 10/29/16 10:00 142 28 135/84 99 Mechanical Ventilator 50 10/29/16 09:00 146 30 140/89 99 Mechanical Ventilator 50 10/29/16 08:55 99 Mechanical Ventilator 50 10/29/16 08:55 Mechanical Ventilator 50 10/29/16 08:52 154 16 100 10/29/16 08:25 50 10/29/16 08:00 98.5 150 28 130/90 97 Bi-pap 35 10/29/16 08:00 150 Intake and Output 10/29/16 10/30/16 19:00 07:00 Intake Total 2903.4 ml 3360.000 ml Output Total 3550 ml 850 ml Balance -646.6 ml 2510.000 ml Free Water 80 ml 80 ml IV Total 2393.4 ml 2800.000 ml Tube Feeding 360 ml 480 ml Other 70 ml Output Urine Total 3550 ml 850 ml Laboratory Tests 10/29/16 08:10: Arterial Blood pH 7.221*L, Arterial Blood Partial Pressure CO2 96.4*H, Arterial Blood Partial Pressure O2 93.2, Arterial Blood HCO3 38.7H, Arterial Blood Oxygen Saturation 95.7, Arterial Blood Base Excess 6.6, Jamel Test Positive 10/29/16 10:30: Arterial Blood pH 7.392, Arterial Blood Partial Pressure CO2 55.7*H, Arterial Blood Partial Pressure O2 562.3H, Arterial Blood HCO3 33.1H, Arterial Blood Oxygen Saturation 99.3H, Arterial Blood Base Excess 6.4, Jamel Test Positive 10/29/16 11:35: Vancomycin Level Trough 21.2H 10/29/16 15:15: Sodium Level 153H, Potassium Level 4.9, Chloride Level 109H, Carbon Dioxide Level 30, Anion Gap 14, Blood Urea Nitrogen 12, Creatinine 0.9, Estimat Glomerular Filtration Rate > 60, Glucose Level 504#*H, Calcium Level 9.6, Phosphorus Level 1.9L, Magnesium Level 2.8H, Total Bilirubin < 0.2, Aspartate Amino Transf (AST/SGOT) 119H, Alanine Aminotransferase (ALT/SGPT) 177H, Alkaline Phosphatase 182H, Pro-B-Type Natriuretic Peptide 34, Total Protein 7.3 , Albumin 3.2L, Globulin 4.1, Albumin/Globulin Ratio 0.7L 10/30/16 04:55: White Blood Count 10.9H, Red Blood Count 4.18L, Hemoglobin 12.4L, Hematocrit 37.8L, Mean Corpuscular Volume 90, Mean Corpuscular Hemoglobin 29.6, Mean Corpuscular Hemoglobin Concent 32.7, Red Cell Distribution Width 12.2, Platelet Count 427, Mean Platelet Volume 7.5, Neutrophils (%) (Auto) 66.3, Lymphocytes (% ) (Auto) 12.0L, Monocytes (%) (Auto) 16.2H, Eosinophils (%) (Auto) 3.1H, Basophils (%) (Auto) 2.5H, Sodium Level 151H, Potassium Level 3.7, Chloride Level 106, Carbon Dioxide Level 32H, Anion Gap 13, Blood Urea Nitrogen 9, Creatinine 0.7, Estimat Glomerular Filtration Rate > 60, Glucose Level 77#, Calcium Level 9.9, Total Bilirubin < 0.2, Aspartate Amino Transf (AST/SGOT) 77H , Alanine Aminotransferase (ALT/SGPT) 152H, Alkaline Phosphatase 160H, Total Protein 7.0, Albumin 2.8L, Globulin 4.2, Albumin/Globulin Ratio 0.6L Height (Feet): 5 Height (Inches): 8.00 Weight (Pounds): 160 Objective Intubated. Tachycardic. Cv Tach. Lungs CTA Abd SNT. BS +. New PEG in E No CCE Dysphonic, decreased hearing. RENETTA SOMMER October 30, 2016 07:45
[2016-10-30] MEDS: D5W w/KCl 20mEq 1,000 ML IV SCH ×3 (08:03→23:47)
[2016-10-30] MEDS: SODIUM CHLORIDE IVPB SCH ×2 (08:06→20:17)
[2016-10-30] MEDS: POLYMYXIN B SULFATE IVPB SCH ×2 (08:06→20:17)
[2016-10-30] MEDS: Pantoprazole Inj IV SCH (08:24)
[2016-10-30] MEDS: Bactrim Susp 20ml NG SCH ×2 (08:25→20:17)
[2016-10-30] MEDS: Docusate 100mg/10ml Liq NG SCH ×2 (08:25→18:00)
[2016-10-30] MEDS: DESMOPRESSIN IV SCH (08:26)
[2016-10-30] MEDS: NS IV SCH (08:26)
[2016-10-30] MEDS: Heparin 5000 units/ml inj SUBQ SCH ×2 (08:26→20:44)
--- NOTE | 2016-10-30 08:46 | Diagnostic Imaging Report ---
Indication: Status post intubation Technique: XRAY CHEST 1 V Comparison: 10/29/16 at 0849 hours Findings: Endotracheal tube is in satisfactory position 3 cm above the cee. Cardiomediastinal silhouette is stable. Lungs are clear. Osseous structures demonstrate no acute abnormality. Gastrostomy tube is noted. Impression: Satisfactory repositioning of the endotracheal tube.
[2016-10-30 08:56] LABS: MAGNESIUM 1.9 mg/dL (1.7-2.5); PHOSPHORUS 2.6 mg/dL (2.5-4.8)
--- NOTE | 2016-10-30 09:15 | Critical Care Progress Note ---
Assessment/Plan Assessment/Plan s/p bronchoscopy pulmonary infiltrates respiratory failure- reintubated aspiration event leukocytosis anemia sinus tachycardia agitation chronic co2 retention with acute retention MDR sputum PLAN intubated and abg noted followup for change underwent GT tube feeds per PMD ICU care may need trach will try to wean again on low flow oxygen at present Critical Care - Subjective Interval Events: reintubated d/w family explained overall status now more alert ROS Limited/Unobtainable: Yes Condition: critical EKG Rhythm: Sinus Tachycardia I&O: Intake and Output 10/29/16 10/30/16 19:00 07:00 Intake Total 2903.4 ml 3360.000 ml Output Total 3550 ml 850 ml Balance -646.6 ml 2510.000 ml Free Water 80 ml 80 ml IV Total 2393.4 ml 2800.000 ml Tube Feeding 360 ml 480 ml Other 70 ml Output Urine Total 3550 ml 850 ml Critical Care - Objective CXR: fairly clear ET-Tube: 7.5 ET Position: 22 Last 24 Hour Vital Signs Date Time Temp Pulse Resp B/P Pulse Ox O2 Delivery O2 Flow Rate FiO2 10/30/16 07:00 93 18 134/75 98 Mechanical Ventilator 35 10/30/16 06:46 88 16 35 10/30/16 06:00 98 18 132/79 98 Mechanical Ventilator 35 10/30/16 05:07 105 16 35 10/30/16 05:00 102 18 136/66 98 Mechanical Ventilator 35 10/30/16 04:00 98.4 114 18 136/77 98 Mechanical Ventilator 35 10/30/16 04:00 114 10/30/16 03:18 125 16 35 10/30/16 03:00 124 18 143/88 98 Mechanical Ventilator 35 10/30/16 02:00 94 18 144/77 98 Mechanical Ventilator 35 10/30/16 01:22 113 16 35 10/30/16 01:00 110 18 120/74 98 Mechanical Ventilator 35 10/30/16 00:00 97.8 120 18 124/71 98 Mechanical Ventilator 35 10/30/16 00:00 120 10/29/16 23:00 115 18 119/66 98 Mechanical Ventilator 35 10/29/16 22:56 116 16 35 10/29/16 22:00 132 18 149/84 98 Mechanical Ventilator 35 10/29/16 21:12 143 16 35 10/29/16 21:00 134 18 127/87 98 Mechanical Ventilator 35 10/29/16 20:00 128 10/29/16 20:00 50 10/29/16 20:00 97.8 128 18 131/90 98 Mechanical Ventilator 35 10/29/16 19:31 Mechanical Ventilator 35 10/29/16 19:30 98 Mechanical Ventilator 35 10/29/16 19:28 138 16 35 10/29/16 19:00 137 18 125/80 98 Mechanical Ventilator 35 10/29/16 18:00 98.2 141 17 134/89 98 Mechanical Ventilator 35 10/29/16 17:07 144 16 35 10/29/16 17:00 145 17 146/86 98 Mechanical Ventilator 35 10/29/16 16:00 99.3 150 21 104/74 99 Mechanical Ventilator 35 10/29/16 16:00 144 10/29/16 15:11 144 16 35 10/29/16 15:00 152 20 130/74 99 Mechanical Ventilator 35 10/29/16 14:16 98.1 10/29/16 14:00 100.4 149 24 121/81 99 Mechanical Ventilator 35 10/29/16 13:20 152 21 35 10/29/16 13:00 150 18 135/89 99 Mechanical Ventilator 35 10/29/16 12:00 98.6 149 16 121/88 99 Mechanical Ventilator 50 10/29/16 12:00 145 10/29/16 11:11 130 20 50 10/29/16 11:00 145 30 127/82 99 Mechanical Ventilator 50 10/29/16 10:00 142 28 135/84 99 Mechanical Ventilator 50 Labs: Labs Test 10/27/16 10:30 10/27/16 16:15 10/28/16 04:36 10/28/16 13:20 Urine Osmolality 289 mOsmol/kg (.) Sodium Level 122 mEQ/L (135-145) 125 mEQ/L (135-145) White Blood Count 10.6 K/UL (4.8-10.8) Red Blood Count 4.11 M/UL (4.70-6.10) Hemoglobin 12.3 G/DL (14.2-18.0) Hematocrit 35.9 % (42.0-52.0) Mean Corpuscular Volume 87 FL (80-99) Mean Corpuscular Hemoglobin 30.0 PG (27.0-31.0) Mean Corpuscular Hemoglobin Concent 34.4 G/DL (32.0-36.0) Red Cell Distribution Width 11.2 % (11.6-14.8) Platelet Count 262 K/UL (150-450) Mean Platelet Volume 7.8 FL (6.5-10.1) Neutrophils (%) (Auto) 72.1 % (45.0-75.0) Lymphocytes (%) (Auto) 10.9 % (20.0-45.0) Monocytes (%) (Auto) 13.6 % (1.0-10.0) Eosinophils (%) (Auto) 2.7 % (0.0-3.0) Basophils (%) (Auto) 0.7 % (0.0-2.0) Potassium Level 4.5 mEQ/L (3.4-4.9) Chloride Level 86 mEQ/L (98-107) Carbon Dioxide Level 28 mEQ/L (20-30) Anion Gap 11 (5-15) Blood Urea Nitrogen 4 mg/dL (7-23) Creatinine 0.6 mg/dL (0.7-1.2) Estimat Glomerular Filtration Rate > 60 mL/min (>60) Glucose Level 240 mg/dL (74-106) Calcium Level 8.4 mg/dL (8.6-10.2) Magnesium Level 1.6 mg/dL (1.7-2.5) Arterial Blood pH 7.370 (7.350-7.450) Arterial Blood Partial Pressure CO2 58.9 mmHg (35.0-45.0) Arterial Blood Partial Pressure O2 99.8 mmHg (75.0-100.0) Arterial Blood HCO3 33.3 mmol/L (22.0-26.0) Arterial Blood Oxygen Saturation 97.4 % (92.0-98.0) Arterial Blood Base Excess 6.2 Jamel Test Positive Test 10/29/16 03:36 10/29/16 08:10 10/29/16 10:30 10/29/16 11:35 White Blood Count 9.8 K/UL (4.8-10.8) Red Blood Count 4.67 M/UL (4.70-6.10) Hemoglobin 13.8 G/DL (14.2-18.0) Hematocrit 41.8 % (42.0-52.0) Mean Corpuscular Volume 89 FL (80-99) Mean Corpuscular Hemoglobin 29.5 PG (27.0-31.0) Mean Corpuscular Hemoglobin Concent 33.0 G/DL (32.0-36.0) Red Cell Distribution Width 12.0 % (11.6-14.8) Platelet Count 410 K/UL (150-450) Mean Platelet Volume 7.2 FL (6.5-10.1) Neutrophils (%) (Auto) 67.7 % (45.0-75.0) Lymphocytes (%) (Auto) 9.6 % (20.0-45.0) Monocytes (%) (Auto) 19.6 % (1.0-10.0) Eosinophils (%) (Auto) 1.9 % (0.0-3.0) Basophils (%) (Auto) 1.2 % (0.0-2.0) Sodium Level 153 mEQ/L (135-145) Potassium Level 4.4 mEQ/L (3.4-4.9) Chloride Level 106 mEQ/L (98-107) Carbon Dioxide Level 33 mEQ/L (20-30) Anion Gap 14 (5-15) Blood Urea Nitrogen 7 mg/dL (7-23) Creatinine 0.7 mg/dL (0.7-1.2) Estimat Glomerular Filtration Rate > 60 mL/min (>60) Glucose Level 314 mg/dL (74-106) Calcium Level 9.8 mg/dL (8.6-10.2) Magnesium Level 2.0 mg/dL (1.7-2.5) Arterial Blood pH 7.221 (7.350-7.450) 7.392 (7.350-7.450) Arterial Blood Partial Pressure CO2 96.4 mmHg (35.0-45.0) 55.7 mmHg (35.0-45.0) Arterial Blood Partial Pressure O2 93.2 mmHg (75.0-100.0) 562.3 mmHg (75.0-100.0) Arterial Blood HCO3 38.7 mmol/L (22.0-26.0) 33.1 mmol/L (22.0-26.0) Arterial Blood Oxygen Saturation 95.7 % (92.0-98.0) 99.3 % (92.0-98.0) Arterial Blood Base Excess 6.6 6.4 Jamel Test Positive Positive Vancomycin Level Trough 21.2 ug/mL (5.0-12.0) Test 10/29/16 15:15 10/30/16 04:55 Sodium Level 153 mEQ/L (135-145) 151 mEQ/L (135-145) Potassium Level 4.9 mEQ/L (3.4-4.9) 3.7 mEQ/L (3.4-4.9) Chloride Level 109 mEQ/L (98-107) 106 mEQ/L (98-107) Carbon Dioxide Level 30 mEQ/L (20-30) 32 mEQ/L (20-30) Anion Gap 14 (5-15) 13 (5-15) Blood Urea Nitrogen 12 mg/dL (7-23) 9 mg/dL (7-23) Creatinine 0.9 mg/dL (0.7-1.2) 0.7 mg/dL (0.7-1.2) Estimat Glomerular Filtration Rate > 60 mL/min (>60) > 60 mL/min (>60) Glucose Level 504 mg/dL (74-106) 77 mg/dL (74-106) Calcium Level 9.6 mg/dL (8.6-10.2) 9.9 mg/dL (8.6-10.2) Phosphorus Level 1.9 mg/dL (2.5-4.8) 2.6 mg/dL (2.5-4.8) Magnesium Level 2.8 mg/dL (1.7-2.5) 1.9 mg/dL (1.7-2.5) Total Bilirubin < 0.2 mg/dL (0.0-1.2) < 0.2 mg/dL (0.0-1.2) Aspartate Amino Transf (AST/SGOT) 119 U/L (5-40) 77 U/L (5-40) Alanine Aminotransferase (ALT/SGPT) 177 U/L (3-41) 152 U/L (3-41) Alkaline Phosphatase 182 U/L (40-129) 160 U/L (40-129) Pro-B-Type Natriuretic Peptide 34 pg/mL (0-125) Total Protein 7.3 g/dL (6.6-8.7) 7.0 g/dL (6.6-8.7) Albumin 3.2 g/dL (3.5-5.2) 2.8 g/dL (3.5-5.2) Globulin 4.1 g/dL 4.2 g/dL Albumin/Globulin Ratio 0.7 (1.0-2.7) 0.6 (1.0-2.7) White Blood Count 10.9 K/UL (4.8-10.8) Red Blood Count 4.18 M/UL (4.70-6.10) Hemoglobin 12.4 G/DL (14.2-18.0) Hematocrit 37.8 % (42.0-52.0) Mean Corpuscular Volume 90 FL (80-99) Mean Corpuscular Hemoglobin 29.6 PG (27.0-31.0) Mean Corpuscular Hemoglobin Concent 32.7 G/DL (32.0-36.0) Red Cell Distribution Width 12.2 % (11.6-14.8) Platelet Count 427 K/UL (150-450) Mean Platelet Volume 7.5 FL (6.5-10.1) Neutrophils (%) (Auto) 66.3 % (45.0-75.0) Lymphocytes (%) (Auto) 12.0 % (20.0-45.0) Monocytes (%) (Auto) 16.2 % (1.0-10.0) Eosinophils (%) (Auto) 3.1 % (0.0-3.0) Basophils (%) (Auto) 2.5 % (0.0-2.0) Objective: WDWN intubated reduced LOC reduced breath sounds bilaterally with no rhonchi [id number] tachy without MRG NABS nontender no HSM no CCE nonfocal awake Micro: Microbiology Date/Time Source Procedure Growth Status 10/29/16 13:20 Sputum Gram Stain - Final Resulted 10/29/16 13:20 Sputum Sputum Culture - Preliminary NO GROWTH Resulted Accucheck: 84 IZABEL HASTINGS October 30, 2016 09:15
[2016-10-30] MEDS ORDERED: NS 275ml ONE ×3 (10:04→10:06)
[2016-10-30] MEDS ORDERED: D5W 275ml ONE (10:06)
[2016-10-30] MEDS ORDERED: Tubing IV Secondary IV ONE (10:06)
[2016-10-30] MEDS ORDERED: Tubing Blood Filter IV ONE (10:06)
--- NOTE | 2016-10-30 11:18 | Diagnostic Imaging Report ---
Indication: Dyspnea Comparison: 10/29/16 A single view chest radiograph was obtained. Findings: Cardiomediastinal appearance is within normal limits for age. Endotracheal tube is slightly high but acceptable in position. Gastrostomy noted. Pulmonary vascularity is appropriate. The diaphragmatic contour is smooth and costophrenic angles are sharp. No pleural effusions are identified. The bones are unremarkable. Impression: No acute findings
--- NOTE | 2016-10-30 12:24 | Neurology Progress Note ---
Interim History Interim History ROS Limited/Unobtainable: Yes Objective Physical Exam Last Vital Signs Date Time Temp Pulse Resp B/P Pulse Ox O2 Delivery O2 Flow Rate FiO2 10/30/16 12:00 98.1 112 20 130/70 100 Mechanical Ventilator 35 10/28/16 07:58 8.0 Laboratory Tests Test 10/29/16 15:15 10/30/16 04:55 Sodium Level 153 mEQ/L (135-145) H 151 mEQ/L (135-145) H Potassium Level 4.9 mEQ/L (3.4-4.9) 3.7 mEQ/L (3.4-4.9) Chloride Level 109 mEQ/L (98-107) H 106 mEQ/L (98-107) Carbon Dioxide Level 30 mEQ/L (20-30) 32 mEQ/L (20-30) H Anion Gap 14 (5-15) 13 (5-15) Blood Urea Nitrogen 12 mg/dL (7-23) 9 mg/dL (7-23) Creatinine 0.9 mg/dL (0.7-1.2) 0.7 mg/dL (0.7-1.2) Estimat Glomerular Filtration Rate > 60 mL/min (>60) > 60 mL/min (>60) Glucose Level 504 mg/dL (74-106) #*H 77 mg/dL (74-106) # Calcium Level 9.6 mg/dL (8.6-10.2) 9.9 mg/dL (8.6-10.2) Phosphorus Level 1.9 mg/dL (2.5-4.8) L 2.6 mg/dL (2.5-4.8) Magnesium Level 2.8 mg/dL (1.7-2.5) H 1.9 mg/dL (1.7-2.5) Total Bilirubin < 0.2 mg/dL (0.0-1.2) < 0.2 mg/dL (0.0-1.2) Aspartate Amino Transf (AST/SGOT) 119 U/L (5-40) H 77 U/L (5-40) H Alanine Aminotransferase (ALT/SGPT) 177 U/L (3-41) H 152 U/L (3-41) H Alkaline Phosphatase 182 U/L (40-129) H 160 U/L (40-129) H Pro-B-Type Natriuretic Peptide 34 pg/mL (0-125) Total Protein 7.3 g/dL (6.6-8.7) 7.0 g/dL (6.6-8.7) Albumin 3.2 g/dL (3.5-5.2) L 2.8 g/dL (3.5-5.2) L Globulin 4.1 g/dL 4.2 g/dL Albumin/Globulin Ratio 0.7 (1.0-2.7) L 0.6 (1.0-2.7) L White Blood Count 10.9 K/UL (4.8-10.8) H Red Blood Count 4.18 M/UL (4.70-6.10) L Hemoglobin 12.4 G/DL (14.2-18.0) L Hematocrit 37.8 % (42.0-52.0) L Mean Corpuscular Volume 90 FL (80-99) Mean Corpuscular Hemoglobin 29.6 PG (27.0-31.0) Mean Corpuscular Hemoglobin Concent 32.7 G/DL (32.0-36.0) Red Cell Distribution Width 12.2 % (11.6-14.8) Platelet Count 427 K/UL (150-450) Mean Platelet Volume 7.5 FL (6.5-10.1) Neutrophils (%) (Auto) 66.3 % (45.0-75.0) Lymphocytes (%) (Auto) 12.0 % (20.0-45.0) L Monocytes (%) (Auto) 16.2 % (1.0-10.0) H Eosinophils (%) (Auto) 3.1 % (0.0-3.0) H Basophils (%) (Auto) 2.5 % (0.0-2.0) H Impression/Recommendations Problems: (1) 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
--- NOTE | 2016-10-30 13:53 | GI Progress Note ---
Assessment/Plan Problems: (1) Abnormal LFTs ICD Codes: R79.89 - Other specified abnormal findings of blood chemistry SNOMED: 889718923 (2) Hypoalbuminemia ICD Codes: E88.09 - Other disorders of plasma-protein metabolism, not elsewhere classified SNOMED: 486912288 (3) G tube feedings ICD Codes: Z93.1 - Gastrostomy status SNOMED: 488980335, 899674571 (4) Choking due to food in larynx ICD Codes: T17.320A - Food in larynx causing asphyxiation, initial encounter SNOMED: 58357772 Status: unchanged Status Narrative Discussed with Dr. Reddy. Assessment/Plan s/p PEG GTFs to goal >> vital AF GT site care daily/prn monitor LFTs ppi fu labs Subjective Subjective limited Objective Last 24 Hour Vital Signs Date Time Temp Pulse Resp B/P Pulse Ox O2 Delivery O2 Flow Rate FiO2 10/30/16 13:29 101 16 35 10/30/16 13:00 99 24 137/76 100 Mechanical Ventilator 35 10/30/16 12:00 103 10/30/16 12:00 98.1 112 20 130/70 100 Mechanical Ventilator 35 10/30/16 11:03 94 16 35 10/30/16 11:00 95 20 141/65 100 Mechanical Ventilator 35 10/30/16 10:00 101 20 136/71 100 Mechanical Ventilator 35 10/30/16 09:08 85 16 35 10/30/16 09:00 120 18 149/75 98 Mechanical Ventilator 35 10/30/16 08:00 124 10/30/16 08:00 98.0 125 24 129/72 98 Mechanical Ventilator 35 10/30/16 08:00 50 10/30/16 07:00 93 18 134/75 98 Mechanical Ventilator 35 10/30/16 06:46 88 16 35 10/30/16 06:00 98 18 132/79 98 Mechanical Ventilator 35 10/30/16 05:07 105 16 35 10/30/16 05:00 102 18 136/66 98 Mechanical Ventilator 35 10/30/16 04:00 98.4 114 18 136/77 98 Mechanical Ventilator 35 10/30/16 04:00 114 10/30/16 03:18 125 16 35 10/30/16 03:00 124 18 143/88 98 Mechanical Ventilator 35 10/30/16 02:00 94 18 144/77 98 Mechanical Ventilator 35 10/30/16 01:22 113 16 35 10/30/16 01:00 110 18 120/74 98 Mechanical Ventilator 35 10/30/16 00:00 97.8 120 18 124/71 98 Mechanical Ventilator 35 10/30/16 00:00 120 10/29/16 23:00 115 18 119/66 98 Mechanical Ventilator 35 10/29/16 22:56 116 16 35 10/29/16 22:00 132 18 149/84 98 Mechanical Ventilator 35 10/29/16 21:12 143 16 35 10/29/16 21:00 134 18 127/87 98 Mechanical Ventilator 35 10/29/16 20:00 128 10/29/16 20:00 50 10/29/16 20:00 97.8 128 18 131/90 98 Mechanical Ventilator 35 10/29/16 19:31 Mechanical Ventilator 35 10/29/16 19:30 98 Mechanical Ventilator 35 10/29/16 19:28 138 16 35 10/29/16 19:00 137 18 125/80 98 Mechanical Ventilator 35 10/29/16 18:00 98.2 141 17 134/89 98 Mechanical Ventilator 35 10/29/16 17:07 144 16 35 10/29/16 17:00 145 17 146/86 98 Mechanical Ventilator 35 10/29/16 16:00 99.3 150 21 104/74 99 Mechanical Ventilator 35 10/29/16 16:00 144 10/29/16 15:11 144 16 35 10/29/16 15:00 152 20 130/74 99 Mechanical Ventilator 35 10/29/16 14:16 98.1 10/29/16 14:00 100.4 149 24 121/81 99 Mechanical Ventilator 35 Intake and Output 10/29/16 10/30/16 19:00 07:00 Intake Total 2903.4 ml 3360.000 ml Output Total 3550 ml 850 ml Balance -646.6 ml 2510.000 ml Free Water 80 ml 80 ml IV Total 2393.4 ml 2800.000 ml Tube Feeding 360 ml 480 ml Other 70 ml Output Urine Total 3550 ml 850 ml Laboratory Tests Test 10/29/16 15:15 10/30/16 04:55 Sodium Level 153 mEQ/L (135-145) H 151 mEQ/L (135-145) H Potassium Level 4.9 mEQ/L (3.4-4.9) 3.7 mEQ/L (3.4-4.9) Chloride Level 109 mEQ/L (98-107) H 106 mEQ/L (98-107) Carbon Dioxide Level 30 mEQ/L (20-30) 32 mEQ/L (20-30) H Anion Gap 14 (5-15) 13 (5-15) Blood Urea Nitrogen 12 mg/dL (7-23) 9 mg/dL (7-23) Creatinine 0.9 mg/dL (0.7-1.2) 0.7 mg/dL (0.7-1.2) Estimat Glomerular Filtration Rate > 60 mL/min (>60) > 60 mL/min (>60) Glucose Level 504 mg/dL (74-106) #*H 77 mg/dL (74-106) # Calcium Level 9.6 mg/dL (8.6-10.2) 9.9 mg/dL (8.6-10.2) Phosphorus Level 1.9 mg/dL (2.5-4.8) L 2.6 mg/dL (2.5-4.8) Magnesium Level 2.8 mg/dL (1.7-2.5) H 1.9 mg/dL (1.7-2.5) Total Bilirubin < 0.2 mg/dL (0.0-1.2) < 0.2 mg/dL (0.0-1.2) Aspartate Amino Transf (AST/SGOT) 119 U/L (5-40) H 77 U/L (5-40) H Alanine Aminotransferase (ALT/SGPT) 177 U/L (3-41) H 152 U/L (3-41) H Alkaline Phosphatase 182 U/L (40-129) H 160 U/L (40-129) H Pro-B-Type Natriuretic Peptide 34 pg/mL (0-125) Total Protein 7.3 g/dL (6.6-8.7) 7.0 g/dL (6.6-8.7) Albumin 3.2 g/dL (3.5-5.2) L 2.8 g/dL (3.5-5.2) L Globulin 4.1 g/dL 4.2 g/dL Albumin/Globulin Ratio 0.7 (1.0-2.7) L 0.6 (1.0-2.7) L White Blood Count 10.9 K/UL (4.8-10.8) H Red Blood Count 4.18 M/UL (4.70-6.10) L Hemoglobin 12.4 G/DL (14.2-18.0) L Hematocrit 37.8 % (42.0-52.0) L Mean Corpuscular Volume 90 FL (80-99) Mean Corpuscular Hemoglobin 29.6 PG (27.0-31.0) Mean Corpuscular Hemoglobin Concent 32.7 G/DL (32.0-36.0) Red Cell Distribution Width 12.2 % (11.6-14.8) Platelet Count 427 K/UL (150-450) Mean Platelet Volume 7.5 FL (6.5-10.1) Neutrophils (%) (Auto) 66.3 % (45.0-75.0) Lymphocytes (%) (Auto) 12.0 % (20.0-45.0) L Monocytes (%) (Auto) 16.2 % (1.0-10.0) H Eosinophils (%) (Auto) 3.1 % (0.0-3.0) H Basophils (%) (Auto) 2.5 % (0.0-2.0) H Height (Feet): 5 Height (Inches): 8.00 Weight (Pounds): 160 General Appearance: no apparent distress, alert Cardiovascular: normal rate Respiratory/Chest: other - [facility] vent Abdominal Exam: site - c/d/i Emma Hyman N.P. October 30, 2016 13:53
[2016-10-30 15:23] LABS: ABG ALLEN TEST POSITIVE; ABG BASE EXCESS 4.8; ABG PCO2 49.2 mmHg (35.0-45.0)
--- NOTE | 2016-10-30 21:00 | Consultation ---
DATE OF CONSULTATION: 10/30/2016 NEUROLOGICAL CONSULTATION: REQUESTING PHYSICIAN: Sky Park M.D. 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 He has a two years history of progressive difficulty swallowing, gait abnormality, and neurogenic bladder. The patient was admitted to this hospital with the difficulty swallowing with the signs of respiratory insufficiency. He is status post bronchoscopy found to have pulmonary infiltrate, probably developed aspiration event, presented initially on ventilator, BiPAP was placed. The patient was scheduled for repeated bronchoscopy. CT of the chest was obtained, this revealed dense consolidation in the left upper lobe and left lower lobe reflecting pneumonia. Initially satisfactory endotracheal and nasogastric intubations noted. There was a gastric distention despite the presence of a nasogastric tube, possible right hydronephrosis incompletely visualized. Review of swallow study was obtained, this revealed abnormal oropharyngeal mechanical tracheal aspiration, laryngeal penetration of liquid consistency . There is a moderate post swallow pharyngeal dysphagia. There was apparent esophageal dysmotility without obvious peristalsis. The patient was placed on G-tube feeding. Aspiration pneumonia grew Acinetobacter and Klebsiella. There is evidence of sepsis with fever and leukocytosis. The patient again was reintubated due to progressive respiratory failure. Presence of progressive neurological illness was suspected and Neurology consult was requested. Latest laboratory studies included a CBC study with WBC 10.9, hemoglobin 12.4, hematocrit 37.8. Chemistry panel, blood sugar of 544 down to 77. Elevated AST 119, ALT 177, and alkaline phosphatase 182. Sodium 153. Urinalysis , 40 to 60 RBCs and 1+ ketones. Normal TSH . Normal calcium level. Hemoglobin A1c of 7.7. PAST MEDICAL HISTORY: The patient has a Wolfram syndrome, which includes diabetes insipidus, diabetes mellitus, optic atrophy with legal blindness, and hearing loss. In addition, last two years the patient developed gait abnormality. Previous studies, vitamin B12, folate, vitamin E, and vitamin D level were reported as negative. Previous radiological studies included imaging from [facility] noting "worsening atrophy of brain stem/cerebellum, which may occur in Wolfram syndrome ". He has evidence of neurogenic bladder with some hypoglycemic episodes and history of tachycardia. SOCIAL HISTORY: Lives with his family. No alcohol. No drug abuse. Nonsmoker. FAMILY HISTORY: Noncontributory. REVIEW OF SYMPTOMS: Unable to obtain due to the patient's status. PHYSICAL EXAMINATION: GENERAL: The patient is a well-developed and well-nourished man, not in acute distress, lying comfortably in bed. His mother at bedside. VITAL SIGNS: Blood pressure 130/70, respirations 18, and heart rate of 113. HEENT: Head normocephalic. No evidence of injuries. Eyes, ears, and throat are clear. NECK: Supple. No meningeal signs. MUSCULOSKELETAL: No deformities noted. PERIPHERAL PULSES: A 1+ symmetric. MENTAL STATUS: The patient is awake, follows commands properly, nodding yes and no. CRANIAL NERVES II: Pupils are 3 mm responding to light and accommodation. Extraocular movement full range. Visual acuity, light perception only. CRANIAL NERVE VII: No facial asymmetry. CRANIAL NERVE VIII: Decreased hearing. CRANIAL NERVES IX THROUGH XII: Reduced gag response. Tongue is in midline. MOTOR EXAMINATION: Normal muscle tone. Strength 5/5 in both arms and legs. No involuntary movement. Deep reflexes 1+ bilaterally symmetric. Plantar response is flexor. SENSORY EXAMINATION: Normal to pin stimulation. Gait not tested. IMPRESSION: 1. 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 2. Aspiration pneumonia. 3. Gastrostomy tube in place. DISCUSSION: The patient has a progressive neurological deterioration due to degenerative disease of the brain affect causing optic atrophy, hearing loss, as well as progressive atrophy of the brain stem and cerebellum. As a result, the patient developed aspiration pneumonia with respiratory failure, dysphagia required G-tube, as well as metabolic derangement with hypernatremia, low magnesium level, as well as abnormal liver enzymes. Latest MRI of the brain was done more than a year ago and we will recommend to obtained another study for interval assessment. Physical and occupational therapy to assist with ambulation. Meanwhile, the patient continue with the treatment to address issue of pneumonia and respiratory failure. We will follow with you. Thank you for allowing me to see this interesting patient in neurological consultation. Nate Louis M.D. DR: Willis JOB#: [id number] CC:
[2016-10-31] VITALS (24 sets, daily range): BP systolic 114–146; BP diastolic 61–84
[2016-10-31 05:34] LABS: BASOPHILS % (AUTO) 1.2 % (0.0-2.0); EOSINOPHILS % (AUTO) 4.3 % (0.0-3.0); LYMPHOCYTES % (AUTO) 23.5 % (20.0-45.0); MEAN CORPUSCULAR HEMOGLOBIN 29.6 PG (27.0-31.0); MEAN CORPUSCULAR HGB CONC 32.8 G/DL (32.0-36.0); MEAN CORPUSCULAR VOLUME 90 FL (80-99); MEAN PLATELET VOLUME 6.7 FL (6.5-10.1); MONOCYTES % (AUTO) 14.2 % (1.0-10.0); NEUTROPHILS % (AUTO) 56.8 % (45.0-75.0); PLATELET COUNT 379 K/UL (150-450); RED BLOOD COUNT 3.34 M/UL (4.70-6.10); RED CELL DISTRIBUTION WIDTH 12.1 % (11.6-14.8); WHITE BLOOD COUNT 9.1 K/UL (4.8-10.8)
[2016-10-31 05:52] LABS: ALANINE AMINOTRANSFERASE 123 U/L (3-41); ALBUMIN/GLOBULIN RATIO 0.5 (1.0-2.7); ANION GAP 14 (5-15); ASPARTATE AMINO TRANSFERASE 114 U/L (5-40); CALCIUM 9.1 mg/dL (8.6-10.2); CARBON DIOXIDE 26 mEQ/L (20-30); CHLORIDE 95 mEQ/L (98-107); CREATININE 0.7 mg/dL (0.7-1.2); GLOMERULAR FILTRATION RATE > 60 mL/min (>60); HEMOLYSIS 87; MAGNESIUM 1.2 mg/dL (1.7-2.5); PHOSPHORUS 2.5 mg/dL (2.5-4.8); POTASSIUM 4.7 mEQ/L (3.4-4.9); SODIUM 135 mEQ/L (135-145); TOTAL PROTEIN 5.8 g/dL (6.6-8.7)
[2016-10-31] MEDS: Levemir Flexpen SUBQ SCH ×2 (06:22→18:00)
[2016-10-31] MEDS: NovoLOG Insulin Flexpen SUBQ SCH ×3 (06:24→18:00)
[2016-10-31] MEDS: D5W w/KCl 20mEq 1,000 ML IV SCH ×2 (07:52→17:10)
[2016-10-31] MEDS: Docusate 100mg/10ml Liq NG SCH ×2 (09:00→18:00)
[2016-10-31] MEDS: POLYMYXIN B SULFATE IVPB SCH (09:22)
[2016-10-31] MEDS: SODIUM CHLORIDE IVPB SCH (09:22)
[2016-10-31] MEDS: Bactrim Susp 20ml NG SCH ×2 (09:23→20:44)
[2016-10-31] MEDS: DESMOPRESSIN IV SCH (09:23)
[2016-10-31] MEDS: Pantoprazole Inj IV SCH (09:23)
[2016-10-31] MEDS: NS IV SCH (09:23)
[2016-10-31] MEDS: Heparin 5000 units/ml inj SUBQ SCH ×2 (09:26→20:46)
--- NOTE | 2016-10-31 09:33 | Critical Care Progress Note ---
Assessment/Plan Assessment/Plan s/p bronchoscopy pulmonary infiltrates respiratory failure- reintubated aspiration event leukocytosis anemia sinus tachycardia agitation chronic co2 retention with acute retention MDR sputum PLAN retry wean if fails after extubation, would recommend trach followup for change underwent GT tube feeds per PMD ICU care for now will try to wean again today on low flow oxygen at present and imaging negative Critical Care - Subjective Interval Events: comfortable overnight NAD ROS Limited/Unobtainable: Yes Condition: critical EKG Rhythm: Sinus Tachycardia I&O: Intake and Output 10/30/16 10/31/16 19:00 07:00 Intake Total 2921.25 ml 2853.708 ml Output Total 1340 ml 940 ml Balance 1581.25 ml 1913.708 ml Free Water 80 ml 80 ml IV Total 2481.25 ml 2533.708 ml Tube Feeding 240 ml 240 ml Other 120 ml Output Urine Total 1340 ml 940 ml # Bowel Movements 4 Critical Care - Objective CXR: nad ET-Tube: 7.5 ET Position: 22 Last 24 Hour Vital Signs Date Time Temp Pulse Resp B/P Pulse Ox O2 Delivery O2 Flow Rate FiO2 10/31/16 08:33 98 20 35 10/31/16 07:00 83 23 146/82 100 Mechanical Ventilator 35 10/31/16 06:40 92 20 35 10/31/16 06:00 88 23 117/65 100 Mechanical Ventilator 35 10/31/16 05:00 119 23 125/65 100 Mechanical Ventilator 35 10/31/16 04:44 108 23 35 10/31/16 04:00 98.0 119 23 125/71 100 Mechanical Ventilator 35 10/31/16 04:00 35 10/31/16 04:00 113 10/31/16 03:30 113 20 35 10/31/16 03:00 95 23 125/62 100 Mechanical Ventilator 35 10/31/16 02:00 93 23 144/83 100 Mechanical Ventilator 35 10/31/16 01:30 92 19 35 10/31/16 01:00 91 23 114/66 100 Mechanical Ventilator 35 10/31/16 00:00 98.4 112 23 132/62 100 Mechanical Ventilator 35 10/31/16 00:00 112 10/31/16 00:00 35 10/30/16 23:04 100 20 35 10/30/16 23:00 107 23 141/80 100 Mechanical Ventilator 35 10/30/16 22:00 104 23 139/67 100 Mechanical Ventilator 35 10/30/16 21:28 107 20 35 10/30/16 21:00 108 23 145/75 100 Mechanical Ventilator 35 10/30/16 20:00 35 10/30/16 20:00 103 10/30/16 20:00 98.2 103 23 133/73 100 Mechanical Ventilator 35 10/30/16 19:30 112 19 35 10/30/16 19:00 121 23 140/79 100 Mechanical Ventilator 35 10/30/16 18:00 107 25 128/69 100 Mechanical Ventilator 35 10/30/16 17:00 97 32 127/71 100 Mechanical Ventilator 35 10/30/16 16:49 102 17 35 10/30/16 16:00 50 10/30/16 16:00 98.0 117 30 130/67 100 Mechanical Ventilator 35 10/30/16 16:00 105 10/30/16 15:00 108 22 134/80 100 Mechanical Ventilator 35 10/30/16 14:32 99 18 35 10/30/16 14:00 105 23 136/68 100 Mechanical Ventilator 35 10/30/16 13:29 101 16 35 10/30/16 13:00 99 24 137/76 100 Mechanical Ventilator 35 10/30/16 12:00 103 10/30/16 12:00 50 10/30/16 12:00 98.1 112 20 130/70 100 Mechanical Ventilator 35 10/30/16 11:03 94 16 35 10/30/16 11:00 95 20 141/65 100 Mechanical Ventilator 35 10/30/16 10:00 101 20 136/71 100 Mechanical Ventilator 35 Labs: Labs Test 10/28/16 13:20 10/29/16 03:36 10/29/16 08:10 10/29/16 10:30 Arterial Blood pH 7.370 (7.350-7.450) 7.221 (7.350-7.450) 7.392 (7.350-7.450) Arterial Blood Partial Pressure CO2 58.9 mmHg (35.0-45.0) 96.4 mmHg (35.0-45.0) 55.7 mmHg (35.0-45.0) Arterial Blood Partial Pressure O2 99.8 mmHg (75.0-100.0) 93.2 mmHg (75.0-100.0) 562.3 mmHg (75.0-100.0) Arterial Blood HCO3 33.3 mmol/L (22.0-26.0) 38.7 mmol/L (22.0-26.0) 33.1 mmol/L (22.0-26.0) Arterial Blood Oxygen Saturation 97.4 % (92.0-98.0) 95.7 % (92.0-98.0) 99.3 % (92.0-98.0) Arterial Blood Base Excess 6.2 6.6 6.4 Jamel Test Positive Positive Positive White Blood Count 9.8 K/UL (4.8-10.8) Red Blood Count 4.67 M/UL (4.70-6.10) Hemoglobin 13.8 G/DL (14.2-18.0) Hematocrit 41.8 % (42.0-52.0) Mean Corpuscular Volume 89 FL (80-99) Mean Corpuscular Hemoglobin 29.5 PG (27.0-31.0) Mean Corpuscular Hemoglobin Concent 33.0 G/DL (32.0-36.0) Red Cell Distribution Width 12.0 % (11.6-14.8) Platelet Count 410 K/UL (150-450) Mean Platelet Volume 7.2 FL (6.5-10.1) Neutrophils (%) (Auto) 67.7 % (45.0-75.0) Lymphocytes (%) (Auto) 9.6 % (20.0-45.0) Monocytes (%) (Auto) 19.6 % (1.0-10.0) Eosinophils (%) (Auto) 1.9 % (0.0-3.0) Basophils (%) (Auto) 1.2 % (0.0-2.0) Sodium Level 153 mEQ/L (135-145) Potassium Level 4.4 mEQ/L (3.4-4.9) Chloride Level 106 mEQ/L (98-107) Carbon Dioxide Level 33 mEQ/L (20-30) Anion Gap 14 (5-15) Blood Urea Nitrogen 7 mg/dL (7-23) Creatinine 0.7 mg/dL (0.7-1.2) Estimat Glomerular Filtration Rate > 60 mL/min (>60) Glucose Level 314 mg/dL (74-106) Calcium Level 9.8 mg/dL (8.6-10.2) Magnesium Level 2.0 mg/dL (1.7-2.5) Test 10/29/16 11:35 10/29/16 15:15 10/30/16 04:55 10/30/16 09:15 Vancomycin Level Trough 21.2 ug/mL (5.0-12.0) Sodium Level 153 mEQ/L (135-145) 151 mEQ/L (135-145) Potassium Level 4.9 mEQ/L (3.4-4.9) 3.7 mEQ/L (3.4-4.9) Chloride Level 109 mEQ/L (98-107) 106 mEQ/L (98-107) Carbon Dioxide Level 30 mEQ/L (20-30) 32 mEQ/L (20-30) Anion Gap 14 (5-15) 13 (5-15) Blood Urea Nitrogen 12 mg/dL (7-23) 9 mg/dL (7-23) Creatinine 0.9 mg/dL (0.7-1.2) 0.7 mg/dL (0.7-1.2) Estimat Glomerular Filtration Rate > 60 mL/min (>60) > 60 mL/min (>60) Glucose Level 504 mg/dL (74-106) 77 mg/dL (74-106) Calcium Level 9.6 mg/dL (8.6-10.2) 9.9 mg/dL (8.6-10.2) Phosphorus Level 1.9 mg/dL (2.5-4.8) 2.6 mg/dL (2.5-4.8) Magnesium Level 2.8 mg/dL (1.7-2.5) 1.9 mg/dL (1.7-2.5) Total Bilirubin < 0.2 mg/dL (0.0-1.2) < 0.2 mg/dL (0.0-1.2) Aspartate Amino Transf (AST/SGOT) 119 U/L (5-40) 77 U/L (5-40) Alanine Aminotransferase (ALT/SGPT) 177 U/L (3-41) 152 U/L (3-41) Alkaline Phosphatase 182 U/L (40-129) 160 U/L (40-129) Pro-B-Type Natriuretic Peptide 34 pg/mL (0-125) Total Protein 7.3 g/dL (6.6-8.7) 7.0 g/dL (6.6-8.7) Albumin 3.2 g/dL (3.5-5.2) 2.8 g/dL (3.5-5.2) Globulin 4.1 g/dL 4.2 g/dL Albumin/Globulin Ratio 0.7 (1.0-2.7) 0.6 (1.0-2.7) White Blood Count 10.9 K/UL (4.8-10.8) Red Blood Count 4.18 M/UL (4.70-6.10) Hemoglobin 12.4 G/DL (14.2-18.0) Hematocrit 37.8 % (42.0-52.0) Mean Corpuscular Volume 90 FL (80-99) Mean Corpuscular Hemoglobin 29.6 PG (27.0-31.0) Mean Corpuscular Hemoglobin Concent 32.7 G/DL (32.0-36.0) Red Cell Distribution Width 12.2 % (11.6-14.8) Platelet Count 427 K/UL (150-450) Mean Platelet Volume 7.5 FL (6.5-10.1) Neutrophils (%) (Auto) 66.3 % (45.0-75.0) Lymphocytes (%) (Auto) 12.0 % (20.0-45.0) Monocytes (%) (Auto) 16.2 % (1.0-10.0) Eosinophils (%) (Auto) 3.1 % (0.0-3.0) Basophils (%) (Auto) 2.5 % (0.0-2.0) Arterial Blood pH 7.408 (7.350-7.450) Arterial Blood Partial Pressure CO2 49.2 mmHg (35.0-45.0) Arterial Blood Partial Pressure O2 129.6 mmHg (75.0-100.0) Arterial Blood HCO3 30.3 mmol/L (22.0-26.0) Arterial Blood Oxygen Saturation 98.4 % (92.0-98.0) Arterial Blood Base Excess 4.8 Jamel Test Positive Test 10/31/16 04:10 White Blood Count 9.1 K/UL (4.8-10.8) Red Blood Count 3.34 M/UL (4.70-6.10) Hemoglobin 9.9 G/DL (14.2-18.0) Hematocrit 30.2 % (42.0-52.0) Mean Corpuscular Volume 90 FL (80-99) Mean Corpuscular Hemoglobin 29.6 PG (27.0-31.0) Mean Corpuscular Hemoglobin Concent 32.8 G/DL (32.0-36.0) Red Cell Distribution Width 12.1 % (11.6-14.8) Platelet Count 379 K/UL (150-450) Mean Platelet Volume 6.7 FL (6.5-10.1) Neutrophils (%) (Auto) 56.8 % (45.0-75.0) Lymphocytes (%) (Auto) 23.5 % (20.0-45.0) Monocytes (%) (Auto) 14.2 % (1.0-10.0) Eosinophils (%) (Auto) 4.3 % (0.0-3.0) Basophils (%) (Auto) 1.2 % (0.0-2.0) Sodium Level 135 mEQ/L (135-145) Potassium Level 4.7 mEQ/L (3.4-4.9) Chloride Level 95 mEQ/L (98-107) Carbon Dioxide Level 26 mEQ/L (20-30) Anion Gap 14 (5-15) Blood Urea Nitrogen 8 mg/dL (7-23) Creatinine 0.7 mg/dL (0.7-1.2) Estimat Glomerular Filtration Rate > 60 mL/min (>60) Glucose Level 168 mg/dL (74-106) Calcium Level 9.1 mg/dL (8.6-10.2) Phosphorus Level 2.5 mg/dL (2.5-4.8) Magnesium Level 1.2 mg/dL (1.7-2.5) Total Bilirubin 0.2 mg/dL (0.0-1.2) Aspartate Amino Transf (AST/SGOT) 114 U/L (5-40) Alanine Aminotransferase (ALT/SGPT) 123 U/L (3-41) Alkaline Phosphatase 170 U/L (40-129) Total Protein 5.8 g/dL (6.6-8.7) Albumin 2.1 g/dL (3.5-5.2) Globulin 3.7 g/dL Albumin/Globulin Ratio 0.5 (1.0-2.7) Objective: WDWN intubated reduced LOC reduced breath sounds bilaterally with no rhonchi [id number] tachy without MRG NABS nontender no HSM no CCE nonfocal awake Micro: Microbiology Date/Time Source Procedure Growth Status 10/29/16 13:20 Sputum Gram Stain - Final Complete 10/29/16 13:20 Sputum Culture - Final Dee Albicans Complete Accucheck: 156 IZABEL HASTINGS October 31, 2016 09:33
--- NOTE | 2016-10-31 11:21 | General Progress Note ---
Assessment/Plan Assessment/Plan Na 135. TF on hold for Abd US. elevated LFTs noted. Watch for hypoglycemia. IVF changing to D5W 20 mEq KCL/L 100 cc/hr. Decreased dDAVP to 2.5 units qam. Improving slowly. Goal is to increase TF, decrease IVF TF kept @ 20 cc per hour and during that time all his "septic" parameters improved. Asked GI to convert PEG to PEJ. Subjective Allergies: Coded Allergies: No Known Allergies (Unverified , 09/01/12) Subjective Intubated. Alert and responsive. TF on Hold Objective Last 24 Hour Vital Signs Date Time Temp Pulse Resp B/P Pulse Ox O2 Delivery O2 Flow Rate FiO2 10/31/16 10:48 95 18 35 10/31/16 09:00 91 24 118/70 100 Mechanical Ventilator 35 10/31/16 08:33 98 20 35 10/31/16 08:00 99.3 83 23 121/61 100 Mechanical Ventilator 35 10/31/16 08:00 35 10/31/16 07:00 83 23 146/82 100 Mechanical Ventilator 35 10/31/16 06:40 92 20 35 10/31/16 06:00 88 23 117/65 100 Mechanical Ventilator 35 10/31/16 05:00 119 23 125/65 100 Mechanical Ventilator 35 10/31/16 04:44 108 23 35 10/31/16 04:00 98.0 119 23 125/71 100 Mechanical Ventilator 35 10/31/16 04:00 35 10/31/16 04:00 113 10/31/16 03:30 113 20 35 10/31/16 03:00 95 23 125/62 100 Mechanical Ventilator 35 10/31/16 02:00 93 23 144/83 100 Mechanical Ventilator 35 10/31/16 01:30 92 19 35 10/31/16 01:00 91 23 114/66 100 Mechanical Ventilator 35 10/31/16 00:00 98.4 112 23 132/62 100 Mechanical Ventilator 35 10/31/16 00:00 112 10/31/16 00:00 35 10/30/16 23:04 100 20 35 10/30/16 23:00 107 23 141/80 100 Mechanical Ventilator 35 10/30/16 22:00 104 23 139/67 100 Mechanical Ventilator 35 10/30/16 21:28 107 20 35 10/30/16 21:00 108 23 145/75 100 Mechanical Ventilator 35 10/30/16 20:00 35 10/30/16 20:00 103 10/30/16 20:00 98.2 103 23 133/73 100 Mechanical Ventilator 35 10/30/16 19:30 112 19 35 10/30/16 19:00 121 23 140/79 100 Mechanical Ventilator 35 10/30/16 18:00 107 25 128/69 100 Mechanical Ventilator 35 10/30/16 17:00 97 32 127/71 100 Mechanical Ventilator 35 10/30/16 16:49 102 17 35 10/30/16 16:00 50 10/30/16 16:00 98.0 117 30 130/67 100 Mechanical Ventilator 35 10/30/16 16:00 105 10/30/16 15:00 108 22 134/80 100 Mechanical Ventilator 35 10/30/16 14:32 99 18 35 10/30/16 14:00 105 23 136/68 100 Mechanical Ventilator 35 10/30/16 13:29 101 16 35 10/30/16 13:00 99 24 137/76 100 Mechanical Ventilator 35 10/30/16 12:00 103 10/30/16 12:00 50 10/30/16 12:00 98.1 112 20 130/70 100 Mechanical Ventilator 35 Intake and Output 10/30/16 10/31/16 19:00 07:00 Intake Total 2921.25 ml 2853.708 ml Output Total 1340 ml 940 ml Balance 1581.25 ml 1913.708 ml Free Water 80 ml 80 ml IV Total 2481.25 ml 2533.708 ml Tube Feeding 240 ml 240 ml Other 120 ml Output Urine Total 1340 ml 940 ml # Bowel Movements 4 Laboratory Tests 10/31/16 04:10: White Blood Count 9.1, Red Blood Count 3.34L, Hemoglobin 9.9L, Hematocrit 30.2L , Mean Corpuscular Volume 90, Mean Corpuscular Hemoglobin 29.6, Mean Corpuscular Hemoglobin Concent 32.8, Red Cell Distribution Width 12.1, Platelet Count 379, Mean Platelet Volume 6.7, Neutrophils (%) (Auto) 56.8, Lymphocytes (% ) (Auto) 23.5, Monocytes (%) (Auto) 14.2H, Eosinophils (%) (Auto) 4.3H, Basophils (%) (Auto) 1.2, Sodium Level 135#, Potassium Level 4.7, Chloride Level 95L, Carbon Dioxide Level 26, Anion Gap 14, Blood Urea Nitrogen 8, Creatinine 0.7, Estimat Glomerular Filtration Rate > 60, Glucose Level 168H, Calcium Level 9.1, Phosphorus Level 2.5, Magnesium Level 1.2L, Total Bilirubin 0.2, Aspartate Amino Transf (AST/SGOT) 114H, Alanine Aminotransferase (ALT/SGPT ) 123H, Alkaline Phosphatase 170H, Total Protein 5.8L, Albumin 2.1L, Globulin 3.7, Albumin/Globulin Ratio 0.5L Height (Feet): 5 Height (Inches): 8.00 Weight (Pounds): 160 Objective Intubated. Tachycardic. Cv Tach. Lungs CTA Abd SNT. BS +. New PEG in E No CCE Dysphonic, decreased hearing. RENETTA SOMMER October 31, 2016 11:21
--- NOTE | 2016-10-31 12:59 | GI Progress Note ---
Assessment/Plan Problems: (1) Abnormal LFTs ICD Codes: R79.89 - Other specified abnormal findings of blood chemistry SNOMED: 674081126 (2) Hypoalbuminemia ICD Codes: E88.09 - Other disorders of plasma-protein metabolism, not elsewhere classified SNOMED: 687533108 (3) G tube feedings ICD Codes: Z93.1 - Gastrostomy status SNOMED: 667721622, 739229590 (4) Choking due to food in larynx ICD Codes: T17.320A - Food in larynx causing asphyxiation, initial encounter SNOMED: 53356280 Status: unchanged Status Narrative Discussed with Dr. Reddy. Assessment/Plan s/p PEG GTFs per dietary >> VITAL 1.2 @55 ml GT site care daily/prn fu abdominal US monitor LFTs ppi fu labs Subjective Subjective limited Objective Last 24 Hour Vital Signs Date Time Temp Pulse Resp B/P Pulse Ox O2 Delivery O2 Flow Rate FiO2 10/31/16 12:00 35 10/31/16 10:48 95 18 35 10/31/16 09:00 91 24 118/70 100 Mechanical Ventilator 35 10/31/16 08:33 98 20 35 10/31/16 08:00 99.3 83 23 121/61 100 Mechanical Ventilator 35 10/31/16 08:00 35 10/31/16 07:00 83 23 146/82 100 Mechanical Ventilator 35 10/31/16 06:40 92 20 35 10/31/16 06:00 88 23 117/65 100 Mechanical Ventilator 35 10/31/16 05:00 119 23 125/65 100 Mechanical Ventilator 35 10/31/16 04:44 108 23 35 10/31/16 04:00 98.0 119 23 125/71 100 Mechanical Ventilator 35 10/31/16 04:00 35 10/31/16 04:00 113 10/31/16 03:30 113 20 35 10/31/16 03:00 95 23 125/62 100 Mechanical Ventilator 35 10/31/16 02:00 93 23 144/83 100 Mechanical Ventilator 35 10/31/16 01:30 92 19 35 10/31/16 01:00 91 23 114/66 100 Mechanical Ventilator 35 10/31/16 00:00 98.4 112 23 132/62 100 Mechanical Ventilator 35 10/31/16 00:00 112 10/31/16 00:00 35 10/30/16 23:04 100 20 35 10/30/16 23:00 107 23 141/80 100 Mechanical Ventilator 35 10/30/16 22:00 104 23 139/67 100 Mechanical Ventilator 35 10/30/16 21:28 107 20 35 10/30/16 21:00 108 23 145/75 100 Mechanical Ventilator 35 10/30/16 20:00 35 10/30/16 20:00 103 10/30/16 20:00 98.2 103 23 133/73 100 Mechanical Ventilator 35 10/30/16 19:30 112 19 35 10/30/16 19:00 121 23 140/79 100 Mechanical Ventilator 35 10/30/16 18:00 107 25 128/69 100 Mechanical Ventilator 35 10/30/16 17:00 97 32 127/71 100 Mechanical Ventilator 35 10/30/16 16:49 102 17 35 10/30/16 16:00 50 10/30/16 16:00 98.0 117 30 130/67 100 Mechanical Ventilator 35 10/30/16 16:00 105 10/30/16 15:00 108 22 134/80 100 Mechanical Ventilator 35 10/30/16 14:32 99 18 35 10/30/16 14:00 105 23 136/68 100 Mechanical Ventilator 35 10/30/16 13:29 101 16 35 10/30/16 13:00 99 24 137/76 100 Mechanical Ventilator 35 Intake and Output 10/30/16 10/31/16 19:00 07:00 Intake Total 2921.25 ml 2853.708 ml Output Total 1340 ml 940 ml Balance 1581.25 ml 1913.708 ml Free Water 80 ml 80 ml IV Total 2481.25 ml 2533.708 ml Tube Feeding 240 ml 240 ml Other 120 ml Output Urine Total 1340 ml 940 ml # Bowel Movements 4 Laboratory Tests Test 10/31/16 04:10 White Blood Count 9.1 K/UL (4.8-10.8) Red Blood Count 3.34 M/UL (4.70-6.10) L Hemoglobin 9.9 G/DL (14.2-18.0) L Hematocrit 30.2 % (42.0-52.0) L Mean Corpuscular Volume 90 FL (80-99) Mean Corpuscular Hemoglobin 29.6 PG (27.0-31.0) Mean Corpuscular Hemoglobin Concent 32.8 G/DL (32.0-36.0) Red Cell Distribution Width 12.1 % (11.6-14.8) Platelet Count 379 K/UL (150-450) Mean Platelet Volume 6.7 FL (6.5-10.1) Neutrophils (%) (Auto) 56.8 % (45.0-75.0) Lymphocytes (%) (Auto) 23.5 % (20.0-45.0) Monocytes (%) (Auto) 14.2 % (1.0-10.0) H Eosinophils (%) (Auto) 4.3 % (0.0-3.0) H Basophils (%) (Auto) 1.2 % (0.0-2.0) Sodium Level 135 mEQ/L (135-145) # Potassium Level 4.7 mEQ/L (3.4-4.9) Chloride Level 95 mEQ/L (98-107) L Carbon Dioxide Level 26 mEQ/L (20-30) Anion Gap 14 (5-15) Blood Urea Nitrogen 8 mg/dL (7-23) Creatinine 0.7 mg/dL (0.7-1.2) Estimat Glomerular Filtration Rate > 60 mL/min (>60) Glucose Level 168 mg/dL (74-106) H Calcium Level 9.1 mg/dL (8.6-10.2) Phosphorus Level 2.5 mg/dL (2.5-4.8) Magnesium Level 1.2 mg/dL (1.7-2.5) L Total Bilirubin 0.2 mg/dL (0.0-1.2) Aspartate Amino Transf (AST/SGOT) 114 U/L (5-40) H Alanine Aminotransferase (ALT/SGPT) 123 U/L (3-41) H Alkaline Phosphatase 170 U/L (40-129) H Total Protein 5.8 g/dL (6.6-8.7) L Albumin 2.1 g/dL (3.5-5.2) L Globulin 3.7 g/dL Albumin/Globulin Ratio 0.5 (1.0-2.7) L Height (Feet): 5 Height (Inches): 8.00 Weight (Pounds): 160 General Appearance: no apparent distress, alert Cardiovascular: normal rate Respiratory/Chest: other - mech vent Abdominal Exam: GT site - c/d/i Emma Hyman N.P. October 31, 2016 12:59
[2016-10-31] MEDS: D5W IV SCH ×2 (14:28→16:30)
[2016-10-31] MEDS: MAGNESIUM SULFATE IV SCH ×2 (14:28→16:30)
--- NOTE | 2016-10-31 16:02 | Infectious Diseases Prog Note ---
Assessment/Plan Assessment/Plan ASSESSMENT AND PLAN: 1. acinetobacter/klebsiella/aspiration pna with sepsis, fevers, leukocytosis - patient re-intubated, ? re-aspirated - f/u sputum culture - yeast - fungemia risk, ? thrush - change abx to zosyn, bactrim and diflucan - icu care, vent care - check chest x-ray and labs - s/p feeding tube 2. The patient has diabetes insipidus. 3. The patient has diabetes mellitus. 4. Aspiration risk. 5. Optical atrophy. 6. Deafness. 7. DIDMOAD syndrome. 8. MAR was noted. 9. Case discussed with RN. 10. Continue treatment per primary consultants. Subjective Constitutional: Reports: fatigue, fever - lgt, other - on vent HEENT: Reports: congestion Respiratory: Reports: shortness of breath Cardiovascular: Denies: chest pain Gastrointestinal/Abdominal: Denies: diarrhea, nausea, vomiting Genitourinary: Reports: other - + baez Neurologic: Denies: headache Psychiatric: Denies: depression Skin: Denies: rash Hematologic: Denies: bleeding Musculoskeletal: Denies: pain Allergies: Coded Allergies: No Known Allergies (Unverified , 09/01/12) Objective Vital Signs Last 24 Hour Vital Signs Date Time Temp Pulse Resp B/P Pulse Ox O2 Delivery O2 Flow Rate FiO2 10/31/16 15:00 104 24 132/75 100 Mechanical Ventilator 35 10/31/16 14:42 100 22 35 10/31/16 14:00 104 24 144/84 100 Mechanical Ventilator 35 10/31/16 13:21 105 24 35 10/31/16 13:00 103 24 129/74 100 Mechanical Ventilator 35 10/31/16 12:00 35 10/31/16 12:00 99.2 99 24 120/69 100 Mechanical Ventilator 35 10/31/16 11:00 100 30 124/73 100 Mechanical Ventilator 35 10/31/16 10:48 95 18 35 10/31/16 10:00 99 28 128/71 100 Mechanical Ventilator 35 10/31/16 09:00 91 24 118/70 100 Mechanical Ventilator 35 10/31/16 08:33 98 20 35 10/31/16 08:00 99.3 83 23 121/61 100 Mechanical Ventilator 35 10/31/16 08:00 35 10/31/16 07:00 83 23 146/82 100 Mechanical Ventilator 35 10/31/16 06:40 92 20 35 1617 06:00 88 23 117/65 100 Mechanical Ventilator 35 10/31/16 05:00 119 23 125/65 100 Mechanical Ventilator 35 10/31/16 04:44 108 23 35 1617 04:00 98.0 119 23 125/71 100 Mechanical Ventilator 35 10/31/16 04:00 35 10/31/16 04:00 113 10/31/16 03:30 113 20 35 10/31/16 03:00 95 23 125/62 100 Mechanical Ventilator 35 10/31/16 02:00 93 23 144/83 100 Mechanical Ventilator 35 10/31/16 01:30 92 19 35 10/31/16 01:00 91 23 114/66 100 Mechanical Ventilator 35 10/31/16 00:00 98.4 112 23 132/62 100 Mechanical Ventilator 35 10/31/16 00:00 112 10/31/16 00:00 35 10/30/16 23:04 100 20 35 10/30/16 23:00 107 23 141/80 100 Mechanical Ventilator 35 10/30/16 22:00 104 23 139/67 100 Mechanical Ventilator 35 10/30/16 21:28 107 20 35 10/30/16 21:00 108 23 145/75 100 Mechanical Ventilator 35 10/30/16 20:00 35 10/30/16 20:00 103 10/30/16 20:00 98.2 103 23 133/73 100 Mechanical Ventilator 35 10/30/16 19:30 112 19 35 10/30/16 19:00 121 23 140/79 100 Mechanical Ventilator 35 10/30/16 18:00 107 25 128/69 100 Mechanical Ventilator 35 10/30/16 17:00 97 32 127/71 100 Mechanical Ventilator 35 10/30/16 16:49 102 17 35 10/30/16 16:00 50 10/30/16 16:00 98.0 117 30 130/67 100 Mechanical Ventilator 35 10/30/16 16:00 105 Height (Feet): 5 Height (Inches): 8.00 Weight (Pounds): 160 General Appearance: no acute distress, other - on vent HEENT: normocephalic, atraumatic, anicteric, mucous membranes moist, thrush - ? thrush, limited exam secondary to oral intubation Respiratory/Chest: crackles/rales, rhonchi - bilaterally Cardiovascular: normal rate, regular rhythm, no gallop/murmur, no JVD Abdomen: normal bowel sounds, soft, non tender, no organomegaly, non distended Genitourinary: other - + baez - urine clear Extremities: no cyanosis Skin: no rash Neurologic/Psychiatric: commodity lead II-XII grossly normal, alert, responsive Lymphatic: no neck adenopathy Musculoskeletal: no effusion Objective 10/21 - chest x-ray Impression: Patchy pulmonary infiltrates and/or atelectasis bilaterally. 10/24 - chest x-ray - interstitial edema 10/25 - chest x-ray - right infiltrate vs atx Microbiology Date/Time Source Procedure Growth Status 10/29/16 13:20 Sputum Gram Stain - Final Complete 10/29/16 13:20 Sputum Culture - Final Dee Albicans Complete Laboratory Tests Test 10/31/16 04:10 White Blood Count 9.1 K/UL (4.8-10.8) Red Blood Count 3.34 M/UL (4.70-6.10) L Hemoglobin 9.9 G/DL (14.2-18.0) L Hematocrit 30.2 % (42.0-52.0) L Mean Corpuscular Volume 90 FL (80-99) Mean Corpuscular Hemoglobin 29.6 PG (27.0-31.0) Mean Corpuscular Hemoglobin Concent 32.8 G/DL (32.0-36.0) Red Cell Distribution Width 12.1 % (11.6-14.8) Platelet Count 379 K/UL (150-450) Mean Platelet Volume 6.7 FL (6.5-10.1) Neutrophils (%) (Auto) 56.8 % (45.0-75.0) Lymphocytes (%) (Auto) 23.5 % (20.0-45.0) Monocytes (%) (Auto) 14.2 % (1.0-10.0) H Eosinophils (%) (Auto) 4.3 % (0.0-3.0) H Basophils (%) (Auto) 1.2 % (0.0-2.0) Sodium Level 135 mEQ/L (135-145) # Potassium Level 4.7 mEQ/L (3.4-4.9) Chloride Level 95 mEQ/L (98-107) L Carbon Dioxide Level 26 mEQ/L (20-30) Anion Gap 14 (5-15) Blood Urea Nitrogen 8 mg/dL (7-23) Creatinine 0.7 mg/dL (0.7-1.2) Estimat Glomerular Filtration Rate > 60 mL/min (>60) Glucose Level 168 mg/dL (74-106) H Calcium Level 9.1 mg/dL (8.6-10.2) Phosphorus Level 2.5 mg/dL (2.5-4.8) Magnesium Level 1.2 mg/dL (1.7-2.5) L Total Bilirubin 0.2 mg/dL (0.0-1.2) Aspartate Amino Transf (AST/SGOT) 114 U/L (5-40) H Alanine Aminotransferase (ALT/SGPT) 123 U/L (3-41) H Alkaline Phosphatase 170 U/L (40-129) H Total Protein 5.8 g/dL (6.6-8.7) L Albumin 2.1 g/dL (3.5-5.2) L Globulin 3.7 g/dL Albumin/Globulin Ratio 0.5 (1.0-2.7) L Current Medications Medications (Trade) Dose Ordered Sig/Marilyn Route PRN Reason Start Time Stop Time Status Last Admin Dose Admin Acetaminophen (Tylenol) 650 mg Q6H PRN NG Fever/Headache/Mild Pain 10/26/16 08:15 11/25/16 08:14 10/29/16 13:46 Desmopressin Acetate 2.5 mcg/ Sodium Chloride 55.625 ml @ 115 mls/ hr DAILY IV 11/01/16 09:00 12/01/16 08:59 Dextrose (Dextrose 50%) STAT PRN IV Hypoglycemia 10/24/16 08:30 11/23/16 08:29 Dextrose/ Electrolytes (D5W w/KCl 20mEq) 1,000 ml @ 125 mls/hr Q8H IV 10/29/16 08:30 11/28/16 08:29 10/31/16 07:52 Docusate Sodium (Colace) 100 mg TWICE A DAY NG 10/26/16 09:00 11/25/16 08:59 10/30/16 08:25 Heparin Sodium (Porcine) (Heparin 5000 units/ml) 5,000 units EVERY 12 HOURS SUBQ 10/16/16 09:00 11/15/16 08:59 10/31/16 09:26 Insulin Aspart (NovoLOG) EVERY 6 HOURS SUBQ 10/25/16 12:00 11/24/16 11:59 10/31/16 12:43 Insulin Detemir 50 units 50 units Q12HR@0600,1800 SUBQ 10/29/16 18:00 11/28/16 17:59 10/31/16 06:22 Magnesium Sulfate/ Dextrose (Magnesium Sulfate/D5W) 116 ml @ 58 mls/hr Q2H IV 10/31/16 14:30 10/31/16 18:29 10/31/16 14:28 Meropenem 1 gm/ Sodium Chloride 100 ml @ 200 mls/hr Q8HR IVPB 10/29/16 14:00 10/31/16 23:59 10/31/16 14:35 Morphine Sulfate 4 mg 4 mg Q3H PRN IVP PAIN 4-10 10/29/16 09:30 11/05/16 09:29 10/29/16 10:01 Non-Formulary Medication (Non-Formulary oral solution) 0.25 ml Q48H GT 10/31/16 20:00 11/30/16 19:59 Ondansetron HCl (Zofran) 4 mg Q6H PRN IVP Nausea & Vomiting 10/26/16 08:15 11/25/16 08:14 Pantoprazole (Protonix) 40 mg DAILY IV 10/16/16 09:00 11/15/16 08:59 10/31/16 09:23 Polymyxin B Sulfate/Sodium Chloride (Polymyxin B Sulfate/NS) 550 ml @ 550 mls/hr EVERY 12 HOURS IVPB 10/29/16 21:00 11/02/16 23:59 10/31/16 09:22 Trimethoprim/ Sulfamethoxazole 20 ml 20 ml EVERY 12 HOURS NG 10/29/16 21:00 10/31/16 23:59 10/31/16 09:23 JACOBY LO October 31, 2016 16:02
[2016-10-31] MEDS ORDERED: Tubing IV Secondary IV ONE ×2 (16:25)
[2016-10-31] MEDS: CALCITRIOL 1 MCG/ML GT SCH (20:00)
[2016-11-01] VITALS (24 sets, daily range): BP systolic 115–154; BP diastolic 57–81
[2016-11-01] MEDS: NovoLOG Insulin Flexpen SUBQ SCH ×5 (00:06→23:59)
[2016-11-01] MEDS: D5W w/KCl 20mEq 1,000 ML IV SCH ×2 (00:30→01:40)
[2016-11-01 05:25] LABS: BASOPHILS % (AUTO) 1.1 % (0.0-2.0); EOSINOPHILS % (AUTO) 4.4 % (0.0-3.0); LYMPHOCYTES % (AUTO) 22.5 % (20.0-45.0); MEAN CORPUSCULAR HEMOGLOBIN 29.7 PG (27.0-31.0); MEAN CORPUSCULAR HGB CONC 32.9 G/DL (32.0-36.0); MEAN CORPUSCULAR VOLUME 90 FL (80-99); MEAN PLATELET VOLUME 7.1 FL (6.5-10.1); MONOCYTES % (AUTO) 12.5 % (1.0-10.0); NEUTROPHILS % (AUTO) 59.5 % (45.0-75.0); PLATELET COUNT 399 K/UL (150-450); RED BLOOD COUNT 3.28 M/UL (4.70-6.10); RED CELL DISTRIBUTION WIDTH 11.9 % (11.6-14.8); WHITE BLOOD COUNT 7.9 K/UL (4.8-10.8)
[2016-11-01] MEDS: Levemir Flexpen SUBQ SCH ×2 (05:38→17:56)
[2016-11-01 06:00] LABS: ANION GAP 12 (5-15); CALCIUM 8.6 mg/dL (8.6-10.2); CARBON DIOXIDE 26 mEQ/L (20-30); CHLORIDE 91 mEQ/L (98-107); CREATININE 0.8 mg/dL (0.7-1.2); GLOMERULAR FILTRATION RATE > 60 mL/min (>60); HEMOLYSIS 2; POTASSIUM 4.2 mEQ/L (3.4-4.9); SODIUM 129 mEQ/L (135-145)
[2016-11-01] MEDS: Bactrim Susp 20ml NG SCH ×2 (08:33→20:57)
[2016-11-01] MEDS: Heparin 5000 units/ml inj SUBQ SCH ×2 (08:34→21:00)
[2016-11-01] MEDS: Fluconazole 100mg tab ORAL SCH (08:35)
[2016-11-01] MEDS: Pantoprazole Inj IV SCH (08:35)
[2016-11-01] MEDS: Docusate 100mg/10ml Liq NG SCH ×2 (08:35→17:55)
[2016-11-01] MEDS: DESMOPRESSIN IV SCH (09:04)
[2016-11-01] MEDS: NS IV SCH (09:04)
--- NOTE | 2016-11-01 09:11 | General Progress Note ---
Assessment/Plan Assessment/Plan Na 129 TF resumed and incresed to 25 ml/hr. IVF changing to D51/2 NS 20 mEq KCL/L 100 cc/hr. Decreased dDAVP to 2.5 units qam. Improving slowly. Goal is to increase TF, decrease IVF. Pulmonary parameters improving. Hope to extubate soon. TF kept @ 25 cc per hour and during that time all his "septic" parameters improved. Asked GI to convert PEG to PEJ. Subjective Allergies: Coded Allergies: No Known Allergies (Unverified , 09/01/12) Subjective Intubated. Alert and responsive. TF @ 25 ml/hr Objective Last 24 Hour Vital Signs Date Time Temp Pulse Resp B/P Pulse Ox O2 Delivery O2 Flow Rate FiO2 11/01/16 09:00 83 32 140/77 100 Mechanical Ventilator 35 11/01/16 08:52 85 21 35 11/01/16 08:51 100 11/01/16 08:00 35 11/01/16 08:00 98.5 91 25 133/75 100 Mechanical Ventilator 35 11/01/16 08:00 89 11/01/16 07:15 90 21 35 11/01/16 07:00 88 24 123/63 100 Mechanical Ventilator 35 11/01/16 06:00 85 28 121/75 100 Mechanical Ventilator 35 11/01/16 05:07 92 20 35 11/01/16 05:00 84 26 129/62 100 Mechanical Ventilator 35 11/01/16 04:00 99.2 91 26 115/63 100 Mechanical Ventilator 35 11/01/16 04:00 91 11/01/16 04:00 35 11/01/16 03:09 96 17 35 11/01/16 03:00 101 23 127/66 100 Mechanical Ventilator 35 11/01/16 02:00 96 26 122/66 100 Mechanical Ventilator 35 11/01/16 01:00 93 26 144/75 100 Mechanical Ventilator 35 11/01/16 00:47 94 20 35 11/01/16 00:00 91 11/01/16 00:00 99.4 91 28 154/72 100 Mechanical Ventilator 35 11/01/16 00:00 35 10/31/16 23:00 107 25 131/73 100 Mechanical Ventilator 35 10/31/16 22:56 110 26 35 10/31/16 22:00 107 24 129/71 100 Mechanical Ventilator 35 10/31/16 21:29 108 26 35 10/31/16 21:00 106 24 115/67 100 Mechanical Ventilator 35 10/31/16 20:00 99.2 107 24 127/63 100 Mechanical Ventilator 35 10/31/16 20:00 107 10/31/16 20:00 35 10/31/16 19:05 113 21 35 10/31/16 19:00 105 24 135/66 100 Mechanical Ventilator 35 10/31/16 18:00 110 24 130/66 100 Mechanical Ventilator 35 10/31/16 17:00 109 24 140/69 100 Mechanical Ventilator 35 10/31/16 16:32 116 21 35 10/31/16 16:00 100 10/31/16 16:00 35 10/31/16 16:00 99.4 107 24 137/67 100 Mechanical Ventilator 35 10/31/16 15:00 104 24 132/75 100 Mechanical Ventilator 35 10/31/16 14:42 100 22 35 10/31/16 14:00 104 24 144/84 100 Mechanical Ventilator 35 10/31/16 13:21 105 24 35 10/31/16 13:00 103 24 129/74 100 Mechanical Ventilator 35 10/31/16 12:00 98 10/31/16 12:00 35 10/31/16 12:00 99.2 99 24 120/69 100 Mechanical Ventilator 35 10/31/16 11:00 100 30 124/73 100 Mechanical Ventilator 35 10/31/16 10:48 95 18 35 10/31/16 10:00 99 28 128/71 100 Mechanical Ventilator 35 Intake and Output 10/31/16 11/01/16 19:00 07:00 Intake Total 2563 ml 1770 ml Output Total 1990 ml 1190 ml Balance 573 ml 580 ml Free Water 80 ml IV Total 2483 ml 1450 ml Tube Feeding 80 ml 240 ml Output Urine Total 1990 ml 1190 ml Laboratory Tests 11/01/16 05:00: White Blood Count 7.9, Red Blood Count 3.28L, Hemoglobin 9.7L, Hematocrit 29.5L , Mean Corpuscular Volume 90, Mean Corpuscular Hemoglobin 29.7, Mean Corpuscular Hemoglobin Concent 32.9, Red Cell Distribution Width 11.9, Platelet Count 399, Mean Platelet Volume 7.1, Neutrophils (%) (Auto) 59.5, Lymphocytes (% ) (Auto) 22.5, Monocytes (%) (Auto) 12.5H, Eosinophils (%) (Auto) 4.4H, Basophils (%) (Auto) 1.1, Sodium Level 129L, Potassium Level 4.2, Chloride Level 91L, Carbon Dioxide Level 26, Anion Gap 12, Blood Urea Nitrogen 8, Creatinine 0.8, Estimat Glomerular Filtration Rate > 60, Glucose Level 186H, Calcium Level 8.6, Magnesium Level 1.6L Height (Feet): 5 Height (Inches): 8.00 Weight (Pounds): 160 Objective Intubated. HR below 100. Cv RRR. Lungs CTA Abd SNT. BS + PEG OK. E No CCE RENETTA SOMMER November 01, 2016 09:11
[2016-11-01] MEDS ORDERED: SODIUM CHLORIDE IV ONE (10:00)
[2016-11-01] MEDS ORDERED: MAGNESIUM SULFATE IV ONE (10:00)
[2016-11-01 10:12] LABS: ABG BASE EXCESS 0.8; ABG PCO2 41.4 mmHg (35.0-45.0)
[2016-11-01 10:13] LABS: ABG ALLEN TEST POSITIVE
--- NOTE | 2016-11-01 11:28 | Diagnostic Imaging Report ---
Indication: Dyspnea Comparison: 10/30/16 A single view chest radiograph was obtained. Findings: Lungs are clear. Cardiomediastinal silhouette is stable and within normal limits. Gastrostomy and endotracheal tubes again noted. Impression: No change from the previous exam
--- NOTE | 2016-11-01 11:34 | GI Progress Note ---
Assessment/Plan Problems: (1) Abnormal LFTs ICD Codes: R79.89 - Other specified abnormal findings of blood chemistry SNOMED: 720712000 (2) Hypoalbuminemia ICD Codes: E88.09 - Other disorders of plasma-protein metabolism, not elsewhere classified SNOMED: 030094250 (3) G tube feedings ICD Codes: Z93.1 - Gastrostomy status SNOMED: 682306318, 955865860 (4) Choking due to food in larynx ICD Codes: T17.320A - Food in larynx causing asphyxiation, initial encounter SNOMED: 29917676 Status: unchanged Status Narrative Discussed with Dr. Reddy. Assessment/Plan s/p PEG GTFs per dietary to goal >> VITAL 1.2 @ 55 ml GT site care daily/prn fu abdominal US monitor LFTs ppi fu labs Subjective Subjective limited Objective Last 24 Hour Vital Signs Date Time Temp Pulse Resp B/P Pulse Ox O2 Delivery O2 Flow Rate FiO2 11/01/16 11:00 89 39 128/77 100 Mechanical Ventilator 35 11/01/16 10:00 94 25 138/69 100 Mechanical Ventilator 35 11/01/16 09:00 83 32 140/77 100 Mechanical Ventilator 35 11/01/16 08:52 85 21 35 11/01/16 08:51 100 11/01/16 08:00 35 11/01/16 08:00 98.5 91 25 133/75 100 Mechanical Ventilator 35 11/01/16 08:00 89 11/01/16 07:15 90 21 35 11/01/16 07:00 88 24 123/63 100 Mechanical Ventilator 35 11/01/16 06:00 85 28 121/75 100 Mechanical Ventilator 35 11/01/16 05:07 92 20 35 11/01/16 05:00 84 26 129/62 100 Mechanical Ventilator 35 11/01/16 04:00 99.2 91 26 115/63 100 Mechanical Ventilator 35 11/01/16 04:00 91 11/01/16 04:00 35 11/01/16 03:09 96 17 35 11/01/16 03:00 101 23 127/66 100 Mechanical Ventilator 35 11/01/16 02:00 96 26 122/66 100 Mechanical Ventilator 35 11/01/16 01:00 93 26 144/75 100 Mechanical Ventilator 35 11/01/16 00:47 94 20 35 11/01/16 00:00 91 5/17/17 00:00 99.4 91 28 154/72 100 Mechanical Ventilator 35 11/01/16 00:00 35 10/31/16 23:00 107 25 131/73 100 Mechanical Ventilator 35 10/31/16 22:56 110 26 35 10/31/16 22:00 107 24 129/71 100 Mechanical Ventilator 35 10/31/16 21:29 108 26 35 10/31/16 21:00 106 24 115/67 100 Mechanical Ventilator 35 10/31/16 20:00 99.2 107 24 127/63 100 Mechanical Ventilator 35 10/31/16 20:00 107 10/31/16 20:00 35 10/31/16 19:05 113 21 35 10/31/16 19:00 105 24 135/66 100 Mechanical Ventilator 35 10/31/16 18:00 110 24 130/66 100 Mechanical Ventilator 35 10/31/16 17:00 109 24 140/69 100 Mechanical Ventilator 35 10/31/16 16:32 116 21 35 10/31/16 16:00 100 10/31/16 16:00 35 10/31/16 16:00 99.4 107 24 137/67 100 Mechanical Ventilator 35 10/31/16 15:00 104 24 132/75 100 Mechanical Ventilator 35 10/31/16 14:42 100 22 35 10/31/16 14:00 104 24 144/84 100 Mechanical Ventilator 35 10/31/16 13:21 105 24 35 10/31/16 13:00 103 24 129/74 100 Mechanical Ventilator 35 10/31/16 12:00 98 10/31/16 12:00 35 10/31/16 12:00 99.2 99 24 120/69 100 Mechanical Ventilator 35 Intake and Output 10/31/16 11/01/16 19:00 07:00 Intake Total 2563 ml 1895 ml Output Total 1990 ml 1190 ml Balance 573 ml 705 ml Free Water 80 ml IV Total 2483 ml 1575 ml Tube Feeding 80 ml 240 ml Output Urine Total 1990 ml 1190 ml Laboratory Tests Test 11/01/16 05:00 11/01/16 10:02 White Blood Count 7.9 K/UL (4.8-10.8) Red Blood Count 3.28 M/UL (4.70-6.10) L Hemoglobin 9.7 G/DL (14.2-18.0) L Hematocrit 29.5 % (42.0-52.0) L Mean Corpuscular Volume 90 FL (80-99) Mean Corpuscular Hemoglobin 29.7 PG (27.0-31.0) Mean Corpuscular Hemoglobin Concent 32.9 G/DL (32.0-36.0) Red Cell Distribution Width 11.9 % (11.6-14.8) Platelet Count 399 K/UL (150-450) Mean Platelet Volume 7.1 FL (6.5-10.1) Neutrophils (%) (Auto) 59.5 % (45.0-75.0) Lymphocytes (%) (Auto) 22.5 % (20.0-45.0) Monocytes (%) (Auto) 12.5 % (1.0-10.0) H Eosinophils (%) (Auto) 4.4 % (0.0-3.0) H Basophils (%) (Auto) 1.1 % (0.0-2.0) Sodium Level 129 mEQ/L (135-145) L Potassium Level 4.2 mEQ/L (3.4-4.9) Chloride Level 91 mEQ/L (98-107) L Carbon Dioxide Level 26 mEQ/L (20-30) Anion Gap 12 (5-15) Blood Urea Nitrogen 8 mg/dL (7-23) Creatinine 0.8 mg/dL (0.7-1.2) Estimat Glomerular Filtration Rate > 60 mL/min (>60) Glucose Level 186 mg/dL (74-106) H Calcium Level 8.6 mg/dL (8.6-10.2) Magnesium Level 1.6 mg/dL (1.7-2.5) L Arterial Blood pH 7.408 (7.350-7.450) Arterial Blood Partial Pressure CO2 41.4 mmHg (35.0-45.0) Arterial Blood Partial Pressure O2 103.0 mmHg (75.0-100.0) H Arterial Blood HCO3 25.5 mmol/L (22.0-26.0) Arterial Blood Oxygen Saturation 97.2 % (92.0-98.0) Arterial Blood Base Excess 0.8 Jamel Test Positive Height (Feet): 5 Height (Inches): 8.00 Weight (Pounds): 160 General Appearance: no apparent distress, alert Cardiovascular: normal rate Respiratory/Chest: other - mech vent Abdominal Exam: GT site - c/d/i Emma Hyman N.P. November 01, 2016 11:34
--- NOTE | 2016-11-01 11:38 | Diagnostic Imaging Report ---
Indication:Abdominal pain Technique: Grayscale and duplex Doppler imaging of the abdomen performed. Comparison: None Findings: There is bilateral hydronephrosis present. Reason for this is not known. A Nguyen catheter is present within nondistended bladder. IVC is grossly unremarkable. Trace right pleural effusion is present. Liver may be mildly enlarged measuring about 18 CM. No obvious abnormalities of the gallbladder, liver or spleen identified. The pancreas, aorta largely obscured. Portal vein is patent by Doppler. Impression: Bilateral hydronephrosis. Trace right pleural effusion
[2016-11-01] MEDS: D5 1/2NS w/KCl 20mEq 1,000 ML IV SCH ×2 (14:28→22:51)
--- NOTE | 2016-11-01 14:55 | Critical Care Progress Note ---
Assessment/Plan Assessment/Plan s/p bronchoscopy pulmonary infiltrates respiratory failure- reintubated aspiration event leukocytosis anemia sinus tachycardia agitation resolved co2 retention MDR sputum PLAN extubate if fails after extubation, would recommend trach followup for change underwent GT tube feeds per PMD ICU care for now on low flow oxygen at present and imaging remains negative Critical Care - Subjective Interval Events: seen earlier extubated doing well on low flow oxygen EKG Rhythm: Sinus Rhythm I&O: Intake and Output 10/31/16 11/01/16 19:00 07:00 Intake Total 2563 ml 1895 ml Output Total 1990 ml 1190 ml Balance 573 ml 705 ml Free Water 80 ml IV Total 2483 ml 1575 ml Tube Feeding 80 ml 240 ml Output Urine Total 1990 ml 1190 ml Critical Care - Objective ET-Tube: 7.5 ET Position: 22 Last 24 Hour Vital Signs Date Time Temp Pulse Resp B/P Pulse Ox O2 Delivery O2 Flow Rate FiO2 11/01/16 14:00 101 27 129/73 100 Nasal Cannula 3.0 11/01/16 13:15 Nasal Cannula 3.0 32 11/01/16 13:00 93 26 119/64 100 Mechanical Ventilator 35 11/01/16 12:00 97.8 91 27 128/70 100 Mechanical Ventilator 35 11/01/16 12:00 35 11/01/16 12:00 90 11/01/16 11:29 95 26 35 11/01/16 11:00 89 39 128/77 100 Mechanical Ventilator 35 11/01/16 10:00 94 25 138/69 100 Mechanical Ventilator 35 11/01/16 09:00 83 32 140/77 100 Mechanical Ventilator 35 11/01/16 08:52 85 21 35 11/01/16 08:51 100 11/01/16 08:00 35 11/01/16 08:00 98.5 91 25 133/75 100 Mechanical Ventilator 35 11/01/16 08:00 89 11/01/16 07:15 90 21 35 11/01/16 07:00 88 24 123/63 100 Mechanical Ventilator 35 11/01/16 06:00 85 28 121/75 100 Mechanical Ventilator 35 11/01/16 05:07 92 20 35 11/01/16 05:00 84 26 129/62 100 Mechanical Ventilator 35 11/01/16 04:00 99.2 91 26 115/63 100 Mechanical Ventilator 35 11/01/16 04:00 91 11/01/16 04:00 35 11/01/16 03:09 96 17 35 11/01/16 03:00 101 23 127/66 100 Mechanical Ventilator 35 11/01/16 02:00 96 26 122/66 100 Mechanical Ventilator 35 11/01/16 01:00 93 26 144/75 100 Mechanical Ventilator 35 11/01/16 00:47 94 20 35 11/01/16 00:00 91 11/01/16 00:00 99.4 91 28 154/72 100 Mechanical Ventilator 35 11/01/16 00:00 35 10/31/16 23:00 107 25 131/73 100 Mechanical Ventilator 35 10/31/16 22:56 110 26 35 10/31/16 22:00 107 24 129/71 100 Mechanical Ventilator 35 10/31/16 21:29 108 26 35 10/31/16 21:00 106 24 115/67 100 Mechanical Ventilator 35 10/31/16 20:00 99.2 107 24 127/63 100 Mechanical Ventilator 35 10/31/16 20:00 107 10/31/16 20:00 35 10/31/16 19:05 113 21 35 10/31/16 19:00 105 24 135/66 100 Mechanical Ventilator 35 10/31/16 18:00 110 24 130/66 100 Mechanical Ventilator 35 10/31/16 17:00 109 24 140/69 100 Mechanical Ventilator 35 10/31/16 16:32 116 21 35 10/31/16 16:00 100 10/31/16 16:00 35 10/31/16 16:00 99.4 107 24 137/67 100 Mechanical Ventilator 35 10/31/16 15:00 104 24 132/75 100 Mechanical Ventilator 35 Labs: Labs Test 10/29/16 15:15 10/30/16 04:55 10/30/16 09:15 10/31/16 04:10 Sodium Level 153 mEQ/L (135-145) 151 mEQ/L (135-145) 135 mEQ/L (135-145) Potassium Level 4.9 mEQ/L (3.4-4.9) 3.7 mEQ/L (3.4-4.9) 4.7 mEQ/L (3.4-4.9) Chloride Level 109 mEQ/L (98-107) 106 mEQ/L (98-107) 95 mEQ/L (98-107) Carbon Dioxide Level 30 mEQ/L (20-30) 32 mEQ/L (20-30) 26 mEQ/L (20-30) Anion Gap 14 (5-15) 13 (5-15) 14 (5-15) Blood Urea Nitrogen 12 mg/dL (7-23) 9 mg/dL (7-23) 8 mg/dL (7-23) Creatinine 0.9 mg/dL (0.7-1.2) 0.7 mg/dL (0.7-1.2) 0.7 mg/dL (0.7-1.2) Estimat Glomerular Filtration Rate > 60 mL/min (>60) > 60 mL/min (>60) > 60 mL/min (>60) Glucose Level 504 mg/dL (74-106) 77 mg/dL (74-106) 168 mg/dL (74-106) Calcium Level 9.6 mg/dL (8.6-10.2) 9.9 mg/dL (8.6-10.2) 9.1 mg/dL (8.6-10.2) Phosphorus Level 1.9 mg/dL (2.5-4.8) 2.6 mg/dL (2.5-4.8) 2.5 mg/dL (2.5-4.8) Magnesium Level 2.8 mg/dL (1.7-2.5) 1.9 mg/dL (1.7-2.5) 1.2 mg/dL (1.7-2.5) Total Bilirubin < 0.2 mg/dL (0.0-1.2) < 0.2 mg/dL (0.0-1.2) 0.2 mg/dL (0.0-1.2) Aspartate Amino Transf (AST/SGOT) 119 U/L (5-40) 77 U/L (5-40) 114 U/L (5-40) Alanine Aminotransferase (ALT/SGPT) 177 U/L (3-41) 152 U/L (3-41) 123 U/L (3-41) Alkaline Phosphatase 182 U/L (40-129) 160 U/L (40-129) 170 U/L (40-129) Pro-B-Type Natriuretic Peptide 34 pg/mL (0-125) Total Protein 7.3 g/dL (6.6-8.7) 7.0 g/dL (6.6-8.7) 5.8 g/dL (6.6-8.7) Albumin 3.2 g/dL (3.5-5.2) 2.8 g/dL (3.5-5.2) 2.1 g/dL (3.5-5.2) Globulin 4.1 g/dL 4.2 g/dL 3.7 g/dL Albumin/Globulin Ratio 0.7 (1.0-2.7) 0.6 (1.0-2.7) 0.5 (1.0-2.7) White Blood Count 10.9 K/UL (4.8-10.8) 9.1 K/UL (4.8-10.8) Red Blood Count 4.18 M/UL (4.70-6.10) 3.34 M/UL (4.70-6.10) Hemoglobin 12.4 G/DL (14.2-18.0) 9.9 G/DL (14.2-18.0) Hematocrit 37.8 % (42.0-52.0) 30.2 % (42.0-52.0) Mean Corpuscular Volume 90 FL (80-99) 90 FL (80-99) Mean Corpuscular Hemoglobin 29.6 PG (27.0-31.0) 29.6 PG (27.0-31.0) Mean Corpuscular Hemoglobin Concent 32.7 G/DL (32.0-36.0) 32.8 G/DL (32.0-36.0) Red Cell Distribution Width 12.2 % (11.6-14.8) 12.1 % (11.6-14.8) Platelet Count 427 K/UL (150-450) 379 K/UL (150-450) Mean Platelet Volume 7.5 FL (6.5-10.1) 6.7 FL (6.5-10.1) Neutrophils (%) (Auto) 66.3 % (45.0-75.0) 56.8 % (45.0-75.0) Lymphocytes (%) (Auto) 12.0 % (20.0-45.0) 23.5 % (20.0-45.0) Monocytes (%) (Auto) 16.2 % (1.0-10.0) 14.2 % (1.0-10.0) Eosinophils (%) (Auto) 3.1 % (0.0-3.0) 4.3 % (0.0-3.0) Basophils (%) (Auto) 2.5 % (0.0-2.0) 1.2 % (0.0-2.0) Arterial Blood pH 7.408 (7.350-7.450) Arterial Blood Partial Pressure CO2 49.2 mmHg (35.0-45.0) Arterial Blood Partial Pressure O2 129.6 mmHg (75.0-100.0) Arterial Blood HCO3 30.3 mmol/L (22.0-26.0) Arterial Blood Oxygen Saturation 98.4 % (92.0-98.0) Arterial Blood Base Excess 4.8 Jamel Test Positive Test 11/01/16 05:00 11/01/16 10:02 White Blood Count 7.9 K/UL (4.8-10.8) Red Blood Count 3.28 M/UL (4.70-6.10) Hemoglobin 9.7 G/DL (14.2-18.0) Hematocrit 29.5 % (42.0-52.0) Mean Corpuscular Volume 90 FL (80-99) Mean Corpuscular Hemoglobin 29.7 PG (27.0-31.0) Mean Corpuscular Hemoglobin Concent 32.9 G/DL (32.0-36.0) Red Cell Distribution Width 11.9 % (11.6-14.8) Platelet Count 399 K/UL (150-450) Mean Platelet Volume 7.1 FL (6.5-10.1) Neutrophils (%) (Auto) 59.5 % (45.0-75.0) Lymphocytes (%) (Auto) 22.5 % (20.0-45.0) Monocytes (%) (Auto) 12.5 % (1.0-10.0) Eosinophils (%) (Auto) 4.4 % (0.0-3.0) Basophils (%) (Auto) 1.1 % (0.0-2.0) Sodium Level 129 mEQ/L (135-145) Potassium Level 4.2 mEQ/L (3.4-4.9) Chloride Level 91 mEQ/L (98-107) Carbon Dioxide Level 26 mEQ/L (20-30) Anion Gap 12 (5-15) Blood Urea Nitrogen 8 mg/dL (7-23) Creatinine 0.8 mg/dL (0.7-1.2) Estimat Glomerular Filtration Rate > 60 mL/min (>60) Glucose Level 186 mg/dL (74-106) Calcium Level 8.6 mg/dL (8.6-10.2) Magnesium Level 1.6 mg/dL (1.7-2.5) Arterial Blood pH 7.408 (7.350-7.450) Arterial Blood Partial Pressure CO2 41.4 mmHg (35.0-45.0) Arterial Blood Partial Pressure O2 103.0 mmHg (75.0-100.0) Arterial Blood HCO3 25.5 mmol/L (22.0-26.0) Arterial Blood Oxygen Saturation 97.2 % (92.0-98.0) Arterial Blood Base Excess 0.8 Jamel Test Positive Objective: WDWN extubated reduced LOC reduced breath sounds bilaterally with no rhonchi [id number] without MRG NABS nontender no HSM no CCE nonfocal awake Accucheck: 270 IZABEL HASTINGS November 01, 2016 14:55
[2016-11-02] VITALS (24 sets, daily range): BP systolic 101–135; BP diastolic 52–79
[2016-11-02] MEDS: Levemir Flexpen SUBQ SCH ×2 (05:36→17:39)
[2016-11-02] MEDS: NovoLOG Insulin Flexpen SUBQ SCH ×4 (05:37→23:51)
[2016-11-02 05:41] LABS: EOSINOPHILS % (AUTO) 4.9 % (0.0-3.0); LYMPHOCYTES % (AUTO) 17.9 % (20.0-45.0); MEAN CORPUSCULAR HEMOGLOBIN 29.5 PG (27.0-31.0); MEAN CORPUSCULAR HGB CONC 33.4 G/DL (32.0-36.0); MEAN CORPUSCULAR VOLUME 88 FL (80-99); MONOCYTES % (AUTO) 11.1 % (1.0-10.0); NEUTROPHILS % (AUTO) 65.1 % (45.0-75.0); PLATELET COUNT 405 K/UL (150-450); RED BLOOD COUNT 3.81 M/UL (4.70-6.10); RED CELL DISTRIBUTION WIDTH 11.5 % (11.6-14.8); WHITE BLOOD COUNT 8.6 K/UL (4.8-10.8)
[2016-11-02 06:00] LABS: ANION GAP 14 (5-15); CALCIUM 8.9 mg/dL (8.6-10.2); CARBON DIOXIDE 26 mEQ/L (20-30); CHLORIDE 87 mEQ/L (98-107); CREATININE 0.8 mg/dL (0.7-1.2); GLOMERULAR FILTRATION RATE > 60 mL/min (>60); HEMOLYSIS 3; POTASSIUM 4.5 mEQ/L (3.4-4.9); SODIUM 127 mEQ/L (135-145)
[2016-11-02] MEDS: D5 1/2NS w/KCl 20mEq 1,000 ML IV SCH ×3 (06:51→22:53)
--- NOTE | 2016-11-02 08:04 | Critical Care Progress Note ---
Assessment/Plan Assessment/Plan s/p bronchoscopy pulmonary infiltrates respiratory failure- reintubated aspiration event leukocytosis anemia sinus tachycardia agitation resolved co2 retention MDR sputum PLAN extubated low flow oxygen encourage cough underwent GT tube feeds per PMD may be able to transfer out of ICU on low flow oxygen at present and imaging remains negative Critical Care - Subjective Interval Events: remains extubated nad on nc 02 Condition: improving EKG Rhythm: Sinus Tachycardia I&O: Intake and Output 11/01/16 11/02/16 19:00 07:00 Intake Total 2012.625 ml 1847 ml Output Total 1550 ml 1680 ml Balance 462.625 ml 167 ml Free Water 80 ml 160 ml IV Total 1542.625 ml 1387 ml Tube Feeding 290 ml 300 ml Other 100 ml Output Urine Total 1550 ml 1680 ml # Bowel Movements 1 1 Critical Care - Objective ET-Tube: 7.5 ET Position: 22 Last 24 Hour Vital Signs Date Time Temp Pulse Resp B/P Pulse Ox O2 Delivery O2 Flow Rate FiO2 11/02/16 07:00 103 30 108/67 100 Nasal Cannula 3.0 11/02/16 06:53 100 Nasal Cannula 3.0 32 11/02/16 06:53 Nasal Cannula 3.0 32 11/02/16 06:00 87 32 104/57 100 Nasal Cannula 3.0 11/02/16 05:00 95 33 112/62 100 Nasal Cannula 3.0 11/02/16 04:00 97 11/02/16 04:00 98.3 97 35 118/54 100 Nasal Cannula 3.0 11/02/16 03:00 91 34 118/71 100 Nasal Cannula 3.0 11/02/16 02:00 90 30 132/78 100 Nasal Cannula 3.0 11/02/16 01:00 98.6 103 32 119/68 100 Nasal Cannula 3.0 11/02/16 00:00 97 11/02/16 00:00 97 32 127/70 100 Nasal Cannula 3.0 11/01/16 23:00 99 30 121/68 100 Nasal Cannula 3.0 11/01/16 22:00 97 19 129/70 100 Nasal Cannula 3.0 11/01/16 21:00 92 18 139/81 100 Nasal Cannula 3.0 11/01/16 20:00 100 11/01/16 20:00 98.3 100 30 128/65 100 Nasal Cannula 3.0 11/01/16 19:40 Nasal Cannula 3.0 11/01/16 19:25 95 Nasal Cannula 3.0 11/01/16 19:00 6 25 126/69 100 Nasal Cannula 3.0 11/01/16 18:00 99 24 129/60 100 Nasal Cannula 3.0 11/01/16 17:00 93 29 125/57 98 Nasal Cannula 3.0 11/01/16 16:00 98.7 86 32 129/72 100 Nasal Cannula 3.0 11/01/16 16:00 87 11/01/16 15:00 93 31 123/70 100 Nasal Cannula 3.0 11/01/16 14:00 101 27 129/73 100 Nasal Cannula 3.0 11/01/16 13:15 Nasal Cannula 3.0 32 11/01/16 13:00 93 26 119/64 100 Mechanical Ventilator 35 11/01/16 12:00 97.8 91 27 128/70 100 Mechanical Ventilator 35 11/01/16 12:00 35 11/01/16 12:00 90 11/01/16 11:29 95 26 35 11/01/16 11:00 89 39 128/77 100 Mechanical Ventilator 35 11/01/16 10:00 94 25 138/69 100 Mechanical Ventilator 35 11/01/16 09:00 83 32 140/77 100 Mechanical Ventilator 35 11/01/16 08:52 85 21 35 11/01/16 08:51 100 Labs: Labs Test 10/30/16 09:15 10/31/16 04:10 11/01/16 05:00 11/01/16 10:02 Arterial Blood pH 7.408 (7.350-7.450) 7.408 (7.350-7.450) Arterial Blood Partial Pressure CO2 49.2 mmHg (35.0-45.0) 41.4 mmHg (35.0-45.0) Arterial Blood Partial Pressure O2 129.6 mmHg (75.0-100.0) 103.0 mmHg (75.0-100.0) Arterial Blood HCO3 30.3 mmol/L (22.0-26.0) 25.5 mmol/L (22.0-26.0) Arterial Blood Oxygen Saturation 98.4 % (92.0-98.0) 97.2 % (92.0-98.0) Arterial Blood Base Excess 4.8 0.8 Jamel Test Positive Positive White Blood Count 9.1 K/UL (4.8-10.8) 7.9 K/UL (4.8-10.8) Red Blood Count 3.34 M/UL (4.70-6.10) 3.28 M/UL (4.70-6.10) Hemoglobin 9.9 G/DL (14.2-18.0) 9.7 G/DL (14.2-18.0) Hematocrit 30.2 % (42.0-52.0) 29.5 % (42.0-52.0) Mean Corpuscular Volume 90 FL (80-99) 90 FL (80-99) Mean Corpuscular Hemoglobin 29.6 PG (27.0-31.0) 29.7 PG (27.0-31.0) Mean Corpuscular Hemoglobin Concent 32.8 G/DL (32.0-36.0) 32.9 G/DL (32.0-36.0) Red Cell Distribution Width 12.1 % (11.6-14.8) 11.9 % (11.6-14.8) Platelet Count 379 K/UL (150-450) 399 K/UL (150-450) Mean Platelet Volume 6.7 FL (6.5-10.1) 7.1 FL (6.5-10.1) Neutrophils (%) (Auto) 56.8 % (45.0-75.0) 59.5 % (45.0-75.0) Lymphocytes (%) (Auto) 23.5 % (20.0-45.0) 22.5 % (20.0-45.0) Monocytes (%) (Auto) 14.2 % (1.0-10.0) 12.5 % (1.0-10.0) Eosinophils (%) (Auto) 4.3 % (0.0-3.0) 4.4 % (0.0-3.0) Basophils (%) (Auto) 1.2 % (0.0-2.0) 1.1 % (0.0-2.0) Sodium Level 135 mEQ/L (135-145) 129 mEQ/L (135-145) Potassium Level 4.7 mEQ/L (3.4-4.9) 4.2 mEQ/L (3.4-4.9) Chloride Level 95 mEQ/L (98-107) 91 mEQ/L (98-107) Carbon Dioxide Level 26 mEQ/L (20-30) 26 mEQ/L (20-30) Anion Gap 14 (5-15) 12 (5-15) Blood Urea Nitrogen 8 mg/dL (7-23) 8 mg/dL (7-23) Creatinine 0.7 mg/dL (0.7-1.2) 0.8 mg/dL (0.7-1.2) Estimat Glomerular Filtration Rate > 60 mL/min (>60) > 60 mL/min (>60) Glucose Level 168 mg/dL (74-106) 186 mg/dL (74-106) Calcium Level 9.1 mg/dL (8.6-10.2) 8.6 mg/dL (8.6-10.2) Phosphorus Level 2.5 mg/dL (2.5-4.8) Magnesium Level 1.2 mg/dL (1.7-2.5) 1.6 mg/dL (1.7-2.5) Total Bilirubin 0.2 mg/dL (0.0-1.2) Aspartate Amino Transf (AST/SGOT) 114 U/L (5-40) Alanine Aminotransferase (ALT/SGPT) 123 U/L (3-41) Alkaline Phosphatase 170 U/L (40-129) Total Protein 5.8 g/dL (6.6-8.7) Albumin 2.1 g/dL (3.5-5.2) Globulin 3.7 g/dL Albumin/Globulin Ratio 0.5 (1.0-2.7) Test 11/02/16 05:00 White Blood Count 8.6 K/UL (4.8-10.8) Red Blood Count 3.81 M/UL (4.70-6.10) Hemoglobin 11.2 G/DL (14.2-18.0) Hematocrit 33.6 % (42.0-52.0) Mean Corpuscular Volume 88 FL (80-99) Mean Corpuscular Hemoglobin 29.5 PG (27.0-31.0) Mean Corpuscular Hemoglobin Concent 33.4 G/DL (32.0-36.0) Red Cell Distribution Width 11.5 % (11.6-14.8) Platelet Count 405 K/UL (150-450) Mean Platelet Volume 7.0 FL (6.5-10.1) Neutrophils (%) (Auto) 65.1 % (45.0-75.0) Lymphocytes (%) (Auto) 17.9 % (20.0-45.0) Monocytes (%) (Auto) 11.1 % (1.0-10.0) Eosinophils (%) (Auto) 4.9 % (0.0-3.0) Basophils (%) (Auto) 1.0 % (0.0-2.0) Sodium Level 127 mEQ/L (135-145) Potassium Level 4.5 mEQ/L (3.4-4.9) Chloride Level 87 mEQ/L (98-107) Carbon Dioxide Level 26 mEQ/L (20-30) Anion Gap 14 (5-15) Blood Urea Nitrogen 7 mg/dL (7-23) Creatinine 0.8 mg/dL (0.7-1.2) Estimat Glomerular Filtration Rate > 60 mL/min (>60) Glucose Level 158 mg/dL (74-106) Calcium Level 8.9 mg/dL (8.6-10.2) Objective: WDWN extubated reduced LOC reduced breath sounds bilaterally with no rhonchi [id number] without MRG NABS nontender no HSM no CCE nonfocal awake Accucheck: 157 IZABEL HASTINGS November 02, 2016 08:04
[2016-11-02] MEDS: Fluconazole 100mg tab ORAL SCH (08:40)
[2016-11-02] MEDS: Bactrim Susp 20ml NG SCH ×2 (08:40→21:30)
[2016-11-02] MEDS: DESMOPRESSIN IV SCH (08:40)
[2016-11-02] MEDS: NS IV SCH (08:40)
[2016-11-02] MEDS: Docusate 100mg/10ml Liq NG SCH ×2 (08:40→17:39)
[2016-11-02] MEDS: Pantoprazole Inj IV SCH (08:41)
[2016-11-02] MEDS: Heparin 5000 units/ml inj SUBQ SCH ×2 (08:42→21:31)
[2016-11-02] MEDS ORDERED: Tubing IV Secondary IV ONE (10:55)
--- NOTE | 2016-11-02 11:14 | GI Progress Note ---
Assessment/Plan Problems: (1) Abnormal LFTs ICD Codes: R79.89 - Other specified abnormal findings of blood chemistry SNOMED: 990809601 (2) Hypoalbuminemia ICD Codes: E88.09 - Other disorders of plasma-protein metabolism, not elsewhere classified SNOMED: 725777733 (3) G tube feedings ICD Codes: Z93.1 - Gastrostomy status SNOMED: 120317806, 613086074 (4) Choking due to food in larynx ICD Codes: T17.320A - Food in larynx causing asphyxiation, initial encounter SNOMED: 65228816 Status: stable, progressing Status Narrative Discussed with Dr. Reddy. Assessment/Plan s/p PEG GTFs per dietary to goal >> VITAL 1.2 @ 55 ml GT site care daily/prn fu abdominal US >> unremarkable monitor LFTs ppi fu labs Subjective Subjective limited Objective Last 24 Hour Vital Signs Date Time Temp Pulse Resp B/P Pulse Ox O2 Delivery O2 Flow Rate FiO2 11/02/16 11:00 97 26 113/60 100 Nasal Cannula 3.0 11/02/16 10:00 96 27 114/58 100 Nasal Cannula 3.0 11/02/16 09:00 108 30 111/62 100 Nasal Cannula 3.0 11/02/16 08:00 98 11/02/16 08:00 98.1 97 28 101/52 99 Nasal Cannula 3.0 11/02/16 07:00 103 30 108/67 100 Nasal Cannula 3.0 11/02/16 06:53 100 Nasal Cannula 3.0 32 11/02/16 06:53 Nasal Cannula 3.0 32 11/02/16 06:00 87 32 104/57 100 Nasal Cannula 3.0 11/02/16 05:00 95 33 112/62 100 Nasal Cannula 3.0 11/02/16 04:00 97 11/02/16 04:00 98.3 97 35 118/54 100 Nasal Cannula 3.0 11/02/16 03:00 91 34 118/71 100 Nasal Cannula 3.0 11/02/16 02:00 90 30 132/78 100 Nasal Cannula 3.0 11/02/16 01:00 98.6 103 32 119/68 100 Nasal Cannula 3.0 11/02/16 00:00 97 11/02/16 00:00 97 32 127/70 100 Nasal Cannula 3.0 11/01/16 23:00 99 30 121/68 100 Nasal Cannula 3.0 11/01/16 22:00 97 19 129/70 100 Nasal Cannula 3.0 11/01/16 21:00 92 18 139/81 100 Nasal Cannula 3.0 11/01/16 20:00 100 11/01/16 20:00 98.3 100 30 128/65 100 Nasal Cannula 3.0 11/01/16 19:40 Nasal Cannula 3.0 11/01/16 19:25 95 Nasal Cannula 3.0 11/01/16 19:00 6 25 126/69 100 Nasal Cannula 3.0 11/01/16 18:00 99 24 129/60 100 Nasal Cannula 3.0 11/01/16 17:00 93 29 125/57 98 Nasal Cannula 3.0 11/01/16 16:00 98.7 86 32 129/72 100 Nasal Cannula 3.0 11/01/16 16:00 87 11/01/16 15:00 93 31 123/70 100 Nasal Cannula 3.0 11/01/16 14:00 101 27 129/73 100 Nasal Cannula 3.0 11/01/16 13:15 Nasal Cannula 3.0 32 11/01/16 13:00 93 26 119/64 100 Mechanical Ventilator 35 11/01/16 12:00 97.8 91 27 128/70 100 Mechanical Ventilator 35 11/01/16 12:00 35 11/01/16 12:00 90 11/01/16 11:29 95 26 35 Intake and Output 11/01/16 11/02/16 19:00 07:00 Intake Total 2012.625 ml 1847 ml Output Total 1550 ml 1680 ml Balance 462.625 ml 167 ml Free Water 80 ml 160 ml IV Total 1542.625 ml 1387 ml Tube Feeding 290 ml 300 ml Other 100 ml Output Urine Total 1550 ml 1680 ml # Bowel Movements 1 1 Laboratory Tests Test 11/02/16 05:00 White Blood Count 8.6 K/UL (4.8-10.8) Red Blood Count 3.81 M/UL (4.70-6.10) L Hemoglobin 11.2 G/DL (14.2-18.0) L Hematocrit 33.6 % (42.0-52.0) L Mean Corpuscular Volume 88 FL (80-99) Mean Corpuscular Hemoglobin 29.5 PG (27.0-31.0) Mean Corpuscular Hemoglobin Concent 33.4 G/DL (32.0-36.0) Red Cell Distribution Width 11.5 % (11.6-14.8) L Platelet Count 405 K/UL (150-450) Mean Platelet Volume 7.0 FL (6.5-10.1) Neutrophils (%) (Auto) 65.1 % (45.0-75.0) Lymphocytes (%) (Auto) 17.9 % (20.0-45.0) L Monocytes (%) (Auto) 11.1 % (1.0-10.0) H Eosinophils (%) (Auto) 4.9 % (0.0-3.0) H Basophils (%) (Auto) 1.0 % (0.0-2.0) Sodium Level 127 mEQ/L (135-145) L Potassium Level 4.5 mEQ/L (3.4-4.9) Chloride Level 87 mEQ/L (98-107) L Carbon Dioxide Level 26 mEQ/L (20-30) Anion Gap 14 (5-15) Blood Urea Nitrogen 7 mg/dL (7-23) Creatinine 0.8 mg/dL (0.7-1.2) Estimat Glomerular Filtration Rate > 60 mL/min (>60) Glucose Level 158 mg/dL (74-106) H Calcium Level 8.9 mg/dL (8.6-10.2) Height (Feet): 5 Height (Inches): 8.00 Weight (Pounds): 160 General Appearance: no apparent distress, alert Cardiovascular: normal rate Respiratory/Chest: other - extubated Abdominal Exam: GT site - c/d/i Emma Hyman NCecilia November 02, 2016 11:14
--- NOTE | 2016-11-02 12:33 | General Progress Note ---
Assessment/Plan Assessment/Plan Na 128 TF resumed and increased to 30 ml/hr. IVF changing to D51/2 NS 20 mEq KCL/L 100 cc/hr. Decreased dDAVP to 2.5 units qam. Improving slowly. Goal is to increase TF, decrease IVF. Pulmonary parameters improving. Extubated. Keep in ICU until stable. TF kept @ 30 cc per hour and during that time all his "septic" parameters improved. Asked GI to convert PEG to PEJ. Subjective Allergies: Coded Allergies: No Known Allergies (Unverified , 09/01/12) Subjective Extubated. Alert and responsive. TF @ 25 ml/hr Objective Last 24 Hour Vital Signs Date Time Temp Pulse Resp B/P Pulse Ox O2 Delivery O2 Flow Rate FiO2 11/02/16 12:00 98.4 95 30 108/60 100 Nasal Cannula 3.0 11/02/16 11:00 97 26 113/60 100 Nasal Cannula 3.0 11/02/16 10:00 96 27 114/58 100 Nasal Cannula 3.0 11/02/16 09:00 108 30 111/62 100 Nasal Cannula 3.0 11/02/16 08:00 98 11/02/16 08:00 98.1 97 28 101/52 99 Nasal Cannula 3.0 11/02/16 07:00 103 30 108/67 100 Nasal Cannula 3.0 11/02/16 06:53 100 Nasal Cannula 3.0 32 11/02/16 06:53 Nasal Cannula 3.0 32 11/02/16 06:00 87 32 104/57 100 Nasal Cannula 3.0 11/02/16 05:00 95 33 112/62 100 Nasal Cannula 3.0 11/02/16 04:00 97 11/02/16 04:00 98.3 97 35 118/54 100 Nasal Cannula 3.0 11/02/16 03:00 91 34 118/71 100 Nasal Cannula 3.0 11/02/16 02:00 90 30 132/78 100 Nasal Cannula 3.0 11/02/16 01:00 98.6 103 32 119/68 100 Nasal Cannula 3.0 11/02/16 00:00 97 11/02/16 00:00 97 32 127/70 100 Nasal Cannula 3.0 11/01/16 23:00 99 30 121/68 100 Nasal Cannula 3.0 11/01/16 22:00 97 19 129/70 100 Nasal Cannula 3.0 11/01/16 21:00 92 18 139/81 100 Nasal Cannula 3.0 11/01/16 20:00 100 11/01/16 20:00 98.3 100 30 128/65 100 Nasal Cannula 3.0 11/01/16 19:40 Nasal Cannula 3.0 11/01/16 19:25 95 Nasal Cannula 3.0 11/01/16 19:00 6 25 126/69 100 Nasal Cannula 3.0 11/01/16 18:00 99 24 129/60 100 Nasal Cannula 3.0 11/01/16 17:00 93 29 125/57 98 Nasal Cannula 3.0 11/01/16 16:00 98.7 86 32 129/72 100 Nasal Cannula 3.0 11/01/16 16:00 87 11/01/16 15:00 93 31 123/70 100 Nasal Cannula 3.0 11/01/16 14:00 101 27 129/73 100 Nasal Cannula 3.0 11/01/16 13:15 Nasal Cannula 3.0 32 11/01/16 13:00 93 26 119/64 100 Mechanical Ventilator 35 Intake and Output 11/01/16 11/02/16 19:00 07:00 Intake Total 2012.625 ml 1847 ml Output Total 1550 ml 1680 ml Balance 462.625 ml 167 ml Free Water 80 ml 160 ml IV Total 1542.625 ml 1387 ml Tube Feeding 290 ml 300 ml Other 100 ml Output Urine Total 1550 ml 1680 ml # Bowel Movements 1 1 Laboratory Tests 11/02/16 05:00: White Blood Count 8.6, Red Blood Count 3.81L, Hemoglobin 11.2L, Hematocrit 33.6L , Mean Corpuscular Volume 88, Mean Corpuscular Hemoglobin 29.5, Mean Corpuscular Hemoglobin Concent 33.4, Red Cell Distribution Width 11.5L, Platelet Count 405, Mean Platelet Volume 7.0, Neutrophils (%) (Auto) 65.1, Lymphocytes (%) (Auto) 17.9L, Monocytes (%) (Auto) 11.1H, Eosinophils (%) (Auto ) 4.9H, Basophils (%) (Auto) 1.0, Sodium Level 127L, Potassium Level 4.5, Chloride Level 87L, Carbon Dioxide Level 26, Anion Gap 14, Blood Urea Nitrogen 7 , Creatinine 0.8, Estimat Glomerular Filtration Rate > 60, Glucose Level 158H, Calcium Level 8.9 Height (Feet): 5 Height (Inches): 8.00 Weight (Pounds): 160 Objective Intubated. HR below 100. Cv RRR. Lungs CTA Abd SNT. BS + PEG OK. E No PARRISE RENETTA SOMMER November 02, 2016 12:33
--- NOTE | 2016-11-02 14:20 | Diagnostic Imaging Report ---
Indications: Wolfram syndrome, dysphagia, bilateral blindness Technique: Sagittal and axial T1 weighted FLAIR, axial T2-weighted fat saturated fast spin echo propeller, T2-weighted FLAIR, T2*-weighted gradient echo, and diffusion sequences of the brain were performed without IV gadolinium administration. Findings: Comparison: None Cerebellum, duodenal, and bismark are diffusely atrophic. Midbrain and cerebral hemispheres less severely affected.. No evidence of mass or hemorrhage, other signal abnormality, mass effect, midline shift, hydrocephalus, or increased intracranial pressure. No restricted diffusion. Central vascular flow voids are preserved. IMPRESSION: No evidence of acute intracranial pathology Cerebellar, mid and lower brainstem atrophy
--- NOTE | 2016-11-02 15:55 | Infectious Diseases Prog Note ---
Assessment/Plan Assessment/Plan ASSESSMENT AND PLAN: 1. acinetobacter/klebsiella/aspiration pna with sepsis, fevers, leukocytosis - extubated, clinically better - f/u sputum culture - yeast - fungemia risk, ? thrush - abx - zosyn, bactrim and diflucan - icu care - check chest x-ray and labs - s/p feeding tube 2. The patient has diabetes insipidus. 3. The patient has diabetes mellitus. 4. Aspiration risk. 5. Optical atrophy. 6. Deafness. 7. DIDMOAD syndrome. 8. MAR was noted. 9. Case discussed with RN. 10. Continue treatment per primary consultants. Subjective Constitutional: Reports: other - extubated, Denies: fever HEENT: Reports: congestion - less Respiratory: Reports: shortness of breath - less Cardiovascular: Denies: chest pain Gastrointestinal/Abdominal: Denies: diarrhea, nausea, vomiting Genitourinary: Reports: other - + baez Neurologic: Denies: headache Psychiatric: Denies: depression Skin: Denies: rash Hematologic: Denies: bleeding Musculoskeletal: Denies: pain Allergies: Coded Allergies: No Known Allergies (Unverified , 09/01/12) Objective Vital Signs Last 24 Hour Vital Signs Date Time Temp Pulse Resp B/P Pulse Ox O2 Delivery O2 Flow Rate FiO2 11/02/16 15:00 104 30 122/68 100 Nasal Cannula 3.0 11/02/16 14:00 109 35 120/66 100 Nasal Cannula 3.0 11/02/16 13:00 104 26 135/79 100 Nasal Cannula 3.0 11/02/16 12:00 98.4 95 30 108/60 100 Nasal Cannula 3.0 11/02/16 12:00 96 11/02/16 11:00 97 26 113/60 100 Nasal Cannula 3.0 11/02/16 10:00 96 27 114/58 100 Nasal Cannula 3.0 11/02/16 09:00 108 30 111/62 100 Nasal Cannula 3.0 11/02/16 08:00 98 11/02/16 08:00 98.1 97 28 101/52 99 Nasal Cannula 3.0 11/02/16 07:00 103 30 108/67 100 Nasal Cannula 3.0 11/02/16 06:53 100 Nasal Cannula 3.0 32 11/02/16 06:53 Nasal Cannula 3.0 32 11/02/16 06:00 87 32 104/57 100 Nasal Cannula 3.0 11/02/16 05:00 95 33 112/62 100 Nasal Cannula 3.0 11/02/16 04:00 97 11/02/16 04:00 98.3 97 35 118/54 100 Nasal Cannula 3.0 11/02/16 03:00 91 34 118/71 100 Nasal Cannula 3.0 11/02/16 02:00 90 30 132/78 100 Nasal Cannula 3.0 11/02/16 01:00 98.6 103 32 119/68 100 Nasal Cannula 3.0 11/02/16 00:00 97 11/02/16 00:00 97 32 127/70 100 Nasal Cannula 3.0 11/01/16 23:00 99 30 121/68 100 Nasal Cannula 3.0 11/01/16 22:00 97 19 129/70 100 Nasal Cannula 3.0 11/01/16 21:00 92 18 139/81 100 Nasal Cannula 3.0 11/01/16 20:00 100 11/01/16 20:00 98.3 100 30 128/65 100 Nasal Cannula 3.0 11/01/16 19:40 Nasal Cannula 3.0 11/01/16 19:25 95 Nasal Cannula 3.0 11/01/16 19:00 6 25 126/69 100 Nasal Cannula 3.0 11/01/16 18:00 99 24 129/60 100 Nasal Cannula 3.0 11/01/16 17:00 93 29 125/57 98 Nasal Cannula 3.0 11/01/16 16:00 98.7 86 32 129/72 100 Nasal Cannula 3.0 11/01/16 16:00 87 Height (Feet): 5 Height (Inches): 8.00 Weight (Pounds): 160 General Appearance: no acute distress HEENT: normocephalic, atraumatic, anicteric, mucous membranes moist, PERRL, EOMI, pharynx normal, supple, no JVD Respiratory/Chest: crackles/rales - les, rhonchi - bilaterally - less Cardiovascular: normal rate, regular rhythm, no gallop/murmur, no JVD Abdomen: normal bowel sounds, soft, non tender, no organomegaly, non distended Genitourinary: other - + baez Extremities: no cyanosis Skin: no rash 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 10/24 - chest x-ray - interstitial edema 10/25 - chest x-ray - right infiltrate vs atx Microbiology Date/Time Source Procedure Growth Status 10/29/16 13:20 Sputum Gram Stain - Final Complete 10/29/16 13:20 Sputum Culture - Final Dee Albicans Complete 10/21/16 09:50 Indwelling Cath Urine Culture - Final Complete 10/15/16 17:15 Rectum VRE Culture - Final NO VANCOMYCIN RESISTANT ENTEROCOCCUS ... Complete Laboratory Tests Test 11/02/16 05:00 White Blood Count 8.6 K/UL (4.8-10.8) Red Blood Count 3.81 M/UL (4.70-6.10) L Hemoglobin 11.2 G/DL (14.2-18.0) L Hematocrit 33.6 % (42.0-52.0) L Mean Corpuscular Volume 88 FL (80-99) Mean Corpuscular Hemoglobin 29.5 PG (27.0-31.0) Mean Corpuscular Hemoglobin Concent 33.4 G/DL (32.0-36.0) Red Cell Distribution Width 11.5 % (11.6-14.8) L Platelet Count 405 K/UL (150-450) Mean Platelet Volume 7.0 FL (6.5-10.1) Neutrophils (%) (Auto) 65.1 % (45.0-75.0) Lymphocytes (%) (Auto) 17.9 % (20.0-45.0) L Monocytes (%) (Auto) 11.1 % (1.0-10.0) H Eosinophils (%) (Auto) 4.9 % (0.0-3.0) H Basophils (%) (Auto) 1.0 % (0.0-2.0) Sodium Level 127 mEQ/L (135-145) L Potassium Level 4.5 mEQ/L (3.4-4.9) Chloride Level 87 mEQ/L (98-107) L Carbon Dioxide Level 26 mEQ/L (20-30) Anion Gap 14 (5-15) Blood Urea Nitrogen 7 mg/dL (7-23) Creatinine 0.8 mg/dL (0.7-1.2) Estimat Glomerular Filtration Rate > 60 mL/min (>60) Glucose Level 158 mg/dL (74-106) H Calcium Level 8.9 mg/dL (8.6-10.2) Current Medications Medications (Trade) Dose Ordered Sig/Marilyn Route PRN Reason Start Time Stop Time Status Last Admin Dose Admin Acetaminophen (Tylenol) 650 mg Q6H PRN NG Fever/Headache/Mild Pain 10/26/16 08:15 11/25/16 08:14 10/29/16 13:46 Desmopressin Acetate/Sodium Chloride (Ddavp/Sodium Chloride) 55.625 ml @ 115 mls/ hr DAILY IV 11/01/16 09:00 12/01/16 08:59 11/02/16 08:40 Dextrose (Dextrose 50%) STAT PRN IV Hypoglycemia 10/24/16 08:30 11/23/16 08:29 Dextrose/ Electrolytes (D5 0.45%NS W/ KCl 20mEq) 1,000 ml @ 125 mls/hr Q8H IV 11/01/16 15:00 12/01/16 14:59 11/02/16 14:20 Docusate Sodium (Colace) 100 mg TWICE A DAY NG 10/26/16 09:00 11/25/16 08:59 11/02/16 08:40 Fluconazole 200 mg 200 mg DAILY ORAL 11/01/16 09:00 11/08/16 08:59 11/02/16 08:40 Heparin Sodium (Porcine) (Heparin 5000 units/ml) 5,000 units EVERY 12 HOURS SUBQ 10/16/16 09:00 11/15/16 08:59 11/02/16 08:42 Insulin Aspart (NovoLOG) EVERY 6 HOURS SUBQ 10/25/16 12:00 11/24/16 11:59 11/02/16 11:56 Insulin Detemir (Levemir) 50 units Q12HR@0600,1800 SUBQ 10/29/16 18:00 11/28/16 17:59 11/02/16 05:36 Morphine Sulfate 4 mg 4 mg Q3H PRN IVP PAIN 4-10 10/29/16 09:30 11/05/16 09:29 10/29/16 10:01 Non-Formulary Medication (Non-Formulary oral solution) 0.25 ml Q48H GT 10/31/16 20:00 11/30/16 19:59 10/31/16 20:00 Ondansetron HCl (Zofran) 4 mg Q6H PRN IVP Nausea & Vomiting 10/26/16 08:15 11/25/16 08:14 Pantoprazole (Protonix) 40 mg DAILY IV 10/16/16 09:00 11/15/16 08:59 11/02/16 08:41 Piperacillin Sod/ Tazobactam Sod/ Dextrose (Zosyn/D5W) 100 ml @ 25 mls/hr EVERY 8 HOURS IVPB 10/31/16 18:00 11/05/16 17:59 11/02/16 14:20 Trimethoprim/ Sulfamethoxazole 20 ml 20 ml EVERY 12 HOURS NG 10/31/16 21:00 11/07/16 20:59 11/02/16 08:40 JACOBY LO November 02, 2016 15:55
[2016-11-02] MEDS: CALCITRIOL 1 MCG/ML GT SCH (20:22)
[2016-11-03] VITALS (24 sets, daily range): BP systolic 105–143; BP diastolic 55–89
[2016-11-03 05:42] LABS: BASOPHILS % (AUTO) 1.6 % (0.0-2.0); EOSINOPHILS % (AUTO) 4.2 % (0.0-3.0); LYMPHOCYTES % (AUTO) 17.5 % (20.0-45.0); MEAN CORPUSCULAR HEMOGLOBIN 29.5 PG (27.0-31.0); MEAN CORPUSCULAR HGB CONC 32.7 G/DL (32.0-36.0); MEAN CORPUSCULAR VOLUME 90 FL (80-99); MEAN PLATELET VOLUME 7.3 FL (6.5-10.1); MONOCYTES % (AUTO) 12.5 % (1.0-10.0); NEUTROPHILS % (AUTO) 64.2 % (45.0-75.0); PLATELET COUNT 567 K/UL (150-450); RED BLOOD COUNT 4.14 M/UL (4.70-6.10); RED CELL DISTRIBUTION WIDTH 12.3 % (11.6-14.8); WHITE BLOOD COUNT 8.9 K/UL (4.8-10.8)
[2016-11-03 06:02] LABS: ANION GAP 15 (5-15); CALCIUM 9.8 mg/dL (8.6-10.2); CARBON DIOXIDE 27 mEQ/L (20-30); CHLORIDE 94 mEQ/L (98-107); CREATININE 0.8 mg/dL (0.7-1.2); GLOMERULAR FILTRATION RATE > 60 mL/min (>60); HEMOLYSIS 13; POTASSIUM 4.8 mEQ/L (3.4-4.9); SODIUM 136 mEQ/L (135-145)
[2016-11-03] MEDS: NovoLOG Insulin Flexpen SUBQ SCH ×3 (06:27→17:51)
[2016-11-03] MEDS: Levemir Flexpen SUBQ SCH ×2 (06:27→17:52)
[2016-11-03] MEDS: D5 1/2NS w/KCl 20mEq 1,000 ML IV SCH ×3 (06:47→23:00)
[2016-11-03] MEDS: NS IV SCH (08:41)
[2016-11-03] MEDS: Bactrim Susp 20ml NG SCH ×2 (08:41→21:00)
[2016-11-03] MEDS: Docusate 100mg/10ml Liq NG SCH ×2 (08:41→17:50)
[2016-11-03] MEDS: DESMOPRESSIN IV SCH (08:41)
[2016-11-03] MEDS: Pantoprazole Inj IV SCH (08:41)
[2016-11-03] MEDS: Fluconazole 100mg tab ORAL SCH (08:42)
[2016-11-03] MEDS: Heparin 5000 units/ml inj SUBQ SCH ×2 (08:48→21:11)
--- NOTE | 2016-11-03 09:02 | Critical Care Progress Note ---
Assessment/Plan Assessment/Plan s/p bronchoscopy pulmonary infiltrates respiratory failure- reintubated aspiration event leukocytosis anemia sinus tachycardia agitation resolved co2 retention MDR sputum PLAN stable transition out of ICU low flow oxygen encourage cough GT care doing well and stable this time Critical Care - Subjective Interval Events: awake stable EKG Rhythm: Sinus Tachycardia I&O: Intake and Output 11/02/16 11/03/16 19:00 07:00 Intake Total 1305.625 ml 1970 ml Output Total 1555 ml 2090 ml Balance -249.375 ml -120 ml Free Water 40 ml 90 ml IV Total 905.625 ml 1520 ml Tube Feeding 300 ml 360 ml Other 60 ml Output Urine Total 1555 ml 2090 ml # Bowel Movements 2 Critical Care - Objective ET-Tube: 7.5 ET Position: 22 Last 24 Hour Vital Signs Date Time Temp Pulse Resp B/P Pulse Ox O2 Delivery O2 Flow Rate FiO2 11/03/16 08:00 98 11/03/16 08:00 97.8 98 22 120/60 100 Nasal Cannula 3.0 11/03/16 07:47 100 Nasal Cannula 3.0 11/03/16 07:46 Nasal Cannula 3.0 11/03/16 07:00 97 27 113/55 100 Nasal Cannula 3.0 11/03/16 06:00 90 28 116/61 100 Nasal Cannula 3.0 11/03/16 05:00 86 28 116/61 100 Nasal Cannula 3.0 11/03/16 04:00 98.0 87 28 118/60 100 Nasal Cannula 3.0 11/03/16 04:00 87 11/03/16 03:00 87 31 119/64 100 Nasal Cannula 3.0 11/03/16 02:00 97 30 112/67 100 Nasal Cannula 3.0 11/03/16 01:00 106 31 126/72 100 Nasal Cannula 3.0 11/03/16 00:00 106 11/03/16 00:00 97.8 106 31 126/72 100 Nasal Cannula 3.0 11/02/16 23:00 104 28 125/69 99 Nasal Cannula 3.0 11/02/16 22:00 106 33 128/58 99 Nasal Cannula 3.0 11/02/16 21:00 101 31 120/69 100 Nasal Cannula 3.0 11/02/16 20:00 98.2 98 24 125/69 99 Nasal Cannula 3.0 11/02/16 20:00 100 11/02/16 19:14 100 Nasal Cannula 3.0 32 11/02/16 19:14 Nasal Cannula 3.0 32 11/02/16 19:00 102 27 129/70 99 Nasal Cannula 3.0 11/02/16 18:00 97 26 117/65 100 Nasal Cannula 3.0 11/02/16 17:00 94 27 125/74 100 Nasal Cannula 3.0 11/02/16 16:00 105 11/02/16 16:00 98.7 103 29 123/65 100 Nasal Cannula 3.0 11/02/16 15:00 104 30 122/68 100 Nasal Cannula 3.0 11/02/16 14:00 109 35 120/66 100 Nasal Cannula 3.0 11/02/16 13:00 104 26 135/79 100 Nasal Cannula 3.0 11/02/16 12:00 98.4 95 30 108/60 100 Nasal Cannula 3.0 11/02/16 12:00 96 11/02/16 11:00 97 26 113/60 100 Nasal Cannula 3.0 11/02/16 10:00 96 27 114/58 100 Nasal Cannula 3.0 Labs: Labs Test 11/01/16 05:00 11/01/16 10:02 11/02/16 05:00 11/03/16 04:30 White Blood Count 7.9 K/UL (4.8-10.8) 8.6 K/UL (4.8-10.8) 8.9 K/UL (4.8-10.8) Red Blood Count 3.28 M/UL (4.70-6.10) 3.81 M/UL (4.70-6.10) 4.14 M/UL (4.70-6.10) Hemoglobin 9.7 G/DL (14.2-18.0) 11.2 G/DL (14.2-18.0) 12.2 G/DL (14.2-18.0) Hematocrit 29.5 % (42.0-52.0) 33.6 % (42.0-52.0) 37.3 % (42.0-52.0) Mean Corpuscular Volume 90 FL (80-99) 88 FL (80-99) 90 FL (80-99) Mean Corpuscular Hemoglobin 29.7 PG (27.0-31.0) 29.5 PG (27.0-31.0) 29.5 PG (27.0-31.0) Mean Corpuscular Hemoglobin Concent 32.9 G/DL (32.0-36.0) 33.4 G/DL (32.0-36.0) 32.7 G/DL (32.0-36.0) Red Cell Distribution Width 11.9 % (11.6-14.8) 11.5 % (11.6-14.8) 12.3 % (11.6-14.8) Platelet Count 399 K/UL (150-450) 405 K/UL (150-450) 567 K/UL (150-450) Mean Platelet Volume 7.1 FL (6.5-10.1) 7.0 FL (6.5-10.1) 7.3 FL (6.5-10.1) Neutrophils (%) (Auto) 59.5 % (45.0-75.0) 65.1 % (45.0-75.0) 64.2 % (45.0-75.0) Lymphocytes (%) (Auto) 22.5 % (20.0-45.0) 17.9 % (20.0-45.0) 17.5 % (20.0-45.0) Monocytes (%) (Auto) 12.5 % (1.0-10.0) 11.1 % (1.0-10.0) 12.5 % (1.0-10.0) Eosinophils (%) (Auto) 4.4 % (0.0-3.0) 4.9 % (0.0-3.0) 4.2 % (0.0-3.0) Basophils (%) (Auto) 1.1 % (0.0-2.0) 1.0 % (0.0-2.0) 1.6 % (0.0-2.0) Sodium Level 129 mEQ/L (135-145) 127 mEQ/L (135-145) 136 mEQ/L (135-145) Potassium Level 4.2 mEQ/L (3.4-4.9) 4.5 mEQ/L (3.4-4.9) 4.8 mEQ/L (3.4-4.9) Chloride Level 91 mEQ/L (98-107) 87 mEQ/L (98-107) 94 mEQ/L (98-107) Carbon Dioxide Level 26 mEQ/L (20-30) 26 mEQ/L (20-30) 27 mEQ/L (20-30) Anion Gap 12 (5-15) 14 (5-15) 15 (5-15) Blood Urea Nitrogen 8 mg/dL (7-23) 7 mg/dL (7-23) 7 mg/dL (7-23) Creatinine 0.8 mg/dL (0.7-1.2) 0.8 mg/dL (0.7-1.2) 0.8 mg/dL (0.7-1.2) Estimat Glomerular Filtration Rate > 60 mL/min (>60) > 60 mL/min (>60) > 60 mL/min (>60) Glucose Level 186 mg/dL (74-106) 158 mg/dL (74-106) 140 mg/dL (74-106) Calcium Level 8.6 mg/dL (8.6-10.2) 8.9 mg/dL (8.6-10.2) 9.8 mg/dL (8.6-10.2) Magnesium Level 1.6 mg/dL (1.7-2.5) Arterial Blood pH 7.408 (7.350-7.450) Arterial Blood Partial Pressure CO2 41.4 mmHg (35.0-45.0) Arterial Blood Partial Pressure O2 103.0 mmHg (75.0-100.0) Arterial Blood HCO3 25.5 mmol/L (22.0-26.0) Arterial Blood Oxygen Saturation 97.2 % (92.0-98.0) Arterial Blood Base Excess 0.8 Jamel Test Positive Objective: WDWN extubated reduced LOC reduced breath sounds bilaterally with no rhonchi [id number] without MRG NABS nontender no HSM no CCE nonfocal awake Accucheck: IZABEL NOBLES November 03, 2016 09:02
[2016-11-03] MEDS ORDERED: D5W 275ml ONE (09:54)
[2016-11-03] MEDS ORDERED: Sterile Water Irrig 1000ml IRRIG ONE (09:54)
[2016-11-03] MEDS ORDERED: Tubing IV Secondary IV ONE (09:54)
--- NOTE | 2016-11-03 11:01 | GI Progress Note ---
Assessment/Plan Problems: (1) Abnormal LFTs ICD Codes: R79.89 - Other specified abnormal findings of blood chemistry SNOMED: 536816873 (2) Hypoalbuminemia ICD Codes: E88.09 - Other disorders of plasma-protein metabolism, not elsewhere classified SNOMED: 908113870 (3) G tube feedings ICD Codes: Z93.1 - Gastrostomy status SNOMED: 248684478, 989311595 (4) Choking due to food in larynx ICD Codes: T17.320A - Food in larynx causing asphyxiation, initial encounter SNOMED: 74432358 Status: stable, progressing Status Narrative Discussed with Dr. Reddy. Assessment/Plan s/p PEG fu abdominal US >> unremarkable GTFs per primary GT site care daily/prn ppi monitor LFTs fu hep panel fu labs Subjective Subjective limited Objective Last 24 Hour Vital Signs Date Time Temp Pulse Resp B/P Pulse Ox O2 Delivery O2 Flow Rate FiO2 11/03/16 09:00 130 24 118/70 99 Nasal Cannula 3.0 11/03/16 08:00 98 11/03/16 08:00 97.8 98 22 120/60 100 Nasal Cannula 3.0 11/03/16 07:47 100 Nasal Cannula 3.0 11/03/16 07:46 Nasal Cannula 3.0 11/03/16 07:00 97 27 113/55 100 Nasal Cannula 3.0 11/03/16 06:00 90 28 116/61 100 Nasal Cannula 3.0 11/03/16 05:00 86 28 116/61 100 Nasal Cannula 3.0 11/03/16 04:00 98.0 87 28 118/60 100 Nasal Cannula 3.0 11/03/16 04:00 87 11/03/16 03:00 87 31 119/64 100 Nasal Cannula 3.0 11/03/16 02:00 97 30 112/67 100 Nasal Cannula 3.0 11/03/16 01:00 106 31 126/72 100 Nasal Cannula 3.0 11/03/16 00:00 106 11/03/16 00:00 97.8 106 31 126/72 100 Nasal Cannula 3.0 11/02/16 23:00 104 28 125/69 99 Nasal Cannula 3.0 11/02/16 22:00 106 33 128/58 99 Nasal Cannula 3.0 11/02/16 21:00 101 31 120/69 100 Nasal Cannula 3.0 11/02/16 20:00 98.2 98 24 125/69 99 Nasal Cannula 3.0 11/02/16 20:00 100 11/02/16 19:14 100 Nasal Cannula 3.0 32 11/02/16 19:14 Nasal Cannula 3.0 32 11/02/16 19:00 102 27 129/70 99 Nasal Cannula 3.0 11/02/16 18:00 97 26 117/65 100 Nasal Cannula 3.0 11/02/16 17:00 94 27 125/74 100 Nasal Cannula 3.0 11/02/16 16:00 105 11/02/16 16:00 98.7 103 29 123/65 100 Nasal Cannula 3.0 11/02/16 15:00 104 30 122/68 100 Nasal Cannula 3.0 11/02/16 14:00 109 35 120/66 100 Nasal Cannula 3.0 11/02/16 13:00 104 26 135/79 100 Nasal Cannula 3.0 11/02/16 12:00 98.4 95 30 108/60 100 Nasal Cannula 3.0 11/02/16 12:00 96 11/02/16 11:00 97 26 113/60 100 Nasal Cannula 3.0 Intake and Output 11/02/16 11/03/16 19:00 07:00 Intake Total 1305.625 ml 1970 ml Output Total 1555 ml 2090 ml Balance -249.375 ml -120 ml Free Water 40 ml 90 ml IV Total 905.625 ml 1520 ml Tube Feeding 300 ml 360 ml Other 60 ml Output Urine Total 1555 ml 2090 ml # Bowel Movements 2 Laboratory Tests Test 11/03/16 04:30 White Blood Count 8.9 K/UL (4.8-10.8) Red Blood Count 4.14 M/UL (4.70-6.10) L Hemoglobin 12.2 G/DL (14.2-18.0) L Hematocrit 37.3 % (42.0-52.0) L Mean Corpuscular Volume 90 FL (80-99) Mean Corpuscular Hemoglobin 29.5 PG (27.0-31.0) Mean Corpuscular Hemoglobin Concent 32.7 G/DL (32.0-36.0) Red Cell Distribution Width 12.3 % (11.6-14.8) Platelet Count 567 K/UL (150-450) H Mean Platelet Volume 7.3 FL (6.5-10.1) Neutrophils (%) (Auto) 64.2 % (45.0-75.0) Lymphocytes (%) (Auto) 17.5 % (20.0-45.0) L Monocytes (%) (Auto) 12.5 % (1.0-10.0) H Eosinophils (%) (Auto) 4.2 % (0.0-3.0) H Basophils (%) (Auto) 1.6 % (0.0-2.0) Sodium Level 136 mEQ/L (135-145) Potassium Level 4.8 mEQ/L (3.4-4.9) Chloride Level 94 mEQ/L (98-107) L Carbon Dioxide Level 27 mEQ/L (20-30) Anion Gap 15 (5-15) Blood Urea Nitrogen 7 mg/dL (7-23) Creatinine 0.8 mg/dL (0.7-1.2) Estimat Glomerular Filtration Rate > 60 mL/min (>60) Glucose Level 140 mg/dL (74-106) H Calcium Level 9.8 mg/dL (8.6-10.2) Height (Feet): 5 Height (Inches): 8.00 Weight (Pounds): 160 General Appearance: no apparent distress, alert Cardiovascular: normal rate Respiratory/Chest: normal breath sounds, no respiratory distress Abdominal Exam: site - c/d/i Emma Hyman N.P. November 03, 2016 11:01
--- NOTE | 2016-11-03 11:05 | General Progress Note ---
Assessment/Plan Assessment/Plan Na 135 TF resumed and increased to 25 ml/hr. IVF changing to D51/2 NS 20 mEq KCL/L 100 cc/hr. Decreased dDAVP to 2.5 units qam. Improving slowly. Goal is to increase TF, decrease IVF. Pulmonary parameters improving. Extubated. Keep in ICU until stable. Patient requires ICU care due to complexity TF kept @ 25 cc per hour and during that time all his "septic" parameters improved. Asked GI to convert PEG to PEJ. Subjective Allergies: Coded Allergies: No Known Allergies (Unverified , 09/01/12) Subjective Extubated. Alert and responsive. TF @ 30 ml/hr Objective Last 24 Hour Vital Signs Date Time Temp Pulse Resp B/P Pulse Ox O2 Delivery O2 Flow Rate FiO2 11/03/16 09:00 130 24 118/70 99 Nasal Cannula 3.0 11/03/16 08:00 98 11/03/16 08:00 97.8 98 22 120/60 100 Nasal Cannula 3.0 11/03/16 07:47 100 Nasal Cannula 3.0 11/03/16 07:46 Nasal Cannula 3.0 11/03/16 07:00 97 27 113/55 100 Nasal Cannula 3.0 11/03/16 06:00 90 28 116/61 100 Nasal Cannula 3.0 11/03/16 05:00 86 28 116/61 100 Nasal Cannula 3.0 11/03/16 04:00 98.0 87 28 118/60 100 Nasal Cannula 3.0 11/03/16 04:00 87 11/03/16 03:00 87 31 119/64 100 Nasal Cannula 3.0 11/03/16 02:00 97 30 112/67 100 Nasal Cannula 3.0 11/03/16 01:00 106 31 126/72 100 Nasal Cannula 3.0 11/03/16 00:00 106 11/03/16 00:00 97.8 106 31 126/72 100 Nasal Cannula 3.0 11/02/16 23:00 104 28 125/69 99 Nasal Cannula 3.0 11/02/16 22:00 106 33 128/58 99 Nasal Cannula 3.0 11/02/16 21:00 101 31 120/69 100 Nasal Cannula 3.0 11/02/16 20:00 98.2 98 24 125/69 99 Nasal Cannula 3.0 11/02/16 20:00 100 11/02/16 19:14 100 Nasal Cannula 3.0 32 11/02/16 19:14 Nasal Cannula 3.0 32 11/02/16 19:00 102 27 129/70 99 Nasal Cannula 3.0 11/02/16 18:00 97 26 117/65 100 Nasal Cannula 3.0 11/02/16 17:00 94 27 125/74 100 Nasal Cannula 3.0 11/02/16 16:00 105 11/02/16 16:00 98.7 103 29 123/65 100 Nasal Cannula 3.0 11/02/16 15:00 104 30 122/68 100 Nasal Cannula 3.0 11/02/16 14:00 109 35 120/66 100 Nasal Cannula 3.0 11/02/16 13:00 104 26 135/79 100 Nasal Cannula 3.0 11/02/16 12:00 98.4 95 30 108/60 100 Nasal Cannula 3.0 11/02/16 12:00 96 Intake and Output 11/02/16 11/03/16 19:00 07:00 Intake Total 1305.625 ml 1970 ml Output Total 1555 ml 2090 ml Balance -249.375 ml -120 ml Free Water 40 ml 90 ml IV Total 905.625 ml 1520 ml Tube Feeding 300 ml 360 ml Other 60 ml Output Urine Total 1555 ml 2090 ml # Bowel Movements 2 Laboratory Tests 11/03/16 04:30: White Blood Count 8.9, Red Blood Count 4.14L, Hemoglobin 12.2L, Hematocrit 37.3L , Mean Corpuscular Volume 90, Mean Corpuscular Hemoglobin 29.5, Mean Corpuscular Hemoglobin Concent 32.7, Red Cell Distribution Width 12.3, Platelet Count 567H, Mean Platelet Volume 7.3, Neutrophils (%) (Auto) 64.2, Lymphocytes ( %) (Auto) 17.5L, Monocytes (%) (Auto) 12.5H, Eosinophils (%) (Auto) 4.2H, Basophils (%) (Auto) 1.6, Sodium Level 136, Potassium Level 4.8, Chloride Level 94L, Carbon Dioxide Level 27, Anion Gap 15, Blood Urea Nitrogen 7, Creatinine 0.8, Estimat Glomerular Filtration Rate > 60, Glucose Level 140H, Calcium Level 9.8 Height (Feet): 5 Height (Inches): 8.00 Weight (Pounds): 160 Objective Intubated. HR [address]!. Cv Tach Lungs CTA Abd SNT. BS + PEG OK. E No CCE RENETTA SOMMER November 03, 2016 11:05
--- NOTE | 2016-11-03 17:31 | Neurology Progress Note ---
Interim History Interim History ROS Limited/Unobtainable: No Complaints: feel better Events: improved Objective Physical Exam Last Vital Signs Date Time Temp Pulse Resp B/P Pulse Ox O2 Delivery O2 Flow Rate FiO2 11/03/16 16:00 99 11/03/16 16:00 97.8 21 134/79 100 Nasal Cannula 3.0 11/02/16 19:14 32 Laboratory Tests Test 11/03/16 04:30 White Blood Count 8.9 K/UL (4.8-10.8) Red Blood Count 4.14 M/UL (4.70-6.10) L Hemoglobin 12.2 G/DL (14.2-18.0) L Hematocrit 37.3 % (42.0-52.0) L Mean Corpuscular Volume 90 FL (80-99) Mean Corpuscular Hemoglobin 29.5 PG (27.0-31.0) Mean Corpuscular Hemoglobin Concent 32.7 G/DL (32.0-36.0) Red Cell Distribution Width 12.3 % (11.6-14.8) Platelet Count 567 K/UL (150-450) H Mean Platelet Volume 7.3 FL (6.5-10.1) Neutrophils (%) (Auto) 64.2 % (45.0-75.0) Lymphocytes (%) (Auto) 17.5 % (20.0-45.0) L Monocytes (%) (Auto) 12.5 % (1.0-10.0) H Eosinophils (%) (Auto) 4.2 % (0.0-3.0) H Basophils (%) (Auto) 1.6 % (0.0-2.0) Sodium Level 136 mEQ/L (135-145) Potassium Level 4.8 mEQ/L (3.4-4.9) Chloride Level 94 mEQ/L (98-107) L Carbon Dioxide Level 27 mEQ/L (20-30) Anion Gap 15 (5-15) Blood Urea Nitrogen 7 mg/dL (7-23) Creatinine 0.8 mg/dL (0.7-1.2) Estimat Glomerular Filtration Rate > 60 mL/min (>60) Glucose Level 140 mg/dL (74-106) H Calcium Level 9.8 mg/dL (8.6-10.2) General: well developed, well nourished, no acute distress Head: normocophalic, atraumatic Neck: no rigidity Neurologic Exam Mental Status: awake, alert, oriented x4, normal cognition, normal recent memory, normal remote memory Speech: normal speech, no dysarthia, other - hoarse voice Language: normal language, no aphasia Cranial Nerve II: other - light perseption only Cranial Nerves III, IV, : PERRLA, EOMI, pupils Cranial Nerve V: normal facial sensations, temporales function normal, masseters function normal, pterygoids function normal Cranial Nerve VII: no facial asymmetry, normal facial expressions Cranial Nerve VIII: normal hearing, no nystagmus, other - sl less hearing Cranial Nerve IX: other - poor gag Cranial Nerve XII: tongue midline Motor System: normal muscle tone, strength 5/5, no involuntary movement, no muscle wasting Sensory: normal pinprick, normal light touch, normal position sense, normal graphesthesia Coordination: other Deep Tendon Reflexes: 0 ankle (L), 0 ankle (R), 0 bicep (L), 0 bicep (R), 0 brachioradialis (L), 0 brachioradialis (R), 0 knee (L), 0 knee (R), 0 tricep (L) , 0 tricep (R) Reflexes: flexor plantar (L), flexor plantar (R) Gait: other - ataxia Impression/Recommendations Problems: (1) 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 pt/ot GABI CAPONE November 03, 2016 17:31
--- NOTE | 2016-11-03 20:46 | Wound Care Consultation ---
Wound Assessment Wound Assessment : Wound Present on Admission: No New Wound: Yes Status Change of Wound: No Wound Location Body Site Modif: mid Wound Location Body Site: nose Wound Type: pressure ulcer [place]on Test: Does not Eldon Pressure Ulcer Stage: II Wound Thickness: Partial Thickness Wound Length: 1.5 Wound Width: 1.0 Percent of Wound [place]/Red: 100 Wound Drainage Amount: None Wound Drainage Odor: None/Absent Tissue Surrounding Wound: Erythemic Wound General Appearance: Reddened Wound Comment Reassessed this Pt. Stage II pressure ulcer Resolving. will cont same wound treatment. JACKELYN CALZADA RN November 03, 2016 20:46
[2016-11-04] MEDS ORDERED: CALCITRIOL 1 MCG/ML GT SCH (20:00)
--- NOTE | 2016-11-06 09:02 | Discharge Summary ---
Discharge Summary Hospital Course Date of Admission Oct 15, 2016 at 20:06 Date of Discharge November 03, 2016 at 23:53 Admitting Diagnosis food aspiration HPI Armando Baires is a 31 year old male who was admitted on Oct 15, 2016 at 20: 06 for Food Aspiration Hospital Course dc summary #[id number] Discharge Discharge Disposition Patient signed AMA Discharge Diagnoses: Discharge Instructions Discharge Instructions Special Instructions I have been assigned to complete a D/C Summary on this account. I was not involved in the patient management Trinity Bess NP (Vanchtein) November 06, 2016 09:02
--- NOTE | 2016-11-07 02:16 | Discharge Summary 2 SIG ---
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 The patient was intubated in ED for airway protection. Laboratory workup revealed elevated transaminase. The patient was afebrile, tachycardic, sinus tachycardia on monitor, no ischemic changes. Chest x-ray revealed left infiltrate. The patient was transferred to ICU for further management. ADMITTING DIAGNOSES: 1. Choking episode due to food. 2. Foreign body massive aspiration. 3. Partial airway obstruction. 4. Acute respiratory failure requiring intubation. 5. Aspiration pneumonia. 6. DIDMOAD syndrome. 7. Electrolyte abnormality (hypophosphatemia, hypomagnesemia, and hypernatremia). HOSPITAL STAY: The patient was admitted to ICU. Pulmonology, GI, and ID consults were requested. Ventilator care was provided. The patient was followed up with chest x-ray and ABG. CT of the chest revealed dense consolidation of the most of the left upper lobe and considerable portion of the left lower lobe, most likely reflecting pneumonia. Less confluent interstitial and airspace opacities seen within the right lung, and evidence of secretion within the left mainstem bronchus. Channel Cementer Insole Machine closely followed. The patient was extubated and they placed on the BiPAP. The patient had undergone bronchoscopy, on 10/19/2016, which revealed mucus plug. Bronchial aspiration culture revealed Klebsiella ESBL and Acinetobacter MDR. Respiratory status worsened. ABG prior to re-intubation showed pH - 7.22, pCO2 - 96.4, and bicarbonate - 39. The patient was at that time on BiPAP, which did not correct hypercapnia and was intubated by emergency room doctor. Subsequently, patient was extubated later, when stabilized. The patient was on the antibiotics. ID doctor followed and optimized antibiotic regimen based on culture and sensitivity. GI followed the patient. The patient had undergone upper endoscopy with PEG placement on 10/27/2016 with finding of gastritis. The patient was on PPI. LFTs were clsoely monitored, remained elevated. The patient was on the IV fluids and G-tube. Unable to increase rate of tube feeding since patient did not tolerate feeding. Procedure to switch G-tube to J-tube was planned. Neurologist followed the patient. According to neurologist, the patient has progressive neurodegenerative disease as a part of the DIDMOAD syndrome and presented with evidence of brainstem cerebellar degeneration resulting in aspiration. As a result, the patient developed aspiration pneumonia with respiratory failure and dysphagia requiring G-tube as well as the metabolic derangement with hypernatremia, hypomagnesemia, hypophosphatemia, and abnormal liver enzymes. Since latest MRI was done more than a year ago, MRI was obtained. MRI of brain was consistent with progressive neurodegenerative disorder. Venous duplex of bilateral lower extremity was negative. Last chest x-ray revealed clear lungs. Veterinary Assistant Technician was consulted along the way since the patient prior to reintubation developed sinus tachycardia. Echocardiogram revealed preserved ejection fraction of 60% and right ventricular systolic pressure of 38 consistent with mild pulmonary hypertension . Per rough rib grader, sinus tachycardia was more related to patient metabolic state. He did not appear to be in volume overload. Hypotonic intravenous fluids were provided, given his hypernatremia initially , while DDAVP was on hold. When sodium was normalized, DDAVP restarted. On 11/03/2016, the patient stated that he wanted to go home. He refused all his medications. He signed AMA form. His parents were at the bedside. Ambulance was called. Risks and consequences of signing against medical advice were described to the patient and family. The patient insisted on signing the form and did not wait for a doctor to call back. Patient left AMA. FINAL DIAGNOSES: 1. 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 2. Foreign body aspiration. 3. Sepsis ( due to aspiration PNA) . 4. Aspiration pneumonia with Klebsiella, extended-spectrum beta-lactamase, and Acinetobacter multidrug-resistant. 5. Acute respiratory failure requiring intubation. 6. Status post extubation. 7. Acute respiratory failure with hypercapnia, requiring reintubation, status post extubation. 8. Status post bronchoscopy. 9. Mucus plug. 10. Dysphagia. 11. Status post esophagogastroduodenoscopy with percutaneous endoscopic gastrostomy placement. 12. Transaminitis. 13. Mild pulmonary hypertension. [place] M.D. I have been assigned to dictate discharge summary on this account and I was not involved in the patient's management. Trinity oconnorrigo NGibsonPGibson DR: ROB JOB#: [id number] CC: JUNG
== END 2016-11-03 23:53 | disposition left against medical advice (07) | DRG 121 ==
LOC: EDBD 18:49 → EMR 19:47 → EEVIPCON 20:06 → ICU 20:06 → EDBEDREQ 10-16 05:04 → ICU 10-16 05:17
PROC: 5A1935Z Respiratory Ventilation, Less than 24 Consecutive Hours (ICD-10-PCS; 2016-10-15)
PROC: 0BH17EZ Insertion of Endotracheal Airway into Trachea, Via Natural or Artificial Opening (ICD-10-PCS; 2016-10-15)
PROC: 0BCF8ZZ Extirpation of Matter from Right Lower Lung Lobe, Via Natural or Artificial Opening Endoscopic (ICD-10-PCS; 2016-10-16)
PROC: 0BC78ZZ Extirpation of Matter from Left Main Bronchus, Via Natural or Artificial Opening Endoscopic (ICD-10-PCS; 2016-10-16)
PROC: 0BC58ZZ Extirpation of Matter from Right Middle Lobe Bronchus, Via Natural or Artificial Opening Endoscopic (ICD-10-PCS; 2016-10-16)
PROC: 5A09457 Assistance with Respiratory Ventilation, 24-96 Consecutive Hours, Continuous Positive Airway Pressure (ICD-10-PCS; 2016-10-19)
PROC: 0BC78ZZ Extirpation of Matter from Left Main Bronchus, Via Natural or Artificial Opening Endoscopic (ICD-10-PCS; 2016-10-19)
PROC: 0BC38ZZ Extirpation of Matter from Right Main Bronchus, Via Natural or Artificial Opening Endoscopic (ICD-10-PCS; 2016-10-19)
PROC: 0BC68ZZ Extirpation of Matter from Right Lower Lobe Bronchus, Via Natural or Artificial Opening Endoscopic (ICD-10-PCS; 2016-10-22)
PROC: 0BCB8ZZ Extirpation of Matter from Left Lower Lobe Bronchus, Via Natural or Artificial Opening Endoscopic (ICD-10-PCS; 2016-10-22)
PROC: 0BC58ZZ Extirpation of Matter from Right Middle Lobe Bronchus, Via Natural or Artificial Opening Endoscopic (ICD-10-PCS; 2016-10-22)
PROC: 0DH63UZ Insertion of Feeding Device into Stomach, Percutaneous Approach (ICD-10-PCS; 2016-10-27)
PROC: 5A09357 Assistance with Respiratory Ventilation, Less than 24 Consecutive Hours, Continuous Positive Airway Pressure (ICD-10-PCS; 2016-10-28)
PROC: 5A1945Z Respiratory Ventilation, 24-96 Consecutive Hours (ICD-10-PCS; principal; 2016-10-29)
PROC: 0BH17EZ Insertion of Endotracheal Airway into Trachea, Via Natural or Artificial Opening (ICD-10-PCS; 2016-10-29)
DX: T17.820A Food in other parts of respiratory tract causing asphyxiation, initial encounter (principal); J96.00 Acute respiratory failure, unspecified whether with hypoxia or hypercapnia; J69.0 Pneumonitis due to inhalation of food and vomit; A41.9 Sepsis, unspecified organism; J15.0 Pneumonia due to Klebsiella pneumoniae; E23.2 Diabetes insipidus; E87.0 Hyperosmolality and hypernatremia; J15.6 Pneumonia due to other Gram-negative bacteria; H90.5 Unspecified sensorineural hearing loss; E87.2 Acidosis; D64.9 Anemia, unspecified; J40 Bronchitis, not specified as acute or chronic; H47.22 Hereditary optic atrophy; X58.XXXA Exposure to other specified factors, initial encounter; T17.590A Other foreign object in bronchus causing asphyxiation, initial encounter; R13.10 Dysphagia, unspecified; R00.0 Tachycardia, unspecified; R45.1 Restlessness and agitation; Z16.24 Resistance to multiple antibiotics; E10.65 Type 1 diabetes mellitus with hyperglycemia; G31.89 Other specified degenerative diseases of nervous system; E83.39 Other disorders of phosphorus metabolism; E83.42 Hypomagnesemia; I27.2 Other secondary pulmonary hypertension
CPT/HCPCS: 31500; 31645; 36415; 36600; 70551; 71010; 71250; 74230; 76700; 80048; 80053; 80202; 81003; 82803; 82962; 83036; 83735; 83880; 83935; 84100; 84132; 84295; 84439; 84443; 85007; 85025; 87070; 87081; 87086; 87181; 87205; 93005; 93306; 93970; 94002; 94003; 94150; 94660; 94664; 94760; J1815; S5561